=== PATIENT | male | born 1960 | race Caucasian/White ===

== ENCOUNTER 2022-11-19 15:19 | Outpatient (OUT) | payer OTHER, SELFPAY ==
[2022-11-19 16:24] LABS: Prostate Specific Antigen Dx 5.55 ng/mL (<=4.00)
== END 2022-11-19 15:20 | disposition home or self-care (01) ==
LOC: LAB 15:20
DX: R97.20 Elevated prostate specific antigen [PSA] (principal)
CPT/HCPCS: 36415; 84153

== ENCOUNTER 2023-01-23 15:16 | Outpatient (OUT) | payer OTHER, SELFPAY ==
--- NOTE | 2023-01-23 | ECG_ITS ---
The [facility] Test Date: 2023-01-23 Pat Name: SOREN OSORIO Department: Room: - Gender: Male [employer]: : [id number] Requested By: CHELO ESTRADA Order Number: [id number] Reading MD: LO MARISCAL Measurements Intervals Odd Rate: 65 P: 44 DC: 182 QRS: 72 QRSD: 134 T: 179 QT: 449 QTc: 467 Interpretive Statements SINUS RHYTHM LEFT BUNDLE BRANCH BLOCK with secondary ST/T wave changes ST/T wave changes, can't exclude inferior wall ischemia No previous ECG available for comparison Electronically Signed On 01-24-2023 7:20:55 EST by LO MARISCAL
[2023-01-23 15:48] LABS: Basophils Percent Auto 0.4 % (0.2-2.0); Eosinophils Absolute Auto 0.1 10^3/uL (0.0-0.7); Eosinophils Percent Auto 1.2 % (0.9-7.0); Hematocrit 44.6 % (42.0-54.0); Hemoglobin 14.5 g/dL (14.0-18.0); Immature Granulocytes Abs Auto 0.02 10^3/uL (0.00-0.03); Immature Granulocytes Pct Auto 0.3 % (0.0-0.5); Lymphocytes Absolute Auto 1.2 10^3/uL (1.2-3.8); Lymphocytes Percent Auto 17.3 % (20.5-60.0); Mean Corpuscular HGB Conc 32.5 g/dL (29.9-35.2); Mean Corpuscular Hemoglobin 29.4 pg (25.9-34.0); Mean Corpuscular Volume 90.5 fL (80.0-94.0); Mean Platelet Volume 9.9 fL (9.5-13.5); Monocytes Absolute Auto 0.5 10^3/uL (0.3-0.8); Monocytes Percent Auto 7.6 % (1.7-12.0); Neutrophils Percent Auto 73.2 % (43.0-75.0); Platelet Count 221 10^3/uL (150-450); Red Blood Count 4.93 10^6/uL (4.70-6.10); Red Cell Distribution Width 12.9 % (11.0-15.0); White Blood Count 6.8 10^3/uL (4.0-11.0)
[2023-01-23 16:21] LABS: Alanine Aminotransferase 66 U/L (16-63); Albumin Globulin Ratio 1.3; Albumin Level 4.3 g/dL (3.4-5.0); Alkaline Phosphatase 83 U/L (46-116); Anion Gap 12.1; Aspartate Amino Transferase 39 U/L (15-37); BUN Creatinine Ratio 31.8; Chloride 107 mmol/L (98-107); Chol HDL Ratio 2.2; Cholesterol 130 mg/dL (<=200); Estimated GFR (African America >60 (>=60); Estimated GFR (Non-African Ame >60 (>=60); Globulin 3.2 g/dL; Glucose 85 mg/dL (74-106); HDL Cholesterol 59 mg/dL (40-60); LDL Cholesterol Calculated 63.4 mg/dL; Magnesium 2.2 mg/dL (1.8-2.4); Potassium 4.1 mmol/L (3.5-5.1); Sodium 145 mmol/L (136-145); TSH W/ REFLEX FT4 0.829 (0.358-3.740); Total Protein 7.5 g/dL (6.4-8.2); Triglycerides 38 mg/dL (<=150); VLDL CHOLESTEROL 7.6 mg/dL
== END 2023-01-23 15:17 | disposition home or self-care (01) ==
LOC: CARD 15:18
DX: I51.7 Cardiomegaly (principal); Z95.1 Presence of aortocoronary bypass graft; I10 Essential (primary) hypertension; I42.2 Other hypertrophic cardiomyopathy
CPT/HCPCS: 36415; 80053; 80061; 82306; 83735; 84443; 85025; 93005

== ENCOUNTER 2023-02-14 15:13 | Outpatient (OUT) | payer OTHER, SELFPAY ==
--- OUTSIDE RECORDS SUMMARY | 2023-02-14 15:18 | XMS_ITS | CCD ---
Author Name Unknown Address [id number] [place] [address] Organization [facility] Care Team Providers Care Pediatrician/Medical Doctor Name Role Phone Rudy Thomas MD Primary Care Provider JENNIFER BROWNE Referring Unavailable RUDY THOMAS Primary Care Unavailable RUDY THOMAS Primary Care Unavailable BRETT RAMESH Referring Unavailable Unavailable Primary Care Provider Unavailabl e Thompson ACEVEDO, Rudy Grewal Primary Care Provider Hari Estrada Unavailable Josh Barrientos MD Unavailable Rudy Thomas MD Primary Care Provider RUDY THOMAS Referring Unavailable RUDY THOMAS Primary Care Unavailable RUDY THOMAS Referring Unavailable RUDY THOMAS Primary Care Unavailable RUDY THOMAS Referring Unavailable RUDY THOMAS Primary Care Unavailable RUDY THOMAS Referring Unavailable HEMERUDY AGUIRRE Primary Care Unavailable FILI ESTRADA Referring Unavailable RUDY THOMAS Primary Care Unavailable DESTIN CHARLES Referring Unavailable HEMEYERRUDY Primary Care Unavailab DESTIN Brannon Referring Unavailable HEMEYER, RUDY GREWAL Primary Care Unavailab DESTIN Brannon Referring Unavailable HEMEYERRUDY Primary Care Unavailab DESTIN Brannon Referring Unavailable HEMEYER, RUDY GREWAL [facility] Care Unavailab DESTIN Brannon Referring Unavailable HEMEYER, RUDY GREWAL [facility] Care Unavailab le UNAI, ROSEY Referring Unavailable HEMEYER, [facility] Care Unavailab le UNAI, SHINYA Referring Unavailable HEMEYER, [facility] Primary Care Unavailab le SMEDIRAJUDITS G Referring Unavailable HEMEYER, [facility] Care Unavailab DEANA Guerrier Attending Unavailable HEMEYER, [facility] Primary Care Unavailab JOSH Jang Attending Unavailable HEMEYER, [facility] Care Unavailab le UNAI, SHINYA Referring Unavailable HEMEYER, [facility] Care Unavailab le UNAI, SHINYA Referring Unavailable HEMEYER, [facility] Care Unavailab le UNAI, SHINYA Referring Unavailable HEMEYER, [facility] Care Unavailab le SMEDIRAKENNEYDESTIN G Admitting Unavailable SMEDIRA, DESTIN G Attending Unavailable HEMEYER, [facility] Primary Care Unavailab le UNAI, SHINYA Referring Unavailable HEMEYER, [facility] Care Unavailab le UNAI, SHINYA Referring Unavailable HEMEYER, [facility] Care Unavailab le SMEDIRAKENNEYDESTIN G Referring Unavailable HEMEYER, [facility] Care Unavailab le SMEDIRA DESTIN G Referring Unavailable HEMEYER, [facility] Care Unavailab le VIGESFILI CORTES Admitting Unavailable HEMEYER ., DR LOU Primary Care Unavailable VIGESAA, FILI Attending Unavailable VIGESAA, FILI Consulting Unavailable VIGESAAFILI Admitting Unavailable HEMEYER ., DR LOU Primary Care Unavailable VIGESAA, FILI Attending Unavailable VIGESAA, FILI Consulting Unavailable HEMEYER ., DR LOU Admitting Unavailable HEMEYER ., DR LOU Referring Unavailable HEMEYER ., DR LOU Attending Unavailable HEMEYER ., DR LOU Consulting Unavailable HEMEYER ., DR LOU Primary Care Unavailable HEMEYER ., DR LOU Primary Care Unavailable MISC, DR CARVER Admitting Unavailable MISC, DR CARVER Attending Unavailable MISC, DR CARVER Consulting Unavailable VIGESAAFILI Consulting Unavailable VIGESAAFILI Admitting Unavailable HEMEYER ., DR LOU Primary Care Unavailable VIGESSOPHIA, FILI Attending Unavailable HEMEYER ., DR LOU Admitting Unavailable HEMEYER ., DR LOU Attending Unavailable HEMEYER ., DR LOU Consulting Unavailable HEMEYER ., DR LOU Primary Care Unavailable VIGESAAFILI Consulting Unavailable HEMEYER ., DR LOU Primary Care Unavailable VIGESFILI CORTES Admitting Unavailable VIGESAA, FILI Attending Unavailable VIGESSOPHIA, HARI DWYER Attending Unavailab le VIGESAA, HARI DWEYR Referring Unavailab le HEMEYER, EDREBA Clay Primary Care Unavailable HEMEYER, RUDY J Primary Care Unavailable HARI ESTRADA Admitting Unavailab HARI Herrera Attending Unavailab le Medications Current Medications Medication Drug Class(es) Dates Sig (Normalized) Sig (Original) amLODIPine 10 mg oral tablet (1 source) Dihydropyridine Calcium Channel Zackery Start: 07-11-2021 take 1 tablet by mouth in the morning amLODIPine (NORVASC) 10 MG tablet Take 10 mg by mouth in the morning. 0 07/11/2021 Active Coenzyme Q10 (COQ10 PO) (7 sources) Coenzyme Q10 (COQ10 PO) Take by mouth daily Krill and Co Q10 0 Active levoFLOXacin 500 mg oral tablet (1 source) Quinolone Antimicrobial Start: 09-13-2021 End: 09-23-2021 take 1 tablet by mouth in the morning levoFLOXacin (LEVAQUIN) 500 MG tablet Take 1 tablet by mouth in the morning for 10 days. 10 tablet 0 09/13/2021 09/23/2021 Active metoprolol tartrate 50 mg oral tablet (8 sources) beta-Adrenergic Zackery Start: 04-02-2022 take 1 tablet by mouth twice daily metoprolol tartrate (LOPRESSOR) 50 MG tablet Take 1 tablet by mouth 2 times daily 180 tablet 3 04/02/2022 Active Start: 03-03-2022 End: 04-02-2022 take 1 tablet by mouth every twelve hours metoprolol tartrate, short acting, (LOPRESSOR) 50 mg tablet Take 1 tablet by mouth every 12 hours. 60 tablet 1 03/03/2022 Active take 1 tablet by carlos th once daily metoprolol succinate (TOPROL XL) 50 MG extended release tablet Take 50 mg by mouth daily 0 Active Comment on above: Take 1 tablet by carlos th every 12 hours. Misc Natural Products (GLUCOSAMINE CHOND COMPLEX/MSM PO) (7 sources) Misc Natural Products (GLUCOSAMINE CHOND COMPLEX/MSM PO) daily 0 Active NONFORMULARY (7 sources) NONFORMULARY Vitaprime-take one tablet daily 0 Active oxyCODONE hydrochloride 5 mg oral tablet (4 sources) Opioid Agonist Start: 3 End: 3 take 1 tablet by mouth every six hours as needed for pain oxyCODONE IR (ROXICODONE) 5 mg immediate release tablet Indications: Post-op pain Take 1 tablet by mouth every 6 hours as needed for pain for up to 7 days. 28 tablet 0 03/03/2022 03/10/2022 Active Comment on above: Take 1 tablet by carlos th every 6 hours as needed for pain for up to 7 days. microencapsulated potassium chloride 10 meq extended release oral tablet (5 sources) Start: End: 3 take 1 tablet by mouth once daily potassium chloride ER (K-DUR, KLOR-CON M10) 10 mEq tablet Take 1 tablet by mouth once daily for 3 days. 3 tablet 0 03/08/2022 03/11/2022 Active Comment on above: Take 1 tablet by carlos th once daily for 3 days. Completed/Discontinued Medications Medication Drug Class(es) Dates Sig (Normalized) Sig (Original) acetaminophen 500 mg oral tablet (6 sources) Start: 03-03-2022 take 500-1000 mg by mouth every six hours as needed acetaminophen (TYLENOL) 500 mg tablet Take 1-2 tablets by mouth every 6 hours as needed for pain (mild pain. Do not take more than 4 grams of acetaminophen in 24 hours.). 90 tablet 0 03/03/2022 Active Comment on above: Take 1-2 tablets by mouth every 6 hours as needed for pain (mild pain. Do not take more than 4 grams of acetaminophen in 24 hours.). ascorbic acid 1000 mg oral tablet (20 sources) Vitamin C take 1 tablet by mouth once daily Ascorbic Acid 1,000 mg tablet Take 1,000 mg by mouth once daily. 0 Active Comment on above: Take 1,000 mg by carlos th once daily. aspirin 81 mg chewable tablet (7 sources) Platelet Aggregation Inhibitor, Nonsteroidal Anti-inflammatory Drug Start: 03-04-2022 End: 04-03-2022 take 1 tablet by mouth once daily aspirin 81 mg chewable tablet Take 1 tablet by mouth once daily. 30 tablet 3 03/04/2022 Active take 1 tablet by mouth once graciela y aspirin 81 MG EC tablet Take 81 mg by mouth daily 0 Active Comment on above: Take 1 tablet by carlos th once daily. atenolol 25 mg oral tablet (12 sources) beta-Adrenergic Zackery Start: 11-30-2021 take 1 tablet by mouth once daily atenolol (TENORMIN) 25 mg tablet Take 25 mg by mouth once daily. 0 11/30/2021 Suspended Start: 11-08-2021 take 1 tablet by carlos th once daily atenolol (TENORMIN) 25 MG tablet Take 1 tablet by mouth daily 30 tablet 11 11/08/2021 Active Comment on above: Take 25 mg by mouth once daily. atorvastatin 80 mg oral tablet (7 sources) HMG-CoA Reductase Inhibitor Start: 03-03-19 End: 04-02-19 take 1 tablet by mouth once daily at bedtime atorvastatin (LIPITOR) 80 mg tablet Take 1 tablet by mouth daily at bedtime. 30 tablet 1 03/03/2022 Active Comment on above: Take 1 tablet by carlos th daily at bedtime. cholecalciferol 0.125 mg oral tablet (20 sources) Vitamin D take 2 tablets by mouth once daily cholecalciferol (VITAMIN D3) 5,000 unit tab Take 10,000 Units by mouth once daily. 0 Active Cholecalciferol (VITAMIN D-3 PO) Take by mouth daily 0 Active Comment on above: Take 10,000 Units by mouth once daily. furosemide 20 mg oral tablet (7 sources) Loop Diuretic Start: 03-04-2022 End: 03-11-2022 take 1 tablet by mouth once daily furosemide (LASIX) 20 mg tablet Take 1 tablet by mouth once daily for 3 days. 3 tablet 0 03/08/2022 Active Comment on above: Take 1 tablet by carlos th once daily for 3 days. glucosam/chond-msm1/C /janiya/bor ([id number]-HK M COMPLEX ORAL) (13 sources) take 1 tablet by mouth once daily glucosam/chond-msm1/ C/janiya/bor ([id number]-MLIQM-M SM COMPLEX ORAL) Take 1 tablet by mouth once daily. 0 Active take 1 tablet by carlos th once daily glucosam/chond-msm1/C/janiya/bor (GLUCOSAM QNV-VYZXH-OFT COMPLEX ORAL) Take 1 tablet by mouth once daily. 0 Suspended Comment on above: Take 1 tablet by carlos th once daily. losartan potassium 100 mg oral tablet (14 sources) Angiotensin 2 Receptor Zackery Start: 01-03-2022 take 1 tablet by mouth once daily losartan (COZAAR) 100 mg tablet Take 1 tablet by mouth once daily. 0 01/03/2022 Suspended Comment on above: Take 1 tablet by carlos th once daily. Magnesium (20 sources) take 250 mg by mouth once daily MAGNESIUM ORAL Take 250 mg by mouth once daily. 0 Active take 250 mg by mouth once daily MAGNESIUM ORAL Take 250 mg by mouth once daily. 0 Suspended take 1 tablet by mouth in the mo rning magnesium (MAGNESIUM-OXIDE) 250 MG TABS tablet Take 250 mg by mouth in the morning. 0 Active Comment on above: Take 250 mg by mouth once daily. melatonin 10 mg oral capsule (20 sources) take 1 capsule by mouth once daily at bedtime melatonin 10 mg cap Take 1 capsule by mouth daily at bedtime. 0 Active Melatonin 10 MG TABS Take by mouth nightly 0 Active Comment on above: Take 1 capsule by mo cox branson daily at bedtime. MULTIVITAMIN ORAL (13 sources) take 1 tablet by mouth once daily MULTIVITAMIN ORAL Take 1 tablet by mouth once daily. 0 Active take 1 tablet by mouth once graciela y MULTIVITAMIN ORAL Take 1 tablet by mouth once daily. 0 Suspended Comment on above: Take 1 tablet by carlos th once daily. mupirocin 0.02 mg/mg topical ointment (2 sources) RNA Synthetase Inhibitor Antibacterial Start: 2 mupirocin (BACTROBAN) 2 % ointment Apply a small amount in each nostril using a cotton swab twice the day before surgery and once the morning of surgery. 22 g 0 02/22/2022 Suspended Comment on above: Apply a small amount in each nostril using a cotton swab twice the day before surgery and once the morning of surgery. niacin 500 mg oral tablet (20 sources) Nicotinic Acid take 1 tablet by mouth once daily at breakfast niacin (NIACIN) 500 mg tablet Take 500 mg by mouth daily with breakfast. 0 Active take 1 capsule by mouth in the orning niacin 500 MG extended release capsule Take 500 mg by mouth in the morning. 0 Active Comment on above: Take 500 mg by mouth daily with breakfast. pantoprazole 20 mg delayed release oral tablet (6 sources) Proton Pump Inhibitor Start: 03-04-19 23 End: 03-18-19 23 take 1 tablet by mouth once daily, then take 6 tablets by mouth in the morning pantoprazole DR (PROTONIX) 20 mg tablet Take 1 tablet by mouth DAILY (6 AM) for 14 days. 14 tablet 0 03/04/2022 Active Comment on above: Take 1 tablet by carlos th DAILY (6 AM) for 14 days. polyethylene glycol 3350 34600 mg powder for oral solution (6 sources) Osmotic Laxative Start: 03-03-19 polyethylene glycol 3350 (MIRALAX, GLYCOLAX) 17 gram packet Take 1 Packet by mouth as needed for constipation. Dissolve dose in 4 - 8 ounces of liquid and take as directed. 0 03/03/2022 Active Comment on above: Take 1 Packet by carlos th as needed for constipation. Dissolve dose in 4 - 8 ounces of liquid and take as directed. QUEtiapine 25 mg oral tablet (20 sources) Atypical Antipsychotic Start: 02-01-20 16 take 1 tablet by mouth once daily at bedtime QUEtiapine (SEROQUEL) 25 mg tablet Take 1 tablet by mouth daily at bedtime. 0 02/01/2016 Active Comment on above: Take 1 tablet by carlos daily at bedtime. sertraline 50 mg oral tablet (20 sources) Serotonin Reuptake Inhibitor Start: 01-11-20 16 take 1 tablet by mouth once daily at bedtime sertraline (ZOLOFT) 50 mg tablet Take 50 mg by mouth daily at bedtime. 0 01/11/2016 Active Comment on above: Take 50 mg by mouth daily at bedtime. tamsulosin hydrochloride 0.4 mg oral capsule (6 sources) alpha-Adrenergic Zackery Start: 03-03-19 End: 03-17-19 take 1 capsule by mouth once daily at bedtime tamsulosin (FLOMAX) 0.4 mg Take 1 capsule by mouth daily at bedtime for 14 days. 14 capsule 0 03/03/2022 Active Comment on above: Take 1 capsule by mo cox branson daily at bedtime for 14 days. technetium sestamibi (CARDIOLITE) injection 10 millicurie (1 source) Start: 11-14-19 End: 11-14-19 technetium sestamibi (CARDIOLITE) injection 10 millicurie technetium sestamibi (CARDIOLITE) injection 30 millicurie (1 source) Start: 11-14-19 End: 11-14-19 technetium sestamibi (CARDIOLITE) injection 30 millicurie ubiquinol (13 sources) take 1 tablet by mouth once daily COQ10, UBIQUINOL, ORAL Take 1 tablet by mouth once daily. With Krill 0 Active take 1 tablet by mouth once graciela y COQ10, UBIQUINOL, ORAL Take 1 tablet by mouth once daily. With Krill 0 Suspended Comment on above: Take 1 tablet by carlos th once daily. With Krill Problems Active Problems Problem Classification Problem Date Documented Da te Episodic/Chronic Anxiety disorders (2 sources) Mixed anxiety and depressive disorder; Translations: [Anxiety disorder, unspecified] Onset: 02-21-2022 Chronic Chronic kidney disease (1 source) Chronic kidney disease, unspecified; Translations: [CHRONIC KIDNEY DISEASE UNSPECIFIED] Onset: 03-21-2022 Chronic Coronary atherosclerosis and other heart disease (14 sources) Coronary atherosclerosis; Translations: [Atherosclerotic heart disease of [place] coronary artery without angina pectoris] Onset: 02-21-2022 Chronic Coronary atherosclerosis and other heart disease (6 sources) Presence of aortocoronary bypass graft; Translations: [Presence of aortocoronary bypass graft] Onset: 03-08-2022 Episodic Deficiency and other anemia (1 source) Iron deficiency anemia secondary to blood loss (chronic); Translations: [IRON DEFIC ANEMIA SEC BLD LOSS CHRN] Onset: 03-21-2022 Chronic Disorders of lipid metabolism (9 sources) Hyperlipidemia; Translations: [Hyperlipidemia, unspecified] Onset: 01-17-2015 Chronic Essential hypertension (12 sources) Essential hypertension; Translations: [Essential (primary) hypertension] Onset: 01-17-2015 Chronic Heart valve disorders (6 sources) Non-rheumatic mitral regurgitation ; Translations: [Nonrheumatic mitral (valve) insufficiency] Onset: 09-12-2021 Chronic Hyperplasia of prostate (1 source) Benign prostatic hypertrophy without outflow obstruction; Translations: [Benign prostatic hyperplasia without lower urinary tract symptoms] Onset: 02-12-2018 03-12-2022 Chronic Hypertension with complications and secondary hypertension (6 sources) Hypertensive renal disease; Translations: [Hypertensive chronic kidney disease with stage 1 through stage 4 chronic kidney disease, or unspecified chronic kidney disease] Onset: 04-15-2020 03-12-2022 Chronic Mood disorders (1 source) Reactive depression (situational); Translations: [Major depressive disorder, single episode, unspecified] Onset: 01-11-2016 03-12-2022 Chronic Mood disorders (1 source) Mood disorders; Translations: [Anxiety and depression] Onset: 02-21-2022 Nutritional deficiencies (1 source) Vitamin D deficiency; Translations: [Vitamin D deficiency, unspecified] Onset: 01-17-2015 03-12-2022 Chronic Other aftercare (1 source) Surgical follow-up; Translations: [Encounter for follow-up examination after completed treatment for conditions other than malignant neoplasm] Episodic Other aftercare (1 source) Encounter for follow-up examination after completed treatment for conditions other than malignant neoplasm; Translations: [Surgery follow-up] Onset: 03-08-2022 Episodic Other and ill-defined heart disease (2 sources) Atrial dilatation; Translations: [Cardiomegaly] Chronic Other and ill-defined heart disease (2 sources) Cardiomegaly; Translations: [Cardiomegaly] Onset: 11-13-2021 Chronic Other lower respiratory disease (1 source) Dyspnea; Translations: [Shortness of breath] Episodic Zeynep-; endo-; and myocarditis; cardiomyopathy (except that caused by tuberculosis or sexually transmitted disease) (20 sources) Hypertrophic cardiomyopathy; Translations: [Other hypertrophic cardiomyopathy] Onset: 11-13-2021 Chronic Residual codes; unclassified (1 source) Sleep dysfunction with arousal disturbance; Translations: [Other sleep disorders] Onset: 01-11-2016 03-12-2022 Chronic Residual codes; unclassified (1 source) H/O cardiac surgery; Translations: [Other specified postprocedural states] Episodic Residual codes; unclassified (1 source) Other specified postprocedural states; Translations: [S/P ventricular septal myectomy] Onset: 03-08-2022 Episodic Unclassified (3 sources) No additional problems on file Past or Other Problems Problem Classification Problem Date Documented Date Episodic/Chronic Administrative/social admission (16 sources) Discharge status; Translations: [Encounter for administrative examinations, unspecified] Onset: 02-22-2022 02-22-2022 Episodic Diabetes mellitus without complication (8 sources) Metabolic stress hyperglycemia; Translations: [Hyperglycemia, unspecified] Onset: 02-27-2022 02-28-2022 Episodic Genitourinary symptoms and ill-defined conditions (3 sources) Nocturia; Translations: [Nocturia] Onset: 02-14-2015 Episodic Heart valve disorders (7 sources) Heart murmur; Translations: [Cardiac murmur, unspecified] Onset: 09-11-2021 Episodic Other lower respiratory disease (1 source) Shortness of breath; Translations: [SOB (shortness of breath)] Onset: 02-21-2022 Episodic Other nervous system disorders (8 sources) Postoperative pain ; Translations: [Other acute postprocedural pain] Onset: 02-27-2022 02-28-2022 Episodic Other nervous system disorders (1 source) Other acute postprocedural pain; Translations: [Post-op pain] Onset: 02-27-2022 Episodic Other screening for suspected conditions (not mental disorders or infectious disease) (4 sources) Raised prostate specific antigen; Translations: [Elevated prostate specific antigen [PSA]] Onset: 10-10-2021 Episodic Pleurisy; pneumothorax; pulmonary collapse (7 sources) Atelectasis; Translations: [Atelectasis] Onset: 02-28-2022 03-02-2022 Episodic Residual codes; unclassified (1 source) Insomnia; Translations: [Insomnia, unspecified] Onset: 01-11-2016 03-12-2022 Episodic Results Test Name Value Interpretation Reference Range Facility CBC AUTO DIFFon 06-19-2022 BASO # 0.0 103/ul Normal 0.0-0.1 [facility] Comment on above: Performed By: #### C BC #### [facility] [address] [place] [address] Dr. Mel Ramirez Basophils/100 WBC (Bld) 0.3 % Normal 0.2-2.0 [facility] Comment on above: Performed By: #### C BC #### [facility] [address] [place] [address] Dr. Mel Ramirez EO # 0.1 103/ul Normal 0.0-0.7 [facility] Comment on above: Performed By: #### C BC #### [facility] [address] [place] [address] Dr. Mel Ramirez Eosinophils/100 WBC (Bld) 1.9 % Normal 0.9-7.0 [facility] Comment on above: Performed By: #### C BC #### [facility] [address] [place] [address] Dr. Mel Ramirez Erythrocyte distribution width (RBC) [Ratio] 14.6 % Normal 11.0-15.0 [facility] Comment on above: Performed By: #### C BC #### [facility] [address] [place] [address] Dr. Mel Ramirez Hematocrit (Bld) [Volume fraction] 44.8 % Normal 42.0-54.0 [facility] Comment on above: Performed By: #### C BC #### [facility] [address] [place] [address] Dr. Mel Ramirez Hemoglobin (Bld) [Mass/Vol] 14.4 g/dL Normal 14.0-18.0 [facility] Comment on above: Performed By: #### C BC #### [facility] [address] [place] [address] Dr. Mel Ramirez IG # 0.01 10e3/ul Normal 0.00-0.03 [facility] Comment on above: Performed By: #### C BC #### [facility] [address] [place] [address] Dr. Mel Ramirez IG % 0.2 % Normal 0.0-0.5 [facility] Comment on above: Performed By: #### C BC #### [facility] [address] [place] [address] Dr. Mel Ramirez LYMPH # 1.5 103/ul Normal 1.2-3.8 [facility] Comment on above: Performed By: #### C BC #### [facility] [address] [place] [address] Dr. Mel Ramirez Lymphocytes/100 WBC (Bld) 26.6 % Normal 20.5-60.0 [facility] Comment on above: Performed By: #### C BC #### [facility] [address] [place] [address] Dr. Mel Ramirez MANUAL DIFF REQ NO Normal [facility] Comment on above: Performed By: #### C BC #### [facility] [address] [place] [address] Dr. Mel Ramirez MCH (RBC) [Entitic mass] 26.9 pg Normal 25.9-34.0 [facility] Comment on above: Performed By: #### C BC #### [facility] [address] [address] [address] Mel Ramirez MCHC (RBC) [Mass/Vol] 32.1 g/dL Normal 29.9-35.2 [facility] Comment on above: Performed By: #### C BC #### [facility] [address] [address] [address] Mel Ramirez MCV (RBC) [Entitic vol] 83.6 fL Normal 80.0-94.0 [facility] Comment on above: Performed By: #### C BC #### [facility] [address] [place] [address] Dr. Mel Ramirez MONO # 0.5 103/ul Normal 0.3-0.8 [facility] Comment on above: Performed By: #### C BC #### [facility] [address] [place] [address] Dr. Mel Ramirez Monocytes/100 WBC (Bld) 8.8 % Normal 1.7-12.0 [facility] Comment on above: Performed By: #### C BC #### [facility] [address] [place] [address] Dr. Mel Ramirez NEUT # 3.6 103/ul Normal 1.4-6.5 [facility] Comment on above: Performed By: #### C BC #### [facility] [address] [place] [address] Dr. Mel Ramirez Neutrophils/100 WBC (Bld) 62.2 % Normal 43.0-75.0 [facility] Comment on above: Performed By: #### C BC #### [facility] [address] [address] [address] Mel Ramirez Platelet mean volume (Bld) [Entitic vol] 9.8 fL Normal 9.5-13.5 [facility] Comment on above: Performed By: #### C BC #### [facility] [address] [place] [address] Dr. Mel Ramirez PLT 241 103/ul Normal 150-450 [facility] Comment on above: Performed By: #### C BC #### [facility] [address] [address] [address] Mel Ramirez RBC 5.36 106/ul Normal 4.70-6.10 [facility] Comment on above: Performed By: #### C BC #### [facility] [address] [address] [address] Mel Ramirez WBC 5.8 103/ul Normal 4.0-11.0 [facility] Comment on above: Performed By: #### C BC #### [facility] [address] [address] [address] Mel Ramirez LIPID PROFILEon 06-19-2022 CHOL-HDL RATIO NORM SEE BELOW Normal [facility] Comment on above: Result Comment: 3.3 - 4.4 LOW RISK 4.4 - 7.1 AVERAGE RISK 7.1 - 11.0 MODERATE RISK >11.0 HIGH RISK Performed By: #### T SHRFT4, MG, CMP, LIPID ####[facility] [address] [address]Dr. Mel Ramirez Cholesterol [Mass/Vol] 130 mg/dL Normal <=200 [facility] Comment on above: Performed By: #### T SHRFT4, MG, CMP, LIPID ####[facility] [address] [address]Dr. Mel Ramirez Cholesterol in HDL [Mass/Vol] 64 mg/dL Critically high 40-60 [facility] Comment on above: Performed By: #### T SHRFT4, MG, CMP, LIPID ####[facility] [address] [address]Dr. Mel Ramirez Cholesterol in LDL [Mass/Vol] 57.2 mg/dL Normal [facility] Comment on above: Performed By: #### T SHRFT4, MG, CMP, LIPID ####[facility] [address] [address]Dr. Mel Ramirez Cholesterol.total/Ch olesterol in HDL [Mass ratio] 2.0 {ratio} Normal [facility] Comment on above: Performed By: #### T SHRFT4, MG, CMP, LIPID ####[facility] [address] [id number]. Mel Ramirez HDL NORMAL > or = 60 mg/dl - LO W CARDIOVASCULAR RISK <40 mg/dl - HIGH CARDIOVASCULAR RISK Normal [facility] Comment on above: Performed By: #### T SHRFT4, MG, CMP, LIPID ####[facility] [address] [address]Dr. Mel Ramirez LDL CALC NORMAL SEE BELOW Normal [facility] Comment on above: Result Comment: <100 mg/dl OPTIMAL 100 - 129 mg/dl NEAR OR ABOVE OPTIMAL 130 - 159 mg/dl BORDERLINE HIGH 160 - 189 mg/dl HIGH >190 mg/dl VERY HIGH Performed By: #### T SHRFT4, MG, CMP, LIPID ####[facility] [address] [address]Dr. Mel Ramirez Triglyceride [Mass/Vol] 44 mg/dL Normal <=150 [facility] Comment on above: Performed By: #### T SHRFT4, MG, CMP, LIPID ####[facility] [address] [address]Dr. Mel Ramirez VLDL CALC 8.8 mg/dL Normal [facility] Comment on above: Performed By: #### T SHRFT4, MG, CMP, LIPID ####[facility] [address] [address]Dr. Mel Ramirez MAGNESIUMon 06-19-2022 Magnesium [Mass/Vol] 1.8 mg/dL Normal 1.8-2.4 [facility] Comment on above: Performed By: #### T SHRFT4, MG, CMP, LIPID ####[facility] [address] [address]Dr. Mel Ramirez PROF 14(COMP METB)on 023 Albumin [Mass/Vol] 4.1 g/dL Normal 3.4-5.0 [facility] Comment on above: Performed By: #### T SHRFT4, MG, CMP, LIPID ####[facility] [address] [address]Dr. Mel Ramirez Albumin/Globulin [Mass ratio] 1.2 {ratio} Normal [facility] Comment on above: Performed By: #### T SHRFT4, MG, CMP, LIPID ####[facility] [address] [address]Dr. Mel Ramirez ALP [Catalytic activity/Vol] 88 U/L Normal 46-116 [facility] Comment on above: Performed By: #### T SHRFT4, MG, CMP, LIPID ####[facility] [address] [address]Dr. Mel Ramirez ALT [Catalytic activity/Vol] 64 U/L Critically high 16-63 [facility] Comment on above: Performed By: #### T SHRFT4, MG, CMP, LIPID ####[facility] [address] [address]Dr. Mel Ramirez Anion gap [Moles/Vol] 13.0 mmol/L Normal [facility] Comment on above: Performed By: #### T SHRFT4, MG, CMP, LIPID ####[facility] [address] [place], [place] [address]Dr. Mel Ramirez AST [Catalytic activity/Vol] 32 U/L Normal 15-37 [facility] Comment on above: Performed By: #### T SHRFT4, MG, CMP, LIPID ####[facility] [address] [address]Dr. Mel Ramirez Bilirubin [Mass/Vol] 0.6 mg/dL Normal 0.2-1.0 [facility] Comment on above: Performed By: #### T SHRFT4, MG, CMP, LIPID ####[facility] [address] [address]Dr. Mel Ramirez Calcium [Mass/Vol] 9.3 mg/dL Normal 8.5-10.1 [facility] Comment on above: Performed By: #### T SHRFT4, MG, CMP, LIPID ####[facility] [address] [address]Dr. Mel Ramirez Chloride [Moles/Vol] 105 mmol/L Normal 98-107 [facility] Comment on above: Performed By: #### T SHRFT4, MG, CMP, LIPID ####[facility] [address] [address]Dr. Mel Ramirez CO2 [Moles/Vol] 29.1 mmol/L Normal 21.0-32.0 [facility] Comment on above: Performed By: #### T SHRFT4, MG, CMP, LIPID ####[facility] [address] [address]Dr. Mel Ramirez Creatinine [Mass/Vol] 0.86 mg/dL Normal 0.70-1.30 [facility] Comment on above: Performed By: #### T SHRFT4, MG, CMP, LIPID ####[facility] [address] [address]Dr. Mel Ramirez EGFR-AF HONDURAN >60 Normal >=60 [facility] Comment on above: Performed By: #### T SHRFT4, MG, CMP, LIPID ####[facility] [address] [place], [place] [address]Dr. Mel Ramirez EGFR-NON AF HONDURAN >60 Normal >=60 [facility] Comment on above: Performed By: #### T SHRFT4, MG, CMP, LIPID ####[facility] [address] [address]Dr. Mel Ramirez Globulin (S) [Mass/Vol] 3.4 g/dL Normal [facility] Comment on above: Performed By: #### T SHRFT4, MG, CMP, LIPID ####[facility] [address] [address]Dr. Mel Ramirez Glucose [Mass/Vol] 86 mg/dL Normal 74-106 [facility] Comment on above: Performed By: #### T SHRFT4, MG, CMP, LIPID ####[facility] [address] [address]Dr. Mel Ramirez Potassium [Moles/Vol] 4.1 mmol/L Normal 3.5-5.1 [facility] Comment on above: Performed By: #### T SHRFT4, MG, CMP, LIPID ####[facility] [address] [phone]. Mel Ramirez Protein [Mass/Vol] 7.5 g/dL Normal 6.4-8.2 [facility] Comment on above: Performed By: #### T SHRFT4, MG, CMP, LIPID ####[facility] [address] [address]Dr. Mel Ramirez Sodium [Moles/Vol] 143 mmol/L Normal 136-145 [facility] Comment on above: Performed By: #### T SHRFT4, MG, CMP, LIPID ####[facility] [address] [address]Dr. Mel Ramirez Urea nitrogen [Mass/Vol] 19.0 mg/dL Critically high 7.0-18.0 [facility] Comment on above: Performed By: #### T SHRFT4, MG, CMP, LIPID ####[facility] [address] [address]Dr. Mel Ramirez Urea nitrogen/Creatinine [Mass ratio] 22.1 mg/mg Normal [facility] Comment on above: Performed By: #### T SHRFT4, MG, CMP, LIPID ####[facility] [address] [address]Dr. Mel Ramirez TSH W/ REFLEX TO FT4on 06-19 TSH 1.231 uIU/mL Normal 0.358-3.740 [facility] Comment on above: Performed By: #### T SHRFT4, MG, CMP, LIPID ####[facility] [address] [address]Dr. Mel Ramirez Comp Metabolic Profon 2022 Albumin [Mass/Vol] 4.4 g/dL Normal 3.5-5.2 [facility] Comment on above: Performed By: #### H H, ZFAST, CP, MG, TSHX #### [facility] [address] [place] [address] [employer] Machine Operator: Kareem Vance MD #### LIPR #### [facility] [address] [place] [address] Granulator Machine Operator: Jake Stone MD Alkaline Phos 99 U/L Normal 40-129 [facility] Comment on above: Performed By: #### H H, ZFAST, CP, MG, TSHX #### [facility] [address] [place] [address] [employer] Machine Operator: Kareem Vance MD #### LIPR #### [address] [address] Granulator Machine Operator: Jake Stone MD ALT [Catalytic activity/Vol] 38 U/L Normal 5-41 [facility] Comment on above: Performed By: #### H H, ZFAST, CP, MG, TSHX #### [facility] [address] [place], [place] [id number] [employer] Machine Operator: Kareem Vance MD #### LIPR #### [address] [address] Granulator Machine Operator: Jake Stone MD Anion gap [Moles/Vol] 9 mmol/L Normal 9-17 [facility] Comment on above: Performed By: #### H H, ZFAST, CP, MG, TSHX #### [facility] [address] [place], [place] [id number] [employer] Machine Operator: Kareem Vance MD #### LIPR #### [address] [address] Granulator Machine Operator: Jake Stone MD AST [Catalytic activity/Vol] 31 U/L Normal <40 [facility] Comment on above: Performed By: #### H H, ZFAST, CP, MG, TSHX #### [facility] [address] [place] [address] [employer]ulator Machine Operator: Kareem Vance MD #### LIPR #### [address] [place] [id number] Granulator Machine Operator: Jake Stone MD Bilirubin [Mass/Vol] 0.5 mg/dL Normal 0.3-1.2 [facility] Comment on above: Performed By: #### H H, ZFAST, CP, MG, TSHX #### [facility] [address] [place], [place] [id number] [employer]ulator Machine Operator: Kareem Vance MD #### LIPR #### [address] [id number] Granulator Machine Operator: Jake Stone MD BUN/CRE Ratio 23 High 9-20 [facility] Comment on above: Performed By: #### H H, ZFAST, CP, MG, TSHX #### [facility] [address] [place], [place] [id number] [employer]ulator Machine Operator: Kareem Vance MD #### LIPR #### [address] [address] Granulator Machine Operator: Jake Stone MD Calcium [Mass/Vol] 9.4 mg/dL Normal 8.6-10.4 [facility] Comment on above: Performed By: #### H H, ZFAST, CP, MG, TSHX #### [facility] [address] [place], [place] [id number] Granulator Machine Operator: Kareem Vance MD #### LIPR #### [address] [address] Granulator Machine Operator: Jake Stone MD Chloride [Moles/Vol] 104 mmol/L Normal 98-107 [facility] Comment on above: Performed By: #### H H, ZFAST, CP, MG, TSHX #### [facility] [address] [place], [place] [id number] [employer]ulator Machine Operator: Kareem Vance MD #### LIPR #### [address] [place] [address] Granulator Machine Operator: Jake Stone MD CO2 [Moles/Vol] 28 mmol/L Normal 20-31 [facility] Comment on above: Performed By: #### H H, ZFAST, CP, MG, TSHX #### [facility] [address] [place] [address] [employer]ulator Machine Operator: Kareem Vance MD #### LIPR #### [facility] [address] [place] [address] Granulator Machine Operator: Jake Stone MD Creatinine [Mass/Vol] 0.69 mg/dL Low 0.70-1.20 [facility] Comment on above: Performed By: #### H H, ZFAST, CP, MG, TSHX #### [facility] [address] [place], [place] 1725190 [employer]ulator Machine Operator: Kareem Vance MD #### LIPR #### [address] [address] Granulator Machine Operator: Jake Stone MD GFR/1.73 sq M.predicted among non-blacks MDRD (S/P/Bld) [Vol rate/Area] mL/min/{1.73_m2} Normal >60 [facility] Comment on above: Result Comment: These results are not intended for use in patients <18 years of age. eGFR results are calculated without a race factor using the 2020 CKD-EPI equation. Careful clinical correlation is recommended, particularly when comparing to results calculated using previous equations. The CKD-EPI equation is less accurate in patients with extremes of muscle mass, extra-renal metabolism of creatine, excessive creatine ingestion, or following therapy that affects renal tubular secretion. Performed By: #### H H, ZFAST, CP, MG, TSHX #### [facility] [address] [place], [place] [id number] Granulator Machine Operator: Kareem Vance MD #### LIPR #### [address] [phone] Granulator Machine Operator: Jake Stone MD Glucose [Mass/Vol] 98 mg/dL Normal 70-99 [facility] Comment on above: Performed By: #### H H, ZFAST, CP, MG, TSHX #### [facility] [address] [place], [place] [id number] Granulator Machine Operator: Kareem Vance MD #### LIPR #### [address] [phone] Granulator Machine Operator: Jake Stone MD Potassium [Moles/Vol] 4.6 mmol/L Normal 3.7-5.3 [facility] Comment on above: Performed By: #### H H, ZFAST, CP, MG, TSHX #### [facility] [address] [place], [place] [id number] Granulator Machine Operator: Kareem Vance MD #### LIPR #### [address] [address] Granulator Machine Operator: Jake Stone MD Protein [Mass/Vol] 7.0 g/dL Normal 6.4-8.3 [facility] Comment on above: Performed By: #### H H, ZFAST, CP, MG, TSHX #### [facility] [address] [place], [place] [id number] [employer]ulator Machine Operator: Kareem Vance MD #### LIPR #### [address] [address] Granulator Machine Operator: Jake Stone MD Sodium [Moles/Vol] 141 mmol/L Normal 135-144 [facility] Comment on above: Performed By: #### H H, ZFAST, CP, MG, TSHX #### [facility] [address] [place], [place] [id number] Granulator Machine Operator: Kareem Vance MD #### LIPR #### [address] [place] 1900808 Granulator Machine Operator: Jake Stone MD Urea nitrogen [Mass/Vol] 16 mg/dL Normal 6-20 [facility] Comment on above: Performed By: #### H H, ZFAST, CP, MG, TSHX #### [facility] [address] [place] [address] Granulator Machine Operator: Kareem Vance MD #### LIPR #### [facility] [address] [place], [place] [id number] Granulator Machine Operator: Jake Stone MD Comprehensive Metabolic Pane [facility] 04-11-2022 Albumin [Mass/Vol] 4.4 g/dL 3.5 - 5.2 g/dL [facility] ALP [Catalytic activity/Vol] 99 U/L 40 - 129 U/L [facility] ALT [Catalytic activity/Vol] 38 U/L 5 - 41 U/L [facility] Anion gap [Moles/Vol] 9 mmol/L 9 - 17 mmol/L [facility] AST [Catalytic activity/Vol] 31 U/L NINF - 40 U/L [facility] Bilirubin [Mass/Vol] 0.5 mg/dL 0.3 - 1 .2 mg/dL [facility] Calcium [Mass/Vol] 9.4 mg/dL 8.6 - 10. 4 mg/dL [facility] Chloride [Moles/Vol] 104 mmol/L 98 - 10 7 mmol/L [facility] CO2 [Moles/Vol] 28 mmol/L 20 - 31 mmol/L [facility] Creatinine [Mass/Vol] 0.69 mg/dL Low 0.70 - 1.20 mg/dL [facility] GFR/1.73 sq M.predicted MDRD (S/P/Bld) [Vol rate/Area] - PINF [facility] Comment on above: These results are not intended for use in patients <18 years of age. eGFR results are calculated without a race factor using the 2020 CKD-EPI equation. Careful clinical correlation is recommended, particularly when comparing to results calculated using previous equations. The CKD-EPI equation is less accurate in patients with extremes of muscle mass, extra-renal metabolism of creatine, excessive creatine ingestion, or following therapy that affects renal tubular secretion. Glucose [Mass/Vol] 98 mg/dL 70 - 99 mg/dL [facility] Interpretation and review of laboratory results Abnormal [facility] Potassium [Moles/Vol] 4.6 mmol/L 3.7 - 5.3 mmol/L [facility] Protein [Mass/Vol] 7.0 g/dL 6.4 - 8.3 g/dL [facility] Sodium [Moles/Vol] 141 mmol/L 135 - 144 mmol/L [facility] Urea nitrogen [Mass/Vol] 16 mg/dL 6 - 20 mg/dL [facility] Urea nitrogen/Creatinine (Bld) [Mass ratio] 23 High 9 - 20 [facility] Hemoglobin and Hematocriton 04-11-2022 Hematocrit (Bld) [Volume fraction] 41.8 % 41 - 53 % [facility] Hemoglobin (Bld) [Mass/Vol] 13.9 g/dL 13.5 - 17.5 g/dL [facility] Hgb/Hcton 04-11-2022 Hematocrit (Bld) [Volume fraction] 41.8 % Normal 41-53 [facility] Comment on above: Performed By: #### H H, ZFAST, CP, MG, TSHX #### [facility] [address] [address] Granulator Machine Operator: Kareem Vance MD #### LIPR #### [facility] [employer] [address] [place] [id number] Granulator Machine Operator: Jake Stone MD Hemoglobin (Bld) [Mass/Vol] 13.9 g/dL Normal 13.5-17.5 [facility] Comment on above: Performed By: #### H H, ZFAST, CP, MG, TSHX #### [facility] [address] [place] [address] Granulator Machine Operator: Kareem Vance MD #### LIPR #### [facility] [employer] [address] [place], [place] [id number] Granulator Machine Operator: Jake Stone MD Lipid Panelon 04-11-2022 Cholesterol [Mass/Vol] 104 mg/dL NINF - 200 mg/dL [facility] Comment on above: Cholesterol Guidelines: <200 Desirable 200-240 Borderline >240 Undesirable Cholesterol in HDL [Mass/Vol] 46 mg/dL 40 - PINF mg/dL [facility] Comment on above: HDL Guidelines: <40 Undesirable 40-59 Borderline >59 Desirable Cholesterol in LDL [Mass/Vol] 51 mg/dL 0 - 130 mg/dL [facility] Comment on above: LDL Guidelines: <100 Desirable 100-129 Near to/above Desirable 130-159 Borderline >159 Undesirable Direct (measured) LDL and calculated LDL are not interchangeable tests. Cholesterol.total/Ch olesterol in HDL [Mass ratio] 2.3 {ratio} NINF - 5 [facility] Triglyceride [Mass/Vol] 35 mg/dL NINF - 150 mg/dL [facility] Comment on above: Triglyceride Guidelines: <150 Desirable 150-199 Borderline 200-499 High >499 Very high Based on AHA Guidelines for fasting triglyceride, November 2011. [facility] Lipid Profileon 04-11-2022 Cholesterol [Mass/Vol] 104 mg/dL Normal <200 [facility] Comment on above: Result Comment: Cholesterol Guidelines: <200 Desirable 200-240 Borderline >240 Undesirable Performed By: #### H H, ZFAST, CP, MG, TSHX #### [facility] [address] [place] [address] Granulator Machine Operator: Kareem Vance MD #### LIPR #### [facility] [address] [place], [place] [phone] Granulator Machine Operator: Jake Stone MD Cholesterol in HDL [Mass/Vol] 46 mg/dL Normal >40 [facility] Comment on above: Result Comment: HDL Guidelines: <40 Undesirable 40-59 Borderline >59 Desirable Performed By: #### H H, ZFAST, CP, MG, TSHX #### [facility] [address] [place], [place] [phone] Granulator Machine Operator: Kareem Vance MD #### LIPR #### [address] [phone] Granulator Machine Operator: Jake Stone MD Cholesterol in LDL [Mass/Vol] 51 mg/dL Normal 0-130 [facility] Comment on above: Result Comment: LDL Guidelines: <100 Desirable 100-129 Near to/above Desirable 130-159 Borderline >159 Undesirable Direct (measured) LDL and calculated LDL are not interchangeable tests. Performed By: #### H H, ZFAST, CP, MG, TSHX #### [facility] [address] [place] [address] Granulator Machine Operator: Kareem Vance MD #### LIPR #### [address] [id number] Granulator Machine Operator: Jake Stone MD Cholesterol.total/Ch olesterol in HDL [Mass ratio] 2.3 {ratio} Normal <5 [facility] Comment on above: Performed By: #### H H, ZFAST, CP, MG, TSHX #### [facility] [address] [place] [address] Granulator Machine Operator: Kareem Vance MD #### LIPR #### [address] [id number] Granulator Machine Operator: Jake Stone MD Triglyceride [Mass/Vol] 35 mg/dL Normal <150 [facility] Comment on above: Result Comment: Triglyceride Guidelines: <150 Desirable 150-199 Borderline 200-499 High >499 Very high Based on AHA Guidelines for fasting triglyceride, November 2011. Performed By: #### H H, ZFAST, CP, MG, TSHX #### [facility] [address] [place], [place] [id number] Granulator Machine Operator: Kareem Vance MD #### LIPR #### [address] [phone] Granulator Machine Operator: Jake Stone MD Magnesiumon 04-11-2022 Magnesium [Mass/Vol] 2.2 mg/dL Normal 1.6-2.6 [facility] Comment on above: Performed By: #### H H, ZFAST, CP, MG, TSHX #### [facility] [address] [place] [address] Granulator Machine Operator: Kareem Vance MD #### LIPR #### [facility] [employer] [facility] [place], [place] [id number] Granulator Machine Operator: Jake Stone MD Magnesium [Mass/Vol] 2.2 mg/dL 1.6 - 2 .6 mg/dL [facility] No Panel Informationon 04-11 [facility] Patient Fasting?on 3 Patient Fasting? YES [facility] Patient fasting?on 3 Patient fasting? YES [facility] Comment on above: Performed By: #### H H, ZFAST, CP, MG, TSHX #### [facility] [address] [place] [address] Granulator Machine Operator: Kareem Vance MD #### LIPR #### [address] [id number] Granulator Machine Operator: Jake Stone MD TSH w/reflex to FT4on 2022 Thyroid Stim. Horm. 1.45 uIU/mL Normal 0.30-5.00 [facility] Comment on above: Performed By: #### H H, ZFAST, CP, MG, TSHX #### [facility] [address] [place] [address] Granulator Machine Operator: Kareem Vance MD #### LIPR #### [address] [place], [place] 0757208 Granulator Machine Operator: Jake Stone MD TSH with Reflexon 04-11-2022 TSH Qn 1.45 m[IU]/L [facility] CBC AUTO DIFFon 03-16-2022 BASO # 0.0 103/ul Normal 0.0-0.1 [facility] Comment on above: Performed By: #### C BC ####[facility] [address] [id number]. Mel Ramirez Basophils/100 WBC (Bld) 0.8 % Normal 0.2-2.0 [facility] Comment on above: Performed By: #### C BC ####[facility] [address] [address]Dr. Mel Ramirez EO # 0.6 103/ul Normal 0.0-0.7 [facility] Comment on above: Performed By: #### C BC ####[facility] [address] [address]Dr. Mel Ramirez Eosinophils/100 WBC (Bld) 11.8 % Critically high 0.9-7.0 [facility] Comment on above: Performed By: #### C BC ####[facility] Z[address]qkcwxwkp[address] [place] [address]Dr. Mel Ramirez Erythrocyte distribution width (RBC) [Ratio] 13.3 % Normal 11.0-15.0 [facility] Comment on above: Performed By: #### C BC ####[facility] Rgpnsgkzjz0623 [place] [id number]. Mel Ramirez Hematocrit (Bld) [Volume fraction] 32.9 % Critically low 42.0-54.0 [facility] Comment on above: Performed By: #### C BC ####[facility] Wxuwfrmvmc1939 [place] [id number]. Mel Ramirez Hemoglobin (Bld) [Mass/Vol] 11.7 g/dL Critically low 14.0-18.0 [facility] Comment on above: Performed By: #### C BC ####[facility] Aoxtxirwdy7193 [place] [phone]. Mel Ramirez IG # 0.01 10e3/ul Normal 0.00-0.03 [facility] Comment on above: Performed By: #### C BC ####[facility] Ianzcetzag9506 [place] [address]Dr. Mel Ramirez IG % 0.2 % Normal 0.0-0.5 [facility] Comment on above: Performed By: #### C BC ####[facility] Nqivndsmjh0888 [place] [phone]. Mel Ramirez LYMPH # 1.2 103/ul Normal 1.2-3.8 [facility] Comment on above: Performed By: #### C BC ####[facility] Aonttjeylz5174 [place] [address]Dr. Mel Ramirez Lymphocytes/100 WBC (Bld) 22.5 % Normal 20.5-60.0 [facility] Comment on above: Performed By: #### C BC ####[facility] Vnahdgkfmq[address] [place], [place] [address]Dr. Mel Ramirez MANUAL DIFF REQ NO Normal [facility] Comment on above: Performed By: #### C BC ####[facility] Ujuqcjeoov8788 [place] [phone]. Mel Ramirez MCH (RBC) [Entitic mass] 28.2 pg Normal 25.9-34.0 [facility] Comment on above: Performed By: #### C BC ####[facility] Xufphdejph1984 [place] [address]Dr. Mel Ramirez MCHC (RBC) [Mass/Vol] 35.6 g/dL Critically high 29.9-35.2 [facility] Comment on above: Performed By: #### C BC ####[facility] Pljggzhqqj3991 [place] [phone]. Mel Ramirez MCV (RBC) [Entitic vol] 79.3 fL Critically low 80.0-94.0 [facility] Comment on above: Performed By: #### C BC ####[facility] Mor[address]yftuwc[address] [place], [place] [address]DrRadha Ramirez MONO # 0.5 103/ul Normal 0.3-0.8 [facility] Comment on above: Performed By: #### C BC ####[facility] Ystepuzaqm0810 [place], [place] [address]Aa. Mel Ramirez Monocytes/100 WBC (Bld) 10.2 % Normal 1.7-12.0 [facility] Comment on above: Performed By: #### C BC ####[facility] Qxubvfndug6438 [place], [place] [address]Bw. Mel Ramirez NEUT # 2.8 103/ul Normal 1.4-6.5 [facility] Comment on above: Performed By: #### C BC ####[facility] Sqinxqwqnk4444 [place] [phone]. Mel Ramirez Neutrophils/100 WBC (Bld) 54.5 % Normal 43.0-75.0 [facility] Comment on above: Performed By: #### C BC ####[facility] Bofevjurdl2877 [place] [phone]. Mel Ramirez Platelet mean volume (Bld) [Entitic vol] 8.4 fL Critically low 9.5-13.5 [facility] Comment on above: Performed By: #### C BC ####[facility] Hbicgwcsmu4812 [place] [phone]. Mel Ramirez PLT 416 103/ul Normal 150-450 [facility] Comment on above: Performed By: #### C BC ####[facility] Jsyspqeoft9735 [place] [phone]. Mel Ramirez RBC 4.15 106/ul Critically low 4.70-6.10 [facility] Comment on above: Performed By: #### C BC ####[facility] Dnlfilauwm4520 [place] [phone]. Mel Ramirez WBC 5.2 103/ul Normal 4.0-11.0 [facility] Comment on above: Performed By: #### C BC ####[facility] Fcdxhgpfoe8849 [place] [phone]. Mel Ramirez LIPID PROFILEon 03-16-2022 CHOL-HDL RATIO NORM SEE BELOW Normal [facility] Comment on above: Result Comment: 3.3 - 4.4 LOW RISK 4.4 - 7.1 AVERAGE RISK 7.1 - 11.0 MODERATE RISK >11.0 HIGH RISK Performed By: #### L IPID, CMP ####[facility] Kzobnxqkvx4001 [place] [phone]. Mel Ramirez Cholesterol [Mass/Vol] 144 mg/dL Normal <=200 [facility] Comment on above: Performed By: #### L IPID, CMP ####[facility] Wuhhawbyjv3928 [place] [phone]. Mel Ramirez Cholesterol in HDL [Mass/Vol] 54 mg/dL Normal 40-60 [facility] Comment on above: Performed By: #### L IPID, CMP ####[facility] Fheiyjshqh2293 [place] [address]Dr. Mel Ramirez Cholesterol in LDL [Mass/Vol] 78.0 mg/dL Normal [facility] Comment on above: Performed By: #### L IPID, CMP ####[facility] Rscppicwz[address] [place], [place] [address]Dr. Mel Ramirez Cholesterol.total/Ch olesterol in HDL [Mass ratio] 2.7 {ratio} Normal [facility] Comment on above: Performed By: #### L IPID, CMP ####[facility] Gryopuleqy4619 [place] [phone]. Mirthalan Ramirez HDL NORMAL > or = 60 mg/dl - LO W CARDIOVASCULAR RISK <40 mg/dl - HIGH CARDIOVASCULAR RISK Normal [facility] Comment on above: Performed By: #### L IPID, CMP ####[facility] Mkybwjukqt8279 [place] [phone]. Mel Ramirez LDL CALC NORMAL SEE BELOW Normal [facility] Comment on above: Result Comment: <100 mg/dl OPTIMAL 100 - 129 mg/dl NEAR OR ABOVE OPTIMAL 130 - 159 mg/dl BORDERLINE HIGH 160 - 189 mg/dl HIGH >190 mg/dl VERY HIGH Performed By: #### L IPID, CMP ####[facility] Axygnvofrj9538 [place] [phone]. Mirthalan Ramirez Triglyceride [Mass/Vol] 60 mg/dL Normal <=150 [facility] Comment on above: Performed By: #### L IPID, CMP ####[facility] Cvhdcbrcoi3746 [place] [address]Dr. Mel Ramirez VLDL CALC 12.0 mg/dL Normal [facility] Comment on above: Performed By: #### L IPID, CMP ####[facility] Omyobhdvdo0638 [place] [address]Dr. Mel Ramirez PROF 14(COMP METB)on 023 Albumin [Mass/Vol] 3.9 g/dL Normal 3.4-5.0 [facility] Comment on above: Performed By: #### L IPID, CMP ####[facility] [address]qebkygll[address] [place], [place] [address]Dr. Mel Ramirez Albumin/Globulin [Mass ratio] 1.1 {ratio} Normal [facility] Comment on above: Performed By: #### L IPID, CMP ####[facility] Xhxvcinlgt[address] [place], [place] [address]Dr. Mel Ramirez ALP [Catalytic activity/Vol] 98 U/L Normal 46-116 [facility] Comment on above: Performed By: #### L IPID, CMP ####[facility] Zkbivtuidf[address] [place], [place] [address]Dr. Mel Ramirez ALT [Catalytic activity/Vol] 35 U/L Normal 16-63 [facility] Comment on above: Performed By: #### L IPID, CMP ####[facility] Fvmvyochxy[address] [place], [place] [address]Dr. Mel Ramirez Anion gap [Moles/Vol] 13.3 mmol/L Normal [facility] Comment on above: Performed By: #### L IPID, CMP ####[facility] Guwotivkhc[address] [place], [place] [address]Dr. Mel Ramirez AST [Catalytic activity/Vol] 17 U/L Normal 15-37 [facility] Comment on above: Performed By: #### L IPID, CMP ####[facility] Qtvysofujf[address] [place], [place] [address]Dr. Mel Ramirez Bilirubin [Mass/Vol] 0.4 mg/dL Normal 0.2-1.0 [facility] Comment on above: Performed By: #### L IPID, CMP ####[facility] Lhuvhsrgex[address] [place], [place] [address]Dr. Mel Ramirez Calcium [Mass/Vol] 9.5 mg/dL Normal 8.5-10.1 [facility] Comment on above: Performed By: #### L IPID, CMP ####[facility] Ykdbxbwoec[address] [place], [place] [address]Dr. Mel Ramirez Chloride [Moles/Vol] 103 mmol/L Normal 98-107 [facility] Comment on above: Performed By: #### L IPID, CMP ####[facility] Hwfksrrxyy[address] [place], [place] [address]Dr. Mel Ramirez CO2 [Moles/Vol] 28.9 mmol/L Normal 21.0-32.0 [facility] Comment on above: Performed By: #### L IPID, CMP ####[facility] Txfbvsqstx[address] [place], [place] [address]Dr. Mel Ramirez Creatinine [Mass/Vol] 0.68 mg/dL Critically low 0.70-1.30 [facility] Comment on above: Performed By: #### L IPID, CMP ####[facility] Iwqxphqsb[address] [place], [place] [address]Dr. Mel Ramirez EGFR-AF HONDURAN >60 Normal >=60 [facility] Comment on above: Performed By: #### L IPID, CMP ####[facility] Godgsdvqrh[address] [place], [place] [address]Dr. Mel Ramirez EGFR-NON AF HONDURAN >60 Normal >=60 [facility] Comment on above: Performed By: #### L IPID, CMP ####[facility] Foqqamxhtd[address] [place], [place] [address]Dr. Mel Ramirez Globulin (S) [Mass/Vol] 3.5 g/dL Normal [facility] Comment on above: Performed By: #### L IPID, CMP ####[facility] Ttaqczblbo[address] [place], [place] [address]Dr. Mel Ramirez Glucose [Mass/Vol] 97 mg/dL Normal 74-106 [facility] [place] [facility] Comment on above: Performed By: #### L IPID, CMP ####[facility] Krkbomdrks7537 [place] [address]Dr. Mel Ramirez Potassium [Moles/Vol] 4.2 mmol/L Normal 3.5-5.1 [facility] Comment on above: Performed By: #### L IPID, CMP ####[facility] Wvdtwvsouo8513 [place] [address]Dr. Mel Ramirez Protein [Mass/Vol] 7.4 g/dL Normal 6.4-8.2 [facility] [place] [facility] Comment on above: Performed By: #### L IPID, CMP ####[facility] Zegysqvxrv8780 [place] [address]Dr. Mel Ramirez Sodium [Moles/Vol] 141 mmol/L Normal 136-145 [facility] [place] [facility] Comment on above: Performed By: #### L IPID, CMP ####[facility] Iddbicqspc2146 [place] [address]Dr. Mel Ramirez Urea nitrogen [Mass/Vol] 17.0 mg/dL Normal 7.0-18.0 [facility] Comment on above: Performed By: #### L IPID, CMP ####[facility] Sfzshjtplc2664 [place] [address]Dr. Mel Ramirez Urea nitrogen/Creatinine [Mass ratio] 25.0 mg/mg Normal [facility] Comment on above: Performed By: #### L IPID, CMP ####[facility] Vouepeshln[address] [place] [address]Dr. Mel Ramirez Jessica 03-09-2022 DOUGLAS Telephone ([facility]) -------- GINO OSORIO ([id number]) 1960 M Date Time Provider Department 03/09/22 MICHELE MIGUEL During your visit today, we recorded the following information about you: Michele Miguel RN 03/09/2022 12:58 PM Signed 1. We are calling to check on how you are doing since our last phone call. Are you having any medical concerns we can help you with today? (Standard Question) No Pt stated no. Overall Comments: All clear. Closing statement given. PD nurse confirmed/verified patient's and full name. Michele Miguel RN Allergies As of Date: 03/09/2022 (No Known Allergies) Date Reviewed: 03/08/2022 Reviewed by: Megan Pichardo Ma - Fully Assessed Reason for Visit: Follow Up Phone Call [0281] Cmt: ASIYA f/u all clear Prescriptions as of 03/09/2022 - furosemide (LASIX) 20 mg tablet Take 1 tablet by mouth once daily for 3 days. - potassium chloride ER (K-DUR, KLOR-CON M10) 10 mEq tablet Take 1 tablet by mouth once daily for 3 days. - atorvastatin (LIPITOR) 80 mg tablet Take 1 tablet by mouth daily at bedtime. - metoprolol tartrate, short acting, (LOPRESSOR) 50 mg tablet Take 1 tablet by mouth every 12 hours. - acetaminophen (TYLENOL) 500 mg tablet Take 1-2 tablets by mouth every 6 hours as needed for pain (mild pain. Do not take more than 4 grams of acetaminophen in 24 hours.). - aspirin 81 mg chewable tablet Take 1 tablet by mouth once daily. - oxyCODONE IR (ROXICODONE) 5 mg immediate release tablet Take 1 tablet by mouth every 6 hours as needed for pain for up to 7 days. - pantoprazole DR (PROTONIX) 20 mg tablet Take 1 tablet by mouth DAILY (6 AM) for 14 days. - polyethylene glycol 3350 (MIRALAX, GLYCOLAX) 17 gram packet Take 1 Packet by mouth as needed for constipation. Dissolve dose in 4 - 8 ounces of liquid and take as directed. - tamsulosin (FLOMAX) 0.4 mg Take 1 capsule by mouth daily at bedtime for 14 days. - melatonin 10 mg cap Take 1 capsule by mouth daily at bedtime. - sertraline (ZOLOFT) 50 mg tablet Take 50 mg by mouth daily at bedtime. - QUEtiapine (SEROQUEL) 25 mg tablet Take 1 tablet by mouth daily at bedtime. - Ascorbic Acid 1,000 mg tablet Take 1,000 mg by mouth once daily. - MULTIVITAMIN ORAL Take 1 tablet by mouth once daily. - niacin (NIACIN) 500 mg tablet Take 500 mg by mouth daily with breakfast. - COQ10, UBIQUINOL, ORAL Take 1 tablet by mouth once daily. With Krill - cholecalciferol (VITAMIN D3) 5,000 unit tab Take 10,000 Units by mouth once daily. - glucosam/chond-msm1/C/ma ng/bor (XGGKZJARNKO-HVAUC-EBI COMPLEX ORAL) Take 1 tablet by mouth once daily. - MAGNESIUM ORAL Take 250 mg by mouth once daily. Problem List As Of Date 03/09/2022 Noted Resolved Discharge planning issues [Z02.9] 02/22/2022 Pre-op testing [Z01.818] 02/22/2022 HOCM (hypertrophic obstructive cardiomyopathy) *02/27/2022 CAD (coronary artery disease) [I25.10] 02/27/2022 On mechanically assisted ventilation (HCC) [Z99*02/27/2022 02/28/2022 Hypovolemia [E86.1] 02/27/2022 02/28/2022 Postoperative pain [G89.18] 02/27/2022 Stress hyperglycemia [R73.9] 02/27/2022 Atelectasis [J98.11] 02/28/2022 Hypervolemia [E87.70] 02/28/2022 03/01/2022 Encounter for support and coordination of trans*03/01/2022 Encounter Status:Closed by MICHELE MIGUEL on 03/09/22 Normal [facility] CBC panel Auto (Bld)on 03-08 Erythrocyte distribution width (RBC) [Ratio] 13.7 % Normal 11.5-15.0 [facility] Comment on above: Order Comment: Speci men Type: BLOOD SPECIMENOrdering Facility: [facility] Address: [address] [place] [address] [place] [address] Performed By: #### 5 8410-2 ####[facility] LABCLIA [id number] [place] [address] [place] Hematocrit (Bld) [Volume fraction] 32.5 % Low 39.0-51.0 [facility] Comment on above: Order Comment: Speci men Type: BLOOD SPECIMENOrdering Facility: [facility] Address: [address] [place] [address] Performed By: #### 5 8410-2 ####[facility] [id number] [place] [address] [place] Hemoglobin (Bld) [Mass/Vol] 10.9 g/dL Low 13.0-17.0 [facility] Comment on above: Order Comment: Speci men Type: BLOOD SPECIMENOrdering Facility: [facility] Address: [address] [place] [address] Performed By: #### 5 8410-2 ####[facility] [id number] [address] [place] MCH (RBC) [Entitic mass] 29.7 pg Normal 26.0-34.0 [facility] Comment on above: Order Comment: Speci men Type: BLOOD SPECIMENOrdering Facility: [facility] Address: [address] [place] [address] Performed By: #### 5 8410-2 ####[facility] [id number] [place] [address] [place] MCHC (RBC) [Mass/Vol] 33.5 g/dL Normal 30.5-36.0 [facility] Comment on above: Order Comment: Speci men Type: BLOOD SPECIMENOrdering Facility: [facility] Address: [address] [place] [address] Performed By: #### 5 8410-2 ####[facility] [id number] [place] [address] [place] MCV (RBC) [Entitic vol] 88.6 fL Normal 80.0-100.0 [facility] Comment on above: Order Comment: Speci men Type: BLOOD SPECIMENOrdering Facility: [facility] Address: [address] [place], [place] [address] Performed By: #### 5 8410-2 ####[facility] LABCLIA [id number] [place] [address] [place] Nucleated RBC (Bld) [#/Vol] 10*3/uL Normal <0.01 [facility] Comment on above: Order Comment: Speci men Type: BLOOD SPECIMENOrdering Facility: [facility] Address: [address] [place], [place] [address] Performed By: #### 5 8410-2 ####[facility] LABIA [id number] [place] [address] [place] Platelet mean volume (Bld) [Entitic vol] 9.3 fL Normal 9.0-12.7 [facility] Comment on above: Order Comment: Speci men Type: BLOOD SPECIMENOrdering Facility: [facility] Address: [address] [place], [place] [address] Performed By: #### 5 8410-2 ####[facility] LABIA [id number] [place] [address] [place] Platelets (Bld) [#/Vol] 426 10*3/uL High 150-400 [facility] Comment on above: Order Comment: Speci men Type: BLOOD SPECIMENOrdering Facility: [facility] Address: [address] [place], [place] [address] Performed By: #### 5 8410-2 ####[facility] LABCLIA [id number] [place] [address] [place] RBC (Bld) [#/Vol] 3.67 10*6/uL Low 4.20-6.00 [facility] Comment on above: Order Comment: Speci men Type: BLOOD SPECIMENOrdering Facility: [facility] Address: [address] [place] [address] Performed By: #### 5 8410-2 ####[facility] [id number] [place] [address] [place] WBC (Bld) [#/Vol] 8.98 10*3/uL Normal 3.70-11.00 [facility] Comment on above: Order Comment: Speci men Type: BLOOD SPECIMENOrdering Facility: [facility] Address: [address] Performed By: #### 5 8410-2 ####[facility] [id number] [address] [place] CNOVon 03-08-2022 CNOV Office Visit ([facility]OSMN ) -------- GINO OSORIO ([id number]) 1960 M Date Time Provider Department 03/08/22 9:30 AM DEANA HOLLINS During your visit today, we recorded the following information about you: Temperature Pulse Blood pressure Weight 98.7 degrees 87/minute 110/68 71.3 kg Height 1.753 m Deana Hollins APRN.[employer] 03/09/2022 10:12 AM [facility] Casimiro Bailey Department of Cardiovascular Medicine DEPARTMENT OF CARDIAC SURGERY OUTPATIENT VISIT DATE March 08, 2022 OUTPATIENT VISIT TYPE POSTOPERATIVE Gino Osorio is a 61 year old male who presents who is here for post operative follow up HPI: S/P on 02/27/2022 [facility] Surgeon: Destin Charles MD Operations : Myectomy (4.5g) and CABG X 3 (SHIPMAN to LAD; YASHIRA to ramus; SVG to OM3) Surgical pathology:A. Ventricular septum, myectomy: -Mild myocyte disarray. See comment. Discharged on 03/03/2022 PAST MEDICAL HISTORY Diagnosis Date Coronary artery disease Hypertension Hypertrophic obstructive cardiomyopathy (HCC) Mitral valve regurgitation mild to moderate on 01/12/2022 echo PAST SURGICAL HISTORY Procedure Laterality Date HERNIA REPAIR HX REMOVAL GALLBLADDER ALLERGIES No Known Allergies Current Outpatient Medications Medication Sig atorvastatin (LIPITOR) 80 mg tablet Take 1 tablet by mouth daily at bedtime. metoprolol tartrate, short acting, (LOPRESSOR) 50 mg tablet Take 1 tablet by mouth every 12 hours. acetaminophen (TYLENOL) 500 mg tablet Take 1-2 tablets by mouth every 6 hours as needed for pain (mild pain. Do not take more than 4 grams of acetaminophen in 24 hours.). aspirin 81 mg chewable tablet Take 1 tablet by mouth once daily. furosemide (LASIX) 20 mg tablet Take 1 tablet by mouth once daily for 3 days. oxyCODONE IR (ROXICODONE) 5 mg immediate release tablet Take 1 tablet by mouth every 6 hours as needed for pain for up to [address] (PROTONIX) 20 mg tablet Take 1 tablet by mouth DAILY (6 AM) for 14 days. polyethylene glycol 3350 (MIRALAX, GLYCOLAX) 17 gram packet Take 1 Packet by mouth as needed for constipation. Dissolve dose in 4 - 8 ounces of liquid and take as directed. potassium chloride ER (K-DUR, KLOR-CON M10) 10 mEq tablet Take 1 tablet by mouth once daily for 3 days. tamsulosin (FLOMAX) 0.4 mg Take 1 capsule by mouth daily at bedtime for 14 days. melatonin 10 mg cap Take 1 capsule by mouth daily at bedtime. sertraline (ZOLOFT) 50 mg tablet Take 50 mg by mouth daily at bedtime. QUEtiapine (SEROQUEL) 25 mg tablet Take 1 tablet by mouth daily at bedtime. Ascorbic Acid 1,000 mg tablet Take 1,000 mg by mouth once daily. MULTIVITAMIN ORAL Take 1 tablet by mouth once daily. niacin (NIACIN) 500 mg tablet Take 500 mg by mouth daily with breakfast. COQ10, UBIQUINOL, ORAL Take 1 tablet by mouth once daily. With Krill cholecalciferol (VITAMIN D3) 5,000 unit tab Take 10,000 Units by mouth once daily. glucosam/chond-msm1/C/ma ng/bor (CERYJYLWWOX-AORBU-QPM COMPLEX ORAL) Take 1 tablet by mouth once daily. MAGNESIUM ORAL Take 250 mg by mouth once daily. No current facility-administered medications for this visit. Chief Complaints: I feel really good actually Discharge Post Operative Course: Pain scale :Yes chest wall and back. Well managed with tylenol Appetite: appetite good Activity: Walking ad delmis around the house Elimination: normal, no constipation , urination is normal Sleep: difficulty staying asleep Mood: normal and good Incisions/Wounds: healing Review of Systems: HEENT: Negative for fevers since discharge, chills, and Positive for temp variations and post nasal drip Cardiac: Denies significant problems, chest pain, Arrhythmia, and leg edema Respiratory: denies dyspnea, cough, orthopnea Musculoskeletal: No history of joint swelling, joint pain, or loss of range of motion. Neuro: Denies neurological complaints Physical Exam: BP 110/68 Pulse 87 Temp 37.1 ?C (98.7 ?F) (Oral) Ht 175.3 cm (5' 9 ) Wt 71.3 kg (157 lb 3.2 oz) SpO2 97% BMI 23.21 kg/m? Appearance: well groomed, white male, in no acute distress Neck: No neck vein distention Cardiac: regular S1, S2, No murmur, No rub Lungs: Clear breath sounds bilaterally with decreased air entry at the bases bilaterally Abdomen: soft, non tender, Normal bowel sounds Extremities: Edema: RLE 1+ Sternum: stable, no click Sternotomy site: healing, clean, dry and intact Wound: NA SV Bassett sites: Location: Right LE, mid and healing Procedures: N/A IMPRESSION AND PLAN: 1. 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 Ventricular septum, myectomy: -Mild myocyte disarray. See comment. Discharged on 03/03/2022 2. CAD - continue asa, bb and (more content not included)... Normal [facility] Comprehensive metabolic 2000 panelon 03-08-2022 Albumin [Mass/Vol] 4.1 g/dL Normal 3.9-4.9 [facility] Comment on above: Order Comment: Speci men Type: BLOOD SPECIMENOrdering Facility: [facility] Address: [address] Performed By: #### 2 4323-8 ####[facility] LABCLIA [id number] [place] [address] [place] ALP [Catalytic activity/Vol] 66 U/L Normal 38-113 [facility] Comment on above: Order Comment: Speci men Type: BLOOD SPECIMENOrdering Facility: [facility] Address: [address] Performed By: #### 2 4323-8 ####[facility] LABCLIA [id number] [place] [address] [place] ALT [Catalytic activity/Vol] 36 U/L Normal 10-54 [facility] Comment on above: Order Comment: Speci men Type: BLOOD SPECIMENOrdering Facility: [facility] Address: [address] [place], [place] [address] Performed By: #### 2 4323-8 ####[facility] LABCLIA [id number] [place] [address] [place] Anion gap [Moles/Vol] 12 mmol/L Normal 9-18 [facility] Comment on above: Order Comment: Speci men Type: BLOOD SPECIMENOrdering Facility: [facility] Address: [address] [place], [place] [address] Performed By: #### 2 4323-8 ####[facility] LABCLIA [id number] [place] [address] [place] AST [Catalytic activity/Vol] 22 U/L Normal 14-40 [facility] Comment on above: Order Comment: Speci men Type: BLOOD SPECIMENOrdering Facility: [facility] Address: [address] Performed By: #### 2 4323-8 ####[facility] LABCLIA [id number] [place] [address] [place] Bilirubin [Mass/Vol] 0.4 mg/dL Normal 0.2-1.3 [facility] Comment on above: Order Comment: Speci men Type: BLOOD SPECIMENOrdering Facility: [facility] Address: [address] [place] [address] Performed By: #### 2 4323-8 ####[facility] LABCLIA [id number] [place] [address] [place] Calcium [Mass/Vol] 9.5 mg/dL Normal 8.5-10.2 [facility] Comment on above: Order Comment: Speci men Type: BLOOD SPECIMENOrdering Facility: [facility] Address: [address] [place] [address] Performed By: #### 2 4323-8 ####[facility] LABCLIA [id number] [place] [address] [place] Chloride [Moles/Vol] 102 mmol/L Normal 97-105 [facility] Comment on above: Order Comment: Speci men Type: BLOOD SPECIMENOrdering Facility: [facility] Address: [address] [place] [address] Performed By: #### 2 4323-8 ####[facility] LABCLIA [id number] [place] [address] [place] CO2 [Moles/Vol] 24 mmol/L Normal 22-30 [facility] Comment on above: Order Comment: Speci men Type: BLOOD SPECIMENOrdering Facility: [facility] Address: [address] [place], [place] [address] Performed By: #### 2 4323-8 ####[facility] LABCLIA [id number] [place] [address] [place] Creatinine [Mass/Vol] 0.75 mg/dL Normal 0.73-1.22 [facility] Comment on above: Order Comment: Speci men Type: BLOOD SPECIMENOrdering Facility: [facility] Address: [address] [place] [address] Performed By: #### 2 4323-8 ####[facility] LABIA [id number] [place] [address] [place] ESTIMATED GLOMERULAR FILTRATION RATE 104 mL/min/1.73m??? Normal >=60 [facility] Comment on above: Order Comment: Magalyayala men Type: BLOOD SPECIMENOrdering Facility: [facility] Address: [address] [place] [place] [address] Result Comment: Carlota mated Glomerular Filtration Rate (eGFR) is calculated using the 2020 CKD-EPI creatinine equation. This equation utilizes serum creatinine, sex, and age as parameters. The creatinine assay has traceable calibration to isotope dilution-mass spectrometry. Refer to KDIGO guidelines for clinical interpretation. In patients with unstable renal function, e.g. those with acute kidney injury, the eGFR may not accurately reflect actual GFR. Performed By: #### 2 4323-8 ####[facility] LABCLIA [id number] [place] [address] [place] Glucose [Mass/Vol] 93 mg/dL Normal 74-99 [facility] Comment on above: Order Comment: Rayray carbone Type: BLOOD SPECIMENOrdering Facility: [facility] Address: [address] [place] [address] Result Comment: The [place] Diabetes Association (ADA) provides guidance for cutoff values for fasting glucose and random glucose. The ADA defines fasting as no caloric intake for at least 8 hours. Fasting plasma glucose results between 100 to 125 mg/dL indicate increased risk for diabetes (prediabetes). Fasting plasma glucose results greater than or equal to 126 mg/dL meet the criteria for diagnosis of diabetes. In the absence of unequivocal hyperglycemia, results should be confirmed by repeat testing. In a patient with classic symptoms of hyperglycemia or hyperglycemic crisis, random plasma glucose results greater than or equal to 200 mg/dL meet the criteria for diagnosis of diabetes. Reference: Standards of Medical Care in Diabetes 2016, [place] Diabetes Association. Diabetes Care. 2016.39(Suppl 1). Performed By: #### 2 4323-8 ####[facility] LABCLIA [id number] [place] [address] [place] Potassium [Moles/Vol] 4.4 mmol/L Normal 3.7-5.1 [facility] Comment on above: Order Comment: Speci men Type: BLOOD SPECIMENOrdering Facility: [facility] Address: [address] [place] [address] Performed By: #### 2 4323-8 ####[facility] LABIA [id number] [place] [address] [place] Protein [Mass/Vol] 6.5 g/dL Normal 6.3-8.0 [facility] Comment on above: Order Comment: Speci men Type: BLOOD SPECIMENOrdering Facility: [facility] Address: [address] [place] [address] Performed By: #### 2 4323-8 ####[facility] LABIA [id number] [place] [address] [place] Sodium [Moles/Vol] 138 mmol/L Normal 136-144 [facility] Comment on above: Order Comment: Speci men Type: BLOOD SPECIMENOrdering Facility: [facility] Address: [address] [place] [address] Performed By: #### 2 4323-8 ####[facility] LABIA [id number] [place] [address] [place] Urea nitrogen [Mass/Vol] 18 mg/dL Normal 9-24 [facility] Comment on above: Order Comment: Speci men Type: BLOOD SPECIMENOrdering Facility: [facility] Address: [address] [place], [place] [address] Performed By: #### 2 4323-8 ####[facility] LABIA [id number] [place] [address] [place] ECG COMPLETEon 03-08-2022 ECG COMPLETE Ventricular Rate : 7 6 BPM Atrial Rate : 76 BPM P-R Interval : 182 ms QRS Duration : 140 ms Q-T Interval : 424 ms QTC Calculation(Bazett) : 477 ms Calculated P [place] : 28 degrees Calculated R [place] : 2 degrees Calculated T [place] : 155 degrees NORMAL SINUS RHYTHM POSSIBLE LEFT ATRIAL ENLARGEMENT COMPLETE LEFT BUNDLE BRANCH BLOCK ABNORMAL ECG Confirmed by DARRYL HAM M.D. ([id number]) on 03/13/2022 1:40:07 PM NAME : GINO OSORIO PID : [id number] : 1960 Gender : Male Race : Unknown ORD : [id number] Procedure Date : Mar 08 2022 08:22:45 Edit Date : Mar 13 2022 13:43:50 Diagnosis: NORMAL SINUS RHYTHM POSSIBLE LEFT ATRIAL ENLARGEMENT COMPLETE LEFT BUNDLE BRANCH BLOCK ABNORMAL ECG Confirmed by DARRYL HAM M.D. ([id number]) on 03/13/2022 1:40:07 PM Test Reason : Location : [facility] : [place] [address] Overread By : DARRYL HAM M.D. Edited By : DARRYL HAM M.D. Referred By : DESTIN CHARLES Acquired by : MARCELLA RING [facility] XR CHEST 2V FRONTAL/LATon XR CHEST 2V FRONTAL/LAT * * *Final Report* * * DATE OF EXAM: Mar 08 2022 8:27AM JIX [id number] - XR CHEST 2V FRONTAL/LAT / PROCEDURE REASON: Surgery follow-up * * * * Physician Interpretation * * * * EXAMINATION: CHEST RADIOGRAPH (2 VIEW FRONTAL and LATERAL) Clinical History: Surgery follow-up M: XC2_6 Comparison: 5 days earlier RESULT: Lines, tubes, and devices: N/A Lungs and pleura: Small effusions and overlying opacity probably atelectasis and/or minimal inflammation improved from prior. No new consolidations. No pneumothorax. Cardiomediastinal silhouette: Cardiac silhouette within normal limits. Other: Mild degenerative changes of the thoracic spine. IMPRESSION: See Result. Fruit Farmer: KALYANI Transcribe Date/Time: Mar 08 2022 2:20P Dictated by : MARTHA SUBRAMANIAN MD This examination was interpreted and the report reviewed and electronically signed by: MARTHA SUBRAMANIAN MD on Mar 08 2022 2:21PM EST [id number] Normal [facility] CNPAlma 03-05-2022 CNPN Telephone (PODCCP) -------- GINO OSORIO ([id number]) 1960 M Date Time Provider Department 03/05/22 MICHELE MIGUEL PODCCJero During your visit today, we recorded the following information about you: Michele Miguel RN 03/05/2022 10:50 AM Signed 1. Have you noticed any increased shortness of breath since you left the hospital? (HVI Red Flag Question) No 2. Have you noticed any increased swelling in your feet, ankles or belly? (Heart Failure Red Flag Question) No 3. Have you gained more than 2 - 3 pounds since discharge? (HVI Red Flag Question) No 4. Have you noticed any changes to your incision or wound since you were discharged as we want to be aware of any signs of infection? (HVI Red Flag Question) No 5. Are you having any increased pain since discharge? If Yes: What type of pain and where? (HVI Red Flag Question) No 6. Have you had any unplanned trips to the Emergency Department or Hospital since you were discharged? If yes: Why? (Heart Failure Red Flag Question) No 7. Do you have any questions about how to take your medications? (Standard Question) No 8. Have you filled your prescriptions [if no-why? If related to cost - Do you need to be connected to someone who can help you with the cost?] Reminder: Please bring in your medications at your follow up appointment. (HVI Red Flag Question) Yes 9. Do you have a doctor?s appointment scheduled or is someone working on getting you a follow-up appointment? (Standard Question) Yes Overall Comments: All clear. Closing statement given. PD nurse confirmed/verified patient's and full name. Michele Miguel RN Allergies As of Date: 03/05/2022 (No Known Allergies) Date Reviewed: 03/03/2022 Reviewed by: Lyssa Braswell RN - Fully Assessed Reason for Visit: Follow Up Phone Call [8313] Cmt: ASIYA f/u all clear Prescriptions as of 03/05/2022 - atorvastatin (LIPITOR) 80 mg tablet Take 1 tablet by mouth daily at bedtime. - metoprolol tartrate, short acting, (LOPRESSOR) 50 mg tablet Take 1 tablet by mouth every 12 hours. - acetaminophen (TYLENOL) 500 mg tablet Take 1-2 tablets by mouth every 6 hours as needed for pain (mild pain. Do not take more than 4 grams of acetaminophen in 24 hours.). - aspirin 81 mg chewable tablet Take 1 tablet by mouth once daily. - furosemide (LASIX) 20 mg tablet Take 1 tablet by mouth once daily for 3 days. - oxyCODONE IR (ROXICODONE) 5 mg immediate release tablet Take 1 tablet by mouth every 6 hours as needed for pain for up to 7 days. - pantoprazole DR (PROTONIX) 20 mg tablet Take 1 tablet by mouth DAILY (6 AM) for 14 days. - polyethylene glycol 3350 (MIRALAX, GLYCOLAX) 17 gram packet Take 1 Packet by mouth as needed for constipation. Dissolve dose in 4 - 8 ounces of liquid and take as directed. - potassium chloride ER (K-DUR, KLOR-CON M10) 10 mEq tablet Take 1 tablet by mouth once daily for 3 days. - tamsulosin (FLOMAX) 0.4 mg Take 1 capsule by mouth daily at bedtime for 14 days. - melatonin 10 mg cap Take 1 capsule by mouth daily at bedtime. - sertraline (ZOLOFT) 50 mg tablet Take 50 mg by mouth daily at bedtime. - QUEtiapine (SEROQUEL) 25 mg tablet Take 1 tablet by mouth daily at bedtime. - Ascorbic Acid 1,000 mg tablet Take 1,000 mg by mouth once daily. - MULTIVITAMIN ORAL Take 1 tablet by mouth once daily. - niacin (NIACIN) 500 mg tablet Take 500 mg by mouth daily with breakfast. - COQ10, UBIQUINOL, ORAL Take 1 tablet by mouth once daily. With Krill - cholecalciferol (VITAMIN D3) 5,000 unit tab Take 10,000 Units by mouth once daily. - glucosam/chond-msm1/C/ma ng/bor (KKWEDFLOIWM-WJDWM-EGT COMPLEX ORAL) Take 1 tablet by mouth once daily. - MAGNESIUM ORAL Take 250 mg by mouth once daily. Problem List As Of Date 03/05/2022 Noted Resolved Discharge planning issues [Z02.9] 02/22/2022 Pre-op testing [Z01.818] 02/22/2022 HOCM (hypertrophic obstructive cardiomyopathy) *02/27/2022 CAD (coronary artery disease) [I25.10] 02/27/2022 On mechanically assisted ventilation (HCC) [Z99*02/27/2022 02/28/2022 Hypovolemia [E86.1] 02/27/2022 02/28/2022 Postoperative pain [G89.18] 02/27/2022 Stress hyperglycemia [R73.9] 02/27/2022 Atelectasis [J98.11] 02/28/2022 Hypervolemia [E87.70] 02/28/2022 03/01/2022 Encounter for support and coordination of trans*03/01/2022 Encounter Status:Closed by MICHELE MIGUEL on 03/05/22 Normal [facility] CBC panel Auto (Bld)on 03-03 Erythrocyte distribution width (RBC) [Ratio] 13.2 % Normal 11.5-15.0 [facility] Comment on above: Order Comment: Speci men Type: BLOOD SPECIMENOrdering Facility: [facility] Address: [address] [address] Performed By: #### 5 8410-2 ####[facility] LABIA [id number] [place] [address] [place] [facility] Hematocrit (Bld) [Volume fraction] 28.6 % Low 39.0-51.0 [facility] Comment on above: Order Comment: Speci men Type: BLOOD SPECIMENOrdering Facility: [facility] Address: [address] [address] Performed By: #### 5 8410-2 ####[facility] LABCLIA [id number] [place] [address] Hemoglobin (Bld) [Mass/Vol] 9.4 g/dL Low 13.0-17.0 [facility] Comment on above: Order Comment: Speci men Type: BLOOD SPECIMENOrdering Facility: [facility] Address: [address] [place] [address] Performed By: #### 5 8410-2 ####[facility] LABIA [id number] [address] MCH (RBC) [Entitic mass] 28.9 pg Normal 26.0-34.0 [facility] Comment on above: Order Comment: Speci men Type: BLOOD SPECIMENOrdering Facility: [facility] Address: [address] [place] [address] Performed By: #### 5 8410-2 ####[facility] LABIA [id number] [address] MCHC (RBC) [Mass/Vol] 32.9 g/dL Normal 30.5-36.0 [facility] Comment on above: Order Comment: Speci men Type: BLOOD SPECIMENOrdering Facility: [facility] Address: [address] [place] [address] Performed By: #### 5 8410-2 ####[facility] LABSOU[facility] [id number] [address] OF [facility] MCV (RBC) [Entitic vol] 88.0 fL Normal 80.0-100.0 [facility] Comment on above: Order Comment: Speci men Type: BLOOD SPECIMENOrdering Facility: [facility] Address: [address] [place], [place] [address] Performed By: #### 5 8410-2 ####[facility] LABIA [id number] [address] [place] Nucleated RBC (Bld) [#/Vol] 10*3/uL Normal <0.01 [facility] Comment on above: Order Comment: Speci men Type: BLOOD SPECIMENOrdering Facility: [facility] Address: [address] Performed By: #### 5 8410-2 ####[facility] LABCLIA [id number] [place] [address] [place] Platelet mean volume (Bld) [Entitic vol] 10.3 fL Normal 9.0-12.7 [facility] Comment on above: Order Comment: Speci men Type: BLOOD SPECIMENOrdering Facility: [facility] Address: [address] Performed By: #### 5 8410-2 ####[facility] LABIA [id number] [place] [address] [place] Platelets (Bld) [#/Vol] 181 10*3/uL Normal 150-400 [facility] Comment on above: Order Comment: Speci men Type: BLOOD SPECIMENOrdering Facility: [facility] Address: [address] [place], [place] [address] Performed By: #### 5 8410-2 ####[facility] LABIA [id number] [place] [address] [place] RBC (Bld) [#/Vol] 3.25 10*6/uL Low 4.20-6.00 [facility] Comment on above: Order Comment: Speci men Type: BLOOD SPECIMENOrdering Facility: [facility] Address: [address] [place], [place] [address] Performed By: #### 5 8410-2 ####[facility] LABIA [id number] [place] [address] [place] WBC (Bld) [#/Vol] 7.07 10*3/uL Normal 3.70-11.00 [facility] Comment on above: Order Comment: Speci men Type: BLOOD SPECIMENOrdering Facility: [facility] Address: [address] [place], [place] [address] Performed By: #### 5 8410-2 ####[facility] MARTHA [id number] JARROD [facility] [id number] CNDSon 03-03-2022 CNDS HNO ID: [id number] Author: Megan Wilkinson APRN.BASIN CLEANER Service: Cardiac Surgery Author Type: Nurse Practitioner Type: Discharge Summary Filed: 03/03/2022 10:58 AM Note Text: -------- Attestation signed by Destin Charles MD at 03/06/2022 4:35 PM -------- Department of Cardiothoracic Surgery Discharge Summary (Template ID [id number]) PATIENT NAME: Gino Osorio ADMISSION DATE: 02/27/2022 DISCHARGE DATE: 03/03/2022 Attending Physician/Surgeon: Destin Charles MD Primary Service: Code Status: Not on file [facility] Primary Customer Accounts Advisor: Josh Barrientos Admission Diagnosis: HOCM (hypertrophic obstructive cardiomyopathy) (HCC) [I42.1] Coronary artery disease involving [place] coronary artery of [place] heart with angina pectoris (HCC) [I25.119] Non-rheumatic mitral regurgitation [I34.0] Primary hypertension [I10] Hyperlipidemia, unspecified hyperlipidemia type [E78.5] Anxiety and depression [F41.9, F32.A] SOB (shortness of breath) [R06.02] Pre-operative cardiovascular examination [Z01.810] Encounter for preoperative anesthesiology assessment for cardiac surgery [Z01.818] Discharge Diagnosis: HOCM (hypertrophic obstructive cardiomyopathy) ([facility]) [I42.1] Coronary artery disease involving [place] coronary artery of [place] heart with angina pectoris (HCC) [I25.119] Non-rheumatic mitral regurgitation [I34.0] Primary hypertension [I10] Hyperlipidemia, unspecified hyperlipidemia type [E78.5] Anxiety and depression [F41.9, F32.A] SOB (shortness of breath) [R06.02] Pre-operative cardiovascular examination [Z01.810] Encounter for preoperative anesthesiology assessment for cardiac surgery [Z01.818] Reason for Hospitalization: Mr. Gino Osorio is a 61 year old male with PMH of anxiety, hypertrophic obstructive cardiomyopathy Coronary artery disease, Mild to moderate mitral valve regurgitation, Hypertension. In June of 2021 he was informed by his PCP that his heart murmur grew louder. He underwent a heart catheterization, echocardiogram, stress test, and cardiac MRI was diagnosed with Hypertrophic obstructive cardiomyopathy and coronary artery disease at that time. He presents with palpitations, fatigue and lower extremity edema. He was seen by CTS and cardiology and deemed a surgical candidate for the procedure below. Operations during Hospitalization: 02/27/2022: Myectomy (4.5g) and CABG X 3 (SHIPMAN to LAD; YASHIRA to ramus; SVG to OM3) Hospital Course: * How was the Reason for Hospitalization Addressed: Chronological List of Surgeries and Major Events (Diagnosis): (Surgeries in bold characters) 02/27/2022: Myectomy (4.5g) and CABG X 3 (SHIPMAN to LAD; YASHIRA to ramus; SVG to OM3) A/P of Major Active Problems (excluding routine care and common problems): S/p CABG: ASA, BB. Statin started on dc as LFTs trending down. S/p Myectomy: Echo 03/02: EF 55%, trace MR, trace TR, no AR, no KIRSTIN Cards: change BB to bid dosing for home compliance and as HR allowed - lopressor 50mg bid (preop atenolol and losartan). Continue PO lasix x3 days on dc, at baseline weight on dc. Pulm: Known trace and small ptx. Continue to ambulate and encourage breathing exercise. Uro: Hx of BPH (is not on Flomax preop) - started Flomax prophylactic 03/01. Sanchez removed 03/02. Flomax x2 weeks on dc. Dispo: [place], [place]. . No skilled needs. [facility]PD requested. Follow up locally with Cards. * What were the Active Issues: FVO, CAD * Surgical Pathology/Microbiology: FINAL DIAGNOSIS A. Ventricular septum, myectomy: -Mild myocyte disarray. See comment. * Hospital Course Complicated by: see active issues above * Extended Hospital Stay Due to: see active issues above * Specific Medication Changes: See discharge medication list below * Pain: Controlled on PRN tylenol and oxycodone * Surgical Incisions/Wounds: MSI and CT sites C/D/I. Healing well. Chest tube sutures removed prior to discharge. * Patient Condition at Discharge: Improved * Disposition: Home with Self Care Problem List: Patient Active Hospital Problem List: Encounter for support and coordination of transition of care (03/01/2022) Atelectasis (02/28/2022) Postoperative pain (02/27/2022) Stress hyperglycemia (02/27/2022) HOCM (hypertrophic obstructive cardiomyopathy) (HCC) (02/27/2022) CAD (coronary artery disease) (02/27/2022) Consults: None Procedures Performed and Major Radiology: Echocardiogram Information Provided to the Patient: Patient given copy of After Visit Summary which included activity instructions, diet instructions, wound care instructions, medication instructions and follow up appointment. ALLERGIES No Known Allergies Discharge Medications: Current Discharge Medication List START taking these medications atorvastatin (LIPITOR) 80 mg Take 80 mg by mouth daily at bedtime. (more content not included)... Normal [facility] Comprehensive metabolic 2000 panelon 03-03-2022 Albumin [Mass/Vol] 3.6 g/dL Low 3.9-4.9 [facility] Comment on above: Order Comment: Rayray carbone Type: BLOOD SPECIMEN [facility]ing [facility] Address: [address] [place] [id number] Performed By: #### 1 4979-9, 44137-8 #### [facility] CLIA [id number] [facility] [place] [address] [place] ALP [Catalytic activity/Vol] 50 U/L Normal 38-113 [facility] Comment on above: Order Comment: Speci men Type: BLOOD SPECIMEN Ordering Facility: [facility] Address: [address] Performed By: #### 1 4979-9, 38978-1 #### [facility] CLIA [id number] [address] [place] [address] [place] ALT [Catalytic activity/Vol] 67 U/L High 10-54 [facility] Comment on above: Order Comment: Speci men Type: BLOOD SPECIMEN Ordering [facility] Address: [address] Performed By: #### 1 4979-9, 22543-9 #### [facility] CLIA [id number] [address] [place] [address] [place] Anion gap [Moles/Vol] 8 mmol/L Low 9-18 [facility] Comment on above: Order Comment: Speci men Type: BLOOD SPECIMEN Ordering Facility: [facility] Address: [address] [place] [address] Performed By: #### 1 4979-9, 51969-8 #### [facility] CLIA [id number] [address] [place] [address] [place] AST [Catalytic activity/Vol] 21 U/L Normal 14-40 [facility] Comment on above: Order Comment: Speci men Type: BLOOD SPECIMEN Ordering Facility: [facility] Address: [address] Performed By: #### 1 4979-9, 61984-6 #### [facility] CLIA [id number] [address] [place] [address] [place] [place] Bilirubin [Mass/Vol] 0.4 mg/dL Normal 0.2-1.3 [facility] Comment on above: Order Comment: Speci men Type: BLOOD SPECIMEN Ordering Facility: [facility] Address: [address] [place], [place] [address] Performed By: #### 1 4979-9, 91702-5 #### [facility] CLIA [id number] [address] [place] [address] [place] Calcium [Mass/Vol] 8.6 mg/dL Normal 8.5-10.2 [facility] Comment on above: Order Comment: Speci men Type: BLOOD SPECIMEN Ordering Facility: [facility] Address: [address] [place], [place] [address] Performed By: #### 1 4979-9, 32812-5 #### [facility] CLIA [id number] [address] [place] [address] [place] Chloride [Moles/Vol] 104 mmol/L Normal 97-105 [facility] Comment on above: Order Comment: Speci men Type: BLOOD SPECIMEN Ordering Facility: [facility] Address: [address] [place] [address] Performed By: #### 1 49799, 69866-4 #### [facility] CLIA [id number] [address] [place] [address] [place] CO2 [Moles/Vol] 29 mmol/L Normal 22-30 [facility] Comment on above: Order Comment: Speci men Type: BLOOD SPECIMEN Ordering Facility: [facility] Address: [address] [place], [place] [address] Performed By: #### 1 4979-9, 80170-7 #### [facility] CLIA [id number] [address] [place] [address] [place] Creatinine [Mass/Vol] 0.64 mg/dL Low 0.73-1.22 [facility] Comment on above: Order Comment: Speci men Type: BLOOD SPECIMEN Ordering Facility: [facility] Address: [address] [place], [place] [address] Performed By: #### 1 4979-9, 76518-2 #### [facility] CLIA [id number] [address] [place] [address] [place] ESTIMATED GLOMERULAR FILTRATION RATE 109 mL/min/1.73m??? Normal >=60 [facility] Comment on above: Order Comment: Rayray carbone Type: BLOOD SPECIMEN Ordering Facility: [facility] Address: [address] [place], [place] [address] Result Comment: Carlota mated Glomerular Filtration Rate (eGFR) is calculated using the 2020 CKD-EPI creatinine equation. This equation utilizes serum creatinine, sex, and age as parameters. The creatinine assay has traceable calibration to isotope dilution-mass spectrometry. Refer to KDIGO guidelines for clinical interpretation. In patients with unstable renal function, e.g. those with acute kidney injury, the eGFR may not accurately reflect actual GFR. Performed By: #### 1 4979-9, 22355-3 #### [facility] CLIA [id number] [address] [place] [address] [place] Glucose [Mass/Vol] 102 mg/dL High 74-99 [facility] Comment on above: Order Comment: Rayray carbone Type: BLOOD SPECIMEN Ordering Facility: [facility] Address: [address] [place] [address] Result Comment: The [place] Diabetes Association (ADA) provides guidance for cutoff values for fasting glucose and random glucose. The ADA defines fasting as no caloric intake for at least 8 hours. Fasting plasma glucose results between 100 to 125 mg/dL indicate increased risk for diabetes (prediabetes). Fasting plasma glucose results greater than or equal to 126 mg/dL meet the criteria for diagnosis of diabetes. In the absence of unequivocal hyperglycemia, results should be confirmed by repeat testing. In a patient with classic symptoms of hyperglycemia or hyperglycemic crisis, random plasma glucose results greater than or equal to 200 mg/dL meet the criteria for diagnosis of diabetes. Reference: Standards of Medical Care in Diabetes 2016, [place] Diabetes Association. Diabetes Care. 2016.39(Suppl 1). Performed By: #### 1 4979-9, 85813-0 #### [facility] CLIA [id number] [facility] [place] [address] [place] Potassium [Moles/Vol] 3.5 mmol/L Low 3.7-5.1 [facility] Comment on above: Order Comment: Speci men Type: BLOOD SPECIMEN Ordering Facility: [facility] Address: [address] Performed By: #### 1 4979-9, 72991-5 #### [facility] CLIA [id number] [address] [place] [address] [place] Protein [Mass/Vol] 5.5 g/dL Low 6.3-8.0 [facility] Comment on above: Order Comment: Speci men Type: BLOOD SPECIMEN Ordering Facility: [facility] Address: [address] Performed By: #### 1 4979-9, 09680-5 #### [facility] CLIA [id number] [address] [place] [address] [place] Sodium [Moles/Vol] 141 mmol/L Normal 136-144 [facility] Comment on above: Order Comment: Speci men Type: BLOOD SPECIMEN Ordering Facility: [facility] Address: [address] [place], [place] [address] Performed By: #### 1 4979-9, 41436-3 #### [facility] CLIA [id number] [address] [place] [address] [place] Urea nitrogen [Mass/Vol] 20 mg/dL Normal 9-24 [facility] Comment on above: Order Comment: Speci men Type: BLOOD SPECIMEN Ordering Facility: [facility] Address: [address] Performed By: #### 1 4979-9, 42849-0 #### [facility] CLIA [id number] [address] [place] [address] [place] XR CHEST 1V FRONTALon 2022 XR CHEST 1V FRONTAL * * *Final Report* * * DATE OF EXAM: Mar 03 2022 8:17AM JIX [id number] - XR CHEST 1V FRONTAL / PROCEDURE REASON: Evaluate tube, line or lead position * * * * Physician Interpretation * * * * EXAMINATION: CHEST RADIOGRAPH (PORTABLE SINGLE VIEW AP) Exam Date/Time: 03/03/2022 8:17 AM Clinical History: Evaluate tube, line or lead position, Pneumothorax MQ: XCPMC_6 Comparison: 1 day prior RESULT: Lines, tubes, and devices: The patient is status post median sternotomy. Lungs and pleura: Linear densities at the lung bases are stable, likely atelectasis or scar. There may be small pleural effusions. No pulmonary edema. A trace right apical pneumothorax appears smaller. No substantial left pneumothorax. Cardiomediastinal silhouette: Stable cardiomediastinal silhouette. Other: . IMPRESSION: See result. Fruit Farmer: PSCB Transcribe Date/Time: Mar 03 2022 11:15A Dictated by : JOSE DE JESUS NDIAYE MD This examination was interpreted and the report reviewed and electronically signed by: JOSE DE JESUS NDIAYE MD on Mar 03 2022 11:17AM EST [id number] Normal [facility] HEALTHon 03-02-2022 ALLIED HEALTH HNO ID: [id number] Author: Vic De Los Santos Lockstitch Binder Service: Cardiovascular Medicine Author Type: Lockstitch Binder Type: Allied Health Filed: 03/02/2022 2:22 PM Note Text: CARDIAC REHABILITATION PHASE I FOLLOW-UP PATIENT NAME: Gino Osorio SERVICE DATE: March 02, 2022 SESSION TIME: 1245 Comments: Patient seen seated at bedside, attempted session. Unable to exercise due to patient decline, Patient just got wires pulled, wanted to eat lunch. Patient reports to be ambulating with IV pole in the hallways. Patient self reports ambulating to the nurses station and back with no difficulty or pain. Reinforced benefits of exercise and role in recovery. Instructed continued increased ambulation as tolerated 4-6 times per day, voiced understanding. Reviewed signs and symptoms of exercise intolerance.No questions voiced at this time. Home Program: Provided and reviewed home activity guidelines as outlined below. Frequency: 4 - 6 days/week Intensity: 3 - 4/10 RPE Type: walking - start at 3 - 5 minutes/4 - 6 x day Duration: 20 - 30 minutes -----> 45 + minutes Vic De Los Santos Lockstitch Binder Phone:[phone] March 02, 2022 2:19 PM Normal [facility] CASE MANAGEMon 03-02-2022 CASE MANAGEM HNO ID: [id number] Author: Maninder Diana RN Service: ? Author Type: Registered Nurse Type: Care Mgt Progress Note Filed: 03/02/2022 3:11 PM Note Text: CARE MANAGEMENT PROGRESS NOTE SERVICE DATE: 03/02/2022 SERVICE TIME: 3:11 PM LOS: 3 days Needs Prior to Discharge: None This patient has been re-screened by Care Management and continues to have no CM facilitated needs identified at this time. Should this change and new transition planning needs have been identified please contact the Transitional Rug Cleaner or Lay Out Worker listed in the Care Teams or contact the Care Management Department at [phone]. Care Management will continue to monitor. SIGNATURE: Maninder Diana RN PATIENT NAME: Gino Osorio DATE: March 02, 2022 TIME: 3:11 PM PAGER/CONTACT #: [phone] Normal [facility] CBC panel Auto (Bld)on 03-02 Erythrocyte distribution width (RBC) [Ratio] 13.3 % Normal 11.5-15.0 [facility] Comment on above: Order Comment: Speci men Type: BLOOD SPECIMENOrdering Facility: [facility] Address: [address] [place] [address] Performed By: #### 5 8410-2 ####[facility] [id number] [place] [address] [place] Hematocrit (Bld) [Volume fraction] 28.9 % Low 39.0-51.0 [facility] Comment on above: Order Comment: Speci men Type: BLOOD SPECIMENOrdering Facility: [facility] Address: [address] [place] [address] Performed By: #### 5 8410-2 ####[facility] [id number] [place] [address] [place] Hemoglobin (Bld) [Mass/Vol] 9.6 g/dL Low 13.0-17.0 [facility] Comment on above: Order Comment: Speci men Type: BLOOD SPECIMENOrdering Facility: [facility] Address: [address] Performed By: #### 5 8410-2 ####[facility] [id number] [address] [place] [facility] MCH (RBC) [Entitic mass] 29.6 pg Normal 26.0-34.0 [facility] Comment on above: Order Comment: Speci men Type: BLOOD SPECIMENOrdering Facility: [facility] Address: [address] Performed By: #### 5 8410-2 ####[facility] [id number] [address] [place] [facility] MCHC (RBC) [Mass/Vol] 33.2 g/dL Normal 30.5-36.0 [facility] Comment on above: Order Comment: Speci men Type: BLOOD SPECIMENOrdering Facility: [facility] Address: [address] Performed By: #### 5 8410-2 ####[facility]IA [id number] [address] [place] MCV (RBC) [Entitic vol] 89.2 fL Normal 80.0-100.0 [facility] Comment on above: Order Comment: Speci men Type: BLOOD SPECIMENOrdering Facility: [facility] Address: [address] Performed By: #### 5 8410-2 ####[facility] [id number] [address] [place] Nucleated RBC (Bld) [#/Vol] 10*3/uL Normal <0.01 [facility] Comment on above: Order Comment: Speci men Type: BLOOD SPECIMENOrdering Facility: [facility] Address: [address] Performed By: #### 5 8410-2 ####[facility] [id number] [place] [address] [place] Platelet mean volume (Bld) [Entitic vol] 10.8 fL Normal 9.0-12.7 [facility] Comment on above: Order Comment: Speci men Type: BLOOD SPECIMENOrdering Facility: [facility] Address: [address] [place], [place] [address] Performed By: #### 5 8410-2 ####[facility] [id number] [place] [address] [place] Platelets (Bld) [#/Vol] 144 10*3/uL Low 150-400 [facility] Comment on above: Order Comment: Speci men Type: BLOOD SPECIMENOrdering Facility: [facility] Address: [address] [place], [place] [address] Performed By: #### 5 8410-2 ####[facility] [id number] [place] [address] [place] RBC (Bld) [#/Vol] 3.24 10*6/uL Low 4.20-6.00 [facility] Comment on above: Order Comment: Speci men Type: BLOOD SPECIMENOrdering Facility: [facility] Address: [address] [place] [id number] Performed By: #### 5 8410-2 ####[facility] [id number] [place] [address] [place] WBC (Bld) [#/Vol] 8.55 10*3/uL Normal 3.70-11.00 [facility] Comment on above: Order Comment: Speci men Type: BLOOD SPECIMENOrdering Facility: [facility] Address: [address] [place], [place] [address] Performed By: #### 5 8410-2 ####[facility] [id number] [place] [address] [place] Comprehensive metabolic 2000 panelon 03-02-2022 Albumin [Mass/Vol] 3.7 g/dL Low 3.9-4.9 [facility] Comment on above: Order Comment: Speci men Type: BLOOD SPECIMENOrdering Facility: [facility] Address: [address] [place] [address] Performed By: #### 2 4323-8 ####[facility] [id number] [place] [address] [place] ALP [Catalytic activity/Vol] 52 U/L Normal 38-113 [facility] Comment on above: Order Comment: Speci men Type: BLOOD SPECIMENOrdering Facility: [facility] Address: [address] [place] [address] Performed By: #### 2 4323-8 ####[facility] [id number] [address] [place] ALT [Catalytic activity/Vol] 102 U/L High 10-54 [facility] Comment on above: Order Comment: Speci men Type: BLOOD SPECIMENOrdering Facility: [facility] Address: [address] [place] [address] Performed By: #### 2 4323-8 ####[facility]IA [id number] [place] [address] [place] Anion gap [Moles/Vol] 9 mmol/L Normal 9-18 [facility] Comment on above: Order Comment: Speci men Type: BLOOD SPECIMENOrdering Facility: [facility] Address: [address] [place] [address] Performed By: #### 2 4323-8 ####[facility] [id number] [place] [address] [place] AST [Catalytic activity/Vol] 42 U/L High 14-40 [facility] Comment on above: Order Comment: Speci men Type: BLOOD SPECIMENOrdering Facility: [facility] Address: [address] [place] [address] Performed By: #### 2 4323-8 ####[facility]CLIA [id number] [place] [address] [place] Bilirubin [Mass/Vol] 0.5 mg/dL Normal 0.2-1.3 [facility] Comment on above: Order Comment: Speci men Type: BLOOD SPECIMENOrdering Facility: [facility] Address: [address] [place] [address] Performed By: #### 2 4323-8 ####[facility]CLIA [id number] [place] [address] [place] Calcium [Mass/Vol] 8.8 mg/dL Normal 8.5-10.2 [facility] Comment on above: Order Comment: Speci men Type: BLOOD SPECIMENOrdering Facility: [facility] Address: [address] Performed By: #### 2 4323-8 ####[facility]CLIA [id number] [place] [address] [place] Chloride [Moles/Vol] 104 mmol/L Normal 97-105 [facility] Comment on above: Order Comment: Speci men Type: BLOOD SPECIMENOrdering Facility: [facility] Address: [address] Performed By: #### 2 4323-8 ####[facility]CLIA [id number] [place] [address] [place] CO2 [Moles/Vol] 27 mmol/L Normal 22-30 [facility] Comment on above: Order Comment: Speci men Type: BLOOD SPECIMENOrdering Facility: [facility] Address: [address] Performed By: #### 2 4323-8 ####[facility]CLIA [id number] [place] [address] [place] Creatinine [Mass/Vol] 0.67 mg/dL Low 0.73-1.22 [facility] Comment on above: Order Comment: Rayray carbone Type: BLOOD SPECIMENOrdering Facility: [facility] Address: [address] [place] [address] Performed By: #### 2 4323-8 ####[facility]IA [id number] [address] ESTIMATED GLOMERULAR FILTRATION RATE 108 mL/min/1.73m??? Normal >=60 [facility] Comment on above: Order Comment: Rayray carbone Type: BLOOD SPECIMENOrdering Facility: [facility] Address: [address] [place] [address] Result Comment: Carlota mated Glomerular Filtration Rate (eGFR) is calculated using the 2020 CKD-EPI creatinine equation. This equation utilizes serum creatinine, sex, and age as parameters. The creatinine assay has traceable calibration to isotope dilution-mass spectrometry. Refer to KDIGO guidelines for clinical interpretation. In patients with unstable renal function, e.g. those with acute kidney injury, the eGFR may not accurately reflect actual GFR. Performed By: #### 2 4323-8 ####[facility]IA [id number] [place] [address] [place] Glucose [Mass/Vol] 105 mg/dL High 74-99 [facility] Comment on above: Order Comment: Rayray carbone Type: BLOOD SPECIMENOrdering Facility: [facility] Address: [address] [place] [address] Result Comment: The [place] Diabetes Association (ADA) provides guidance for cutoff values for fasting glucose and random glucose. The ADA defines fasting as no caloric intake for at least 8 hours. Fasting plasma glucose results between 100 to 125 mg/dL indicate increased risk for diabetes (prediabetes). Fasting plasma glucose results greater than or equal to 126 mg/dL meet the criteria for diagnosis of diabetes. In the absence of unequivocal hyperglycemia, results should be confirmed by repeat testing. In a patient with classic symptoms of hyperglycemia or hyperglycemic crisis, random plasma glucose results greater than or equal to 200 mg/dL meet the criteria for diagnosis of diabetes. Reference: Standards of Medical Care in Diabetes 2016, [place] Diabetes Association. Diabetes Care. 2016.39(Suppl 1). Performed By: #### 2 4323-8 ####[facility] LABCLIA [id number] [place] [address] [place] Potassium [Moles/Vol] 4.0 mmol/L Normal 3.7-5.1 [facility] Comment on above: Order Comment: Speci men Type: BLOOD SPECIMENOrdering Facility: [facility] Address: [address] [place] [address] Performed By: #### 2 4323-8 ####[facility]IA [id number] [place] [address] [place] Protein [Mass/Vol] 5.8 g/dL Low 6.3-8.0 [facility] Comment on above: Order Comment: Speci men Type: BLOOD SPECIMENOrdering Facility: [facility] Address: [address] [place] [address] Performed By: #### 2 4323-8 ####[facility]IA [id number] [place] [address] [place] Sodium [Moles/Vol] 140 mmol/L Normal 136-144 [facility] Comment on above: Order Comment: Speci men Type: BLOOD SPECIMENOrdering Facility: [facility] Address: [address] Performed By: #### 2 4323-8 ####[facility]IA [id number] [place] [address] [place] Urea nitrogen [Mass/Vol] 22 mg/dL Normal 9-24 [facility] Comment on above: Order Comment: Speci men Type: BLOOD SPECIMENOrdering Facility: [facility] Address: [address] Performed By: #### 2 4323-8 ####[facility] LABCLIA [id number] [address] STATES OF [facility] ECHOon 03-02-2022 Echocardiography Echocardiography Rep ort: Transthoracic Echo [facility] Bedside Date of service: 03/02/2022 8:21:51 AM DECORATOR Ordering physician: MEGAN WILKINSON Indication: s/p myectomy / CABG Technologist: Yeimy Perkins and Vicki Currie Interpreting physician: Polo Vargas MD, PhD PATIENT: Name: GINO OSORIO : 1960 Age: 61 years Gender: M History of coronary artery disease. Previous cardiovascular interventions: CABG (02/27/22) Myectomy (02/27/22) : 4.5 g Primary rhythm: sinus. Secondary rhythm: LBBB. Height: 175.30 cm BSA: 1.88 m Weight: 72.30 kg BMI: 23.5 kg/m Heart rate 82 bpm Blood pressure 110/55 mmHg Color Doppler was utilized to interrogate the cardiac valves assessed and spectral Doppler was utilized to determine the flow velocities and pressure gradients reported in this exam. Medications Total Dose Amyl nitrite 0.3 ml MEASUREMENTS: Value Indexed Normal LV ID (diastole) 3.5 cm (2D) 1.87 cm/m LV ID (systole) 2.2 cm (2D) 1.17 cm/m IVS, leaflet tips 1.7 cm (2D) Posterior wall thickness 1.4 cm (2D) Left ventricular mass 204 g (2D) 109 g/m LV stroke volume 60 ml (2D biplane) LV end diastolic volume 109 ml (2D biplane) 58.2 ml/m 34<=EDVi<75 LV end systolic volume 50 ml (2D biplane) 26.4 ml/m Ejection Fraction 55 % (2D biplane) EF > 52 FINDINGS: LEFT VENTRICLE The left ventricle is normal in size. There is concentric left ventricular hypertrophy. Left ventricular systolic function is normal. RIGHT VENTRICLE The right ventricle is normal in size. Right ventricular systolic function is normal. MITRAL VALVE There is trace mitral valve regurgitation. There is mild thickening. TRICUSPID VALVE The tricuspid valve leaflets are structurally normal. There is trace tricuspid valve regurgitation. AORTIC VALVE There is no aortic valve regurgitation. Tricuspid aortic valve. There is mild thickening. PULMONIC VALVE The pulmonic valve cusps are structurally normal. There is trace pulmonic valve regurgitation. INTERVENTRICULAR SEPTUM There is abnormal motion of the interventricular septum secondary to prior cardiac surgery and abnormal conduction. CONCLUSIONS: - Exam indication: s/p myectomy / CABG - The left ventricle is normal in size. There is concentric left ventricular hypertrophy. Left ventricular systolic function is normal. EF = 55 5% (2D biplane) - The right ventricle is normal in size. Right ventricular systolic function is normal. - Rest: No KIRSTIN, LVOT gradient is 11 mmHg, trivial MR. - Valsalva: There is no significant changes. - Amyl: No KIRSTIN, trivial MR, LVOT gradient is 29 mmHg. - Exam was compared with [facility] Slightly higher gradients recorded today but overall non-significant finding. * * * Final * * * [employer] : [id number] Normal [facility] XR CHEST 1V FRONTAL PORTon 0 03-02-2022 XR CHEST 1V FRONTAL PORT * * *Final Report* * * DATE OF EXAM: Mar 02 2022 4:41AM JIX [id number] - XR CHEST 1V FRONTAL PORT / PROCEDURE REASON: Evaluate tube, line or lead position * * * * Physician Interpretation * * * * EXAMINATION: CHEST RADIOGRAPH (PORTABLE SINGLE VIEW AP) Exam Date/Time: 03/02/2022 4:41 AM Clinical History: Evaluate tube, line or lead position, Pneumothorax MQ: XCPMC_6 Comparison: 1 day prior RESULT: Lines, tubes, and devices: The patient is status post median sternotomy. Left chest tube and mediastinal drain have been interval. Lungs and pleura: Patchy opacities are noted at the lung bases, likely related to atelectasis. Trace bilateral pleural effusions are noted. Small right apical pneumothorax is probably increased. There may be a trace left apical pneumothorax. Cardiomediastinal silhouette: Stable enlarged cardiomediastinal silhouette. Other: . IMPRESSION: See result. Fruit Farmer: KALYANI Transcribe Date/Time: Mar 02 2022 10:44A Dictated by : APRIL ARZATE MD This examination was interpreted and the report reviewed and electronically signed by: APRIL ARZATE MD on Mar 02 2022 10:45AM EST [id number] Normal [facility] ALLIED HEALTHon 03-01-2022 ALLIED HEALTH HNO ID: [id number] Author: Adrianne Ngo, Lockstitch Binder Service: Cardiovascular Medicine Author Type: Lockstitch Binder Type: Allied Health Filed: 03/01/2022 1:06 PM Note Text: CARDIAC REHABILITATION PHASE I ASSESSMENT PATIENT NAME: Gino Osorio SERVICE DATE: March 01, 2022 SESSION TIME: 12:40pm BP HR SpO2 % Flow/Rate L/min Pain (0-10) Supine N/A 114/55 82 SR 96% 2L 2 chest incision Seated (edge of bed > 30 sec) Yes 110/55 85 N/A 2L 2 Sit --> Stand (stand unassisted > 30 sec) No N/A 87 N/A 2L 2 Ambulation (>10? unassisted) No 110/55 94 96 2L 1 Post Yes N/A 85 N/A 2L 1 Pre-Exercise Assessment 1. Ankle Pumps x 5: Left - Yes Right - Yes 2. Point Pain in Calf: Left - No Right - No 3. Dorsiflex: Left - Yes Right - Yes 4. Overhead Reach x 3: Left - Yes Right - Yes 5. Unstable Sternum: No 6. Shoulder Pain: Left - No Right - No Exercise Distance: ~170 feet Duration: ~3 minutes Assistance: Contact guard assist Device: IV pole RECOMMENDATIONS: Ambulate: with supervision - CGA Oxygen: with O2 2L as needed Assist Device: yes - IV pole / prn COMMENTS: 1. Patient lying in bed with present; willing to participate in activity. Reviewed signs and symptoms of exercise intolerance. Patient reported 2/10 chest incision pain, now improved since CT's removed earlier today. 2. Patient slow and steady with ambulation. No complaints voiced with ambulation. 3. Instructed on continued increased ambulation as tolerated 4-6 times per day. Will follow. 4. Phase II cardiac rehab discussed and copy of physician signed referral for Phase II cardiac rehab provided to the patient. 5. Home exercise guidelines given and reviewed as follows: Frequency: 4-6 days/week Intensity: 3-4/10 RPE Time: 20-30 minutes/day Type: Walking Adrianne Ngo, Lockstitch Binder Ext [phone] March 01, 2022 1:02 PM Normal [facility] CASE MANAGEMon 03-01-2022 CASE MANAGEM HNO ID: [id number] Author: Maninder Diana RN Service: ? Author Type: Registered Nurse Type: Care Mgt Progress Note Filed: 03/01/2022 9:30 AM Note Text: CARE MANAGEMENT PROGRESS NOTE SERVICE DATE: 03/01/2022 SERVICE TIME: 9:29 AM LOS: 2 days Needs Prior to Discharge: None This patient has been re-screened by Care Management and continues to have no CM facilitated needs identified at this time. Should this change and new transition planning needs have been identified please contact the Transitional Rug Cleaner or Lay Out Worker listed in the Care Teams or contact the Care Management Department at [phone]. Care Management will continue to monitor. SIGNATURE: Maninder Diana RN PATIENT NAME: Gino Osorio DATE: March 01, 2022 TIME: 9:29 AM PAGER/CONTACT #: [phone] Normal [facility] CBC panel Auto (Bld)on 03-01 Erythrocyte distribution width (RBC) [Ratio] 14.0 % Normal 11.5-15.0 [facility] Comment on above: Order Comment: Speci men Type: BLOOD SPECIMENOrdering Facility: [facility] Address: [address] [place] [address] Performed By: #### 5 8410-2 ####[facility] LABCLIA [id number] [place] [address] [place] Hematocrit (Bld) [Volume fraction] 25.6 % Low 39.0-51.0 [facility] Comment on above: Order Comment: Speci men Type: BLOOD SPECIMENOrdering Facility: [facility] Address: [address] [place] [address] Performed By: #### 5 8410-2 ####[facility] [id number] [place] [address] [place] Hemoglobin (Bld) [Mass/Vol] 8.1 g/dL Low 13.0-17.0 [facility] Comment on above: Order Comment: Speci men Type: BLOOD SPECIMENOrdering Facility: [facility] Address: [address] [place] [address] Performed By: #### 5 8410-2 ####[facility] LABIA [id number] [place] [address] [place] MCH (RBC) [Entitic mass] 29.1 pg Normal 26.0-34.0 [facility] Comment on above: Order Comment: Speci men Type: BLOOD SPECIMENOrdering Facility: [facility] Address: [address] [place] [address] Performed By: #### 5 8410-2 ####[facility] [id number] [address] STATES OF [facility] MCHC (RBC) [Mass/Vol] 31.6 g/dL Normal 30.5-36.0 [facility] Comment on above: Order Comment: Speci men Type: BLOOD SPECIMENOrdering Facility: [facility] Address: [address] [place] [address] Performed By: #### 5 8410-2 ####[facility] [id number] [place] [address] [place] MCV (RBC) [Entitic vol] 92.1 fL Normal 80.0-100.0 [facility] Comment on above: Order Comment: Speci men Type: BLOOD SPECIMENOrdering Facility: [facility] Address: [address] [place] [address] Performed By: #### 5 8410-2 ####[facility] [id number] [address] [id number] [address] [place] Nucleated RBC (Bld) [#/Vol] 10*3/uL Normal <0.01 [facility] Comment on above: Order Comment: Speci men Type: BLOOD SPECIMENOrdering Facility: [facility] Address: [address] [place], [place] [address] Performed By: #### 5 8410-2 ####[facility] LABCLIA [id number] [place] [address] [place] Platelet mean volume (Bld) [Entitic vol] 11.1 fL Normal 9.0-12.7 [facility] Comment on above: Order Comment: Speci men Type: BLOOD SPECIMENOrdering Facility: [facility] Address: [address] [place], [place] [address] Performed By: #### 5 8410-2 ####[facility] LABCLIA [id number] [place] [address] [place] Platelets (Bld) [#/Vol] 107 10*3/uL Low 150-400 [facility] Comment on above: Order Comment: Speci men Type: BLOOD SPECIMENOrdering Facility: [facility] Address: [address] [place], [place] [address] Performed By: #### 5 8410-2 ####[facility] LABCLIA [id number] [place] [address] [place] RBC (Bld) [#/Vol] 2.78 10*6/uL Low 4.20-6.00 [facility] Comment on above: Order Comment: Speci men Type: BLOOD SPECIMENOrdering Facility: [facility] Address: [address] [place], [place] [address] Performed By: #### 5 8410-2 ####[facility] LABCLIA [id number] [place] [address] [place] WBC (Bld) [#/Vol] 10.20 10*3/uL Normal 3.70-11.00 [facility] Comment on above: Order Comment: Speci men Type: BLOOD SPECIMENOrdering Facility: [facility] Address: [address] [id number] Performed By: #### 5 8410-2 ####[facility] LABCLIA [id number] [address] [id number] [place] [id number] [place] XR CHEST 2V FRONTAL/LATon XR CHEST 2V FRONTAL/LAT * * *Final Report* * * DATE OF EXAM: Mar 01 2022 10:50AM JIX [id number] - XR CHEST 2V FRONTAL/LAT / PROCEDURE REASON: Post-operative / post-procedure assessment, asymptomatic * * * * Physician Interpretation * * * * EXAMINATION: CHEST RADIOGRAPH (2 VIEW FRONTAL and LATERAL) Clinical History: Post-operative / post-procedure assessment, asymptomatic M: XC2_6 Comparison: 1 day earlier RESULT: Lines, tubes, and devices: Bibasilar chest tubes and mediastinal drain remain. Lungs and pleura: Small effusions with overlying opacity probably atelectasis. Small biapical pneumothoraces decreased from prior. Cardiomediastinal silhouette: Stable cardiac silhouette enlargement. Retrosternal lucency presumably residual postoperative mediastinal air. Other: Mild degenerative changes of the thoracic spine. IMPRESSION: See Result. Fruit Farmer: KALYANI Transcribe Date/Time: Mar 01 2022 12:58P Dictated by : MARTHA SUBRAMANIAN MD This examination was interpreted and the report reviewed and electronically signed by: MARTHA SUBRAMANIAN MD on Mar 01 2022 12:59PM EST [id number] Normal [facility] ALLIED HEALTHon 02-28-2022 ALLIED HEALTH HNO ID: [id number] Author: Chaplain Monica Service: Spiritual Care Author Type: Tractor Crane Operator Type: Allied Health Filed: 02/28/2022 3:30 PM Note Text: SPIRITUALCARE Spiritual Care Visit Note Name: Gino Osorio Date: February 28, 2022 Notes: Unit manager quality compliance responded to consult for spiritual and met with the patient and family member, Maria Esther at bedside. Patient was in much pain after his recent surgery and Maria Esther requested for a prayer. Tractor Crane Operator rendered prayer as requested and offered emotional and spiritual support. [place] [phone] or call [phone] as additional needs arise. Tractor Crane Operator Signature: Jenny Arizmendi D.Min. BCC To contact the Spiritual Care Department: Please call [phone] or Page the On-Call Tractor Crane Operator at pager [phone] Thank you for the opportunity to be of service. This is an electronically created document. IF PRINTED, PLEASE DO NOT REMOVE FROM THE CHART OR MODIFY PRINTED COPY. Normal [facility] ARTERIAL BLOOD GASESon 02-28 Base deficit (BldA) [Moles/Vol] -1 mmol/L Normal -2-0 [facility] Comment on above: Order Comment: Speci men Type: ARTERIAL BLOOD SPECIMENOrdering Facility: [facility] Address: [address] [place] [address] Performed By: #### A LLBG ####[facility] LABIA [id number] [address] [place] Body temperature 98.6 [degF] Normal [facility] Comment on above: Order Comment: Speci men Type: ARTERIAL BLOOD SPECIMENOrdering Facility: [facility] Address: [address] [place] [address] Performed By: #### A LLBG ####[facility] LABCLIA [id number] [address] [place] Calcium.ionized (Bld) [Mass/Vol] 1.15 mmol/L Normal 1.08-1.30 [facility] Comment on above: Order Comment: Speci men Type: ARTERIAL BLOOD SPECIMENOrdering Facility: [facility] Address: [address] [address] Performed By: #### A LLBG ####[facility] LABCLIA [id number] [address] OF [facility] Calcium.ionized adjusted to pH 7.4 (BldA) [Moles/Vol] 1.15 mmol/L Normal 1.08-1.30 [facility] Comment on above: Order Comment: Speci men Type: ARTERIAL BLOOD SPECIMENOrdering Facility: [facility] Address: [address] [place] [address] Performed By: #### A LLBG ####[facility] LABIA [id number] [address] OF [facility] Carboxyhemoglobin (BldA) [Mass fraction] 1.5 % Normal 0.0-2.0 [facility] Comment on above: Order Comment: Speci men Type: ARTERIAL BLOOD SPECIMENOrdering Facility: [facility] Address: [address] [place], [place] [address] Result Comment: Carb oxyhemoglobin Reference Range for Smokers: 2.0-8.0% Performed By: #### A LLBG ####[facility] LABIA [id number] [address] [place] CO2 (Bld) [Partial pressure] 39 mm Hg Normal 36-46 [facility] Comment on above: Order Comment: Speci men Type: ARTERIAL BLOOD SPECIMENOrdering Facility: [facility] Address: [address] [place], [place] [address] Performed By: #### A LLBG ####[facility] LABIA [id number] [address] [place] CO2 [Moles/Vol] 24 mmol/L Normal 22-30 [facility] Comment on above: Order Comment: Speci men Type: ARTERIAL BLOOD SPECIMENOrdering Facility: [facility] Address: [address] [place], [place] [address] Performed By: #### A LLBG ####[facility] LABIA [id number] [address] [place] Order Comment: Speci men Type: BLOOD SPECIMENOrdering Facility: [facility] Address: [address] [address] Performed By: #### 2 4323-8 ####[facility] LABCLIA [id number] [place] [address] [place] Glucose [Mass/Vol] 187 mg/dL High 74-99 [facility] Comment on above: Order Comment: Speci men Type: ARTERIAL BLOOD SPECIMENOrdering Facility: [facility] Address: [address] [address] Performed By: #### A LLBG ####[facility] LABCLIA [id number] [address] Order Comment: Speci men Type: BLOOD SPECIMENOrdering Facility: [facility] Address: [address] [place] [address] Result Comment: The [place] Diabetes Association (ADA) provides guidance for cutoff values for fasting glucose and random glucose. The ADA defines fasting as no caloric intake for at least 8 hours. Fasting plasma glucose results between 100 to 125 mg/dL indicate increased risk for diabetes (prediabetes). Fasting plasma glucose results greater than or equal to 126 mg/dL meet the criteria for diagnosis of diabetes. In the absence of unequivocal hyperglycemia, results should be confirmed by repeat testing. In a patient with classic symptoms of hyperglycemia or hyperglycemic crisis, random plasma glucose results greater than or equal to 200 mg/dL meet the criteria for diagnosis of diabetes. Reference: Standards of Medical Care in Diabetes 2016, [place] [employer] Association. Diabetes Care. 2016.39(Suppl 1). Performed By: #### 2 4323-8 ####[facility] LABCLIA [id number] [place] [address] [place] HCO3 (Bld) [Moles/Vol] 23 mmol/L Normal 22-26 [facility] Comment on above: Order Comment: Speci men Type: ARTERIAL BLOOD SPECIMENOrdering Facility: [facility] Address: [address] [address] Performed By: #### A LLBG ####[facility] LABCLIA [id number] [place] [address] [place] Hematocrit (Bld) [Volume fraction] 35.8 % Low 39.0-51.0 [facility] Comment on above: Order Comment: Speci men Type: ARTERIAL BLOOD SPECIMENOrdering Facility: [facility] Address: [address] [place] [address] Performed By: #### A LLBG ####[facility] LABIA [id number] [place] [address] [place] Hemoglobin (Bld) [Mass/Vol] 11.6 g/dL Low 13.0-17.0 [facility] Comment on above: Order Comment: Speci men Type: ARTERIAL BLOOD SPECIMENOrdering Facility: [facility] Address: [address] [place] [address] Performed By: #### A LLBG ####[facility] LABIA [id number] [address] [place] Lactate [Moles/Vol] 2.6 mmol/L High 0.5-2.2 [facility] Comment on above: Order Comment: Speci men Type: ARTERIAL BLOOD SPECIMENOrdering Facility: [facility] Address: [address] [place] [address] Performed By: #### A LLBG ####[facility] LABIA [id number] [place] [address] [place] Methemoglobin (Bld) [Mass fraction] 0.6 % Normal 0.0-1.5 [facility] Comment on above: Order Comment: Speci men Type: ARTERIAL BLOOD SPECIMENOrdering Facility: [facility] Address: [address] [place], [place] [address] Performed By: #### A LLBG ####[facility] LABCLIA [id number] [place] [address] [place] O2 THERAPY NC = Nasal Cannula Normal [facility] Comment on above: Order Comment: Speci men Type: ARTERIAL BLOOD SPECIMENOrdering Facility: [facility] Address: [address] Performed By: #### A LLBG ####[facility] LABCLIA [id number] [place] [address] [place] Oxygen (Bld) [Partial pressure] 112 mm Hg High 85-95 [facility] Comment on above: Order Comment: Speci men Type: ARTERIAL BLOOD SPECIMENOrdering Facility: [facility] Address: [address] Performed By: #### A LLBG ####[facility] LABCLIA [id number] [place] [address] [place] Oxyhemoglobin (BldA) [Mass fraction] 97 % Normal 95-98 [facility] Comment on above: Order Comment: Speci men Type: ARTERIAL BLOOD SPECIMENOrdering Facility: [facility] Address: [address] Performed By: #### A LLBG ####[facility] LABCLIA [id number] [place] [address] [place] pH (Bld) 7.39 [pH] Normal 7.35-7.45 [facility] Comment on above: Order Comment: Speci men Type: ARTERIAL BLOOD SPECIMENOrdering Facility: [facility] Address: [address] Performed By: #### A LLBG ####[facility] LABCLIA [id number] [place] [address] [place] Potassium [Moles/Vol] 3.9 mmol/L Normal 3.5-5.0 [facility] Comment on above: Order Comment: Speci men Type: ARTERIAL BLOOD SPECIMENOrdering Facility: [facility] Address: [address] Performed By: #### A LLBG ####[facility] LABCLIA [id number] [place] [address] [place] Sodium [Moles/Vol] 141 mmol/L Normal 136-144 [facility] Comment on above: Order Comment: Speci men Type: ARTERIAL BLOOD SPECIMENOrdering Facility: [facility] Address: [address] [place] [address] Performed By: #### A LLBG ####[facility] LABIA [id number] [address] [place] Base deficit (BldA) [Moles/Vol] -1 mmol/L Normal -2-0 [facility] Comment on above: Order Comment: Speci men Type: ARTERIAL BLOOD SPECIMENOrdering Facility: [facility] Address: [address] [place] [address] Performed By: #### A LLBG ####[facility] LABIA [id number] [address] [place] Body temperature 98.6 [degF] Normal [facility] Comment on above: Order Comment: Speci men Type: ARTERIAL BLOOD SPECIMENOrdering Facility: [facility] Address: [address] [place], [place] [address] Performed By: #### A LLBG ####[facility] LABIA [id number] [place] [address] [place] Calcium.ionized (Bld) [Mass/Vol] 1.18 mmol/L Normal 1.08-1.30 [facility] Comment on above: Order Comment: Speci men Type: ARTERIAL BLOOD SPECIMENOrdering Facility: [facility] Address: [address] [place], [place] [address] Performed By: #### A LLBG ####[facility] LABIA [id number] [place] [address] [place] Calcium.ionized adjusted to pH 7.4 (BldA) [Moles/Vol] 1.16 mmol/L Normal 1.08-1.30 [facility] Comment on above: Order Comment: Speci men Type: ARTERIAL BLOOD SPECIMENOrdering Facility: [facility] Address: [address] [address] Performed By: #### A LLBG ####[facility] LABCLIA [id number] [place] [address] [place] Carboxyhemoglobin (BldA) [Mass fraction] 1.3 % Normal 0.0-2.0 [facility] Comment on above: Order Comment: Speci men Type: ARTERIAL BLOOD SPECIMENOrdering Facility: [facility] Address: [address] [address] Result Comment: Carb oxyhemoglobin Reference Range for Smokers: 2.0-8.0% Performed By: #### A LLBG ####[facility] LABIA [id number] [place] [address] [place] CO2 (Bld) [Partial pressure] 42 mm Hg Normal 36-46 [facility] Comment on above: Order Comment: Speci men Type: ARTERIAL BLOOD SPECIMENOrdering Facility: [facility] Address: [address] [address] Performed By: #### A LLBG ####[facility] LABIA [id number] [place] [address] [place] CO2 [Moles/Vol] 25 mmol/L Normal 22-28 [facility] Comment on above: Order Comment: Speci men Type: ARTERIAL BLOOD SPECIMENOrdering Facility: [facility] Address: [address] Performed By: #### A LLBG ####[facility] LABIA [id number] [place] [address] [place] Glucose [Mass/Vol] 168 mg/dL High 60-105 [facility] Comment on above: Order Comment: Speci men Type: ARTERIAL BLOOD SPECIMENOrdering Facility: [facility] Address: [address] Performed By: #### A LLBG ####[facility] LABCLIA [id number] [place] [address] [place] HCO3 (Bld) [Moles/Vol] 23 mmol/L Normal 22-26 [facility] Comment on above: Order Comment: Speci men Type: ARTERIAL BLOOD SPECIMENOrdering Facility: [facility] Address: [address] [place], [place] [address] Performed By: #### A LLBG ####[facility] LABCLIA [id number] [place] [address] [place] Hematocrit (Bld) [Volume fraction] 35.8 % Low 39.0-51.0 [facility] Comment on above: Order Comment: Speci men Type: ARTERIAL BLOOD SPECIMENOrdering Facility: [facility] Address: [address] [place] [address] Performed By: #### A LLBG ####[facility] LABIA [id number] [place] [address] [place] Hemoglobin (Bld) [Mass/Vol] 11.6 g/dL Low 13.0-17.0 [facility] Comment on above: Order Comment: Speci men Type: ARTERIAL BLOOD SPECIMENOrdering Facility: [facility] Address: [address] [place], [place] [address] Performed By: #### A LLBG ####[facility] LABIA [id number] [place] [address] [place] Lactate [Moles/Vol] 1.3 mmol/L Normal 0.5-2.2 [facility] Comment on above: Order Comment: Speci men Type: ARTERIAL BLOOD SPECIMENOrdering Facility: [facility] Address: [address] [place], [place] [address] Performed By: #### A LLBG ####[facility] LABIA [id number] [address] [id number] [address] [place] Methemoglobin (Bld) [Mass fraction] 1.3 % Normal 0.0-1.5 [facility] Comment on above: Order Comment: Speci men Type: ARTERIAL BLOOD SPECIMENOrdering Facility: [facility] Address: [address] Performed By: #### A LLBG ####[facility] LABCLIA [id number] [place] [address] [place] O2 THERAPY NC = Nasal Cannula Normal [facility] Comment on above: Order Comment: Speci men Type: ARTERIAL BLOOD SPECIMENOrdering Facility: [facility] Address: [address] Performed By: #### A LLBG ####[facility] LABCLIA [id number] [place] [address] [place] Oxygen (Bld) [Partial pressure] 131 mm Hg High 85-95 [facility] Comment on above: Order Comment: Speci men Type: ARTERIAL BLOOD SPECIMENOrdering Facility: [facility] Address: [address] Performed By: #### A LLBG ####[facility] LABCLIA [id number] [place] [address] [place] Oxyhemoglobin (BldA) [Mass fraction] 96 % Normal 95-98 [facility] Comment on above: Order Comment: Speci men Type: ARTERIAL BLOOD SPECIMENOrdering Facility: [facility] Address: [address] Performed By: #### A LLBG ####[facility] LABCLIA [id number] [place] [address] [place] pH (Bld) 7.36 [pH] Normal 7.35-7.45 [facility] Comment on above: Order Comment: Speci men Type: ARTERIAL BLOOD SPECIMENOrdering Facility: [facility] Address: [address] Performed By: #### A LLBG ####[facility] LABCLIA [id number] [place] [address] [place] Potassium [Moles/Vol] 4.1 mmol/L Normal 3.5-5.0 [facility] Comment on above: Order Comment: Speci men Type: ARTERIAL BLOOD SPECIMENOrdering Facility: [facility] Address: [address] [place], [place] [address] Performed By: #### A LLBG ####[facility] LABIA [id number] [place] [address] [place] Sodium [Moles/Vol] 139 mmol/L Normal 136-144 [facility] Comment on above: Order Comment: Speci men Type: ARTERIAL BLOOD SPECIMENOrdering Facility: [facility] Address: [address] [place], [place] [address] Performed By: #### A LLBG ####[facility] LABIA [id number] [place] [address] [place] Base deficit (BldA) [Moles/Vol] -1 mmol/L Normal -2-0 [facility] Comment on above: Order Comment: Speci men Type: ARTERIAL BLOOD SPECIMENOrdering Facility: [facility] Address: [address] [place], [place] [address] Performed By: #### A LLBG ####[facility] LABIA [id number] [place] [address] [place] Body temperature 98.6 [degF] Normal [facility] Comment on above: Order Comment: Speci men Type: ARTERIAL BLOOD SPECIMENOrdering Facility: [facility] Address: [address] [place], [place] [address] Performed By: #### A LLBG ####[facility] LABIA [id number] [place] [address] [place] Calcium.ionized (Bld) [Mass/Vol] 1.16 mmol/L Normal 1.08-1.30 [facility] Comment on above: Order Comment: Speci men Type: ARTERIAL BLOOD SPECIMENOrdering Facility: [facility] Address: [address] [place] [address] Performed By: #### A LLBG ####[facility] LABCLIA [id number] [place] [address] [place] Calcium.ionized adjusted to pH 7.4 (BldA) [Moles/Vol] 1.14 mmol/L Normal 1.08-1.30 [facility] Comment on above: Order Comment: Speci men Type: ARTERIAL BLOOD SPECIMENOrdering Facility: [facility] Address: [address] [place] [address] Performed By: #### A LLBG ####[facility] LABCLIA [id number] [place] [address] [place] Carboxyhemoglobin (BldA) [Mass fraction] 1.3 % Normal 0.0-2.0 [facility] Comment on above: Order Comment: Speci men Type: ARTERIAL BLOOD SPECIMENOrdering Facility: [facility] Address: [address] [place] [address] Result Comment: Carb oxyhemoglobin Reference Range for Smokers: 2.0-8.0% Performed By: #### A LLBG ####[facility] LABCLIA [id number] [place] [address] [place] CO2 (Bld) [Partial pressure] 43 mm Hg Normal 36-46 [facility] Comment on above: Order Comment: Speci men Type: ARTERIAL BLOOD SPECIMENOrdering Facility: [facility] Address: [address] [place] [address] Performed By: #### A LLBG ####[facility] LABCLIA [id number] [place] [address] [place] CO2 [Moles/Vol] 25 mmol/L Normal 22-28 [facility] Comment on above: Order Comment: Speci men Type: ARTERIAL BLOOD SPECIMENOrdering Facility: [facility] Address: [address] Performed By: #### A LLBG ####[facility] LABCLIA [id number] [address] [place] Glucose [Mass/Vol] 142 mg/dL High 60-105 [facility] Comment on above: Order Comment: Speci men Type: ARTERIAL BLOOD SPECIMENOrdering Facility: [facility] Address: [address] Performed By: #### A LLBG ####[facility] LABCLIA [id number] [place] [address] [place] HCO3 (Bld) [Moles/Vol] 23 mmol/L Normal 22-26 [facility] Comment on above: Order Comment: Speci men Type: ARTERIAL BLOOD SPECIMENOrdering Facility: [facility] Address: [address] [place], [place] [address] Performed By: #### A LLBG ####[facility] LABCLIA [id number] [place] [address] [place] Hematocrit (Bld) [Volume fraction] 34.0 % Low 39.0-51.0 [facility] Comment on above: Order Comment: Speci men Type: ARTERIAL BLOOD SPECIMENOrdering Facility: [facility] Address: [address] Performed By: #### A LLBG ####[facility] LABCLIA [id number] [place] [address] [place] Hemoglobin (Bld) [Mass/Vol] 11.0 g/dL Low 13.0-17.0 [facility] Comment on above: Order Comment: Speci men Type: ARTERIAL BLOOD SPECIMENOrdering Facility: [facility] Address: [address] [place], [place] [address] Performed By: #### A LLBG ####[facility] LABCLIA [id number] [place] [address] [place] Lactate [Moles/Vol] 1.4 mmol/L Normal 0.5-2.2 [facility] Comment on above: Order Comment: Speci men Type: ARTERIAL BLOOD SPECIMENOrdering Facility: [facility] Address: [address] [address] Performed By: #### A LLBG ####[facility] LABCLIA [id number] [place] [address] [place] LITERS 4 Liters/min Normal [facility] Comment on above: Order Comment: Speci men Type: ARTERIAL BLOOD SPECIMENOrdering Facility: [facility] Address: [address] [place] [address] Performed By: #### A LLBG ####[facility] LABIA [id number] [place] [address] [place] Methemoglobin (Bld) [Mass fraction] 1.2 % Normal 0.0-1.5 [facility] Comment on above: Order Comment: Speci men Type: ARTERIAL BLOOD SPECIMENOrdering Facility: [facility] Address: [address] [place], [place] [address] Performed By: #### A LLBG ####[facility] LABIA [id number] [place] [address] [place] O2 THERAPY NC = Nasal Cannula Normal [facility] Comment on above: Order Comment: Speci men Type: ARTERIAL BLOOD SPECIMENOrdering Facility: [facility] Address: [address] Performed By: #### A LLBG ####[facility] LABCLIA [id number] [place] [address] [place] Oxygen (Bld) [Partial pressure] 122 mm Hg High 85-95 [facility] Comment on above: Order Comment: Speci men Type: ARTERIAL BLOOD SPECIMENOrdering Facility: [facility] Address: [address] [place], [place] [address] Performed By: #### A LLBG ####[facility] LABIA [id number] [place] [address] [place] Oxyhemoglobin (BldA) [Mass fraction] 96 % Normal 95-98 [facility] Comment on above: Order Comment: Speci men Type: ARTERIAL BLOOD SPECIMENOrdering Facility: [facility] Address: [address] [place], [place] [address] Performed By: #### A LLBG ####[facility] LABS[facility] [id number] [place] [address] [place] pH (Bld) 7.36 [pH] Normal 7.35-7.45 [facility] Comment on above: Order Comment: Speci men Type: ARTERIAL BLOOD SPECIMENOrdering Facility: [facility] Address: [address] [place], [place] [address] Performed By: #### A LLBG ####[facility] LABIA [id number] [place] [address] [place] Potassium [Moles/Vol] 4.2 mmol/L Normal 3.5-5.0 [facility] Comment on above: Order Comment: Speci men Type: ARTERIAL BLOOD SPECIMENOrdering Facility: [facility] Address: [address] [place], [place] [address] Performed By: #### A LLBG ####[facility] LABIA [id number] [place] [address] [place] Sodium [Moles/Vol] 140 mmol/L Normal 136-144 [facility] Comment on above: Order Comment: Speci men Type: ARTERIAL BLOOD SPECIMENOrdering Facility: [facility] Address: [address] [place], [place] [address] Performed By: #### A LLBG ####[facility] LABIA [id number] [id number] [address] [place] Base deficit (BldA) [Moles/Vol] -1 mmol/L Normal -2-0 [facility] Comment on above: Order Comment: Speci men Type: ARTERIAL BLOOD SPECIMENOrdering Facility: [facility] Address: [address] [place] [address] Performed By: #### A LLBG ####[facility] LABIA [id number] [address] [place] Body temperature 98.6 [degF] Normal [facility] Comment on above: Order Comment: Speci men Type: ARTERIAL BLOOD SPECIMENOrdering Facility: [facility] Address: [address] [place], [place] [address] Performed By: #### A LLBG ####[facility] LABCLIA [id number] [place] [address] [place] Calcium.ionized (Bld) [Mass/Vol] 1.17 mmol/L Normal 1.08-1.30 [facility] Comment on above: Order Comment: Speci men Type: ARTERIAL BLOOD SPECIMENOrdering Facility: [facility] Address: [address] [place], [place] [address] Performed By: #### A LLBG ####[facility] LABIA [id number] [address] [place] Calcium.ionized adjusted to pH 7.4 (BldA) [Moles/Vol] 1.14 mmol/L Normal 1.08-1.30 [facility] Comment on above: Order Comment: Speci men Type: ARTERIAL BLOOD SPECIMENOrdering Facility: [facility] Address: [address] [place], [place] [address] Performed By: #### A LLBG ####[facility] LABIA [id number] [address] [place] Carboxyhemoglobin (BldA) [Mass fraction] 0.8 % Normal 0.0-2.0 [facility] Comment on above: Order Comment: Speci men Type: ARTERIAL BLOOD SPECIMENOrdering Facility: [facility] Address: [address] Result Comment: Carb oxyhemoglobin Reference Range for Smokers: 2.0-8.0% Performed By: #### A LLBG ####[facility] LABCLIA [id number] [place] [address] [place] CO2 (Bld) [Partial pressure] 44 mm Hg Normal 36-46 [facility] Comment on above: Order Comment: Speci men Type: ARTERIAL BLOOD SPECIMENOrdering Facility: [facility] Address: [address] [address] Performed By: #### A LLBG ####[facility] LABCLIA [id number] [place] [address] [place] CO2 [Moles/Vol] 26 mmol/L Normal 22-28 [facility] Comment on above: Order Comment: Speci men Type: ARTERIAL BLOOD SPECIMENOrdering Facility: [facility] Address: [address] Performed By: #### A LLBG ####[facility] LABCLIA [id number] [place] [address] [place] Glucose [Mass/Vol] 117 mg/dL High 60-105 [facility] Comment on above: Order Comment: Speci men Type: ARTERIAL BLOOD SPECIMENOrdering Facility: [facility] Address: [address] Performed By: #### A LLBG ####[facility] LABCLIA [id number] [place] [address] [place] HCO3 (Bld) [Moles/Vol] 24 mmol/L Normal 22-26 [facility] Comment on above: Order Comment: Speci men Type: ARTERIAL BLOOD SPECIMENOrdering Facility: [facility] Address: [address] Performed By: #### A LLBG ####[facility] LABCLIA [id number] [place] [address] [place] Hematocrit (Bld) [Volume fraction] 34.1 % Low 39.0-51.0 [facility] Comment on above: Order Comment: Speci men Type: ARTERIAL BLOOD SPECIMENOrdering Facility: [facility] Address: [address] [place] [address] Performed By: #### A LLBG ####[facility] LABIA [id number] [place] [address] [place] Hemoglobin (Bld) [Mass/Vol] 11.1 g/dL Low 13.0-17.0 [facility] Comment on above: Order Comment: Speci men Type: ARTERIAL BLOOD SPECIMENOrdering Facility: [facility] Address: [address] [place] [address] Performed By: #### A LLBG ####[facility] LABIA [id number] [place] [address] [place] Lactate [Moles/Vol] 1.6 mmol/L Normal 0.5-2.2 [facility] Comment on above: Order Comment: Speci men Type: ARTERIAL BLOOD SPECIMENOrdering Facility: [facility] Address: [address] [place], [place] [address] Performed By: #### A LLBG ####[facility] LABIA [id number] [place] [address] [place] LITERS 4 Liters/min Normal [facility] Comment on above: Order Comment: Speci men Type: ARTERIAL BLOOD SPECIMENOrdering Facility: [facility] Address: [address] [place], [place] [address] Performed By: #### A LLBG ####[facility] LABIA [id number] [place] [address] [place] Methemoglobin (Bld) [Mass fraction] 1.2 % Normal 0.0-1.5 [facility] Comment on above: Order Comment: Speci men Type: ARTERIAL BLOOD SPECIMENOrdering Facility: [facility] Address: [address] Performed By: #### A LLBG ####[facility] LABCLIA [id number] [place] [address] [place] O2 THERAPY NC = Nasal Cannula Normal [facility] Comment on above: Order Comment: Speci men Type: ARTERIAL BLOOD SPECIMENOrdering Facility: [facility] Address: [address] Performed By: #### A LLBG ####[facility] LABIA [id number] [place] [address] [place] Oxygen (Bld) [Partial pressure] 116 mm Hg High 85-95 [facility] Comment on above: Order Comment: Speci men Type: ARTERIAL BLOOD SPECIMENOrdering Facility: [facility] Address: [address] [place], [place] [address] Performed By: #### A LLBG ####[facility] LABIA [id number] [place] [address] [place] Oxyhemoglobin (BldA) [Mass fraction] 96 % Normal 95-98 [facility] Comment on above: Order Comment: Speci men Type: ARTERIAL BLOOD SPECIMENOrdering Facility: [facility] Address: [address] Performed By: #### A LLBG ####[facility] LABCLIA [id number] [place] [address] [place] pH (Bld) 7.36 [pH] Normal 7.35-7.45 [facility] Comment on above: Order Comment: Speci men Type: ARTERIAL BLOOD SPECIMENOrdering Facility: [facility] Address: [address] [place], [place] [address] Performed By: #### A LLBG ####[facility] LABCLIA [id number] [place] [address] [place] Potassium [Moles/Vol] 3.9 mmol/L Normal 3.5-5.0 [facility] Comment on above: Order Comment: Speci men Type: ARTERIAL BLOOD SPECIMENOrdering Facility: [facility] Address: [address] [place] [address] Performed By: #### A LLBG ####[facility] LABCLIA [id number] [place] [address] [place] Sodium [Moles/Vol] 141 mmol/L Normal 136-144 [facility] Comment on above: Order Comment: Speci men Type: ARTERIAL BLOOD SPECIMENOrdering Facility: [facility] Address: [address] [place] [address] Performed By: #### A LLBG ####[facility] LABIA [id number] [place] [address] [place] Base deficit (BldA) [Moles/Vol] -1 mmol/L Normal -2-0 [facility] Comment on above: Order Comment: Speci men Type: ARTERIAL BLOOD SPECIMENOrdering Facility: [facility] Address: [address] [place] [address] Performed By: #### A LLBG ####[facility] LABIA [id number] [place] [address] [place] Body temperature 98.6 [degF] Normal [facility] Comment on above: Order Comment: Speci men Type: ARTERIAL BLOOD SPECIMENOrdering Facility: [facility] Address: [address] [place], [place] [address] Performed By: #### A LLBG ####[facility] LABIA [id number] [place] [address] [place] Calcium.ionized (Bld) [Mass/Vol] 1.15 mmol/L Normal 1.08-1.30 [facility] Comment on above: Order Comment: Speci men Type: ARTERIAL BLOOD SPECIMENOrdering Facility: [facility] Address: [address] [address] Performed By: #### A LLBG ####[facility] LABS[facility] [id number] [place] [address] [place] Calcium.ionized adjusted to pH 7.4 (BldA) [Moles/Vol] 1.13 mmol/L Normal 1.08-1.30 [facility] Comment on above: Order Comment: Speci men Type: ARTERIAL BLOOD SPECIMENOrdering Facility: [facility] Address: [address] [place] [address] Performed By: #### A LLBG ####[facility] [id number] [place] [address] [place] Carboxyhemoglobin (BldA) [Mass fraction] 1.4 % Normal 0.0-2.0 [facility] Comment on above: Order Comment: Speci men Type: ARTERIAL BLOOD SPECIMENOrdering Facility: [facility] Address: [address] [place] [address] Result Comment: Carb oxyhemoglobin Reference Range for Smokers: 2.0-8.0% Performed By: #### A LLBG ####[facility] [id number] [place] [address] [place] CO2 (Bld) [Partial pressure] 41 mm Hg Normal 36-46 [facility] Comment on above: Order Comment: Speci men Type: ARTERIAL BLOOD SPECIMENOrdering Facility: [facility] Address: [address] Performed By: #### A LLBG ####[facility] LABS[facility] [id number] [place] [address] [place] CO2 [Moles/Vol] 25 mmol/L Normal 22-28 [facility] Comment on above: Order Comment: Speci men Type: ARTERIAL BLOOD SPECIMENOrdering Facility: [facility] Address: [address] [place], [place] [address] Performed By: #### A LLBG ####[facility] LABCLIA [id number] [place] [address] [place] Glucose [Mass/Vol] 139 mg/dL High 60-105 [facility] Comment on above: Order Comment: Speci men Type: ARTERIAL BLOOD SPECIMENOrdering Facility: [facility] Address: [address] [place], [place] [address] Performed By: #### A LLBG ####[facility] LABCLIA [id number] [place] [address] [place] HCO3 (Bld) [Moles/Vol] 23 mmol/L Normal 22-26 [facility] Comment on above: Order Comment: Speci men Type: ARTERIAL BLOOD SPECIMENOrdering Facility: [facility] Address: [address] [place], [place] [address] Performed By: #### A LLBG ####[facility] LABCLIA [id number] [place] [address] [place] Hematocrit (Bld) [Volume fraction] 34.1 % Low 39.0-51.0 [facility] Comment on above: Order Comment: Speci men Type: ARTERIAL BLOOD SPECIMENOrdering Facility: [facility] Address: [address] [place], [place] [address] Performed By: #### A LLBG ####[facility] LABCLIA [id number] [place] [address] [place] Hemoglobin (Bld) [Mass/Vol] 11.0 g/dL Low 13.0-17.0 [facility] Comment on above: Order Comment: Speci men Type: ARTERIAL BLOOD SPECIMENOrdering Facility: [facility] Address: [address] [place], [place] [address] Performed By: #### A LLBG ####[facility] LABCLIA [id number] [place] [address] [place] Lactate [Moles/Vol] 2.1 mmol/L Normal 0.5-2.2 [facility] Comment on above: Order Comment: Speci men Type: ARTERIAL BLOOD SPECIMENOrdering Facility: [facility] Address: [address] Performed By: #### A LLBG ####[facility] LABCLIA [id number] [place] [address] [place] LITERS 4 Liters/min Normal [facility] Comment on above: Order Comment: Speci men Type: ARTERIAL BLOOD SPECIMENOrdering Facility: [facility] Address: [address] Performed By: #### A LLBG ####[facility] LABCLIA [id number] [place] [address] [place] Methemoglobin (Bld) [Mass fraction] 0.9 % Normal 0.0-1.5 [facility] Comment on above: Order Comment: Speci men Type: ARTERIAL BLOOD SPECIMENOrdering Facility: [facility] Address: [address] Performed By: #### A LLBG ####[facility] LABCLIA [id number] [place] [address] [place] O2 THERAPY NC = Nasal Cannula Normal [facility] Comment on above: Order Comment: Speci men Type: ARTERIAL BLOOD SPECIMENOrdering Facility: [facility] Address: [address] [place] [address] Performed By: #### A LLBG ####[facility] LABCLIA [id number] [place] [address] [place] Oxygen (Bld) [Partial pressure] 102 mm Hg High 85-95 [facility] Comment on above: Order Comment: Speci men Type: ARTERIAL BLOOD SPECIMENOrdering Facility: [facility] Address: [address] Performed By: #### A LLBG ####[facility] LABCLIA [id number] [place] [address] [place] Oxyhemoglobin (BldA) [Mass fraction] 96 % Normal 95-98 [facility] Comment on above: Order Comment: Speci men Type: ARTERIAL BLOOD SPECIMENOrdering Facility: [facility] Address: [address] [place] [address] Performed By: #### A LLBG ####[facility] LABCLIA [id number] [place] [address] [place] pH (Bld) 7.37 [pH] Normal 7.35-7.45 [facility] Comment on above: Order Comment: Speci men Type: ARTERIAL BLOOD SPECIMENOrdering Facility: [facility] Address: [address] [place] [address] Performed By: #### A LLBG ####[facility] LABIA [id number] [place] [address] [place] Potassium [Moles/Vol] 4.1 mmol/L Normal 3.5-5.0 [facility] Comment on above: Order Comment: Speci men Type: ARTERIAL BLOOD SPECIMENOrdering Facility: [facility] Address: [address] [place], [place] [address] Performed By: #### A LLBG ####[facility] LABIA [id number] [place] [address] [place] Sodium [Moles/Vol] 141 mmol/L Normal 136-144 [facility] Comment on above: Order Comment: Speci men Type: ARTERIAL BLOOD SPECIMENOrdering Facility: [facility] Address: [address] [place], [place] [address] Performed By: #### A LLBG ####[facility] LABCLIA [id number] [place] [address] [place] Base deficit (BldA) [Moles/Vol] -2 mmol/L Normal -2-0 [facility] Comment on above: Order Comment: Speci men Type: ARTERIAL BLOOD SPECIMEN Ordering Facility: [facility] Address: [address] Performed By: #### A LLBG #### [facility] CLIA [id number] [address] [place] [address] [place] Body temperature 98.6 [degF] Normal [facility] Comment on above: Order Comment: Speci men Type: ARTERIAL BLOOD SPECIMEN Ordering Facility: [facility] Address: [address] Performed By: #### A LLBG #### [facility] CLIA [id number] [address] [place] [address] [place] Calcium.ionized (Bld) [Mass/Vol] 1.17 mmol/L Normal 1.08-1.30 [facility] Comment on above: Order Comment: Speci men Type: ARTERIAL BLOOD SPECIMEN Ordering Facility: [facility] Address: [address] Performed By: #### A LLBG #### [facility] CLIA [id number] [address] [place] [address] [place] Calcium.ionized adjusted to pH 7.4 (BldA) [Moles/Vol] 1.15 mmol/L Normal 1.08-1.30 [facility] Comment on above: Order Comment: Speci men Type: ARTERIAL BLOOD SPECIMEN Ordering Facility: [facility] Address: [address] Performed By: #### A LLBG #### [facility] CLIA [id number] [address] [place] [address] [place] Carboxyhemoglobin (BldA) [Mass fraction] 0.6 % Normal 0.0-2.0 [facility] Comment on above: Order Comment: Speci men Type: ARTERIAL BLOOD SPECIMEN Ordering Facility: [facility] Address: [address] Result Comment: Carb oxyhemoglobin Reference Range for Smokers: 2.0-8.0% Performed By: #### A LLBG #### [facility] CLIA [id number] [place] [address] [place] CO2 (Bld) [Partial pressure] 41 mm Hg Normal 36-46 [facility] Comment on above: Order Comment: Speci men Type: ARTERIAL BLOOD SPECIMEN Ordering Facility: [facility] Address: [address] [place] [address] Performed By: #### A LLBG #### [facility] CLIA [id number] [address] [place] [address] [place] CO2 [Moles/Vol] 24 mmol/L Normal 22-28 [facility] Comment on above: Order Comment: Speci men Type: ARTERIAL BLOOD SPECIMEN Ordering Facility: [facility] Address: [address] [place], [place] [address] Performed By: #### A LLBG #### [facility] CLIA [id number] [address] [place] [address] [place] FIO2 35 % Normal [facility] Comment on above: Order Comment: Speci men Type: ARTERIAL BLOOD SPECIMEN Ordering Facility: [facility] Address: [address] [place], [place] [address] Performed By: #### A LLBG #### [facility] CLIA [id number] [address] [place] [address] [place] Glucose [Mass/Vol] 156 mg/dL High 60-105 [facility] Comment on above: Order Comment: Speci men Type: ARTERIAL BLOOD SPECIMEN Ordering Facility: [facility] Address: [address] [place] [address] Performed By: #### A LLBG #### [facility] CLIA [id number] [address] [place] [address] [place] HCO3 (Bld) [Moles/Vol] 23 mmol/L Normal 22-26 [facility] Comment on above: Order Comment: Speci men Type: ARTERIAL BLOOD SPECIMEN Ordering Facility: [facility] Address: [address] Performed By: #### A LLBG #### [facility] CLIA [id number] [address] [place] [address] [place] Hematocrit (Bld) [Volume fraction] 35.4 % Low 39.0-51.0 [facility] Comment on above: Order Comment: Speci men Type: ARTERIAL BLOOD SPECIMEN Ordering Facility: [facility] Address: [address] Performed By: #### A LLBG #### [facility] CLIA [id number] [address] [place] [address] [place] Hemoglobin (Bld) [Mass/Vol] 11.5 g/dL Low 13.0-17.0 [facility] Comment on above: Order Comment: Speci men Type: ARTERIAL BLOOD SPECIMEN Ordering Facility: [facility] Address: [address] Performed By: #### A LLBG #### [facility] CLIA [id number] [address] [place] [address] [place] Lactate [Moles/Vol] 3.5 mmol/L High 0.5-2.2 [facility] Comment on above: Order Comment: Speci men Type: ARTERIAL BLOOD SPECIMEN Ordering Facility: [facility] Address: [address] Performed By: #### A LLBG #### [facility] CLIA [id number] [address] [place] [address] [place] Methemoglobin (Bld) [Mass fraction] 1.5 % Normal 0.0-1.5 [facility] Comment on above: Order Comment: Speci men Type: ARTERIAL BLOOD SPECIMEN Ordering Facility: [facility] Address: [address] [place] [address] Performed By: #### A LLBG #### [facility] CLIA [id number] [address] [place] [address] [place] O2 THERAPY Ventilator Normal [facility] Comment on above: Order Comment: Speci men Type: ARTERIAL BLOOD SPECIMEN Ordering Facility: [facility] Address: [address] Performed By: #### A LLBG #### [facility] CLIA [id number] [address] [place] [id number] [place] Oxygen (Bld) [Partial pressure] 126 mm Hg High 85-95 [facility] Comment on above: Order Comment: Speci men Type: ARTERIAL BLOOD SPECIMEN Ordering Facility: [facility] Address: [address] Performed By: #### A LLBG #### [facility] CLIA [id number] [address] [place] [address] [place] Oxyhemoglobin (BldA) [Mass fraction] 96 % Normal 95-98 [facility] Comment on above: Order Comment: Speci men Type: ARTERIAL BLOOD SPECIMEN Ordering Facility: [facility] Address: [address] [place] [address] Performed By: #### A LLBG #### [facility] CLIA [id number] [address] [place] [id number] [place] pH (Bld) 7.37 [pH] Normal 7.35-7.45 [facility] Comment on above: Order Comment: Speci men Type: ARTERIAL BLOOD SPECIMEN Ordering Facility: [facility] Address: [address] [place] [address] Performed By: #### A LLBG #### [facility] CLIA [id number] [address] [place] [id number] [place] Potassium [Moles/Vol] 3.9 mmol/L Normal 3.5-5.0 [facility] Comment on above: Order Comment: Speci men Type: ARTERIAL BLOOD SPECIMEN Ordering Facility: [facility] Address: [address] Performed By: #### A LLBG #### [facility] CLIA [id number] [address] [place] [address] [place] Sodium [Moles/Vol] 141 mmol/L Normal 136-144 [facility] Comment on above: Order Comment: Speci men Type: ARTERIAL BLOOD SPECIMEN Ordering Facility: [facility] Address: [address] Performed By: #### A LLBG #### [facility] CLIA [id number] [address] [place] [address] [place] CBC panel Auto (Bld)on 02-28 Erythrocyte distribution width (RBC) [Ratio] 13.4 % Normal 11.5-15.0 [facility] Comment on above: Order Comment: Speci men Type: BLOOD SPECIMENOrdering Facility: [facility] Address: [address] [place], [place] [address] Performed By: #### 5 8410-2 ####[facility] [id number] [place] [address] [place] Hematocrit (Bld) [Volume fraction] 32.0 % Low 39.0-51.0 [facility] Comment on above: Order Comment: Speci men Type: BLOOD SPECIMENOrdering Facility: [facility] Address: [address] Performed By: #### 5 8410-2 ####[facility] [id number] [place] [address] [place] Hemoglobin (Bld) [Mass/Vol] 10.9 g/dL Low 13.0-17.0 [facility] Comment on above: Order Comment: Speci men Type: BLOOD SPECIMENOrdering Facility: [facility] Address: [address] [place] [address] Performed By: #### 5 8410-2 ####[facility] [id number] [address] MCH (RBC) [Entitic mass] 29.5 pg Normal 26.0-34.0 [facility] Comment on above: Order Comment: Speci men Type: BLOOD SPECIMENOrdering Facility: [facility] Address: [address] Performed By: #### 5 8410-2 ####[facility] [id number] [address] MCHC (RBC) [Mass/Vol] 34.1 g/dL Normal 30.5-36.0 [facility] Comment on above: Order Comment: Speci men Type: BLOOD SPECIMENOrdering Facility: [facility] Address: [address] Performed By: #### 5 8410-2 ####[facility] [id number] [address] [place] [facility] MCV (RBC) [Entitic vol] 86.5 fL Normal 80.0-100.0 [facility] Comment on above: Order Comment: Speci men Type: BLOOD SPECIMENOrdering Facility: [facility] Address: [address] Performed By: #### 5 8410-2 ####[facility] [id number] [address] [place] Nucleated RBC (Bld) [#/Vol] 10*3/uL Normal <0.01 [facility] Comment on above: Order Comment: Speci men Type: BLOOD SPECIMENOrdering Facility: [facility] Address: [address] [place], [place] [address] Performed By: #### 5 8410-2 ####[facility]IA [id number] [place] [address] [place] Platelet mean volume (Bld) [Entitic vol] 10.3 fL Normal 9.0-12.7 [facility] Comment on above: Order Comment: Speci men Type: BLOOD SPECIMENOrdering Facility: [facility] Address: [address] [place], [place] [address] Performed By: #### 5 8410-2 ####[facility]IA [id number] [place] [address] [place] Platelets (Bld) [#/Vol] 138 10*3/uL Low 150-400 [facility] Comment on above: Order Comment: Speci men Type: BLOOD SPECIMENOrdering Facility: [facility] Address: [address] [place], [place] [address] Performed By: #### 5 8410-2 ####[facility]CLIA [id number] [place] [address] [place] RBC (Bld) [#/Vol] 3.70 10*6/uL Low 4.20-6.00 [facility] Comment on above: Order Comment: Speci men Type: BLOOD SPECIMENOrdering Facility: [facility] Address: [address] [place], [place] [address] Performed By: #### 5 8410-2 ####[facility]CLIA [id number] [place] [address] [place] WBC (Bld) [#/Vol] 11.53 10*3/uL High 3.70-11.00 [facility] Comment on above: Order Comment: Speci men Type: BLOOD SPECIMENOrdering Facility: [facility] Address: [address] [place], [place] [address] Performed By: #### 5 8410-2 ####[facility]CLIA [id number] [place] [address] [place] Comprehensive metabolic 2000 panelon 02-28-2022 Albumin [Mass/Vol] 4.2 g/dL Normal 3.9-4.9 [facility] Comment on above: Order Comment: Speci men Type: BLOOD SPECIMENOrdering Facility: [facility] Address: [address] [place] [address] Performed By: #### 2 4323-8 ####[facility]CLIA [id number] [place] [address] [place] ALP [Catalytic activity/Vol] 65 U/L Normal 38-113 [facility] Comment on above: Order Comment: Speci men Type: BLOOD SPECIMENOrdering Facility: [facility] Address: [address] [place] [address] Performed By: #### 2 4323-8 ####[facility]CLIA [id number] [address] [place] ALT [Catalytic activity/Vol] 339 U/L High 10-54 [facility] Comment on above: Order Comment: Speci men Type: BLOOD SPECIMENOrdering Facility: [facility] Address: [address] [place], [place] [address] Performed By: #### 2 4323-8 ####[facility]CLIA [id number] [place] [address] [place] Anion gap [Moles/Vol] 11 mmol/L Normal 9-18 [facility] Comment on above: Order Comment: Speci men Type: BLOOD SPECIMENOrdering Facility: [facility] Address: [address] Performed By: #### 2 4323-8 ####[facility]CLIA [id number] [place] [address] [place] AST [Catalytic activity/Vol] 262 U/L High 14-40 [facility] Comment on above: Order Comment: Speci men Type: BLOOD SPECIMENOrdering Facility: [facility] Address: [address] [place], [place] [address] Performed By: #### 2 4323-8 ####[facility]CLIA [id number] [place] [address] [place] Bilirubin [Mass/Vol] 1.4 mg/dL High 0.2-1.3 [facility] Comment on above: Order Comment: Speci men Type: BLOOD SPECIMENOrdering Facility: [facility] Address: [address] [place], [place] [address] Performed By: #### 2 4323-8 ####[facility]CLIA [id number] [place] [address] [place] Calcium [Mass/Vol] 8.8 mg/dL Normal 8.5-10.2 [facility] Comment on above: Order Comment: Speci men Type: BLOOD SPECIMENOrdering Facility: [facility] Address: [address] [place], [place] [address] Performed By: #### 2 4323-8 ####[facility]CLIA [id number] [place] [address] [place] Chloride [Moles/Vol] 107 mmol/L High 97-105 [facility] Comment on above: Order Comment: Speci men Type: BLOOD SPECIMENOrdering Facility: [facility] Address: [address] [place], [place] [address] Performed By: #### 2 4323-8 ####[facility]CLIA [id number] [place] [address] [place] Creatinine [Mass/Vol] 0.73 mg/dL Normal 0.73-1.22 [facility] Comment on above: Order Comment: Speci men Type: BLOOD SPECIMENOrdering Facility: [facility] Address: [address] [place], [place] [address] Performed By: #### 2 4323-8 ####[facility]CLIA [id number] [place] [address] [place] ESTIMATED GLOMERULAR FILTRATION RATE 105 mL/min/1.73m??? Normal >=60 [facility] Comment on above: Order Comment: Magalyi men Type: BLOOD SPECIMENOrdering Facility: [facility] Address: [address] [place] [address] Result Comment: Carlota mated Glomerular Filtration Rate (eGFR) is calculated using the 2020 CKD-EPI creatinine equation. This equation utilizes serum creatinine, sex, and age as parameters. The creatinine assay has traceable calibration to isotope dilution-mass spectrometry. Refer to KDIGO guidelines for clinical interpretation. In patients with unstable renal function, e.g. those with acute kidney injury, the eGFR may not accurately reflect actual GFR. Performed By: #### 2 4323-8 ####[facility] [id number] [place] [address] [place] Potassium [Moles/Vol] 4.0 mmol/L Normal 3.7-5.1 [facility] Comment on above: Order Comment: Speci men Type: BLOOD SPECIMENOrdering Facility: [facility] Address: [address] Performed By: #### 2 4323-8 ####[facility] [id number] [place] [address] [place] Protein [Mass/Vol] 6.1 g/dL Low 6.3-8.0 [facility] Comment on above: Order Comment: Speci men Type: BLOOD SPECIMENOrdering Facility: [facility] Address: [address] Performed By: #### 2 4323-8 ####[facility]IA [id number] [place] [address] [place] Sodium [Moles/Vol] 142 mmol/L Normal 136-144 [facility] Comment on above: Order Comment: Magalyi men Type: BLOOD SPECIMENOrdering Facility: [facility] Address: [address] Performed By: #### 2 4323-8 ####[facility] LABCLIA [id number] [place] [address] [place] Urea nitrogen [Mass/Vol] 16 mg/dL Normal 9-24 [facility] Comment on above: Order Comment: Speci men Type: BLOOD SPECIMENOrdering Facility: [facility] Address: [address] [place] [address] Performed By: #### 2 4323-8 ####[facility] LABCLIA [id number] [place] [address] [place] Albumin [Mass/Vol] 3.7 g/dL Low 3.9-4.9 [facility] Comment on above: Order Comment: Speci men Type: BLOOD SPECIMENOrdering Facility: [facility] Address: [address] [place] [address] Performed By: #### 2 4323-8 ####[facility] LABCLIA [id number] [place] [address] [place] ALP [Catalytic activity/Vol] 50 U/L Normal 38-113 [facility] Comment on above: Order Comment: Speci men Type: BLOOD SPECIMENOrdering Facility: [facility] Address: [address] [place] [address] Performed By: #### 2 4323-8 ####[facility] LABCLIA [id number] [place] [address] [place] ALT [Catalytic activity/Vol] 390 U/L High 10-54 [facility] Comment on above: Order Comment: Speci men Type: BLOOD SPECIMENOrdering Facility: [facility] Address: [address] [place], [place] [address] Performed By: #### 2 4323-8 ####[facility] LABCLIA [id number] [place] [address] [place] Anion gap [Moles/Vol] 10 mmol/L Normal 9-18 [facility] Comment on above: Order Comment: Speci men Type: BLOOD SPECIMENOrdering Facility: [facility] Address: [address] Performed By: #### 2 4323-8 ####[facility] LABCLIA [id number] [place] [address] [place] AST [Catalytic activity/Vol] 610 U/L High 14-40 [facility] Comment on above: Order Comment: Speci men Type: BLOOD SPECIMENOrdering Facility: [facility] Address: [address] Performed By: #### 2 4323-8 ####[facility] LABCLIA [id number] [place] [address] [place] Bilirubin [Mass/Vol] 2.1 mg/dL High 0.2-1.3 [facility] Comment on above: Order Comment: Speci men Type: BLOOD SPECIMENOrdering Facility: [facility] Address: [address] Performed By: #### 2 4323-8 ####[facility] LABCLIA [id number] [place] [address] [place] Calcium [Mass/Vol] 7.8 mg/dL Low 8.5-10.2 [facility] Comment on above: Order Comment: Speci men Type: BLOOD SPECIMENOrdering Facility: [facility] Address: [address] Performed By: #### 2 4323-8 ####[facility] LABCLIA [id number] [place] [address] [place] Chloride [Moles/Vol] 110 mmol/L High 97-105 [facility] Comment on above: Order Comment: Speci men Type: BLOOD SPECIMENOrdering Facility: [facility] Address: [address] Performed By: #### 2 4323-8 ####[facility] LABCLIA [id number] [place] [address] [place] CO2 [Moles/Vol] 23 mmol/L Normal 22-30 [facility] Comment on above: Order Comment: Speci men Type: BLOOD SPECIMENOrdering Facility: [facility] Address: [address] [place] [address] Performed By: #### 2 4323-8 ####[facility]IA [id number] [address] [place] Creatinine [Mass/Vol] 0.77 mg/dL Normal 0.73-1.22 [facility] Comment on above: Order Comment: Speci men Type: BLOOD SPECIMENOrdering Facility: [facility] Address: [address] [place] [address] Performed By: #### 2 4323-8 ####[facility]IA [id number] [address] ESTIMATED GLOMERULAR FILTRATION RATE 103 mL/min/1.73m??? Normal >=60 [facility] Comment on above: Order Comment: Speci men Type: BLOOD SPECIMENOrdering Facility: [facility] Address: [address] [place] [address] Result Comment: Carlota mated Glomerular Filtration Rate (eGFR) is calculated using the 2020 CKD-EPI creatinine equation. This equation utilizes serum creatinine, sex, and age as parameters. The creatinine assay has traceable calibration to isotope dilution-mass spectrometry. Refer to KDIGO guidelines for clinical interpretation. In patients with unstable renal function, e.g. those with acute kidney injury, the eGFR may not accurately reflect actual GFR. Performed By: #### 2 4323-8 ####[facility]IA [id number] [place] [address] [place] Glucose [Mass/Vol] 126 mg/dL High 74-99 [facility] Comment on above: Order Comment: Speci men Type: BLOOD SPECIMENOrdering Facility: [facility] Address: [address] [place], [place] [address] Result Comment: The [place] [employer] (ADA) provides guidance for cutoff values for fasting glucose and random glucose. The ADA defines fasting as no caloric intake for at least 8 hours. Fasting plasma glucose results between 100 to 125 mg/dL indicate increased risk for diabetes (prediabetes). Fasting plasma glucose results greater than or equal to 126 mg/dL meet the criteria for diagnosis of diabetes. In the absence of unequivocal hyperglycemia, results should be confirmed by repeat testing. In a patient with classic symptoms of hyperglycemia or hyperglycemic crisis, random plasma glucose results greater than or equal to 200 mg/dL meet the criteria for diagnosis of diabetes. Reference: Standards of Medical Care in Diabetes 2016, [place] [employer] Association. Diabetes Care. 2016.39(Suppl 1). Performed By: #### 2 4323-8 ####[facility] LABIA [id number] [place] [address] [place] Potassium [Moles/Vol] 4.0 mmol/L Normal 3.7-5.1 [facility] Comment on above: Order Comment: Speci men Type: BLOOD SPECIMENOrdering Facility: [facility] Address: [address] [place] [address] Performed By: #### 2 4323-8 ####[facility] LABIA [id number] [place] [address] [place] Protein [Mass/Vol] 4.9 g/dL Low 6.3-8.0 [facility] Comment on above: Order Comment: Speci men Type: BLOOD SPECIMENOrdering Facility: [facility] Address: [address] Performed By: #### 2 4323-8 ####[facility] LABIA [id number] [place] [address] [place] Sodium [Moles/Vol] 143 mmol/L Normal 136-144 [facility] Comment on above: Order Comment: Speci men Type: BLOOD SPECIMENOrdering Facility: [facility] Address: [address] Performed By: #### 2 4323-8 ####[facility] LABIA [id number] [address] [place] Urea nitrogen [Mass/Vol] 16 mg/dL Normal 9-24 [facility] Comment on above: Order Comment: Speci men Type: BLOOD SPECIMENOrdering Facility: [facility] Address: [address] [place], [place] [address] Performed By: #### 2 4323-8 ####[facility] [id number] [address] [place] NURSING PROGon 02-28-2022 NURSING PROG HNO ID: [id number] Author: Jayce Rendon RN Service: Nursing Author Type: Registered Nurse Type: Nursing Progress Note Filed: 02/28/2022 6:56 PM Note Text: Other: Patient admitted to [facility] via wheelchair. Patient alert and oriented and in stable condition. Patient oriented to room, call bauman, and prescribed activities. VS obtained. Dual RN skin check complete. Will continue to monitor Normal [facility] TROPONIN Ton 02-28-2022 Troponin T.cardiac [Mass/Vol] 0.800 ug/L High 0.000-0.029 [facility] Comment on above: Order Comment: Speci men Type: BLOOD SPECIMENOrdering Facility: [facility] Address: [address] [place] [id number] Performed By: #### T NT ####[facility] [id number] [place] [address] [place] XR CHEST 1V FRONTAL PORTon 0 02-28-2022 XR CHEST 1V FRONTAL PORT * * *Final Report* * * DATE OF EXAM: Feb 28 2022 3:29AM JIX [id number] - XR CHEST 1V FRONTAL PORT / PROCEDURE REASON: Post-operative / post-procedure assessment, asymptomatic * * * * Physician Interpretation * * * * EXAMINATION: CHEST RADIOGRAPH (PORTABLE SINGLE VIEW AP) Exam Date/Time: 02/28/2022 3:29 AM Clinical History: Post-operative / post-procedure assessment, asymptomatic MQ: [id number] Comparison: 1 day prior RESULT: Lines, tubes, and devices: The endotracheal tube and nasogastric/orogastric tube have been removed since the prior exam. Right internal jugular venous catheter remains in place. The bilateral thoracostomy tubes and mediastinal drain are unchanged. Lungs and pleura: Bibasilar opacities likely represent atelectasis. No substantial pleural effusion is seen. Small right apical pneumothorax is seen. Cardiomediastinal silhouette: Stable cardiomediastinal silhouette. Status post median sternotomy, coronary artery bypass grafting and septal myectomy (reported). IMPRESSION: See result. 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 Author Type: Anesthesiologist Type: Anesthesia Postprocedure Evaluation Filed: 02/27/2022 7:48 PM Note Text: POST ANESTHESIA EVALUATION NOTE : 1960 Procedure Summary Date: 02/27/22 Room / Location: [place] [address] / [facility] CT AND VAS Anesthesia Start: 1100 Anesthesia Stop: 1750 Procedures: VENTRICULOMYOTOMY FOR IDEOPATHIC HYPERTROPHIC SUBAORTIC STENOSIS (Cardiac) BYPASS GRAFT ARTERY CORONARY ON-PUMP USING VENOUS GRAFT(S) AND ARTERIAL GRAFT(S) SINGLE VEIN GRAFT (Cardiac) Diagnosis: HOCM (hypertrophic obstructive cardiomyopathy) (HCC) Coronary artery disease involving [place] coronary artery of [place] heart with angina pectoris (HCC) Non-rheumatic mitral regurgitation Primary hypertension Hyperlipidemia, unspecified hyperlipidemia type Anxiety and depression SOB (shortness of breath) Pre-operative cardiovascular examination (HOCM (hypertrophic obstructive cardiomyopathy) (HCC) [I42.1]) (Coronary artery disease involving [place] coronary artery of [place] heart with angina pectoris (HCC) [I25.119]) (Non-rheumatic mitral regurgitation [I34.0]) (Primary hypertension [I10]) (Hyperlipidemia, unspecified hyperlipidemia type [E78.5]) (Anxiety and depression [F41.9, F32.A]) (SOB (shortness of breath) [R06.02]) (Pre-operative cardiovascular examination [Z01.810]) Surgeons: Destin Charles MD Responsible Provider: Romina Méndez DO Anesthesia Type: general ASA Status: 3 Anesthesia Type: general Airway Type: ETT Last Vitals Vitals Value Taken Time BP 105 02/27/221946 Temp 36 02/27/221946 Pulse 95 02/27/221945 Resp 16 02/27/221945 SpO2 98 % 02/27/221945 Vitals shown include unvalidated device data. Post Anesthesia Patient Status Patient Evaluation: ICU. PACU/ICU Patient Condition: stable. Anticipated Disposition: ICU planned admission. Intraoperative Events: no significant anesthesia events Post Operative Nausea/Vomiting Status: no significant post operative nausea or vomiting Anesthesia Observations No Documentation SIGNATURE: Romina Méndez DO PATIENT NAME: Gino Osorio DATE: February 27, 2022 TIME: 7:47 PM CSN: [id number] Normal [facility] ANES PRE-OPon 02-27-2022 ANES PRE-OP HNO ID: [id number] Author: Jose Valderrama MD Service: ? Author Type: Anesthesiologist Type: Anesthesia Preprocedure Evaluation Filed: 02/27/2022 11:10 AM Note Text: ANESTHESIOLOGY DAY OF SURGERY NOTE : 1960 Procedure Information Anesthesia Start Date/Time: 02/27/22 1100 Procedures: VENTRICULOMYOTOMY FOR IDEOPATHIC HYPERTROPHIC SUBAORTIC STENOSIS (Cardiac) BYPASS GRAFT ARTERY CORONARY ON-PUMP USING VENOUS GRAFT(S) AND ARTERIAL GRAFT(S) SINGLE VEIN GRAFT (Cardiac) Location: [place] [address] / [facility] CT AND VAS Surgeons: Destin Charles MD Estimated body mass index is 23.63 kg/m? as calculated from the following: Height as of this encounter: 175.3 cm (5' 9 ). Weight as of this encounter: 72.6 kg (160 lb). Most recent hematocrit and potassium results: Hematocrit 47.1 02/21/2022 Potassium 4.4 02/21/2022 Relevant Problems No relevant active problems I - PHYSICAL EVALUATION AIRWAY Patient intubated: No. Tracheostomy tube not present Mallampati: I. TM distance: >3 FB. Neck ROM: full ROM without neurological symptoms. Mouth opening: adequate. Short neck: no. Thick neck: no Brumfield present: no Additional exam findings: yes. CARDIOVASCULAR Rhythm: regular Rate: normal PULMONARY Additional comments: breathing comfortably on room air. II - ANESTHESIA PLAN ASA Score: 3 Anesthetic Plan: general Airway type: ETT The patient is not a current smoker. NPO Status: adequate Beta Zackery Administration of chronic beta zackery medication not planned. Reasons for not administering beta zackery perioperatively: other (need to test myectomy efficacy, will use short term agent) Monitoring Plan Monitoring plan: standard ASA and invasive hemodynamic monitoring. Monitoring method: arterial Line, introducer and NORA NORA details: patient denies history of stricture or varices Post Procedure Analgesic Plan Postoperative analgesic plan: parenteral or oral opioids. Informed Consent Anesthetic risks, benefits, alternatives, personnel and consent discussed: yes. Patient / Responsible Democrat agrees to proceed: yes Patient / Surrogate agrees to blood products: Yes DNR status not reviewed with patient and/or family prior to surgery. Significant changes in the patient condition since the History and Physical, not otherwise documented in primary service progress note: no. Potential Anesthesia issues that may suggest increased risk of complications or contraindication to planned procedure: none. Vitals Value Taken Time BP 159/88 02/27/22540 Pulse 67 02/27/22540 Resp 16 02/27/22540 Temp 36.6 ?C (97.9 ?F) 02/27/22540 SpO2 97 % 02/27/22540 Facility-Administered Medications as of 02/27/2022 Medication Dose Route Frequency - [COMPLETED] Chlorhexidine Gluconate 0.12 % 15 mL (PERIDEX) 15 mL ORAL ONCE - [COMPLETED] acetaminophen 1,000 mg tab(s) (TYLENOL) 1,000 mg ORAL ONCE Outpatient Medications as of 02/27/2022 Medication Sig - sertraline (ZOLOFT) 50 mg tablet Take 50 mg by mouth daily at bedtime. - QUEtiapine (SEROQUEL) 25 mg tablet Take 1 tablet by mouth daily at bedtime. - atenolol (TENORMIN) 25 mg tablet Take 25 mg by mouth once daily. - losartan (COZAAR) 100 mg tablet Take 1 tablet by mouth once daily. I have interviewed and examined the patient. I have reviewed the medical record and/or the pre-anesthesia evaluation, pertinent labs, and test results. This contains updated information obtained within 48 hours of Surgery/Procedure. SIGNATURE: Jose Valderrama MD PATIENT NAME: Gino Osorio DATE: February 27, 2022 TIME: 11:08 AM CSN: [id number] Normal [facility] ARTERIAL BLOOD GASESon 02-27 Base deficit (BldA) [Moles/Vol] -1 mmol/L Normal -2-0 [facility] Comment on above: Order Comment: Speci men Type: ARTERIAL BLOOD SPECIMENOrdering Facility: [facility] Address: [address] [place] [address] Performed By: #### A LLBG ####[facility] [id number] [address] [place] Body temperature 98.6 [degF] Normal [facility] Comment on above: Order Comment: Speci men Type: ARTERIAL BLOOD SPECIMENOrdering Facility: [facility] Address: [address] [place] [address] Performed By: #### A LLBG ####[facility] LABIA [id number] [address] [place] Calcium.ionized (Bld) [Mass/Vol] 1.10 mmol/L Normal 1.08-1.30 [facility] Comment on above: Order Comment: Speci men Type: ARTERIAL BLOOD SPECIMENOrdering Facility: [facility] Address: [address] [place] [address] Performed By: #### A LLBG ####[facility] LABIA [id number] [address] [place] Calcium.ionized adjusted to pH 7.4 (BldA) [Moles/Vol] 1.13 mmol/L Normal 1.08-1.30 [facility] Comment on above: Order Comment: Speci men Type: ARTERIAL BLOOD SPECIMENOrdering Facility: [facility] Address: [address] [place] [address] Performed By: #### A LLBG ####[facility] LABCLIA [id number] [address] [place] Carboxyhemoglobin (BldA) [Mass fraction] 0.9 % Normal 0.0-2.0 [facility] Comment on above: Order Comment: Speci men Type: ARTERIAL BLOOD SPECIMENOrdering Facility: [facility] Address: [address] Result Comment: Carb oxyhemoglobin Reference Range for Smokers: 2.0-8.0% Performed By: #### A LLBG ####[facility] LABCLIA [id number] [address] [place] CO2 (Bld) [Partial pressure] 32 mm Hg Low 36-46 [facility] Comment on above: Order Comment: Speci men Type: ARTERIAL BLOOD SPECIMENOrdering Facility: [facility] Address: [address] [place] [address] Performed By: #### A LLBG ####[facility] LABCLIA [id number] [place] [address] [place] CO2 [Moles/Vol] 23 mmol/L Normal 22-28 [facility] Comment on above: Order Comment: Speci men Type: ARTERIAL BLOOD SPECIMENOrdering Facility: [facility] Address: [address] Performed By: #### A LLBG ####[facility] LABCLIA [id number] [place] [address] [place] FIO2 40 % Normal [facility] Comment on above: Order Comment: Speci men Type: ARTERIAL BLOOD SPECIMENOrdering Facility: [facility] Address: [address] Performed By: #### A LLBG ####[facility] LABCLIA [id number] [place] [address] [place] Glucose [Mass/Vol] 155 mg/dL High 60-105 [facility] Comment on above: Order Comment: Speci men Type: ARTERIAL BLOOD SPECIMENOrdering Facility: [facility] Address: [address] [place] [address] Performed By: #### A LLBG ####[facility] LABCLIA [id number] [place] [address] [place] HCO3 (Bld) [Moles/Vol] 22 mmol/L Normal 22-26 [facility] Comment on above: Order Comment: Speci men Type: ARTERIAL BLOOD SPECIMENOrdering Facility: [facility] Address: [address] [place] [address] Performed By: #### A LLBG ####[facility] LABCLIA [id number] [place] [address] [place] Hematocrit (Bld) [Volume fraction] 34.6 % Low 39.0-51.0 [facility] Comment on above: Order Comment: Speci men Type: ARTERIAL BLOOD SPECIMENOrdering Facility: [facility] Address: [address] [place], [place] [address] Performed By: #### A LLBG ####[facility] LABCLIA [id number] [place] [address] [place] Hemoglobin (Bld) [Mass/Vol] 11.2 g/dL Low 13.0-17.0 [facility] Comment on above: Order Comment: Speci men Type: ARTERIAL BLOOD SPECIMENOrdering Facility: [facility] Address: [address] [place], [place] [address] Performed By: #### A LLBG ####[facility] LABCLIA [id number] [place] [address] [place] Lactate [Moles/Vol] 3.7 mmol/L High 0.5-2.2 [facility] Comment on above: Order Comment: Speci men Type: ARTERIAL BLOOD SPECIMENOrdering Facility: [facility] Address: [address] [place] [address] Performed By: #### A LLBG ####[facility] LABCLIA [id number] [address] [place] Methemoglobin (Bld) [Mass fraction] 1.0 % Normal 0.0-1.5 [facility] Comment on above: Order Comment: Speci men Type: ARTERIAL BLOOD SPECIMENOrdering Facility: [facility] Address: [address] Performed By: #### A LLBG ####[facility] LABCLIA [id number] [place] [address] [place] O2 THERAPY Ventilator Normal [facility] Comment on above: Order Comment: Speci men Type: ARTERIAL BLOOD SPECIMENOrdering Facility: [facility] Address: [address] Performed By: #### A LLBG ####[facility] LABCLIA [id number] [place] [address] [place] Oxygen (Bld) [Partial pressure] 135 mm Hg High 85-95 [facility] Comment on above: Order Comment: Speci men Type: ARTERIAL BLOOD SPECIMENOrdering Facility: [facility] Address: [address] [place] [address] Performed By: #### A LLBG ####[facility] LABCLIA [id number] [address] [place] Oxyhemoglobin (BldA) [Mass fraction] 97 % Normal 95-98 [facility] Comment on above: Order Comment: Speci men Type: ARTERIAL BLOOD SPECIMENOrdering Facility: [facility] Address: [address] [place] [address] Performed By: #### A LLBG ####[facility] LABCLIA [id number] [place] [id number] [address] [place] pH (Bld) 7.45 [pH] Normal 7.35-7.45 [facility] Comment on above: Order Comment: Speci men Type: ARTERIAL BLOOD SPECIMENOrdering Facility: [facility] Address: [address] [place] [address] Performed By: #### A LLBG ####[facility] LABCLIA [id number] [place] [address] [place] Potassium [Moles/Vol] 4.1 mmol/L Normal 3.5-5.0 [facility] Comment on above: Order Comment: Speci men Type: ARTERIAL BLOOD SPECIMENOrdering Facility: [facility] Address: [address] [place] [address] Performed By: #### A LLBG ####[facility] LABIA [id number] [place] [address] [place] Sodium [Moles/Vol] 140 mmol/L Normal 136-144 [facility] Comment on above: Order Comment: Speci men Type: ARTERIAL BLOOD SPECIMENOrdering Facility: [facility] Address: [address] [place] [address] Performed By: #### A LLBG ####[facility] LABCLIA [id number] [place] [address] [place] Base deficit (BldA) [Moles/Vol] -3 mmol/L Low -2-0 [facility] Comment on above: Order Comment: Speci men Type: ARTERIAL BLOOD SPECIMENOrdering Facility: [facility] Address: [address] [place], [place] [address] Performed By: #### A LLBG ####[facility] LABIA [id number] [place] [address] [place] Body temperature 98.6 [degF] Normal [facility] Comment on above: Order Comment: Speci men Type: ARTERIAL BLOOD SPECIMENOrdering Facility: [facility] Address: [address] Performed By: #### A LLBG ####[facility] LABIA [id number] [place] [address] [place] Calcium.ionized (Bld) [Mass/Vol] 1.14 mmol/L Normal 1.08-1.30 [facility] Comment on above: Order Comment: Speci men Type: ARTERIAL BLOOD SPECIMENOrdering Facility: [facility] Address: [address] Performed By: #### A LLBG ####[facility] LABS[facility] [id number] [place] [address] [place] Calcium.ionized adjusted to pH 7.4 (BldA) [Moles/Vol] 1.11 mmol/L Normal 1.08-1.30 [facility] Comment on above: Order Comment: Speci men Type: ARTERIAL BLOOD SPECIMENOrdering Facility: [facility] Address: [address] Performed By: #### A LLBG ####[facility] [id number] [place] [address] [place] Carboxyhemoglobin (BldA) [Mass fraction] 0.8 % Normal 0.0-2.0 [facility] Comment on above: Order Comment: Speci men Type: ARTERIAL BLOOD SPECIMENOrdering Facility: [facility] Address: [address] [place] [address] Result Comment: Carb oxyhemoglobin Reference Range for Smokers: 2.0-8.0% Performed By: #### A LLBG ####[facility] [id number] [place] [address] [place] CO2 (Bld) [Partial pressure] 39 mm Hg Normal 36-46 [facility] Comment on above: Order Comment: Speci men Type: ARTERIAL BLOOD SPECIMENOrdering Facility: [facility] Address: [address] Performed By: #### A LLBG ####[facility] LABCLIA [id number] [place] [address] [place] CO2 [Moles/Vol] 23 mmol/L Normal 22-28 [facility] Comment on above: Order Comment: Speci men Type: ARTERIAL BLOOD SPECIMENOrdering Facility: [facility] Address: [address] [place], [place] [address] Performed By: #### A LLBG ####[facility] LABCLIA [id number] [place] [address] [place] Glucose [Mass/Vol] 169 mg/dL High 60-105 [facility] Comment on above: Order Comment: Speci men Type: ARTERIAL BLOOD SPECIMENOrdering Facility: [facility] Address: [address] [place] [address] Performed By: #### A LLBG ####[facility] LABCLIA [id number] [place] [address] [place] HCO3 (Bld) [Moles/Vol] 21 mmol/L Low 22-26 [facility] Comment on above: Order Comment: Speci men Type: ARTERIAL BLOOD SPECIMENOrdering Facility: [facility] Address: [address] [place], [place] [address] Performed By: #### A LLBG ####[facility] LABCLIA [id number] [place] [address] [place] Hematocrit (Bld) [Volume fraction] 38.0 % Low 39.0-51.0 [facility] Comment on above: Order Comment: Speci men Type: ARTERIAL BLOOD SPECIMENOrdering Facility: [facility] Address: [address] [place], [place] [address] Performed By: #### A LLBG ####[facility] LABCLIA [id number] [place] [address] [place] Hemoglobin (Bld) [Mass/Vol] 12.4 g/dL Low 13.0-17.0 [facility] Comment on above: Order Comment: Speci men Type: ARTERIAL BLOOD SPECIMENOrdering Facility: [facility] Address: [address] Performed By: #### A LLBG ####[facility] LABCLIA [id number] [place] [address] [place] Lactate [Moles/Vol] 4.2 mmol/L High 0.5-2.2 [facility] Comment on above: Order Comment: Speci men Type: ARTERIAL BLOOD SPECIMENOrdering Facility: [facility] Address: [address] Performed By: #### A LLBG ####[facility] LABCLIA [id number] [place] [address] [place] Methemoglobin (Bld) [Mass fraction] 1.1 % Normal 0.0-1.5 [facility] Comment on above: Order Comment: Speci men Type: ARTERIAL BLOOD SPECIMENOrdering Facility: [facility] Address: [address] Performed By: #### A LLBG ####[facility] LABCLIA [id number] [place] [address] [place] O2 THERAPY Ventilator Normal [facility] Comment on above: Order Comment: Speci men Type: ARTERIAL BLOOD SPECIMENOrdering Facility: [facility] Address: [address] [place] [address] Performed By: #### A LLBG ####[facility] LABCLIA [id number] [place] [address] [place] Oxygen (Bld) [Partial pressure] 175 mm Hg High 85-95 [facility] Comment on above: Order Comment: Speci men Type: ARTERIAL BLOOD SPECIMENOrdering Facility: [facility] Address: [address] Performed By: #### A LLBG ####[facility] LABCLIA [id number] [place] [address] [place] Oxyhemoglobin (BldA) [Mass fraction] 97 % Normal 95-98 [facility] Comment on above: Order Comment: Speci men Type: ARTERIAL BLOOD SPECIMENOrdering Facility: [facility] Address: [address] [place] [address] Performed By: #### A LLBG ####[facility] LABCLIA [id number] [place] [address] [place] pH (Bld) 7.35 [pH] Normal 7.35-7.45 [facility] Comment on above: Order Comment: Speci men Type: ARTERIAL BLOOD SPECIMENOrdering Facility: [facility] Address: [address] [place] [address] Performed By: #### A LLBG ####[facility] LABIA [id number] [place] [address] [place] Potassium [Moles/Vol] 4.3 mmol/L Normal 3.5-5.0 [facility] Comment on above: Order Comment: Speci men Type: ARTERIAL BLOOD SPECIMENOrdering Facility: [facility] Address: [address] [place], [place] [address] Performed By: #### A LLBG ####[facility] LABIA [id number] [place] [address] [place] Sodium [Moles/Vol] 140 mmol/L Normal 136-144 [facility] Comment on above: Order Comment: Speci men Type: ARTERIAL BLOOD SPECIMENOrdering Facility: [facility] Address: [address] [place], [place] [address] Performed By: #### A LLBG ####[facility] LABIA [id number] [place] [address] [place] Base deficit (BldA) [Moles/Vol] -3 mmol/L Low -2-0 [facility] Comment on above: Order Comment: Speci men Type: ARTERIAL BLOOD SPECIMENOrdering Facility: [facility] Address: [address] Performed By: #### A LLBG ####[facility] LABCLIA [id number] [place] [address] [place] Calcium.ionized (Bld) [Mass/Vol] 1.12 mmol/L Normal 1.08-1.30 [facility] Comment on above: Order Comment: Speci men Type: ARTERIAL BLOOD SPECIMENOrdering Facility: [facility] Address: [address] [place], [place] [address] Performed By: #### A LLBG ####[facility] LABIA [id number] [place] [address] [place] Calcium.ionized adjusted to pH 7.4 (BldA) [Moles/Vol] 1.10 mmol/L Normal 1.08-1.30 [facility] Comment on above: Order Comment: Speci men Type: ARTERIAL BLOOD SPECIMENOrdering Facility: [facility] Address: [address] [place] [address] Performed By: #### A LLBG ####[facility] LABIA [id number] [place] [address] [place] Carboxyhemoglobin (BldA) [Mass fraction] 1.0 % Normal 0.0-2.0 [facility] Comment on above: Order Comment: Speci men Type: ARTERIAL BLOOD SPECIMENOrdering Facility: [facility] Address: [address] [place] [address] Result Comment: Carb oxyhemoglobin Reference Range for Smokers: 2.0-8.0% Performed By: #### A LLBG ####[facility] LABIA [id number] [place] [address] [place] CO2 (Bld) [Partial pressure] 38 mm Hg Normal 36-46 [facility] Comment on above: Order Comment: Speci men Type: ARTERIAL BLOOD SPECIMENOrdering Facility: [facility] Address: [address] Performed By: #### A LLBG ####[facility] LABCLIA [id number] [address] [place] CO2 [Moles/Vol] 22 mmol/L Normal 22-28 [facility] Comment on above: Order Comment: Speci men Type: ARTERIAL BLOOD SPECIMENOrdering Facility: [facility] Address: [address] Performed By: #### A LLBG ####[facility] LABCLIA [id number] [place] [address] [place] CO2 adjusted to patient's actual temperature (Bld) [Partial pressure] 38 mmHg Normal 36-46 [facility] Comment on above: Order Comment: Speci men Type: ARTERIAL BLOOD SPECIMENOrdering Facility: [facility] Address: [address] Performed By: #### A LLBG ####[facility] LABCLIA [id number] [place] [address] [place] Glucose [Mass/Vol] 168 mg/dL High 60-105 [facility] Comment on above: Order Comment: Speci men Type: ARTERIAL BLOOD SPECIMENOrdering Facility: [facility] Address: [address] Performed By: #### A LLBG ####[facility] LABCLIA [id number] [place] [address] [place] HCO3 (Bld) [Moles/Vol] 21 mmol/L Low 22-26 [facility] Comment on above: Order Comment: Speci men Type: ARTERIAL BLOOD SPECIMENOrdering Facility: [facility] Address: [address] Performed By: #### A LLBG ####[facility] LABCLIA [id number] [place] [address] [place] Hematocrit (Bld) [Volume fraction] 35.6 % Low 39.0-51.0 [facility] Comment on above: Order Comment: Speci men Type: ARTERIAL BLOOD SPECIMENOrdering Facility: [facility] Address: [address] [place] [address] Performed By: #### A LLBG ####[facility] LABCLIA [id number] [place] [address] [place] Hemoglobin (Bld) [Mass/Vol] 11.5 g/dL Low 13.0-17.0 [facility] Comment on above: Order Comment: Speci men Type: ARTERIAL BLOOD SPECIMENOrdering Facility: [facility] Address: [address] [place] [address] Performed By: #### A LLBG ####[facility] LABCLIA [id number] [place] [address] [place] Lactate [Moles/Vol] 4.4 mmol/L High 0.5-2.2 [facility] Comment on above: Order Comment: Speci men Type: ARTERIAL BLOOD SPECIMENOrdering Facility: [facility] Address: [address] [place] [address] Performed By: #### A LLBG ####[facility] LABCLIA [id number] [place] [address] [place] Methemoglobin (Bld) [Mass fraction] 1.1 % Normal 0.0-1.5 [facility] Comment on above: Order Comment: Speci men Type: ARTERIAL BLOOD SPECIMENOrdering Facility: [facility] Address: [address] [place], [place] [address] Performed By: #### A LLBG ####[facility] LABCLIA [id number] [place] [address] [place] Oxygen (Bld) [Partial pressure] 351 mm Hg High 85-95 [facility] Comment on above: Order Comment: Speci men Type: ARTERIAL BLOOD SPECIMENOrdering Facility: [facility] Address: [address] Performed By: #### A LLBG ####[facility] LABCLIA [id number] [address] [place] Oxygen adjusted to patient's actual temperature (Bld) [Partial pressure] 351 mmHg High 85-95 [facility] Comment on above: Order Comment: Speci men Type: ARTERIAL BLOOD SPECIMENOrdering Facility: [facility] Address: [address] Performed By: #### A LLBG ####[facility] LABCLIA [id number] [place] [address] [place] Oxyhemoglobin (BldA) [Mass fraction] 98 % Normal 95-98 [facility] Comment on above: Order Comment: Speci men Type: ARTERIAL BLOOD SPECIMENOrdering Facility: [facility] Address: [address] Performed By: #### A LLBG ####[facility] LABCLIA [id number] [place] [address] [place] pH (Bld) 7.37 [pH] Normal 7.35-7.45 [facility] Comment on above: Order Comment: Speci men Type: ARTERIAL BLOOD SPECIMENOrdering Facility: [facility] Address: [address] Performed By: #### A LLBG ####[facility] LABCLIA [id number] [place] [address] [place] pH adjusted to patient's actual temperature (Bld) 7.37 Normal 7.35-7.45 [facility] Comment on above: Order Comment: Speci men Type: ARTERIAL BLOOD SPECIMENOrdering Facility: [facility] Address: [address] Performed By: #### A LLBG ####[facility] LABCLIA [id number] [place] [address] [place] Potassium [Moles/Vol] 4.5 mmol/L Normal 3.5-5.0 [facility] Comment on above: Order Comment: Speci men Type: ARTERIAL BLOOD SPECIMENOrdering Facility: [facility] Address: [address] [place] [address] Performed By: #### A LLBG ####[facility] LABIA [id number] [place] [address] [place] Sodium [Moles/Vol] 139 mmol/L Normal 136-144 [facility] Comment on above: Order Comment: Speci men Type: ARTERIAL BLOOD SPECIMENOrdering Facility: [facility] Address: [address] [place] [address] Performed By: #### A LLBG ####[facility] [id number] [place] [address] [place] Base deficit (BldA) [Moles/Vol] -3 mmol/L Low -2-0 [facility] Comment on above: Order Comment: Speci men Type: ARTERIAL BLOOD SPECIMENOrdering Facility: [facility] Address: [address] [place] [address] Performed By: #### A LLBG ####[facility] [id number] [place] [address] [place] Calcium.ionized (Bld) [Mass/Vol] 1.12 mmol/L Normal 1.08-1.30 [facility] Comment on above: Order Comment: Speci men Type: ARTERIAL BLOOD SPECIMENOrdering Facility: [facility] Address: [address] [place], [place] [address] Performed By: #### A LLBG ####[facility] LABS[facility] [id number] [place] [address] [place] Calcium.ionized adjusted to pH 7.4 (BldA) [Moles/Vol] 1.10 mmol/L Normal 1.08-1.30 [facility] Comment on above: Order Comment: Speci men Type: ARTERIAL BLOOD SPECIMENOrdering Facility: [facility] Address: [address] [place] [address] Performed By: #### A LLBG ####[facility] LABCLIA [id number] [place] [address] [place] Carboxyhemoglobin (BldA) [Mass fraction] 1.0 % Normal 0.0-2.0 [facility] Comment on above: Order Comment: Speci men Type: ARTERIAL BLOOD SPECIMENOrdering Facility: [facility] Address: [address] [place] [address] Result Comment: Carb oxyhemoglobin Reference Range for Smokers: 2.0-8.0% Performed By: #### A LLBG ####[facility] LABCLIA [id number] [place] [address] [place] CO2 (Bld) [Partial pressure] 36 mm Hg Normal 36-46 [facility] Comment on above: Order Comment: Speci men Type: ARTERIAL BLOOD SPECIMENOrdering Facility: [facility] Address: [address] [place], [place] [address] Performed By: #### A LLBG ####[facility] LABCLIA [id number] [place] [address] [place] CO2 [Moles/Vol] 22 mmol/L Normal 22-28 [facility] Comment on above: Order Comment: Speci men Type: ARTERIAL BLOOD SPECIMENOrdering Facility: [facility] Address: [address] [place], [place] [address] Performed By: #### A LLBG ####[facility] LABCLIA [id number] [place] [address] [place] CO2 adjusted to patient's actual temperature (Bld) [Partial pressure] 36 mmHg Normal 36-46 [facility] Comment on above: Order Comment: Speci men Type: ARTERIAL BLOOD SPECIMENOrdering Facility: [facility] Address: [address] Performed By: #### A LLBG ####[facility] LABCLIA [id number] [place] [address] [place] Glucose [Mass/Vol] 190 mg/dL High 60-105 [facility] Comment on above: Order Comment: Speci men Type: ARTERIAL BLOOD SPECIMENOrdering Facility: [facility] Address: [address] Performed By: #### A LLBG ####[facility] LABCLIA [id number] [place] [address] [place] HCO3 (Bld) [Moles/Vol] 21 mmol/L Low 22-26 [facility] Comment on above: Order Comment: Speci men Type: ARTERIAL BLOOD SPECIMENOrdering Facility: [facility] Address: [address] [place], [place] [address] Performed By: #### A LLBG ####[facility] LABCLIA [id number] [place] [address] [place] Hematocrit (Bld) [Volume fraction] 34.6 % Low 39.0-51.0 [facility] Comment on above: Order Comment: Speci men Type: ARTERIAL BLOOD SPECIMENOrdering Facility: [facility] Address: [address] [place], [place] [address] Performed By: #### A LLBG ####[facility] LABCLIA [id number] [place] [address] [place] Hemoglobin (Bld) [Mass/Vol] 11.2 g/dL Low 13.0-17.0 [facility] Comment on above: Order Comment: Speci men Type: ARTERIAL BLOOD SPECIMENOrdering Facility: [facility] Address: [address] [place], [place] [address] Performed By: #### A LLBG ####[facility] LABCLIA [id number] [place] [address] [place] Lactate [Moles/Vol] 4.3 mmol/L High 0.5-2.2 [facility] Comment on above: Order Comment: Speci men Type: ARTERIAL BLOOD SPECIMENOrdering Facility: [facility] Address: [address] [place], [place] [address] Performed By: #### A LLBG ####[facility] LABCLIA [id number] [place] [address] [place] Methemoglobin (Bld) [Mass fraction] 1.0 % Normal 0.0-1.5 [facility] Comment on above: Order Comment: Speci men Type: ARTERIAL BLOOD SPECIMENOrdering Facility: [facility] Address: [address] [place], [place] [address] Performed By: #### A LLBG ####[facility] LABCLIA [id number] [place] [address] [place] Oxygen (Bld) [Partial pressure] 298 mm Hg High 85-95 [facility] Comment on above: Order Comment: Speci men Type: ARTERIAL BLOOD SPECIMENOrdering Facility: [facility] Address: [address] [place], [place] [address] Performed By: #### A LLBG ####[facility] LABCLIA [id number] [place] [address] [place] Oxygen adjusted to patient's actual temperature (Bld) [Partial pressure] 298 mmHg High 85-95 [facility] Comment on above: Order Comment: Speci men Type: ARTERIAL BLOOD SPECIMENOrdering Facility: [facility] Address: [address] [place] [address] Performed By: #### A LLBG ####[facility] LABCLIA [id number] [place] [address] [place] Oxyhemoglobin (BldA) [Mass fraction] 98 % Normal 95-98 [facility] Comment on above: Order Comment: Speci men Type: ARTERIAL BLOOD SPECIMENOrdering Facility: [facility] Address: [address] Performed By: #### A LLBG ####[facility] LABCLIA [id number] [place] [address] [place] pH (Bld) 7.37 [pH] Normal 7.35-7.45 [facility] Comment on above: Order Comment: Speci men Type: ARTERIAL BLOOD SPECIMENOrdering Facility: [facility] Address: [address] Performed By: #### A LLBG ####[facility] LABCLIA [id number] [place] [address] [place] pH adjusted to patient's actual temperature (Bld) 7.37 Normal 7.35-7.45 [facility] Comment on above: Order Comment: Speci men Type: ARTERIAL BLOOD SPECIMENOrdering Facility: [facility] Address: [address] Performed By: #### A LLBG ####[facility] LABCLIA [id number] [place] [address] [place] Potassium [Moles/Vol] 3.9 mmol/L Normal 3.5-5.0 [facility] Comment on above: Order Comment: Speci men Type: ARTERIAL BLOOD SPECIMENOrdering Facility: [facility] Address: [address] Performed By: #### A LLBG ####[facility] LABCLIA [id number] [place] [address] [place] Sodium [Moles/Vol] 137 mmol/L Normal 136-144 [facility] Comment on above: Order Comment: Speci men Type: ARTERIAL BLOOD SPECIMENOrdering Facility: [facility] Address: [address] Performed By: #### A LLBG ####[facility] LABCLIA [id number] [address] [place] Base deficit (BldA) [Moles/Vol] -1 mmol/L Normal -2-0 [facility] Comment on above: Order Comment: Speci men Type: ARTERIAL BLOOD SPECIMENOrdering Facility: [facility] Address: [address] [place] [address] Performed By: #### A LLBG ####[facility] LABCLIA [id number] [place] [address] [place] Calcium.ionized (Bld) [Mass/Vol] 1.09 mmol/L Normal 1.08-1.30 [facility] Comment on above: Order Comment: Speci men Type: ARTERIAL BLOOD SPECIMENOrdering Facility: [facility] Address: [address] [place] [address] Performed By: #### A LLBG ####[facility] LABCLIA [id number] [address] [place] Calcium.ionized adjusted to pH 7.4 (BldA) [Moles/Vol] 1.11 mmol/L Normal 1.08-1.30 [facility] Comment on above: Order Comment: Speci men Type: ARTERIAL BLOOD SPECIMENOrdering Facility: [facility] Address: [address] [place] [address] Performed By: #### A LLBG ####[facility] LABCLIA [id number] [address] [place] Carboxyhemoglobin (BldA) [Mass fraction] 1.1 % Normal 0.0-2.0 [facility] Comment on above: Order Comment: Speci men Type: ARTERIAL BLOOD SPECIMENOrdering Facility: [facility] Address: [address] [place] [address] Result Comment: Carb oxyhemoglobin Reference Range for Smokers: 2.0-8.0% Performed By: #### A LLBG ####[facility] LABCLIA [id number] [place] [address] [place] CO2 (Bld) [Partial pressure] 35 mm Hg Low 36-46 [facility] Comment on above: Order Comment: Speci men Type: ARTERIAL BLOOD SPECIMENOrdering Facility: [facility] Address: [address] Performed By: #### A LLBG ####[facility] LABCLIA [id number] [place] [address] [place] CO2 [Moles/Vol] 24 mmol/L Normal 22-28 [facility] Comment on above: Order Comment: Speci men Type: ARTERIAL BLOOD SPECIMENOrdering Facility: [facility] Address: [address] [place], [place] [address] Performed By: #### A LLBG ####[facility] LABCLIA [id number] [place] [address] [place] CO2 adjusted to patient's actual temperature (Bld) [Partial pressure] 35 mmHg Low 36-46 [facility] Comment on above: Order Comment: Speci men Type: ARTERIAL BLOOD SPECIMENOrdering Facility: [facility] Address: [address] [place], [place] [address] Performed By: #### A LLBG ####[facility] LABCLIA [id number] [place] [address] [place] Glucose [Mass/Vol] 200 mg/dL High 60-105 [facility] Comment on above: Order Comment: Speci men Type: ARTERIAL BLOOD SPECIMENOrdering Facility: [facility] Address: [address] [place] [address] Performed By: #### A LLBG ####[facility] LABCLIA [id number] [place] [address] [place] HCO3 (Bld) [Moles/Vol] 23 mmol/L Normal 22-26 [facility] Comment on above: Order Comment: Speci men Type: ARTERIAL BLOOD SPECIMENOrdering Facility: [facility] Address: [address] Performed By: #### A LLBG ####[facility] LABCLIA [id number] [place] [address] [place] Hematocrit (Bld) [Volume fraction] 33.5 % Low 39.0-51.0 [facility] Comment on above: Order Comment: Speci men Type: ARTERIAL BLOOD SPECIMENOrdering Facility: [facility] Address: [address] Performed By: #### A LLBG ####[facility] LABIA [id number] [place] [address] [place] Hemoglobin (Bld) [Mass/Vol] 10.8 g/dL Low 13.0-17.0 [facility] Comment on above: Order Comment: Speci men Type: ARTERIAL BLOOD SPECIMENOrdering Facility: [facility] Address: [address] Performed By: #### A LLBG ####[facility] LABIA [id number] [place] [address] [place] Lactate [Moles/Vol] 2.7 mmol/L High 0.5-2.2 [facility] Comment on above: Order Comment: Speci men Type: ARTERIAL BLOOD SPECIMENOrdering Facility: [facility] Address: [address] Performed By: #### A LLBG ####[facility] LABCLIA [id number] [place] [address] [place] Methemoglobin (Bld) [Mass fraction] 1.0 % Normal 0.0-1.5 [facility] Comment on above: Order Comment: Speci men Type: ARTERIAL BLOOD SPECIMENOrdering Facility: [facility] Address: [address] Performed By: #### A LLBG ####[facility] LABCLIA [id number] [place] [address] [place] Oxygen (Bld) [Partial pressure] 291 mm Hg High 85-95 [facility] Comment on above: Order Comment: Speci men Type: ARTERIAL BLOOD SPECIMENOrdering Facility: [facility] Address: [address] [place], [place] [address] Performed By: #### A LLBG ####[facility] LABCLIA [id number] [place] [address] [place] Oxygen adjusted to patient's actual temperature (Bld) [Partial pressure] 291 mmHg High 85-95 [facility] Comment on above: Order Comment: Speci men Type: ARTERIAL BLOOD SPECIMENOrdering Facility: [facility] Address: [address] [place] [address] Performed By: #### A LLBG ####[facility] LABCLIA [id number] [place] [address] [place] Oxyhemoglobin (BldA) [Mass fraction] 97 % Normal 95-98 [facility] Comment on above: Order Comment: Speci men Type: ARTERIAL BLOOD SPECIMENOrdering Facility: [facility] Address: [address] [place], [place] [address] Performed By: #### A LLBG ####[facility] LABCLIA [id number] [place] [address] [place] pH (Bld) 7.43 [pH] Normal 7.35-7.45 [facility] Comment on above: Order Comment: Speci men Type: ARTERIAL BLOOD SPECIMENOrdering Facility: [facility] Address: [address] [place], [place] [address] Performed By: #### A LLBG ####[facility] LABCLIA [id number] [place] [address] [place] pH adjusted to patient's actual temperature (Bld) 7.43 Normal 7.35-7.45 [facility] Comment on above: Order Comment: Speci men Type: ARTERIAL BLOOD SPECIMENOrdering Facility: [facility] Address: [address] Performed By: #### A LLBG ####[facility] LABCLIA [id number] [place] [address] [place] Potassium [Moles/Vol] 4.6 mmol/L Normal 3.5-5.0 [facility] Comment on above: Order Comment: Speci men Type: ARTERIAL BLOOD SPECIMENOrdering Facility: [facility] Address: [address] Performed By: #### A LLBG ####[facility] LABCLIA [id number] [place] [address] [place] Sodium [Moles/Vol] 139 mmol/L Normal 136-144 [facility] Comment on above: Order Comment: Speci men Type: ARTERIAL BLOOD SPECIMENOrdering Facility: [facility] Address: [address] Performed By: #### A LLBG ####[facility] LABCLIA [id number] [place] [address] [place] Base excess Calc (Bld) [Moles/Vol] 0 mmol/L Normal 0-2 [facility] Comment on above: Order Comment: Speci men Type: ARTERIAL BLOOD SPECIMENOrdering Facility: [facility] Address: [address] Performed By: #### A LLBG ####[facility] LABCLIA [id number] [place] [address] [place] Calcium.ionized (Bld) [Mass/Vol] 1.07 mmol/L Low 1.08-1.30 [facility] Comment on above: Order Comment: Speci men Type: ARTERIAL BLOOD SPECIMENOrdering Facility: [facility] Address: [address] Performed By: #### A LLBG ####[facility] LABCLIA [id number] [place] [address] [place] Carboxyhemoglobin (BldA) [Mass fraction] 0.8 % Normal 0.0-2.0 [facility] Comment on above: Order Comment: Speci men Type: ARTERIAL BLOOD SPECIMENOrdering Facility: [facility] Address: [address] [place] [address] Result Comment: Carb oxyhemoglobin Reference Range for Smokers: 2.0-8.0% Performed By: #### A LLBG ####[facility] LABCLIA [id number] [place] [address] [place] CO2 (Bld) [Partial pressure] 38 mm Hg Normal 36-46 [facility] Comment on above: Order Comment: Speci men Type: ARTERIAL BLOOD SPECIMENOrdering Facility: [facility] Address: [address] [place] [address] Performed By: #### A LLBG ####[facility] LABCLIA [id number] [place] [address] [place] CO2 [Moles/Vol] 25 mmol/L Normal 22-28 [facility] Comment on above: Order Comment: Speci men Type: ARTERIAL BLOOD SPECIMENOrdering Facility: [facility] Address: [address] [place] [address] Performed By: #### A LLBG ####[facility] LABCLIA [id number] [place] [address] [place] CO2 adjusted to patient's actual temperature (Bld) [Partial pressure] 38 mmHg Normal 36-46 [facility] Comment on above: Order Comment: Speci men Type: ARTERIAL BLOOD SPECIMENOrdering Facility: [facility] Address: [address] [place] [address] Performed By: #### A LLBG ####[facility] LABCLIA [id number] [place] [address] [place] Glucose [Mass/Vol] 171 mg/dL High 60-105 [facility] Comment on above: Order Comment: Speci men Type: ARTERIAL BLOOD SPECIMENOrdering Facility: [facility] Address: [address] Performed By: #### A LLBG ####[facility] LABCLIA [id number] [place] [address] [place] Lactate [Moles/Vol] 2.6 mmol/L High 0.5-2.2 [facility] Comment on above: Order Comment: Speci men Type: ARTERIAL BLOOD SPECIMENOrdering Facility: [facility] Address: [address] Performed By: #### A LLBG ####[facility] LABCLIA [id number] [place] [address] [place] Methemoglobin (Bld) [Mass fraction] 1.5 % Normal 0.0-1.5 [facility] Comment on above: Order Comment: Speci men Type: ARTERIAL BLOOD SPECIMENOrdering Facility: [facility] Address: [address] Performed By: #### A LLBG ####[facility] LABCLIA [id number] [place] [address] [place] Oxygen (Bld) [Partial pressure] 341 mm Hg High 85-95 [facility] Comment on above: Order Comment: Speci men Type: ARTERIAL BLOOD SPECIMENOrdering Facility: [facility] Address: [address] [place] Performed By: #### A LLBG ####[facility] LABCLIA [id number] [place] [address] [place] Oxygen adjusted to patient's actual temperature (Bld) [Partial pressure] 341 mmHg High 85-95 [facility] Comment on above: Order Comment: Speci men Type: ARTERIAL BLOOD SPECIMENOrdering Facility: [facility] Address: [address] [place] [id number] Performed By: #### A LLBG ####[facility] LABCLIA [id number] [place] [address] [place] Oxyhemoglobin (BldA) [Mass fraction] 97 % Normal 95-98 [facility] Comment on above: Order Comment: Speci men Type: ARTERIAL BLOOD SPECIMENOrdering Facility: [facility] Address: [address] [place], [place] [address] Performed By: #### A LLBG ####[facility] LABCLIA [id number] [place] [address] [place] pH (Bld) 7.42 [pH] Normal 7.35-7.45 [facility] Comment on above: Order Comment: Speci men Type: ARTERIAL BLOOD SPECIMENOrdering Facility: [facility] Address: [address] [place], [place] [address] Performed By: #### A LLBG ####[facility] LABIA [id number] [place] [address] [place] pH adjusted to patient's actual temperature (Bld) 7.42 Normal 7.35-7.45 [facility] Comment on above: Order Comment: Speci men Type: ARTERIAL BLOOD SPECIMENOrdering Facility: [facility] Address: [address] [place], [place] [address] Performed By: #### A LLBG ####[facility] LABIA [id number] [place] [address] [place] Potassium [Moles/Vol] 4.6 mmol/L Normal 3.5-5.0 [facility] Comment on above: Order Comment: Speci men Type: ARTERIAL BLOOD SPECIMENOrdering Facility: [facility] Address: [address] [place], [place] [address] Performed By: #### A LLBG ####[facility] LABIA [id number] [place] [address] [place] Sodium [Moles/Vol] 136 mmol/L Normal 136-144 [facility] Comment on above: Order Comment: Speci men Type: ARTERIAL BLOOD SPECIMENOrdering Facility: [facility] Address: [address] [place], [place] [address] Performed By: #### A LLBG ####[facility] LABIA [id number] [place] [address] [place] Base excess Calc (Bld) [Moles/Vol] 1 mmol/L Normal 0-2 [facility] Comment on above: Order Comment: Speci men Type: ARTERIAL BLOOD SPECIMENOrdering Facility: [facility] Address: [address] [place], [place] [address] Performed By: #### A LLBG ####[facility] LABSOU[facility] [id number] [place] [address] [place] Calcium.ionized (Bld) [Mass/Vol] 1.18 mmol/L Normal 1.08-1.30 [facility] Comment on above: Order Comment: Speci men Type: ARTERIAL BLOOD SPECIMENOrdering Facility: [facility] Address: [address] [place], [place] [address] Performed By: #### A LLBG ####[facility] LABIA [id number] [place] [address] [place] Calcium.ionized adjusted to pH 7.4 (BldA) [Moles/Vol] 1.20 mmol/L Normal 1.08-1.30 [facility] Comment on above: Order Comment: Speci men Type: ARTERIAL BLOOD SPECIMENOrdering Facility: [facility] Address: [address] [place], [place] [address] Performed By: #### A LLBG ####[facility] LABIA [id number] [place] [address] [place] Carboxyhemoglobin (BldA) [Mass fraction] 0.7 % Normal 0.0-2.0 [facility] Comment on above: Order Comment: Speci men Type: ARTERIAL BLOOD SPECIMENOrdering Facility: [facility] Address: [address] [address] Result Comment: Carb oxyhemoglobin Reference Range for Smokers: 2.0-8.0% Performed By: #### A LLBG ####[facility] LABCLIA [id number] [place] [address] [place] CO2 (Bld) [Partial pressure] 37 mm Hg Normal 36-46 [facility] Comment on above: Order Comment: Speci men Type: ARTERIAL BLOOD SPECIMENOrdering Facility: [facility] Address: [address] [address] Performed By: #### A LLBG ####[facility] LABCLIA [id number] [place] [address] [place] CO2 [Moles/Vol] 25 mmol/L Normal 22-28 [facility] Comment on above: Order Comment: Speci men Type: ARTERIAL BLOOD SPECIMENOrdering Facility: [facility] Address: [address] [address] Performed By: #### A LLBG ####[facility] LABCLIA [id number] [place] [address] [place] CO2 adjusted to patient's actual temperature (Bld) [Partial pressure] 37 mmHg Normal 36-46 [facility] Comment on above: Order Comment: Speci men Type: ARTERIAL BLOOD SPECIMENOrdering Facility: [facility] Address: [address] Performed By: #### A LLBG ####[facility] LABCLIA [id number] [place] [address] [place] Glucose [Mass/Vol] 148 mg/dL High 60-105 [facility] Comment on above: Order Comment: Speci men Type: ARTERIAL BLOOD SPECIMENOrdering Facility: [facility] Address: [address] Performed By: #### A LLBG ####[facility] LABCLIA [id number] [place] [address] [place] HCO3 (Bld) [Moles/Vol] 24 mmol/L Normal 22-26 [facility] Comment on above: Order Comment: Speci men Type: ARTERIAL BLOOD SPECIMENOrdering Facility: [facility] Address: [address] [place] [address] Performed By: #### A LLBG ####[facility] LABIA [id number] [place] [address] [place] Hematocrit (Bld) [Volume fraction] 43.0 % Normal 39.0-51.0 [facility] Comment on above: Order Comment: Speci men Type: ARTERIAL BLOOD SPECIMENOrdering Facility: [facility] Address: [address] [place] [address] Performed By: #### A LLBG ####[facility] LABIA [id number] [place] [address] [place] Hemoglobin (Bld) [Mass/Vol] 14.0 g/dL Normal 13.0-17.0 [facility] Comment on above: Order Comment: Speci men Type: ARTERIAL BLOOD SPECIMENOrdering Facility: [facility] Address: [address] [place], [place] [address] Performed By: #### A LLBG ####[facility] LABIA [id number] [place] [address] [place] Lactate [Moles/Vol] 1.4 mmol/L Normal 0.5-2.2 [facility] Comment on above: Order Comment: Speci men Type: ARTERIAL BLOOD SPECIMENOrdering Facility: [facility] Address: [address] [place], [place] [address] Performed By: #### A LLBG ####[facility] LABIA [id number] [place] [address] [place] Methemoglobin (Bld) [Mass fraction] 1.3 % Normal 0.0-1.5 [facility] Comment on above: Order Comment: Speci men Type: ARTERIAL BLOOD SPECIMENOrdering Facility: [facility] Address: [address] Performed By: #### A LLBG ####[facility] LABCLIA [id number] [place] [address] [place] Oxygen (Bld) [Partial pressure] 223 mm Hg High 85-95 [facility] Comment on above: Order Comment: Speci men Type: ARTERIAL BLOOD SPECIMENOrdering Facility: [facility] Address: [address] Performed By: #### A LLBG ####[facility] LABCLIA [id number] [place] [address] [place] Oxygen adjusted to patient's actual temperature (Bld) [Partial pressure] 223 mmHg High 85-95 [facility] Comment on above: Order Comment: Speci men Type: ARTERIAL BLOOD SPECIMENOrdering Facility: [facility] Address: [address] Performed By: #### A LLBG ####[facility] LABCLIA [id number] [place] [address] [place] Oxyhemoglobin (BldA) [Mass fraction] 98 % Normal 95-98 [facility] Comment on above: Order Comment: Speci men Type: ARTERIAL BLOOD SPECIMENOrdering Facility: [facility] Address: [address] Performed By: #### A LLBG ####[facility] LABCLIA [id number] [place] [address] [place] pH (Bld) 7.43 [pH] Normal 7.35-7.45 [facility] Comment on above: Order Comment: Speci men Type: ARTERIAL BLOOD SPECIMENOrdering Facility: [facility] Address: [address] Performed By: #### A LLBG ####[facility] LABCLIA [id number] [address] [place] pH adjusted to patient's actual temperature (Bld) 7.43 Normal 7.35-7.45 [facility] Comment on above: Order Comment: Speci men Type: ARTERIAL BLOOD SPECIMENOrdering Facility: [facility] Address: [address] [place], [place] [address] Performed By: #### A LLBG ####[facility] LABCLIA [id number] [place] [address] [place] Potassium [Moles/Vol] 3.7 mmol/L Normal 3.5-5.0 [facility] Comment on above: Order Comment: Speci men Type: ARTERIAL BLOOD SPECIMENOrdering Facility: [facility] Address: [address] [place], [place] [address] Performed By: #### A LLBG ####[facility] LABIA [id number] [address] [place] Sodium [Moles/Vol] 139 mmol/L Normal 136-144 [facility] Comment on above: Order Comment: Speci men Type: ARTERIAL BLOOD SPECIMENOrdering Facility: [facility] Address: [address] [place] [address] Performed By: #### A LLBG ####[facility] LABCLIA [id number] [place] [address] [place] ARTERIAL BLOOD GASES WITH IO NIZED MAGNESIUMon 02-27-2022 Base excess Calc (Bld) [Moles/Vol] 1 mmol/L Normal 0-2 [facility] Comment on above: Order Comment: Speci men Type: ARTERIAL BLOOD SPECIMENOrdering Facility: [facility] Address: [address] [place] [address] Performed By: #### A LLMG ####[facility] LABCLIA [id number] [id number] [address] [place] Calcium.ionized (Bld) [Mass/Vol] 1.19 mmol/L Normal 1.08-1.30 [facility] Comment on above: Order Comment: Speci men Type: ARTERIAL BLOOD SPECIMENOrdering Facility: [facility] Address: [address] [place] [address] Performed By: #### A LLMG ####[facility] LABIA [id number] [place] [address] [place] Calcium.ionized adjusted to pH 7.4 (BldA) [Moles/Vol] 1.21 mmol/L Normal 1.08-1.30 [facility] Comment on above: Order Comment: Speci men Type: ARTERIAL BLOOD SPECIMENOrdering Facility: [facility] Address: [address] [place] [address] Performed By: #### A LLMG ####[facility] [id number] [address] [place] Carboxyhemoglobin (BldA) [Mass fraction] 0.5 % Normal 0.0-2.0 [facility] Comment on above: Order Comment: Speci men Type: ARTERIAL BLOOD SPECIMENOrdering Facility: [facility] Address: [address] [place] [address] Result Comment: Carb oxyhemoglobin Reference Range for Smokers: 2.0-8.0% Performed By: #### A LLMG ####[facility] [id number] [place] [address] [place] CO2 (Bld) [Partial pressure] 39 mm Hg Normal 36-46 [facility] Comment on above: Order Comment: Speci men Type: ARTERIAL BLOOD SPECIMENOrdering Facility: [facility] Address: [address] [place], [place] [address] Performed By: #### A LLMG ####[facility] LABIA [id number] [place] [address] [place] CO2 [Moles/Vol] 26 mmol/L Normal 22-28 [facility] Comment on above: Order Comment: Speci men Type: ARTERIAL BLOOD SPECIMENOrdering Facility: [facility] Address: [address] Performed By: #### A LLMG ####[facility] LABCLIA [id number] [place] [address] [place] CO2 adjusted to patient's actual temperature (Bld) [Partial pressure] 39 mmHg Normal 36-46 [facility] Comment on above: Order Comment: Speci men Type: ARTERIAL BLOOD SPECIMENOrdering Facility: [facility] Address: [address] Performed By: #### A LLMG ####[facility] LABCLIA [id number] [place] [address] [place] Glucose [Mass/Vol] 108 mg/dL High 60-105 [facility] Comment on above: Order Comment: Speci men Type: ARTERIAL BLOOD SPECIMENOrdering Facility: [facility] Address: [address] [place], [place] [address] Performed By: #### A LLMG ####[facility] LABCLIA [id number] [place] [address] [place] HCO3 (Bld) [Moles/Vol] 25 mmol/L Normal 22-26 [facility] Comment on above: Order Comment: Speci men Type: ARTERIAL BLOOD SPECIMENOrdering Facility: [facility] Address: [address] [place] [address] Performed By: #### A LLMG ####[facility] LABCLIA [id number] [place] [address] [place] Hematocrit (Bld) [Volume fraction] 46.7 % Normal 39.0-51.0 [facility] Comment on above: Order Comment: Speci men Type: ARTERIAL BLOOD SPECIMENOrdering Facility: [facility] Address: [address] Performed By: #### A LLMG ####[facility] LABIA [id number] [address] [place] Hemoglobin (Bld) [Mass/Vol] 15.2 g/dL Normal 13.0-17.0 [facility] Comment on above: Order Comment: Speci men Type: ARTERIAL BLOOD SPECIMENOrdering Facility: [facility] Address: [address] [place], [place] [address] Performed By: #### A LLMG ####[facility] LABIA [id number] [place] [address] [place] Lactate [Moles/Vol] 1.4 mmol/L Normal 0.5-2.2 [facility] Comment on above: Order Comment: Speci men Type: ARTERIAL BLOOD SPECIMENOrdering Facility: [facility] Address: [address] [place], [place] [address] Performed By: #### A LLMG ####[facility] LABIA [id number] [place] [address] [place] Magnesium [Moles/Vol] 0.50 mmol/L Normal 0.45-0.60 [facility] Comment on above: Order Comment: Speci men Type: ARTERIAL BLOOD SPECIMENOrdering Facility: [facility] Address: [address] [place], [place] [address] Performed By: #### A LLMG ####[facility] LABIA [id number] [place] [address] [place] Methemoglobin (Bld) [Mass fraction] 1.5 % Normal 0.0-1.5 [facility] Comment on above: Order Comment: Speci men Type: ARTERIAL BLOOD SPECIMENOrdering Facility: [facility] Address: [address] [place], [place] [address] Performed By: #### A LLMG ####[facility] LABIA [id number] [place] [address] [place] Oxygen (Bld) [Partial pressure] 92 mm Hg Normal 85-95 [facility] Comment on above: Order Comment: Speci men Type: ARTERIAL BLOOD SPECIMENOrdering Facility: [facility] Address: [address] [place], [place] [address] Performed By: #### A LLMG ####[facility] LABCLIA [id number] [address] [place] Oxygen adjusted to patient's actual temperature (Bld) [Partial pressure] 92 mmHg Normal 85-95 [facility] Comment on above: Order Comment: Speci men Type: ARTERIAL BLOOD SPECIMENOrdering Facility: [facility] Address: [address] [place], [place] [address] Performed By: #### A LLMG ####[facility] LABCLIA [id number] [address] [place] Oxyhemoglobin (BldA) [Mass fraction] 96 % Normal 95-98 [facility] Comment on above: Order Comment: Speci men Type: ARTERIAL BLOOD SPECIMENOrdering Facility: [facility] Address: [address] [place], [place] [address] Performed By: #### A LLMG ####[facility] LABCLIA [id number] [place] [address] [place] pH (Bld) 7.42 [pH] Normal 7.35-7.45 [facility] Comment on above: Order Comment: Speci men Type: ARTERIAL BLOOD SPECIMENOrdering Facility: [facility] Address: [address] [place], [place] [address] Performed By: #### A LLMG ####[facility] LABCLIA [id number] [place] [address] [place] pH adjusted to patient's actual temperature (Bld) 7.42 Normal 7.35-7.45 [facility] Comment on above: Order Comment: Speci men Type: ARTERIAL BLOOD SPECIMENOrdering Facility: [facility] Address: [address] [place], [place] [address] [address] Performed By: #### A LLMG ####[facility] LABCLIA [id number] [place] [address] [place] Potassium [Moles/Vol] 3.7 mmol/L Normal 3.5-5.0 [facility] Comment on above: Order Comment: Speci men Type: ARTERIAL BLOOD SPECIMENOrdering Facility: [facility] Address: [address] [address] Performed By: #### A LLMG ####[facility] LABIA [id number] [place] [address] [place] Sodium [Moles/Vol] 140 mmol/L Normal 136-144 [facility] Comment on above: Order Comment: Speci men Type: ARTERIAL BLOOD SPECIMENOrdering Facility: [facility] Address: [address] [address] Performed By: #### A LLMG ####[facility] LABIA [id number] [address] [place] CNOVon 02-27-2022 CNOV Office Visit (TOMN ) -------- GINO OSORIO ([id number]) 1960 M Date Time Provider Department 02/27/22 DESTIN CHARLES [facility] During your visit today, we recorded the following information about you: Destin Charles MD 02/27/2022 8:31 AM Signed Thoracic and Cardiovascular Surgery [facility] SURGICAL CONSULT AND INFORMED CONSENT CHART COPY DO NOT DISCARD Patient Type: New Visit to determine Surgery: Yes PCP: Rudy Thomas MD [address] [place] [address] Referring Physician:: No referring provider defined for this encounter. HPI: Mr. Gino Osorio is a 61 year old male seen in consultation at the request of for an opinion regarding treatment options for Coronary Artery Disease and Hypertrophic Obstructive Cardiomyopathy after being seen and evaluated by Thierno Barrientos M.D. . He is currently symptomatic and complains of shortness of breath, dyspnea on exertion, and palpitation. Comorbidities include HTN. I have personally reviewed his cardiac catheterization which shows left main stenosis and ramus stenosis. Echocardiogram/CT scan : reveals normal ventricular function and severe left ventricular outflow tract obstruction with gradients over 100 mm Hg. Acute lvot angle with mild aortic enlargment Labs: wnl EKG: SB Atrial Fibrillation History:None Impression: CAD with symptoms- likely related to the left ventricular outflow tract obstruction Plan: myectomy and coronary artery bypass grafting. left internal thoracic artery to the left anterior decending coronary artery, right internal thoracic artery to the circumflex coronary artery and saphanous vein graft to the ramus I spent more than 50% of the visit face to face counseling the patient on the plan and treatment options. The time spent counseling was 40 minutes. The total time of the face to face visit was 40 minutes. The risks, benefits and anticipated outcomes of the procedure, the risks and benefits of the alternatives to the procedure, and the roles and tasks of the personnel to be involved, were discussed with the patient, and the patient consents to the procedure and agrees to proceed. These findings will be communicated back to the requesting physician via electronic medical record Destin Charles MD Allergies As of Date: 02/27/2022 (No Known Allergies) Date Reviewed: 02/27/2022 Reviewed by: Ariadne Jose RN - Fully Assessed Primary Visit Diagnosis:HOCM (hypertrophic obstructive cardiomyopathy) (HCC) [I42.1] Other Visit Diagnosis:Coronary artery disease involving [place] coronary artery of [place] heart without angina pectoris [I25.10] Prescriptions as of 02/27/2022 - mupirocin (BACTROBAN) 2 % ointment Apply a small amount in each nostril using a cotton swab twice the day before surgery and once the morning of surgery. - melatonin 10 mg cap Take 1 capsule by mouth daily at bedtime. - sertraline (ZOLOFT) 50 mg tablet Take 50 mg by mouth daily at bedtime. - QUEtiapine (SEROQUEL) 25 mg tablet Take 1 tablet by mouth daily at bedtime. - losartan (COZAAR) 100 mg tablet Take 1 tablet by mouth once daily. - atenolol (TENORMIN) 25 mg tablet Take 25 mg by mouth once daily. - Ascorbic Acid 1,000 mg tablet Take 1,000 mg by mouth once daily. - MULTIVITAMIN ORAL Take 1 tablet by mouth once daily. - niacin (NIACIN) 500 mg tablet Take 500 mg by mouth daily with breakfast. - COQ10, UBIQUINOL, ORAL Take 1 tablet by mouth once daily. With Krill - cholecalciferol (VITAMIN D3) 5,000 unit tab Take 10,000 Units by mouth once daily. - glucosam/chond-msm1/C/ma ng/bor (NNLANMXJQGR-BEQUB-ZFX COMPLEX ORAL) Take 1 tablet by mouth once daily. - MAGNESIUM ORAL Take 250 mg by mouth once daily. Problem List As Of Date 02/27/2022 Noted Resolved Discharge planning issues [Z02.9] 02/22/2022 Pre-op testing [Z01.818] 02/22/2022 Encounter Status:Closed by DESTIN CHARLES on 02/27/22 Normal [facility] ECG COMPLETEon 02-27-2022 ECG COMPLETE Ventricular Rate : 8 1 BPM Atrial Rate : 81 BPM P-R Interval : 166 ms QRS Duration : 140 ms Q-T Interval : 516 ms QTC Calculation(Bazett) : 599 ms Calculated P [place] : 63 degrees Calculated R [place] : -19 degrees Calculated T [place] : 105 degrees NORMAL SINUS RHYTHM COMPLETE LEFT BUNDLE BRANCH BLOCK ABNORMAL ECG Confirmed by MARYAM SANCHEZ MD ([id number]) on 03/04/2022 12:29:14 PM NAME : GINO OSORIO PID : [id number] : 1960 Gender : Male Race : Unknown ORD : [id number] Procedure Date : Feb 27 2022 17:51:00 Edit Date : Mar 04 2022 12:29:15 Diagnosis: NORMAL SINUS RHYTHM COMPLETE LEFT BUNDLE BRANCH BLOCK ABNORMAL ECG Confirmed by MARYAM SANCHEZ MD ([id number]) on 03/04/2022 12:29:14 PM Test Reason : Post-OP Location : 350 : [id number] Overread By : MARYAM SANCHEZ MD Edited By : MARYAM SANCHEZ MD Referred By : , Acquired by : [id number], Normal [facility] Gas + CO Pnl BldVon 02-27-19 23 Calcium.ionized adjusted to pH 7.4 (BldA) [Moles/Vol] 1.08 mmol/L Normal 1.08-1.30 [facility] Comment on above: Order Comment: Speci men Type: VENOUS BLOOD SPECIMENOrdering Facility: [facility] Address: [address] [address] Performed By: #### 2 4344-4 ####[facility] LABCLIA [id number] [address] Order Comment: Speci men Type: ARTERIAL BLOOD SPECIMENOrdering Facility: [facility] Address: [address] [address] Performed By: #### A LLBG ####[facility] LABCLIA [id number] [address] [place] HCO3 (Bld) [Moles/Vol] 24 mmol/L Normal 22-26 [facility] Comment on above: Order Comment: Speci men Type: VENOUS BLOOD SPECIMENOrdering Facility: [facility] Address: [address] [place] [address] Performed By: #### 2 4344-4 ####[facility] LABCLIA [id number] [address] Order Comment: Speci men Type: ARTERIAL BLOOD SPECIMENOrdering Facility: [facility] Address: [address] Performed By: #### A LLBG ####[facility] LABCLIA [id number] [address] [place] Hematocrit (Bld) [Volume fraction] 33.1 % Low 39.0-51.0 [facility] Comment on above: Order Comment: Speci men Type: VENOUS BLOOD SPECIMENOrdering Facility: [facility] Address: [address] [place], [place] [address] Performed By: #### 2 4344-4 ####[facility] LABCLIA [id number] [address] Order Comment: Speci men Type: ARTERIAL BLOOD SPECIMENOrdering Facility: [facility] Address: [address] [place] [address] Performed By: #### A LLBG ####[facility] LABCLIA [id number] [place] [address] [place] Hemoglobin (Bld) [Mass/Vol] 10.7 g/dL Low 13.0-17.0 [facility] Comment on above: Order Comment: Speci men Type: VENOUS BLOOD SPECIMENOrdering Facility: [facility] Address: [address] [place], [place] [address] Performed By: #### 2 4344-4 ####[facility] LABCLIA [id number] [address] [place] [facility] Order Comment: Speci men Type: ARTERIAL BLOOD SPECIMENOrdering Facility: [facility] Address: [address] [place] [address] Performed By: #### A LLBG ####[facility] LABCLIA [id number] [place] [address] [place] Gas and Carbon monoxide pane l (BldV)on 02-27-2022 Base excess Calc (BldV) [Moles/Vol] 0 mmol/L Normal 0-2 [facility] Comment on above: Order Comment: Speci men Type: VENOUS BLOOD SPECIMENOrdering Facility: [facility] Address: [address] [place] [address] Performed By: #### 2 4344-4 ####[facility] LABCLIA [id number] [id number] [address] [place] Calcium.ionized (Bld) [Mass/Vol] 1.09 mmol/L Normal 1.08-1.30 [facility] Comment on above: Order Comment: Speci men Type: VENOUS BLOOD SPECIMENOrdering Facility: [facility] Address: [address] [place] [address] Performed By: #### 2 4344-4 ####[facility] LABCLIA [id number] [place] [address] [place] Carboxyhemoglobin (BldV) [Mass fraction] 1.6 % Normal 0.0-2.0 [facility] Comment on above: Order Comment: Speci men Type: VENOUS BLOOD SPECIMENOrdering Facility: [facility] Address: [address] [place], [place] [address] Result Comment: Carb oxyhemoglobin Reference Range for Smokers: 2.0-8.0% Performed By: #### 2 4344-4 ####[facility] LABCLIA [id number] [address] [place] CO2 (BldV) [Partial pressure] 43 mm[Hg] Normal 42-55 [facility] Comment on above: Order Comment: Speci men Type: VENOUS BLOOD SPECIMENOrdering Facility: [facility] Address: [address] [place], [place] [address] Performed By: #### 2 4344-4 ####[facility] LABCLIA [id number] [place] [address] [place] CO2 [Moles/Vol] 26 mmol/L Normal 25-29 [facility] Comment on above: Order Comment: Speci men Type: VENOUS BLOOD SPECIMENOrdering Facility: [facility] Address: [address] [place], [place] [address] Performed By: #### 2 4344-4 ####[facility] LABCLIA [id number] [place] [address] [place] CO2 adjusted to patient's actual temperature (BldV) [Partial pressure] 43 mmHg Normal 42-55 [facility] Comment on above: Order Comment: Speci men Type: VENOUS BLOOD SPECIMENOrdering Facility: [facility] Address: [address] Performed By: #### 2 4344-4 ####[facility] LABCLIA [id number] [place] [address] [place] Glucose [Mass/Vol] 175 mg/dL High 60-105 [facility] Comment on above: Order Comment: Speci men Type: VENOUS BLOOD SPECIMENOrdering Facility: [facility] Address: [address] Performed By: #### 2 4344-4 ####[facility] LABCLIA [id number] [place] [address] [place] Lactate [Moles/Vol] 2.5 mmol/L High 0.5-2.2 [facility] Comment on above: Order Comment: Speci men Type: VENOUS BLOOD SPECIMENOrdering Facility: [facility] Address: [address] Performed By: #### 2 4344-4 ####[facility] LABIA [id number] [address] [place] Methemoglobin (Bld) [Mass fraction] 0.8 % Normal 0.0-1.5 [facility] Comment on above: Order Comment: Speci men Type: VENOUS BLOOD SPECIMENOrdering Facility: [facility] Address: [address] [place] [address] Performed By: #### 2 4344-4 ####[facility] LABIA [id number] [place] [address] [place] Oxygen (BldV) [Partial pressure] 73 mm[Hg] High 35-45 [facility] Comment on above: Order Comment: Speci men Type: VENOUS BLOOD SPECIMENOrdering Facility: [facility] Address: [address] Performed By: #### 2 4344-4 ####[facility] LABCLIA [id number] [place] [address] [place] Oxygen adjusted to patient's actual temperature (BldV) [Partial pressure] 73 mmHg High 35-45 [facility] Comment on above: Order Comment: Speci men Type: VENOUS BLOOD SPECIMENOrdering Facility: [facility] Address: [address] [place], [place] [address] Performed By: #### 2 4344-4 ####[facility] LABCLIA [id number] [place] [address] [place] Oxygen saturation in Venous blood 95 % High 60-85 [facility] Comment on above: Order Comment: Speci men Type: VENOUS BLOOD SPECIMENOrdering Facility: [facility] Address: [address] [place], [place] [address] Performed By: #### 2 4344-4 ####[facility] LABCLIA [id number] [place] [address] [place] Oxyhemoglobin (BldV) [Mass fraction] 92 % High 60-85 [facility] Comment on above: Order Comment: Speci men Type: VENOUS BLOOD SPECIMENOrdering Facility: [facility] Address: [address] [place], [place] [address] Performed By: #### 2 4344-4 ####[facility] LABCLIA [id number] [place] [address] [place] pH (BldV) 7.37 [pH] Normal 7.32-7.42 [facility] Comment on above: Order Comment: Speci men Type: VENOUS BLOOD SPECIMENOrdering Facility: [facility] Address: [address] [place], [place] [address] Performed By: #### 2 4344-4 ####[facility] LABCLIA [id number] [place] [address] [place] pH adjusted to patient's actual temperature (BldV) 7.37 Normal 7.32-7.42 [facility] Comment on above: Order Comment: Speci men Type: VENOUS BLOOD SPECIMENOrdering Facility: [facility] Address: [address] [place] [address] Performed By: #### 2 4344-4 ####[facility] LABCLIA [id number] [place] [address] [place] Potassium [Moles/Vol] 4.5 mmol/L Normal 3.5-5.0 [facility] Comment on above: Order Comment: Speci men Type: VENOUS BLOOD SPECIMENOrdering Facility: [facility] Address: [address] [place] [address] Performed By: #### 2 4344-4 ####[facility] LABCLIA [id number] [place] [address] [place] Sodium [Moles/Vol] 138 mmol/L Normal 136-144 [facility] Comment on above: Order Comment: Speci men Type: VENOUS BLOOD SPECIMENOrdering Facility: [facility] Address: [address] [place] [address] Performed By: #### 2 4344-4 ####[facility] LABCLIA [id number] [place] [address] [place] INTRAOPERATIVE ECHO Yasmine 0 02-27-2022 INTRAOPERATIVE ECHO POST Echocardiography Report: Intraoperative Echo Post (NORA) [facility] OR - J4 Date of service: 02/27/2022 2:27:31 PM DECORATOR Ordering physician: DESTIN CHARLES Indication: Re-evaluation of known valvular heart disease with change in clinical status Technologist: staff Interpreting physician: Romina Méndez DO PATIENT: Name: GINO OSORIO : 1960 Age: 61 years Gender: M Height: 175.30 cm BSA: 1.88 m Weight: 72.58 kg BMI: 23.6 kg/m (POST PROCEDURE) Color Doppler was utilized to interrogate the cardiac valves assessed and spectral Doppler was utilized to determine the flow velocities and pressure gradients reported in this exam. FINDINGS: LEFT VENTRICLE Wall Motion: All scored segments are normal. AORTIC VALVE 3D echocardiographic multi-planar reconstruction of the aortic valve was performed to assess anatomy and function. FINDINGS: (POST PROCEDURE) Status post myectomy and cabg x5. Post Procedure Run 1 The left ventricle is small. Left ventricular systolic function is normal. The right ventricle is mildly dilated. Right ventricular systolic function is normal. There is trivial mitral valve regurgitation. There is trivial tricuspid valve regurgitation. There is no aortic valve regurgitation. Visualized segments of the ascending, arch, and descending aorta without evidence of dissection. There is a centrally directed mitral regurgitant jet originating along the central aspect of the coaptation line. Aorta intact post decannulation. CONCLUSIONS: - Exam indication: Re-evaluation of known valvular heart disease with change in clinical status There is no significant change. CONCLUSIONS: (POST PROCEDURE) s/p myectomy and CABG Normal LV function (Initially, some inferior wall hypokinesis that resolved). LV SV (LVOT 3d) was 143ml Normal RV function, mild dilation. Also, some transient hypokinesis that improved S/p myectomy. With Isopril provacative, the LVOT pk/mn was 7/3. Laminar flow appreciated within the LVOT with CFD. No KIRSTIN and trivial MR (Central origin and centrally directed). D/w Dr. Charles Final CC [facility] Image : [id number] See Link below for Image Normal [facility] INTRAOPERATIVE ECHO PREon INTRAOPERATIVE ECHO PRE Echocardiography Report: Intraoperative Echo Pre (NORA) [facility] OR - J4 Date of service: 02/27/2022 11:10:19 AM DECORATOR Ordering physician: DESTIN CHARLES Indication: Chest Pain Technologist: fellow Fellow: Azeem Davis MD Interpreting physician: Jose Valderrama MD PATIENT: Name: GINO OSORIO : 1960 Age: 61 years Gender: M Height: 175.30 cm BSA: 1.88 m Weight: 72.58 kg BMI: 23.6 kg/m (PRE PROCEDURE) Color Doppler was utilized to interrogate the cardiac valves assessed and spectral Doppler was utilized to determine the flow velocities and pressure gradients reported in this exam. Easy NORA probe placement. NORA complication: no complications. MEASUREMENTS: (PRE PROCEDURE) Value Normal Max aortic dimension 3.3 cm Ao < 3.8 Ejection Fraction 60 % (visual est.) EF > 52 FINDINGS: (PRE PROCEDURE) LEFT VENTRICLE The left ventricle is normal in size. There is left ventricular hypertrophy. Left ventricular systolic function is normal. RIGHT VENTRICLE The right ventricle is normal in size. Right ventricular systolic function is normal. LEFT ATRIUM The left atrial cavity is normal in size. Pulmonary Veins: The pulmonary venous pattern showed blunted systolic flow. RIGHT ATRIUM The right atrial cavity is normal in size. MITRAL VALVE [place] mitral valve. There is no mitral stenosis. There is moderately severe (3+) mitral valve regurgitation due to excessive leaflet motion. 3D echocardiographic multi-planar reconstruction of the mitral valve was performed to assess anatomy and function. TRICUSPID VALVE [place] tricuspid valve. There is no tricuspid stenosis. There is trace tricuspid valve regurgitation. AORTIC VALVE There is no aortic valve stenosis. There is no aortic valve regurgitation. Tricuspid aortic valve. The LVOT diameter is 1.4 cm. PULMONIC VALVE There is trace pulmonic valve regurgitation. Indeterminate pulmonic valve. AORTA The visualized aorta is normal in size. Measurements - Aortic valve annulus 2.4 cm. Sinus: 3.3 cm. Sinotubular junction 2.7 cm. Mid ascending aorta 2.5 cm. INTERATRIAL SEPTUM There is no patent foramen ovale as detected by Doppler and agitated saline contrast. PERICARDIUM The pericardium is normal. CONCLUSIONS: (PRE PROCEDURE) - Exam indication: Chest Pain - The left ventricle is normal in size. There is left ventricular hypertrophy. Left ventricular systolic function is normal. EF = 60 5% (visual est.) - The right ventricle is normal in size. Right ventricular systolic function is normal. - There is moderately severe (3+) mitral valve regurgitation due to excessive leaflet motion. 3+ MR due to KIRSTIN. - There is no patent foramen ovale as detected by Doppler and agitated saline contrast. - There is severe KIRSTIN with septal contact, peak gradient 88 mmHg. - Septal thickness 22mm at a depth of 2.6 cm from AV in AV long axis view, tapering to 13 mm at a depth of 2.6 cm. 17 mm in 4chamber view - Exam was compared with the prior CC echocardiographic exam performed on 02/21/2022 Final CC [facility] Image : [id number] See Link below for Image Normal [facility] NURSING PROGon 02-27-2022 NURSING PROG HNO ID: [id number] Author: Ariadne Jose RN Service: Nursing Author Type: Registered Nurse Type: Nursing Progress Note Filed: 02/27/2022 5:44 AM Note Text: PRE OP LEARNING ASSESSMENT PROCEDURE/SURGERY: SURGERY: Cardiac READINESS TO LEARN COGNITIVE ABILITY: Alert and oriented MOTIVATION TO LEARN: Interested FAMILY SUPPORT: Moderate - Family present but overwhelmed PATIENT LEARNS BEST BY: Verbal Instruction FACTORS AFFECTING LEARNING: None PHYSICAL LIMITATIONS AFFECTING LEARNING: None Electronically Signed By: Ariadne Jose RN In Department: ADMITTING Normal [facility] OPERATIVE NOon 02-27-2022 OPERATIVE NO HNO ID: [id number] Author: Mark Weeks MD Service: Cardiac Surgery Author Type: Physician Type: Operative Report Filed: 02/27/2022 5:42 PM Note Text: -------- Attestation signed by Destin Charles MD at 03/01/2022 3:11 AM -------- [facility]ARD[facility]ORACICSURGERY OPERATIVE/PROCEDURE REPORT LOG ID: [id number] SURGERY/PROCEDURE DATE: 02/27/2022 INCISION/PROCEDURE START TIME: 12:05 PM INCISION CLOSE/PROCEDURE END TIME: SURGEON(S)/PROCEDURALIST (S) AND SUPERVISOR MONEY ROOM(S): Surgeon(s) and Role: * Destin Charles MD - Primary * Mark Weeks MD - Resident - Assisting Physician Equipment Installer: Harini Graff PA-C; Tara Serrano PA-C Registered Nurse Water Reuse Program Manager: NICOLÁS Giordano (Rnfa); NICOLÁS Lazcano ANESTHESIA: General CTS OP REPORTS PROCEDURE(S): Septal Myectomy Coronary Artery Bypass Graft PREOPERATIVE DIAGNOSIS: 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 POSTOPERATIVE DIAGNOSIS: Same as preop DESCRIPTION OF PROCEDURE: Operative Approach: Full Conventional Sternotomy Reoperation: No previous surgeries PUMP: ON PUMP Arterial Cannulation: Aortic Venous Cannulation: Right Atrial CARDIOPLEGIA: [place] Cardioplegia Delivery: Antegrade and Retrograde CABG (Coronary Artery Bypass Graft) PROCEDURE: CONDUIT QUALITY: Normal caliber with excellent flow AORTA QUALITY: Normal CORONARY ARTERY QUALITY: Normal Proximal Technique: Single cross clamp GRAFTS: SHIPMAN in situ mammary end to side distal LAD YASHIRA in situ mammary end to side ramus Vein graft ascending aorta end to side obtuse marginal 3 Left LIZBETH: Skeletonized Bassett Technique: Direct vision (open) Right LIZBETH: Skeletonized Bassett Technique: Direct vision (open) Vein(s) Harvested: Right leg greater saphenous Bassett Technique: Endoscopic SEPTAL MYECTOMY PROCEDURE: Obstruction Present: Yes located in the Base Preoperative Pulmonary Hypertension Present: None Approach to Septum: Trans-aortic valve Location of Resection: Septum base Amount of Resected Myocardium: 4.5 grams Trans-Aortic Mitral Valve Repair Performed: No Postoperative Pulmonary Hypertension Present: None POST-BYPASS: Aortic Occlusion: Aortic cross clamp PACING WIRES: Right ventricle which can be pulled CHEST TUBES/DRAINS: Left chest tube, Right chest tube and Mediastinal chest tube CLOSURE: Routine with sternal wires POST-PROCEDURE DETAILS: Patient Tolerance of Procedure: tolerated well, no immediate complications Sponge/Instrument/Needle Counts: Final Counts Correct Estimated Blood Loss: 250 mL of shed blood was preserved by cardiopulmonary bypass pump and the cell saver. Specimens Collected: myectomy SURGEON/SUPERVISOR MONEY ROOM PARTICIPATION: No qualified Resident/Fellow was available.The following were completed under direct supervision and the remainder of the procedure was performed by the primary Surgeon/Proceduralist with assistance: Damage Inside Adjuster: opened, closed and harvested grafts Grafts Harvested: SHIPMAN, YASHIRA Second Assist: opened, closed and harvested graft Grafts Harvested: SVG SPECIMENS: ID Type Source Tests Collected by Time A : Septal muscle Tissue HEART SEPTUM SURGICAL PATHOLOGY Destin Charles MD 02/27/2022 2:55 PM COMPLETED BY: Mark Weeks MD PATIENT NAME: Gino Osorio DATE: February 27, 2022 TIME: 5:35 PM AGE: [age] year old Normal [facility] STAPH AUREUS PCRon 3 S. aureus and MRSA panel JAYDE+probe (Nose) Normal Negative [facility] Comment on above: Order Comment: Speci men Type: SWAB OF INTERNAL NOSEOrdering Facility: [facility] Address: [address] [place] [address] Result Comment: Nega tive for Staphylococcus aureus by PCR. Negative for MRSA by PCR Performed By: #### S APCR ####[facility] LABIA [id number] [address] OF [facility] SURGICAL PATHOLOGYon 023 CASE REPORT Normal [facility] Comment on above: Order Comment: Speci men Type: TISSUE SPECIMENOrdering Facility: [facility] Address: [address] [place] [address] Result Comment: Surg ica Pathology Report Case: [id number] Authorizing Provider: Destin Charles MD Collected: 02/27/2022 02:55 PM Ordering Location: Admitting Received: 02/28/2022 07:11 AM Pathologist: Oscar Gutierrez MD Specimen: HEART SEPTUM, Septal muscle Performed By: #### S ####[facility] LABCLIA [id number] [address] CLINICAL HISTORY Normal [facility] Comment on above: Order Comment: Speci men Type: TISSUE SPECIMENOrdering Facility: [facility] Address: [address] [place] [address] Result Comment: Pre- op diagnosis: HOCM (hypertrophic obstructive cardiomyopathy) (HCC) [I42.1] Coronary artery disease involving [place] coronary artery of [place] heart with angina pectoris (HCC) [I25.119] Non-rheumatic mitral regurgitation [I34.0] Primary hypertensi on [I10] Hyperlipidemia, unspecified hyperlipidemia type [E78.5] Anxiety and depression [F41.9, F32.A] SOB (shortness of breath) [R06.02] Pre-operative cardiovascular examination [Z01.810] Performed By: #### S ####[facility] LABCLIA [id number] [address] DIAGNOSIS COMMENT Normal [facility] Comment on above: Order Comment: Speci men Type: TISSUE SPECIMENOrdering Facility: [facility] Address: [address] [place] [address] Result Comment: Micr oscopic examination shows cardiac muscle with moderate hypertrophy. The Movat the myocytes measure approximately 40 ???m in diameter. There is no evidence of storage material. There is mild myocyte disarray present. There is no evidence of vacuolization of the myocytes. The Movat stain shows moderate interstitial fibrosis. There is mild small intramural coronary artery dysplasia. The small intramural coronary arteries show mild dysplastic changes. The endocardium is markedly thickened with fibrosis and minimal elastosis. The changes present in the specimen are weakly compatible with the histopathologic features of hypertrophic cardiomyopathy. Performed By: #### S ####[facility] LABCLIA [id number] [address] FINAL DIAGNOSIS Normal [facility] Comment on above: Order Comment: Speci men Type: TISSUE SPECIMENOrdering Facility: [facility] Address: [address] [address] Result Comment: A. V entricular septum, myectomy: -Mild myocyte disarray. See comment. Performed By: #### S ####[facility] LABCLIA [id number] [address] [place] FINAL PERFORMING LAB Normal [facility] Comment on above: Order Comment: Speci men Type: TISSUE SPECIMENOrdering Facility: [facility] Address: [address] [place] [address] Result Comment: Diag nostic interpretation performed at [facility], [address] [place] [address] CLIA# [id number] Supervisor Lamp Shades: Sourav Snyder M.D. Performed By: #### S ####[facility] LABIA [id number] [address] GROSS DESCRIPTION A. HEART SEPTUM Normal [facility] Comment on above: Order Comment: Speci men Type: TISSUE SPECIMENOrdering Facility: [facility] Address: [address] [place] [address] Result Comment: Rece ived in formalin labeled ???septal muscle??? are multiple fragments of flores-brown muscular tissue weighing 7.2 g and measuring 4.0 x 4.0 x 1.5 cm in aggregate. Some of the fragments show white markedly thickened endocardium. Scars are absent upon sectioning the myocardium. Worship Director sections are submitted in two cassettes. Gross examination performed at [facility], [address] [place] [address] CLIA# [id number] [facility] 02/28/22 Performed By: #### S ####[facility] LABIA [id number] [address] OF [place] XR CHEST 1V FRONTAL PORTon 0 02-27-2022 XR CHEST 1V FRONTAL PORT * * *Final Report* * * DATE OF EXAM: Feb 27 2022 6:34PM JIX [id number] - XR CHEST 1V FRONTAL PORT / PROCEDURE REASON: Post-operative / post-procedure assessment, asymptomatic * * * * Physician Interpretation * * * * EXAMINATION: CHEST RADIOGRAPH (PORTABLE SINGLE VIEW AP) Exam Date/Time: 02/27/2022 6:34 PM Clinical History: Post-operative / post-procedure assessment, asymptomatic MQ: [id number] Comparison: None RESULT: Lines, tubes, and devices: Recent median sternotomy. Support devices are unremarkable. Lungs and pleura: Atelectasis is seen at the bases. Superimposed infiltrates/infection or edema cannot be entirely excluded. No pleural effusion or pneumothorax. Cardiomediastinal silhouette: Heart is borderline. Thoracic aorta is tortuous with atherosclerotic calcifications. Pulmonary vascular redistribution could be secondary to positioning or mild PVH. Other: . IMPRESSION: See result. Fruit Farmer: PSCB Transcribe Date/Time: Feb 27 2022 11:45P Dictated by : ABEBA CABRERA MD This examination was interpreted and the report reviewed and electronically signed by: ABEBA CABRERA MD on Feb 27 2022 11:46PM EST [id number] Normal [facility] ACTIVATED PTTon 02-22-2022 aPTT Coag (PPP) [Time] 26.5 s 23.0 - 32.4 sec [facility] CNOVon 02-22-2022 CNOV Office Visit (CARTMN ) -------- GINO OSORIO ([id number]) 1960 M Date Time Provider Department 02/22/22 11:30 AM [facility] CARTMN During your visit today, we recorded the following information about you: Marcus Tavarez RN 02/22/2022 3:23 PM Signed CHART COPY-DO NOT DISCARD CARDIOVASCULAR SURGERY PRE-OPERATIVE ASSESSMENT NAME: Gino Osorio Alert Notes: DATE: 02/22/2022 SEX: male : 1960 AGE: [age] year old Estimated body mass index is 23.63 kg/m? as calculated from the following: Height as of 02/21/22: 175.3 cm (5' 9 ). Weight as of 02/21/22: 72.6 kg (160 lb). STS Score No data recorded No data recorded Patient scheduled for surgery on: No data recorded [facility] : Dr Betsy Charles REDO: No CHIEF COMPLAINT: Pre-Op Open Heart Surgery MEDICATIONS: Current Outpatient Medications Medication Sig melatonin 10 mg cap Take 1 capsule by mouth daily at bedtime. sertraline (ZOLOFT) 50 mg tablet Take 50 mg by mouth daily at bedtime. QUEtiapine (SEROQUEL) 25 mg tablet Take 1 tablet by mouth daily at bedtime. losartan (COZAAR) 100 mg tablet Take 1 tablet by mouth once daily. atenolol (TENORMIN) 25 mg tablet Take 25 mg by mouth once daily. Ascorbic Acid (VITAMIN C) 1,000 mg tablet Take 1,000 mg by mouth once daily. MULTIVITAMIN ORAL Take 1 tablet by mouth once daily. niacin (NIACIN) 500 mg tablet Take 500 mg by mouth daily with breakfast. COQ10, UBIQUINOL, ORAL Take 1 tablet by mouth once daily. With Krill cholecalciferol (VITAMIN D-3) 5,000 unit tab Take 10,000 Units by mouth once daily. glucosam/chond-msm1/C/ma ng/bor ([id number]-[id number]-DZU COMPLEX ORAL) Take 1 tablet by mouth once daily. MAGNESIUM ORAL Take 250 mg by mouth once daily. No current facility-administered medications for this visit. ALLERGIES: ALLERGIES No Known Allergies LATEX ALLERGY: No FOOD SENSITIVITIES: No ANTICOAGULANTS: none STEROIDS: No HISTORIES: FAMILY HISTORY Problem Relation Age of Onset Coronary Artery Disease Mother s/p stenting Heart Mother HCM Hypertension Father Hyperlipidemia Father Aneurysm Father Brain- Fatal Heart Sister HCM s/p PPM No Known Problems Brother No Known Problems Maternal Grandmother No Known Problems Maternal Grandfather No Known Problems Paternal Grandmother No Known Problems Paternal Grandfather Arrhythmia Son No Known Problems Son PAST MEDICAL HISTORY Diagnosis Date Coronary artery disease Hypertension Hypertrophic obstructive cardiomyopathy (HCC) Mitral valve regurgitation mild to moderate on 01/12/2022 echo PAST SURGICAL HISTORY Procedure Laterality Date HERNIA REPAIR HX REMOVAL GALLBLADDER Social History Tobacco Use Smoking status: Never Smokeless tobacco: Never Substance Use Topics Alcohol use: Not Currently Drug use: Never REVIEW OF SYSTEMS: GEN: Fatigue HEENT: Denies Complaints no dental needed pt added on last minute DERM: Denies Dermatological Complai, Dizziness RESP: SOB CARD: Angina , HTN , CAD , hocm GI: right ing herrnia : Denies complaints ENDO: Denies Endocrine Complaints HEME: Denies Hematological complaints MUSC/SKEL: No Musc/Skel Complaints PVD: Denies PVD Varicose Veins: No BRUITS (Carotid): see cards notre PULSES: Pedal Left 2 Right 2 NYHA CLASSIFICATION: Class 2 FAMILY HISTORY OF CAD: Yes mother sister ? PERFUSION INDEX: DOMINANT HAND: left-handed Pacer Check: NA CARDIAC EVALUATION: Cardiac Cath: Date - get images Ultrasound: Date - PFT: Date - ECHO: Last ECHO Result Conclusion ECHO Collected: 02/21/2022 9:45 AM (Final result) Impression: CONCLUSIONS: - Exam indication: HOCM, CAD - The left ventricle is normal in size. There is asymmetric left ventricular hypertrophy. Left ventricular systolic function is normal. EF = 64 ? 5% (2D biplane) Grade I left ventricular diastolic dysfunction. - The right ventricle is normal in size. Right ventricular systolic function is normal. - The left atrial cavity is mildly dilated. -At rest, LVOT gradient of 27 mmHg, 1+ MR, mild KIRSTIN at 55 bpm. -With Valsalva, LVOT gradient of 92 mmHg, significant increase in MR to at least 2+, severe KIRSTIN with septal contact is present at 59 bpm. - The patient has not had a prior CC echocardiographic exam for comparison. * * * Final * * * CT Scan: Last CT Result Conclusion CT CHEST CARDIAC WO IVCON Exam End: 02/21/2022 9:07 AM (Final result) Impression: IMPRESSION: AORTIC VALVE: Assessment is limited in the current study; no leaflet calcification AORTIC ROOT: upper normal size; Diameter: 3.7 x 3.6 cm ASCENDING THORACIC AORTA: normal size; Diameter: 3.2 cm CORONARY ANATOMY: Calcified atherosclerotic changes including LM, proximal LAD, LCX, RCA, precluding precise assessment with CT - [facility] [place] (more content not included)... Normal [facility] Office Visit (CARTMN ) -------- GINO [id number]) 1960 M Date Time Provider Department 02/22/22 11:00 AM ANESTHESIA CLEARANCE CARTMN During your visit today, we recorded the following information about you: Andrew Arizmendi MD, MD 02/22/2022 11:59 AM Signed Cardiothoracic Anesthesiology Preoperative Assessment Service Date: 02/22/2022 Service Time: 10:04 AM Primary Care Physician: Rudy Thomas MD, MD Subjective Scheduled procedure: Ventricular myomectomy +CABG+/-MVr Surgeon: Destin Charles HPI: 61 yo male presents for preop evaluation of his upcoming surgery. His PMHx is significant for dynamic LVOT obstructions, significant left main disease and mild MR. He is symptomatic and progressively getting worse in the last few months. Other pMHx includes HTN (Atenolol/Losartan), anxiety disorder (on Sertraline) Review blood transfusion consented - COVID-19 Immunization Status Overdue - COVID-19 VACCINE (1) Overdue - never done No completion, postpone, frequency change, or communication history exists for this topic. The patient has the following: ACTIVE PROBLEM LIST Discharge Planning Issues Pre-Op Testing PAST MEDICAL HISTORY Diagnosis Date Coronary artery disease Hypertension Hypertrophic obstructive cardiomyopathy (HCC) Mitral valve regurgitation mild to moderate on 01/12/2022 echo PAST SURGICAL HISTORY Procedure Laterality Date HERNIA REPAIR HX REMOVAL GALLBLADDER FAMILY HISTORY Problem Relation Age of Onset Coronary Artery Disease Mother s/p stenting Heart Mother HCM Hypertension Father Hyperlipidemia Father Aneurysm Father Brain- Fatal Heart Sister HCM s/p PPM No Known Problems Brother No Known Problems Maternal Grandmother No Known Problems Maternal Grandfather No Known Problems Paternal Grandmother No Known Problems Paternal Grandfather Arrhythmia Son No Known Problems Son Social History Tobacco Use Smoking status: Never Smokeless tobacco: Never Substance Use Topics Alcohol use: Not Currently Drug use: Never Prior to Admission medications as of 02/22/22 0858 Medication Sig Last Dose Taking melatonin 10 mg cap Take 1 capsule by mouth daily at bedtime. sertraline (ZOLOFT) 50 mg tablet Take 50 mg by mouth daily at bedtime. QUEtiapine (SEROQUEL) 25 mg tablet Take 1 tablet by mouth daily at bedtime. losartan (COZAAR) 100 mg tablet Take 1 tablet by mouth once daily. atenolol (TENORMIN) 25 mg tablet Take 25 mg by mouth once daily. Ascorbic Acid 1,000 mg tablet Take 1,000 mg by mouth once daily. MULTIVITAMIN ORAL Take 1 tablet by mouth once daily. niacin (NIACIN) 500 mg tablet Take 500 mg by mouth daily with breakfast. COQ10, UBIQUINOL, ORAL Take 1 tablet by mouth once daily. With Krill cholecalciferol (VITAMIN D3) 5,000 unit tab Take 10,000 Units by mouth once daily. glucosam/chond-msm1/C/ma ng/bor (JWUZLIXVUQF-MOJOT-XTP COMPLEX ORAL) Take 1 tablet by mouth once daily. MAGNESIUM ORAL Take 250 mg by mouth once daily. No medication comments found. ALLERGIES No Known Allergies Objective Pain Assessment: Vitals: There were no vitals taken for this visit. Diagnostic tests reviewed for today's visit: Lab Value Units Date High Low HB 15.5 g/dL 02/21/2022 17.0 13.0 HCT 47.1 % 02/21/2022 51.0 39.0 WBC 6.02 k/uL 02/21/2022 11.00 3.70 PLT 209 k/uL 02/21/2022 400 150 NA 143 mmol/L 02/21/2022 144 136 K 4.4 mmol/L 02/21/2022 5.1 3.7 GLUC 106 mg/dL 02/21/2022 99 74 BUN 20 mg/dL 02/21/2022 24 9 CREAT 0.88 mg/dL 02/21/2022 1.22 0.73 PTSEC No results within date range. INR No results within date range. APTT No results within date range. ALT 26 U/L 02/21/2022 54 10 AST 24 U/L 02/21/2022 40 14 TBILI 0.5 mg/dL 02/21/2022 1.3 0.2 TSH No results within date range. Lab Value Units Date High Low HCGQT No results within date range. UHCG No results within date range. HCG, BODY* No results within date range. Lab Value Units Date High Low ABORHD No results within date range. ABSCREEN No results within date range. No results found for: HBA1C Recent Results (from the past 8760 hour(s)) ECHO Collection Time: 02/21/22 9:45 AM Impression CONCLUSIONS: - Exam indication: HOCM, CAD - The left ventricle is normal in size. There is asymmetric left ventricular hypertrophy. Left ventricular systolic function is normal. EF = 64 ? 5% (2D biplane) Grade I left ventricular diastolic dysfunction. - The right ventricle is normal in size. Right ventricular systolic function is normal. - The left atrial cavity is mildly dilated. -At rest, LVOT gradient of 27 mmHg, 1+ MR, mild KIRSTIN at 55 bpm. -With Valsalva, LVOT gradient of 92 mmHg, significant increase in MR to at least 2+, severe KIRSTIN with septal contact is present at 59 bpm. - The patient has not had a prior CC echocardiographic exam for comparison. Electronically s (more content not included)... Normal [facility] CONFIRM BLOOD TYPEon 022 ABO A [facility] Rh Nom (Bld) Positive [facility] ABO A Normal [facility] Comment on above: Order Comment: Speci men Type: BLOOD SPECIMENOrdering Facility: [facility] Address: [address] [address] Performed By: #### C ONABO ####CC MAIN BLOOD BANKIA [id number] [address] [place] Rh Nom (Bld) Positive Normal [facility] Comment on above: Order Comment: Speci men Type: BLOOD SPECIMENOrdering Facility: [facility] Address: [address] [address] Performed By: #### C ONABO ####CC MAIN BLOOD BANKCLIA [id number] [address] [place] Laboratory - Microbiology an d Antimicrobial susceptibilityon 02-22-2022 S. aureus and MRSA panel JAYDE+probe (Nose) Negative Negative [facility] PT panel Coag (PPP)on 2021 INR Coag (PPP) [Relative time] 1.0 {INR} 0.9 - 1.3 [facility] PT Coag (PPP) [Time] 10.8 s 9.7 - 1 3.0 sec [facility] INR Coag (PPP) [Relative time] 1.0 {INR} Normal 0.9-1.3 [facility] Comment on above: Order Comment: Rayray carbone Type: BLOOD SPECIMEN Ordering Facility: [facility] Address: [address] [place], [place] [address] Result Comment: Gayathri min K Antagonist (VKA) Therapeutic Range: INR 2 to 3 (Target INR of 2.5) Note: For patients treated with VKA drugs, such as warfarin, the [place] [employer] 2012 Guideline recommends a therapeutic INR range of 2 to 3 (target INR of 2.5). This recommendation includes high-risk patients with antiphospholipid syndrome with previous arterial or venous thromboembolism, current-generation mechanical or bioprosthetic aortic heart valve replacement. Note: Patients with mechanical aortic valve replacement and additional risk factors for thromboembolic events (atrial fibrillation, previous thromboembolism, LV dysfunction, hypercoagulable conditions) or an older generation mechanical AVR (i.e., ball in-Cage) or any mechanical MVR should have a INR therapeutic range of 2.5 to 3.5 (target INR of 3). Neldatt GH, et al. Chest 2012, 141:7S-47S Ellen RA, et al. [facility] 2017, 70: 252-289 Sample checked for clot. Performed By: #### 1 4979-9, 52920-3 #### [facility] CLIA [id number] [address] [place] [address] [place] PT Coag (PPP) [Time] 10.8 s Normal 9.7-13.0 [facility] Comment on above: Order Comment: Rayray cabrone Type: BLOOD SPECIMEN Ordering Facility: [facility] Address: [address] [place] [id number] Performed By: #### 1 4979-9, 64964-5 #### [facility] CLIA [id number] [address] [place] [address] [place] STAPH AUREUS PCRon 2 S. aureus and MRSA panel JAYDE+probe (Nose) Normal Negative [facility] Comment on above: Order Comment: Rayray carbone Type: SWAB OF INTERNAL NOSEOrdering Facility: [facility] Address: [address] [place] [address] Result Comment: Nega tive for Staphylococcus aureus by PCR. Negative for MRSA by PCR Performed By: #### S APCR ####[facility] LABCLIA [id number] [address] TYPE AND SCREEN,30 DAYon ABO A [facility] HIstorical Ab Scr Status Negative [facility] Rh Nom (Bld) Positive [facility] ABO A Normal [facility] Comment on above: Order Comment: Speci men Type: BLOOD SPECIMENOrdering Facility: [facility] Address: [address] [place] [address] Performed By: #### T SCR30 ####CC [facility] BLOOD BANKIA [id number] [address] HISTORICAL AB SCR STATUS Negative Normal [facility] Comment on above: Order Comment: Speci men Type: BLOOD SPECIMENOrdering Facility: [facility] Address: [address] [place] [address] Performed By: #### T SCR30 ####[facility] BLOOD BANKIA [id number] [address] Rh Nom (Bld) Positive Normal [facility] Comment on above: Order Comment: Speci men Type: BLOOD SPECIMENOrdering Facility: [facility] Address: [address] [place] [address] Performed By: #### T SCR30 ####[facility] BLOOD BANKIA [id number] [address] URINALYSIS, DIPSTICK ONLYon 02-22-2022 Bilirubin Ql (U) Negative Normal Negative [facility] Comment on above: Order Comment: Speci men Type: URINE SPECIMENOrdering Facility: [facility] Address: [address] [address] Performed By: #### U A ####[facility] LABCLIA [id number] [address] [place] Clarity (Unsp spec) Clear Normal Clear [facility] Comment on above: Order Comment: Speci men Type: URINE SPECIMENOrdering Facility: [facility] Address: [address] Performed By: #### U A ####[facility] LABCLIA [id number] [place] [address] [place] Color (U) Yellow Normal Yellow [facility] Comment on above: Order Comment: Speci men Type: URINE SPECIMENOrdering Facility: [facility] Address: [address] Performed By: #### U A ####[facility] LABIA [id number] [place] [address] [place] Glucose Test strip (U) [Mass/Vol] Negative Normal Trace, Negative [facility] Comment on above: Order Comment: Speci men Type: URINE SPECIMENOrdering Facility: [facility] Address: [address] Performed By: #### U A ####[facility] LABCLIA [id number] [place] [address] [place] Hemoglobin Ql (U) Negative Normal Negative, Trace [facility] Comment on above: Order Comment: Speci men Type: URINE SPECIMENOrdering Facility: [facility] Address: [address] Performed By: #### U A ####[facility] LABCLIA [id number] [place] [address] [place] Ketones Ql (U) Negative Normal Trace, Negative [facility] Comment on above: Order Comment: Speci men Type: URINE SPECIMENOrdering Facility: [facility] Address: [address] Performed By: #### U A ####[facility] LABCLIA [id number] [place] [address] [place] Leukocyte esterase Test strip Ql (U) Negative Normal Negative, 25 Venkata/mL [facility] Comment on above: Order Comment: Speci men Type: URINE SPECIMENOrdering Facility: [facility] Address: [address] [place] [address] Performed By: #### U A ####[facility] LABCLIA [id number] [place] [address] [place] Nitrite Ql (U) Negative Normal Negative [facility] Comment on above: Order Comment: Speci men Type: URINE SPECIMENOrdering Facility: [facility] Address: [address] [place] [address] Performed By: #### U A ####[facility] LABIA [id number] [place] [address] [place] pH (U) 6.0 [pH] Normal 5.0-8.0 [facility] Comment on above: Order Comment: Speci men Type: URINE SPECIMENOrdering Facility: [facility] Address: [address] [place] [address] Performed By: #### U A ####[facility] LABIA [id number] [address] [place] Protein (U) [Mass/Vol] Trace Normal Trace, Negative [facility] Comment on above: Order Comment: Speci men Type: URINE SPECIMENOrdering Facility: [facility] Address: [address] [place] [address] Performed By: #### U A ####[facility] LABIA [id number] [place] [address] [place] Specific gravity (U) [Rel density] 1.026 Normal 1.005-1.030 [facility] Comment on above: Order Comment: Speci men Type: URINE SPECIMENOrdering Facility: [facility] Address: [address] [place] [address] Performed By: #### U A ####[facility] LABCLIA [id number] [address] [place] Urobilinogen Ql (U) Negative Normal Negative [facility] Comment on above: Order Comment: Speci men Type: URINE SPECIMENOrdering Facility: [facility] Address: [address] [place] [address] Performed By: #### U A ####[facility] LABCLIA [id number] [place] [address] [place] Bilirubin Ql (U) Negative Negative [facility] Clarity (Unsp spec) Clear Clear [facility] Color (U) Yellow Yellow [facility] Glucose Test strip (U) [Mass/Vol] Negative Trace, Negative [facility] Hemoglobin Ql (U) Negative Negative, Trace [facility] Ketones Ql (U) Negative Trace, Negative [facility] Leukocyte esterase Test strip Ql (U) Negative Negative, 25 Venkata/mL [facility] Nitrite Ql (U) Negative Negative [facility] pH (U) 6.0 [pH] 5.0 - 8.0 [facility] Protein (U) [Mass/Vol] Trace Trace, Negative [facility] Specific gravity (U) [Rel density] 1.026 1.005 - 1.030 [facility] Urobilinogen Ql (U) Negative Negative [facility] aPTT PPPon 02-22-2022 aPTT Coag (PPP) [Time] 26.5 s Normal 23.0-32.4 [facility] Comment on above: Order Comment: Speci men Type: BLOOD SPECIMEN Ordering Facility: [facility] Address: [address] [place] [address] Result Comment: [facility]. Performed By: #### 1 4979-9, 19802-1 #### [facility] CLIA [id number] [place] CBC W Auto Differential pane l (Bld)on 02-21-2022 Basophils (Bld) [#/Vol] 0.03 10*3/uL Normal <0.11 [facility] Comment on above: Order Comment: Speci men Type: BLOOD SPECIMENOrdering Facility: [facility] Address: [address] [address] Performed By: #### 5 7021-8 ####[facility] LABCLIA [id number] [address] [place] Basophils/100 WBC (Bld) 0.5 % Normal [facility] Comment on above: Order Comment: Speci men Type: BLOOD SPECIMENOrdering Facility: [facility] Address: [address] [address] Performed By: #### 5 7021-8 ####[facility] LABCLIA [id number] [place] [address] [place] Differential cell count method Nom (Bld) Auto Normal [facility] Comment on above: Order Comment: Speci men Type: BLOOD SPECIMENOrdering Facility: [facility] Address: [address] [place], [place] [address] Performed By: #### 5 7021-8 ####[facility] LABCLIA [id number] [place] [address] [place] Eosinophils (Bld) [#/Vol] 0.09 10*3/uL Normal <0.46 [facility] Comment on above: Order Comment: Speci men Type: BLOOD SPECIMENOrdering Facility: [facility] Address: [address] Performed By: #### 5 7021-8 ####[facility] LABCLIA [id number] [address] [place] Eosinophils/100 WBC (Bld) 1.5 % Normal [facility] Comment on above: Order Comment: Speci men Type: BLOOD SPECIMENOrdering Facility: [facility] Address: [address] [place], [place] [address] Performed By: #### 5 7021-8 ####[facility] LABCLIA [id number] [place] [address] [place] Erythrocyte distribution width (RBC) [Ratio] 13.3 % Normal 11.5-15.0 [facility] Comment on above: Order Comment: Speci men Type: BLOOD SPECIMENOrdering Facility: [facility] Address: [address] [place] [address] Performed By: #### 5 7021-8 ####[facility] LABIA [id number] [place] [address] [place] Hematocrit (Bld) [Volume fraction] 47.1 % Normal 39.0-51.0 [facility] Comment on above: Order Comment: Speci men Type: BLOOD SPECIMENOrdering Facility: [facility] Address: [address] [place] [address] Performed By: #### 5 7021-8 ####[facility] LABIA [id number] [place] [address] [place] Hemoglobin (Bld) [Mass/Vol] 15.5 g/dL Normal 13.0-17.0 [facility] Comment on above: Order Comment: Speci men Type: BLOOD SPECIMENOrdering Facility: [facility] Address: [address] [place] [address] Performed By: #### 5 7021-8 ####[facility] LABIA [id number] [place] [address] [place] Immature granulocytes (Bld) [#/Vol] 10*3/uL Normal <0.10 [facility] Comment on above: Order Comment: Speci men Type: BLOOD SPECIMENOrdering Facility: [facility] Address: [address] [place], [place] [address] Performed By: #### 5 7021-8 ####[facility] LABCLIA [id number] [place] [address] [place] Immature granulocytes/100 WBC (Bld) 0.2 % Normal [facility] Comment on above: Order Comment: Speci men Type: BLOOD SPECIMENOrdering Facility: [facility] Address: [address] Performed By: #### 5 7021-8 ####[facility] LABCLIA [id number] [place] [address] [place] Lymphocytes (Bld) [#/Vol] 1.30 10*3/uL Normal 1.00-4.00 [facility] Comment on above: Order Comment: Speci men Type: BLOOD SPECIMENOrdering Facility: [facility] Address: [address] [place] [address] Performed By: #### 5 7021-8 ####[facility] LABCLIA [id number] [address] [place] Lymphocytes/100 WBC (Bld) 21.6 % Normal [facility] Comment on above: Order Comment: Speci men Type: BLOOD SPECIMENOrdering Facility: [facility] Address: [address] Performed By: #### 5 7021-8 ####[facility] LABCLIA [id number] [place] [address] [place] MCH (RBC) [Entitic mass] 28.9 pg Normal 26.0-34.0 [facility] Comment on above: Order Comment: Speci men Type: BLOOD SPECIMENOrdering Facility: [facility] Address: [address] [place], [place] [address] Performed By: #### 5 7021-8 ####[facility] LABCLIA [id number] [place] [address] [place] MCHC (RBC) [Mass/Vol] 32.9 g/dL Normal 30.5-36.0 [facility] Comment on above: Order Comment: Speci men Type: BLOOD SPECIMENOrdering Facility: [facility] Address: [address] [place], [place] [address] Performed By: #### 5 7021-8 ####[facility] LABIA [id number] [place] [address] [place] MCV (RBC) [Entitic vol] 87.7 fL Normal 80.0-100.0 [facility] Comment on above: Order Comment: Speci men Type: BLOOD SPECIMENOrdering Facility: [facility] Address: [address] [place] [address] Performed By: #### 5 7021-8 ####[facility] LABIA [id number] [place] [address] [place] Monocytes (Bld) [#/Vol] 0.46 10*3/uL Normal <0.87 [facility] Comment on above: Order Comment: Speci men Type: BLOOD SPECIMENOrdering Facility: [facility] Address: [address] [place] [address] Performed By: #### 5 7021-8 ####[facility] LABIA [id number] [place] [address] [place] Monocytes/100 WBC (Bld) 7.6 % Normal [facility] Comment on above: Order Comment: Speci men Type: BLOOD SPECIMENOrdering Facility: [facility] Address: [address] [place] [address] Performed By: #### 5 7021-8 ####[facility] LABIA [id number] [place] [address] [place] Neutrophils (Bld) [#/Vol] 4.13 10*3/uL Normal 1.45-7.50 [facility] Comment on above: Order Comment: Speci men Type: BLOOD SPECIMENOrdering Facility: [facility] Address: [address] [place] [address] Performed By: #### 5 7021-8 ####[facility] LABIA [id number] [place] [address] [place] Neutrophils/100 WBC (Bld) 68.6 % Normal [facility] Comment on above: Order Comment: Speci men Type: BLOOD SPECIMENOrdering Facility: [facility] Address: [address] [place], [place] [address] Performed By: #### 5 7021-8 ####[facility] LABIA [id number] [place] [address] [place] Nucleated RBC (Bld) [#/Vol] 10*3/uL Normal <0.01 [facility] Comment on above: Order Comment: Speci men Type: BLOOD SPECIMENOrdering Facility: [facility] Address: [address] [place], [place] [address] Performed By: #### 5 7021-8 ####[facility] LABIA [id number] [place] [address] [place] Nucleated RBC/100 WBC (Bld) [Ratio] 0.0 /100 WBC Normal [facility] Comment on above: Order Comment: Speci men Type: BLOOD SPECIMENOrdering Facility: [facility] Address: [address] [place], [place] [address] Performed By: #### 5 7021-8 ####[facility] LABIA [id number] [place] [address] [place] Platelet mean volume (Bld) [Entitic vol] 10.3 fL Normal 9.0-12.7 [facility] Comment on above: Order Comment: Speci men Type: BLOOD SPECIMENOrdering Facility: [facility] Address: [address] [place] [address] Performed By: #### 5 7021-8 ####[facility] LABIA [id number] [place] [address] [place] Platelets (Bld) [#/Vol] 209 10*3/uL Normal 150-400 [facility] Comment on above: Order Comment: Speci men Type: BLOOD SPECIMENOrdering Facility: [facility] Address: [address] [address] Performed By: #### 5 7021-8 ####[facility] LABIA [id number] [address] [place] RBC (Bld) [#/Vol] 5.37 10*6/uL Normal 4.20-6.00 [facility] Comment on above: Order Comment: Speci men Type: BLOOD SPECIMENOrdering Facility: [facility] Address: [address] [address] Performed By: #### 5 7021-8 ####[facility] LABIA [id number] [address] WBC (Bld) [#/Vol] 6.02 10*3/uL Normal 3.70-11.00 [facility] Comment on above: Order Comment: Speci men Type: BLOOD SPECIMENOrdering Facility: [facility] Address: [address] [address] Performed By: #### 5 7021-8 ####[facility] LABIA [id number] [address] NAVIOVsatya 02-21-2022 CNOV Office Visit (NEGRO ) -------- GINO OSORIO ([id number]) 1960 M Date Time Provider Department 02/21/22 8:15 AM JOSH BARRIENTOS During your visit today, we recorded the following information about you: Pulse Blood pressure Weight Height 60/minute 152/89 72.6 kg 1.753 m Josh Barrientos MD 02/21/2022 11:20 AM Formerly [facility] C[place]ona Casimiro Bailey Department of Cardiovascular Medicine SECTION OF CARDIOVASCULAR IMAGING OUTPATIENT VISIT DATE February 21, 2022 OUTPATIENT VISIT TYPE NEW PRIMARY CARE PHYSICIAN: Rudy Thomas MD [address] [place] [address] REFERRING PHYSICIAN: No referring provider defined for this encounter. CHIEF COMPLAINT: CAD and HOCM HISTORY OF PRESENT ILLNESS/NURSING INTAKE HISTORY: Mr. Osorio is a 61 year old male from [place], [place], presenting today with referral from Dr. Saucedo, for cardiac consultation regarding hypertrophic obstructive cardiomyopathy and coroanry artery disease. He has a consultation with CTS on 03/12/2022. Significant past medical history includes: - Hypertrophic obstructive cardiomyopathy - Coronary artery disease - Mild to moderate mitral valve regurgitation - Hypertension Family history significant for: Mother- Coronary artery disease s/p stenting, hypertrophic cardiomyopathy Father- Fatal brain aneurysm, hypertension, hyperlipidemia Sister- Hypertrophic cardiomyopathy s/p PPM Son- Arrhythmia He has a total of 2 sons that have not yet been screened for hypertrophic cardiomyopathy Mr. Osorio states that in June of 2021 he was told by his PCP that his heart murmur had gotten louder. He underwent a heart catheterization, echocardiogram, stress test, and cardiac MRI. He was diagnosed with Hypertrophic obstructive cardiomyopathy and coronary artery disease. He presents today prior to his consultation with Dr. Saucedo which is scheduled for 03/12/2022. He presents today with complaints of palpitations, fatigue, and lower extremity edema. He denies chest pain, lightheadedness, dizziness, near syncope or syncope. His symptoms get worse after meals. He gets dyspneic with exertion. He is progressively getting worse in the last few months. He has known about a murmur all his life though. 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 He walks about 30 minutes daily for exercise. Meds reviewed. Tolerates them well. However I do notice that he is on an ARB which can make LVOT obstruction worse. OS ECHO 01/12/2022 OS Stress Test 11/13/2021 OS Cardiac MRI 12/13/2021 OS Left Cardiac Catheterization 01/12/2022 PAST MEDICAL HISTORY Diagnosis Date Coronary artery disease Hypertension Hypertrophic obstructive cardiomyopathy (HCC) Mitral valve regurgitation mild to moderate on 01/12/2022 echo PAST SURGICAL HISTORY Procedure Laterality Date HERNIA REPAIR HX REMOVAL GALLBLADDER SOCIAL HISTORY Social History Tobacco Use Smoking status: Never Smokeless tobacco: Never Substance Use Topics Alcohol use: Not Currently Drug use: Never FAMILY HISTORY Problem Relation Age of Onset Coronary Artery Disease Mother s/p stenting Heart Mother HCM Hypertension Father Hyperlipidemia Father Aneurysm Father Brain- Fatal Heart Sister HCM s/p PPM No Known Problems Brother No Known Problems Maternal Grandmother No Known Problems Maternal Grandfather No Known Problems Paternal Grandmother No Known Problems Paternal Grandfather Arrhythmia Son No Known Problems Son ALLERGIES: ALLERGIES No Known Allergies MEDICATIONS: melatonin 10 mg cap Take 1 capsule by mouth daily at bedtime. sertraline (ZOLOFT) 50 mg tablet Take 50 mg by mouth daily at bedtime. QUEtiapine (SEROQUEL) 25 mg tablet Take 1 tablet by mouth daily at bedtime. losartan (COZAAR) 100 mg tablet Take 1 tablet by mouth once daily. atenolol (TENORMIN) 25 mg tablet Take 25 mg by mouth once daily. Ascorbic Acid (VITAMIN C) 1,000 mg tablet Take 1,000 mg by mouth once daily. MULTIVITAMIN ORAL Take 1 tablet by mouth once daily. niacin (NIACIN) 500 mg tablet Take 500 mg by mouth daily with breakfast. COQ10, UBIQUINOL, ORAL Take 1 tablet by mouth once daily. With Krill cholecalciferol (VITAMIN D-3) 5,000 unit tab Take 10,000 Units by mouth once daily. glucosam/chond-msm1/C/ma ng/bor (YXBABVDPMGV-PHISA-ZWM COMPLEX ORAL) Take 1 tablet by mouth once daily. MAGNESIUM ORAL Take 250 mg by mouth once daily. REVIEW OF SYSTEMS: Positive in BOLD GENERAL: Negative for: Weight loss or gain, Fever or Chills, Weakness and Sleep difficulties. HEENT: Negative for: Headache, Impaired Vision, Glasses, Hearing Impairment, Ringing in Ears, Nosebleeds, Poor dental care, Bleeding Gu (more content not included)... Normal [facility] Jessica 02-21-2022 [facility] Telephone ([facility]) -------- GINO OSORIO ([id number]) 1960 M Date Time Provider Department 02/21/22 DESTIN CHARLESCHARLES During your visit today, we recorded the following information about you: Donald Akbar RN 02/21/2022 11:25 AM Signed Called patient to inform them that Dr. Barrientos called Dr. Charles and they reviewed his information and are recommending surgery and felt it should be soon. Tentative Date is 02/27/2022. Patient was informed of the need for further testing and Dr. Charles was ok proceeding without dental clearance. Instructed patient last dose of blood thinners, OTC medications, and supplements is 5 days prior to surgery. Due to the holiday Donald Akbar RN Cardiac Surgery PreOp Checklist Patient Name: Gino Osorio OR Surgery Date: 02/27/2022 [facility] Appt. Date: 03/26 Primary Care Provider: Rudy Thomas MD, MD Definition Comments Diabetes/Insulin Pump A1-c and Endo consult (need for pump pt) n/a Hypothyroid/thyroid nodules TSH/US of thyroid if new nodule n/a Stroke (CVA) Neurology consult n/a Dysphagia, stricture w/no recent dilation, Rangel's Esophagus GI consult n/a Von Willebrand/thrombocytope ambreen/ Blood... Hematology consult n/a Abnormal labs from outside Place any necessary consults n/a Cardiac Cath Correct birthday/include all images/moving if outside cath on syngo Redo OHS/Robotic surgery/radiation to chest CT or CTA/if outside CT will need in-house CXR, Cardiac MRI n/a Mechanical valve Admit for Heparin/Lovenox bridge n/a Female <50 y/o HCG n/a Heparin allergy hx of HIT Vascular Medicine consult n/a Nickel/Metal allergy Dermatology consult n/a Breast implants/Robotic candidates Plastic Surgery consult n/a Urinary strictures Urology consult/Urology consult to OR n/a All stimulators/spinal stimulator Type of stimulator n/a PPM/AICD Device check n/a Valve/TAVR/TEVAR/Myectom y/ascending aorta Dental clearance/Dental Consult at [facility] n/a- ok to proceed without per Dr. 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% or Carotid Bruits Carotid ultrasound n/a Descending Aneurysm/TEVAR/TAA Pre-admit/hydration/spin al drain to be placed: IR/OR/Not Needed n/a Dialysis patient IHD day prior to OHS n/a CABG with no ECHO results Discussion w/surgeon results for dental clearance: preop/postop n/a Advanced Directives Instructions given to patient n/a FMLA Forward to AA addressed Test/Consult not needed Communicate in Epic or Access n/a Record of decreased PFTs, known lung disease Any pulmonary consult n/a Pulmonary embolectomy Needs US/Duplex BLE, VQ scan RHC, possible LHC, Pulmonary and/or Vascular consult n/a Abnormal CT All>1cm if further workup/consult needed n/a CC-Bio Repostitory Notification of packet and general knowledge given to pt addressed Donald Akbar RN 02/21/2022 11:39 AM Signed Addended by: DONALD AKBAR on: 02/21/2022 11:39 AM Modules accepted: Orders, SmartSet Allergies As of Date: 02/21/2022 (No Known Allergies) Date Reviewed: 02/21/2022 Reviewed by: Marianne Ramos RN - Fully Assessed Reason for Visit: Schedule Surgery [1330] Cmt: Pre-op Checklist Primary Visit Diagnosis:HOCM (hypertrophic obstructive cardiomyopathy) (HCC) [I42.1] Other Visit Diagnoses:Coronary artery disease involving [place] coronary artery of [place] heart with angina pectoris (HCC) [I25.119] Non-rheumatic mitral regurgitation [I34.0] Primary hypertension [I10] Hyperlipidemia, unspecified hyperlipidemia type [E78.5] Anxiety and depression [F41.9, F32.A] SOB (shortness of breath) [R06.02] Pre-operative cardiovascular examination [Z01.810] Order(s):SURGICAL REQUEST - ELECTIVE (09/2019) [[id number]] Order #: [id number]: 1 CARDIOTHORACIC PREOP EVALUATION [] Order #: [id number]: 1 FUTURE URINALYSIS, DIPSTICK ONLY [SQUA] Order #: [id number] FUTURE PROTHROMBIN TIME/PT [SQPT] Order #: [id number] FUTURE ACTIVATED PTT [SQPTT] Order #: [id number] FUTURE CONFIRM BLOOD TYPE [SQCONABO] Order #: [id number] FUTURE TYPE AND SCREEN,30 DAY [CTPOXW52] Order #: [id number] FUTURE US CAROTID ARTERIES [facility] [[id number]] Order #: [id number] FUTURE Prescriptions as of 02/21/2022 - melatonin 10 mg cap Take 1 capsule by mouth daily at bedtime. - sertraline (ZOLOFT) 50 mg tablet Take 50 mg by mouth daily at bedtime. - QUEtiapine (SEROQUEL) 25 mg tablet Take 1 tablet by mouth daily at bedtime. - losartan (COZAAR) 100 mg tablet Take 1 tablet by mouth once daily. - atenolol (TENORMIN) 25 mg tablet Take 25 mg by mouth once daily. - Ascorbic Acid (VITAMIN C) 1,000 mg tablet Take 1,000 mg by mouth once daily. - MULTIVITAMIN ORAL Take 1 tablet by mouth once daily. - niacin (NIACIN) 500 mg tablet Take 500 mg by mouth daily with breakfast. - COQ10, UBIQUINOL, ORAL Take 1 table (more content not included)... Normal [facility] CT CHEST CARDIAC WO IVCONon 02-21-2022 CT CHEST CARDIAC WO IVCON * * *Final Report* * * DATE OF EXAM: Feb 21 2022 9:07AM J 2055 - CT CHEST CARDIAC WO IVCON / PROCEDURE REASON: multiple diagnoses * * * * Physician Interpretation * * * * CTA Aorta chest Direct Image Comparison: [facility] CMR 12/13/2021 HISTORY: 61 year old Male with chronic h/o HOCM and CAD Evaluation for further treatment options, including cardiothoracic surgery There is request to define thoracic and aortic anatomy. TECHNIQUE: Out-patient scan SCANNER: Multi-detector CT technology (Siemens Definition [id number] scanner) PROTOCOL: Sequential imaging of the chest with prospective triggering in diastolic phase and 1+3 mm slice reconstruction following the intravenous administration of contrast material. no abdomen Scan Range: thoracic inlet to the diaphragm Tube Voltage: [address] Dose-Length Product (DLP): 342 mGy*cm CT Dose Reduction Employed: Automated exposure control (AEC) Radiation Shielding Employed: None CONTRAST: None Scan acquisition: uncomplicated For optimization of anatomic evaluation, advanced 3-D off-line postprocessing was performed on a dedicated workstation by the interpreting physician. This included multiplanar reconstruction, VRI, and centerline reconstruction. Additional lung CAD. Romano Images reconstructed, saved, and available in [facility], '[facility] Images' STUDY LIMITATIONS: None, RESULT: CHEST: Chest wall anatomy: unremarkable LUNGS: bibasilar atelectasis Mediastinum: small mediastinal lymph nodes, which are not pathologic by size criteria PERICARDIUM: unremarkable CENTRAL PULMONARY ARTERY: normal dimensions, assessment is limited due to limited contrast enhancement CARDIAC CHAMBERS: assessment is limited in the non-contrast enhanced study LEFT VENTRICLE: normal size Right ventricle: normal size Left atrium: prominent Right atrium: normal size CENTRAL VENOUS and PULMONARY VENOUS RETURN: normal Coronary Sinus: not well visualizedunremarkable MITRAL and TRICUSPID VALVE: Assessment is limited in the current study no leaflet calcification, no annular calcification PULMONIC VALVE: Assessment is limited in the current study; no leaflet calcification CORONARY ANATOMY: Normal origin of the coronary arteries Calcified atherosclerotic changes including LM, proximal LAD, LCX, RCA, precluding precise assessment with CT - [place] MATT and RAJNI are normal size vessels without evidence of calcified atherosclerotic changes. AORTA (Centerline Assessment) AORTIC VALVE: Assessment is limited in the current study; no leaflet calcification AORTIC ROOT: upper normal size; Diameter: 3.7 x 3.6 cm Sinotubular Junction: maintained, no wall changes ASCENDING THORACIC AORTA: normal size; Diameter: 3.2 cm - no wall changes AORTIC ARCH: normal size; Diameter: 2.7 cm ; minimal calcification; Arch Branch Vessels: normal size; proximally patent; no wall changes DESCENDING THORACIC and visualized juxtarenal AORTA: normal size; mild calcification; RELATIONSHIP OF THE CARDIOVASCULAR STRUCTURES OF THE STERNUM: The left brachio-cephalic vein lies 5 mm behind the manubrium sternum. The RV lies immediately behind the lower sternum. AORTIC CALCIFICATION: see above. absence of calcification of the ascending thoracic aorta AORTIC ARCH BRANCH VESSELS: see above. visualized axillary arteries are normal size vessels without evidence of wall changes. limited upperABDOMEN: Gallbladder: evidence of prior cholecystectomy IMPRESSION: AORTIC VALVE: Assessment is limited in the current study; no leaflet calcification AORTIC ROOT: upper normal size; Diameter: 3.7 x 3.6 cm ASCENDING THORACIC AORTA: normal size; Diameter: 3.2 cm CORONARY ANATOMY: Calcified atherosclerotic changes including LM, proximal LAD, LCX, RCA, precluding precise assessment with CT - [place] MATT and RAJNI are normal size vessels without evidence of calcified atherosclerotic changes Fruit Farmer: KALYANI Transcribe Date/Time: Feb 21 2022 9:12A Dictated by : AZEEM DWYER MD This examination was interpreted and the report reviewed and electronically signed by: SARIKA BURT MD on Feb 21 2022 10:25AM EST [id number] Normal [facility] Comprehensive metabolic 2000 panelon 02-21-2022 Albumin [Mass/Vol] 4.8 g/dL Normal 3.9-4.9 [facility] Comment on above: Order Comment: Speci men Type: BLOOD SPECIMENOrdering Facility: [facility] Address: [address] [place], [place] [id number] Performed By: #### 2 532-0, ####[facility] LABCLIA [id number] [place] [address] [place] ALP [Catalytic activity/Vol] 71 U/L Normal 38-113 [facility] Comment on above: Order Comment: Speci men Type: BLOOD SPECIMENOrdering Facility: [facility] Address: [address] [place], [place] [id number] Performed By: #### 2 532-0, ####[facility] LABCLIA [id number] [address] [place] ALT [Catalytic activity/Vol] 26 U/L Normal 10-54 [facility] Comment on above: Order Comment: Speci men Type: BLOOD SPECIMENOrdering Facility: [facility] Address: [address] [place], [place] [id number] Performed By: #### 2 532-0, ####[facility] LABCLIA [id number] [place] [address] [place] Anion gap [Moles/Vol] 11 mmol/L Normal 9-18 [facility] Comment on above: Order Comment: Speci men Type: BLOOD SPECIMENOrdering Facility: [facility] Address: [address] [id number] Performed By: #### 2 532-0, ####[facility] LABCLIA [id number] [place] [address] [place] AST [Catalytic activity/Vol] 24 U/L Normal 14-40 [facility] Comment on above: Order Comment: Speci men Type: BLOOD SPECIMENOrdering Facility: [facility] Address: [address] Performed By: #### 2 532-0, ####[facility] LABCLIA [id number] [place] [address] [place] Bilirubin [Mass/Vol] 0.5 mg/dL Normal 0.2-1.3 [facility] Comment on above: Order Comment: Speci men Type: BLOOD SPECIMENOrdering Facility: [facility] Address: [address] [place], [place] [id number] Performed By: #### 2 532-0, ####[facility] LABCLIA [id number] [place] [address] [place] Calcium [Mass/Vol] 9.8 mg/dL Normal 8.5-10.2 [facility] Comment on above: Order Comment: Speci men Type: BLOOD SPECIMENOrdering Facility: [facility] Address: [address] [id number] Performed By: #### 2 532-0, ####[facility] LABIA [id number] [place] [address] [place] Chloride [Moles/Vol] 106 mmol/L High 97-105 [facility] Comment on above: Order Comment: Speci men Type: BLOOD SPECIMENOrdering Facility: [facility] Address: [address] [id number] Performed By: #### 2 532-0, ####[facility] LABCLIA [id number] [place] [address] [place] CO2 [Moles/Vol] 26 mmol/L Normal 22-30 [facility] Comment on above: Order Comment: Speci men Type: BLOOD SPECIMENOrdering Facility: [facility] Address: [address] [place] [address] Performed By: #### 2 532-0, 86447-3 ####[facility] LABIA [id number] [address] [place] Creatinine [Mass/Vol] 0.88 mg/dL Normal 0.73-1.22 [facility] Comment on above: Order Comment: Speci men Type: BLOOD SPECIMENOrdering Facility: [facility] Address: [address] [place] [address] Performed By: #### 2 532-0, 20745-0 ####[facility] [id number] [address] [place] ESTIMATED GLOMERULAR FILTRATION RATE 99 mL/min/1.73m??? Normal >=60 [facility] Comment on above: Order Comment: Speci men Type: BLOOD SPECIMENOrdering Facility: [facility] Address: [address] [place] [address] Result Comment: Carlota mated Glomerular Filtration Rate (eGFR) is calculated using the 2020 CKD-EPI creatinine equation. This equation utilizes serum creatinine, sex, and age as parameters. The creatinine assay has traceable calibration to isotope dilution-mass spectrometry. Refer to KDIGO guidelines for clinical interpretation. In patients with unstable renal function, e.g. those with acute kidney injury, the eGFR may not accurately reflect actual GFR. Performed By: #### 2 532-0, 22862-1 ####[facility] LABIA [id number] [place] [address] [place] Glucose [Mass/Vol] 106 mg/dL High 74-99 [facility] Comment on above: Order Comment: Speci men Type: BLOOD SPECIMENOrdering Facility: [facility] Address: [address] [id number] Result Comment: The [place] Diabetes Association (ADA) provides guidance for cutoff values for fasting glucose and random glucose. The ADA defines fasting as no caloric intake for at least 8 hours. Fasting plasma glucose results between 100 to 125 mg/dL indicate increased risk for diabetes (prediabetes). Fasting plasma glucose results greater than or equal to 126 mg/dL meet the criteria for diagnosis of diabetes. In the absence of unequivocal hyperglycemia, results should be confirmed by repeat testing. In a patient with classic symptoms of hyperglycemia or hyperglycemic crisis, random plasma glucose results greater than or equal to 200 mg/dL meet the criteria for diagnosis of diabetes. Reference: Standards of Medical Care in Diabetes 2016, [place] Diabetes Association. Diabetes Care. 2016.39(Suppl 1). Performed By: #### 2 532-0, 51235-9 ####[facility] LABCLIA [id number] [place] [address] [place] Potassium [Moles/Vol] 4.4 mmol/L Normal 3.7-5.1 [facility] Comment on above: Order Comment: Speci men Type: BLOOD SPECIMENOrdering Facility: [facility] Address: [address] [place], [place] [id number] Performed By: #### 2 532-0, 29921-5 ####[facility] LABCLIA [id number] [place] [address] [place] Protein [Mass/Vol] 6.8 g/dL Normal 6.3-8.0 [facility] Comment on above: Order Comment: Speci men Type: BLOOD SPECIMENOrdering Facility: [facility] Address: [address] [place], [place] [id number] Performed By: #### 2 532-0, 75270-3 ####[facility] LABCLIA [id number] [place] [address] [place] Sodium [Moles/Vol] 143 mmol/L Normal 136-144 [facility] Comment on above: Order Comment: Speci men Type: BLOOD SPECIMENOrdering Facility: [facility] Address: [address] Performed By: #### 2 532-0, 39484-0 ####[facility] [id number] [address] [place] OF [facility] Urea nitrogen [Mass/Vol] 20 mg/dL Normal 9-24 [facility] Comment on above: Order Comment: Speci men Type: BLOOD SPECIMENOrdering Facility: [facility] Address: [address] [address] Performed By: #### 2 532-0, 93941-7 ####[facility] [id number] [address] [place] ECG COMPLETEon 02-21-2022 ECG COMPLETE Ventricular Rate : 5 5 BPM Atrial Rate : 55 BPM P-R Interval : 166 ms QRS Duration : 96 ms Q-T Interval : 488 ms QTC Calculation(Bazett) : 466 ms Calculated P [place] : 68 degrees Calculated R [place] : 55 degrees Calculated T [place] : 89 degrees SINUS BRADYCARDIA LEFT VENTRICULAR HYPERTROPHY WITH REPOLARIZATION ABNORMALITY ( Sokolow-Eldridge ) ABNORMAL ECG Confirmed by LILIAN ZHOU MD (22) on 03/12/2022 2:19:43 PM NAME : GINO OSORIO PID : [id number] : 1960 Gender : Male Race : Unknown ORD : [id number] Procedure Date : Feb 21 2022 08:32:36 Edit Date : Mar 12 2022 14:23:10 Diagnosis: SINUS BRADYCARDIA LEFT VENTRICULAR HYPERTROPHY WITH REPOLARIZATION ABNORMALITY ( Sokolow-Eldridge ) ABNORMAL ECG Confirmed by LILIAN ZHOU MD (22) on 03/12/2022 2:19:43 PM Test Reason : Location : 314 : J14 J14 Overread By : LILIAN ZHOU MD Edited By : LILIAN ZHOU MD Referred By : ROSEY SAUCEDO Acquired by : FANNY NEWELL [facility] ECHOon 02-21-2022 Echocardiography Echocardiography Rep ort: Transthoracic Echo [facility] J1-5 Date of service: 02/21/2022 9:45:08 AM DECORATOR Ordering physician: ROSEY SAUCEDO Indication: HOCM, CAD Technologist: Santa Frost RDCS Fellow: Ammon Dang MD Interpreting physician: Filemon Marshall MD, MPH PATIENT: Name: GINO OSORIO : 1960 Age: 61 years Gender: M History of coronary artery disease. Primary rhythm: sinus. Height: 175.26 cm BSA: 1.88 m Weight: 72.58 kg BMI: 23.6 kg/m Heart rate 58 bpm Blood pressure 152/89 mmHg Color Doppler was utilized to interrogate the cardiac valves assessed and spectral Doppler was utilized to determine the flow velocities and pressure gradients reported in this exam. MEASUREMENTS: Value Indexed Normal Max aortic dimension 2.8 cm Ao < 3.8 Left atrial volume 73 ml (biplane A-L) 39 ml/m Tatum <= 34 LV ID (diastole) 5.0 cm (2D) 2.68 cm/m LV ID (systole) 2.6 cm (2D) 1.37 cm/m IVS, leaflet tips 0.7 cm (2D) Posterior wall thickness 1.3 cm (2D) Left ventricular mass 183 g (2D) 97 g/m LV stroke volume 76 ml (2D biplane) LV end diastolic volume 119 ml (2D biplane) 63.4 ml/m 34<=EDVi<75 LV end systolic volume 43 ml (2D biplane) 23.1 ml/m Ejection Fraction 64 % (2D biplane) EF > 52 FINDINGS: LEFT VENTRICLE The left ventricle is normal in size. There is asymmetric left ventricular hypertrophy. Left ventricular systolic function is normal. Grade I left ventricular diastolic dysfunction. Mitral annular lateral E/e': 9.5. Mitral annular septal E/e': 11.6. Wall Motion: All scored segments are normal. RIGHT VENTRICLE The right ventricle is normal in size. Right ventricular systolic function is normal. RV systolic tissue Doppler velocity is 12.9 cm/s. Tricuspid annular displacement is 3.3 cm. Estimated right ventricular systolic pressure is not reported due to an insufficient tricuspid regurgitation signal. Estimated right atrial pressure is 3 mmHg based on IVC assessment. LEFT ATRIUM The left atrial cavity is mildly dilated. RIGHT ATRIUM The right atrial cavity is normal in size. Inferior Vena Cava: The inferior vena cava appears normal measuring 1.1 cm. The vessel decreases greater than 50 percent with inspiration. MITRAL VALVE There is mild (1+) mitral valve regurgitation. There is mild thickening. The pressure half time is 62 msec. The peak mitral E/A ratio is 1.17. The average mitral E/e' ratio is 10.5. The mitral flow deceleration time is 213 msec. TRICUSPID VALVE The tricuspid valve leaflets are structurally normal. There is trace tricuspid valve regurgitation. AORTIC VALVE There is no aortic valve regurgitation. Tricuspid aortic valve. There is mild thickening. PULMONIC VALVE The pulmonic valve cusps are structurally normal. There is trace pulmonic valve regurgitation. AORTA The visualized aorta is normal in size. Measurements - Mid ascending aorta 2.8 cm. PULMONARY ARTERIES The pulmonary arteries are normal. PERICARDIUM There is no pericardial effusion. CONCLUSIONS: - Exam indication: HOCM, CAD - The left ventricle is normal in size. There is asymmetric left ventricular hypertrophy. Left ventricular systolic function is normal. EF = 64 5% (2D biplane) Grade I left ventricular diastolic dysfunction. - The right ventricle is normal in size. Right ventricular systolic function is normal. - The left atrial cavity is mildly dilated. -At rest, LVOT gradient of 27 mmHg, 1+ MR, mild KIRSTIN at 55 bpm. -With Valsalva, LVOT gradient of 92 mmHg, significant increase in MR to at least 2+, severe KIRSTIN with septal contact is present at 59 bpm. - The patient has not had a prior CC echocardiographic exam for comparison. * * * Final * * * CC [employer] [facility] Image : [id number] Normal [facility] LDH SerPl-cCncon 02-21-2022 LDH [Catalytic activity/Vol] 271 U/L High 135-225 [facility] Comment on above: Order Comment: Speci men Type: BLOOD SPECIMENOrdering Facility: [facility] Address: [address] [place] [id number] Performed By: #### 2 532-0, 87201-4 ####[facility] LABCLIA [id number] [address] [address] [place] US CAROTID ARTERIES [facility]on 02-21-2022 US CAROTID ARTERIES [facility] Non-Invasive Vascular Laboratory [facility] J35 Carotid Duplex Bilateral/Complete Date of service/time: 02/21/2022 1:15:02 PM Name: GINO OSORIO Date of : 1960 Age: 61 years Gender: M Clinical Indication Pre op clearance. TECHNIQUE -------- A carotid duplex ultrasound examination was performed, including grayscale imaging and color Doppler and spectral Doppler examination of the below mentioned arteries. FINDINGS -------- RIGHT SIDE Common carotid artery: Origin: PSV: 162 cm/s. EDV: 22 cm/s. Proximal: PSV: 156 cm/s. EDV: 22 cm/s. Mid: PSV: 139 cm/s. EDV: 22 cm/s. Distal: PSV: 120 cm/s. EDV: 27 cm/s. Internal carotid artery: Origin: PSV: 75 cm/s. EDV: 21 cm/s. Proximal: PSV: 98 cm/s. EDV: 28 cm/s. Mid: PSV: 101 cm/s. EDV: 30 cm/s. Distal: PSV: 85 cm/s. EDV: 30 cm/s. Mild homogeneous plaque at origin. ICA/CCA Ratio: 0.8 External carotid artery: Proximal: PSV: 171 cm/s. EDV: 10 cm/s. Mild homogeneous plaque at origin. Subclavian artery: Proximal: PSV: 190 cm/s. EDV: 15 cm/s. Innominate artery: PSV: 150 cm/s. EDV: 10 cm/s. Vertebral artery: PSV: 68 cm/s. EDV: 16 cm/s. LEFT SIDE Common carotid artery: Proximal: PSV: 175 cm/s. EDV: 30 cm/s. Mid: PSV: 158 cm/s. EDV: 29 cm/s. Distal: PSV: 95 cm/s. EDV: 18 cm/s. Internal carotid artery: Origin: PSV: 83 cm/s. EDV: 25 cm/s. Proximal: PSV: 84 cm/s. EDV: 25 cm/s. Mid: PSV: 79 cm/s. EDV: 28 cm/s. Distal: PSV: 78 cm/s. EDV: 26 cm/s. ICA/CCA Ratio: 0.9 External carotid artery: Proximal: PSV: 191 cm/s. EDV: 0 cm/s. Subclavian artery: Proximal: PSV: 220 cm/s. EDV: 0 cm/s. Vertebral artery: PSV: 60 cm/s. EDV: 14 cm/s. IMPRESSION RIGHT SIDE Internal carotid artery: 20-39% stenosis. Vertebral artery: Patent and antegrade flow noted. LEFT SIDE Internal carotid artery: 20-39% stenosis. Vertebral artery: Patent and antegrade flow noted. Technologist: Corinne Mosqueda RVT Ordering physician: DESTIN CHARLES Interpreting physician: Markel Rodriguez MD, RPVI Final CC [employer] [facility] Image : [id number] D See Link below for Image Normal [facility] US LEG VEIN MAP [facility]o n 02-21-2022 US LEG VEIN MAP [facility] Non-Invasive Vascular Laboratory [facility] J35 Lower Extremity Vein Mapping Bilateral/Complete Date of service/time: 02/21/2022 1:38:32 PM Name: GINO OSORIO Date of : 1960 Age: 61 years Gender: M Clinical Indication Pre-op open heart surgery. FINDINGS -------- RIGHT Great saphenous vein: Saphenofemoral junction: 6.7 mm Proximal thigh: 3.0 mm Mid thigh: 2.8 mm Distal thigh: 2.7 mm Knee: 2.4 mm Proximal calf: 3.0 mm Mid calf: 2.7 mm Distal calf: 2.5 mm Small saphenous vein: Proximal calf: 2.2 mm Mid calf: 2.0 mm Distal calf: 2.8 mm LEFT Great saphenous vein: Saphenofemoral junction: 6.8 mm Proximal thigh: 3.7 mm Mid thigh: 4.3 mm Distal thigh: 3.7 mm Knee: 2.9 mm Proximal calf: 3.4 mm Mid calf: 2.7 mm Distal calf: 3.1 mm Small saphenous vein: Proximal calf: 1.0 mm Mid calf: 1.5 mm Distal calf: 2.3 mm IMPRESSION RIGHT Great saphenous vein: Patent with measurements as indicated above. Branches noted at the proximal thigh, at the mid thigh, at the knee and at the proximal calf. Small saphenous vein: Patent with measurements as indicated above. Branches noted at the distal calf. LEFT Great saphenous vein: Patent with measurements as indicated above. Branches noted at the mid thigh, at the distal thigh and at the mid calf. Small saphenous vein: Patent with measurements as indicated above. Branches noted at the distal calf. Technologist: Corinne Mosqueda RVT Ordering physician: ROSEY SAUCEDO Interpreting physician: Markel Rodriguez MD, RPJACK Final CC [employer] [facility] Image : [id number] D See Link below for Image Normal [facility] US MAMMARY ARTERY [facility] Bon 02-21-2022 US MAMMARY ARTERY [facility] Non-Invasive Vascular Laboratory [facility] J35 Artery Mapping Study Bilateral/Complete Date of service/time: 02/21/2022 1:06:43 PM Name: GINO OSORIO Date of : 1960 Age: 61 years Gender: M Clinical Indication Pre-op open heart surgery. FINDINGS -------- Right systolic blood pressure: 138 mmHg Left systolic blood pressure: 146 mmHg RIGHT Mammary artery Proximal: 3.0 mm. PSV 148 cm/s. EDV 13 cm/s. Multiphasic waveform. Mid: 3.4 mm. PSV 126 cm/s. EDV 12 cm/s. Multiphasic waveform. Distal: 3.2 mm. PSV 105 cm/s. EDV 11 cm/s. Multiphasic waveform. LEFT Mammary artery Proximal: 3.5 mm. PSV 158 cm/s. EDV 17 cm/s. Multiphasic waveform. Mid: 3.3 mm. PSV 155 cm/s. EDV 18 cm/s. Multiphasic waveform. Distal: 3.1 mm. PSV 131 cm/s. EDV 13 cm/s. Multiphasic waveform. IMPRESSION No significant discrepancy in brachial systolic blood pressure measurements from right to left sides. RIGHT Measurements listed above; patent mammary artery. LEFT Measurements listed above; patent mammary artery. Technologist: Corinne Mosqueda RVT Ordering physician: ROSEY SAUCEDO Interpreting physician: Markel Rodriguez MD, RPVI Final CC [employer] [facility] Image : [id number] D See Link below for Image Normal [facility] RADIAL ARTERY MAP [facility]on 02-21-2022 US RADIAL ARTERY MAP [facility] Non-Invasive Vascular Laboratory [facility] J35 Artery Mapping Study Bilateral/Complete Date of service/time: 02/21/2022 12:46:35 PM Name: GINO OSORIO Date of : 1960 Age: 61 years Gender: M Clinical Indication Pre-op open heart surgery. FINDINGS -------- RIGHT Radial artery Origin: 3.0 mm. PSV 114.0 cm/s. EDV 0.0 cm/s. Multiphasic waveform. Proximal: 3.2 mm. PSV 104 cm/s. EDV 0 cm/s. Multiphasic waveform. Mid: 3.0 mm. PSV 82 cm/s. EDV 0 cm/s. Multiphasic waveform. Distal: 3.1 mm. PSV 79 cm/s. EDV 0 cm/s. Multiphasic waveform. Brachial artery at distal: PSV 112 cm/s. EDV 0 cm/s. Multiphasic waveform. Ulnar artery at distal: PSV 114 cm/s. EDV 14 cm/s. Multiphasic waveform. LEFT Radial artery Origin: 3.4 mm. PSV 108 cm/s. EDV 0 cm/s. Multiphasic waveform. Proximal: 3.1 mm. PSV 111 cm/s. EDV 11 cm/s. Multiphasic waveform. Mid: 2.9 mm. PSV 133 cm/s. EDV 11 cm/s. Multiphasic waveform. Distal: 2.9 mm. PSV 89 cm/s. EDV 9 cm/s. Multiphasic waveform. Brachial artery at distal: PSV 107 cm/s. EDV 0 cm/s. Multiphasic waveform. Ulnar artery at distal: PSV 117 cm/s. EDV 9 cm/s. Multiphasic waveform. IMPRESSION RIGHT Measurements listed above; patent radial artery. Compression of the radial artery does not compromise flow to the digits. LEFT Measurements listed above; patent radial artery. Compression of the radial artery does not compromise flow to the digits. Technologist: Corinne Mosqueda T Ordering physician: ROSEY SAUCEDO Interpreting physician: Markel Rodriguez MD, RPJACK Final CC [employer] [facility] Image : [id number] See Link below for Image [facility] Telephone ([facility]) -------- GINO OSORIO ([id number]) 1960 M Date Time Provider Department 02/12/22 ROSEY SAUCEDO During your visit today, we recorded the following information about you: Lauryn Clarek RN 02/12/2022 3:33 PM Signed I am currently out of the office. I will not be checking my message until I return on February 14 at 6:30am. For urgent issues, please contact your surgeon's office. For Dr. Saucedo, please call [phone]. For Dr. Cordoba, please call [phone] Lauryn Clarke RN Allergies As of Date: 02/12/2022 (Not on File) Date Reviewed: Never Reviewed Reason for Visit: Schedule Evaluation [8964] Primary Visit Diagnosis:Coronary artery disease involving [place] coronary artery of [place] heart without angina pectoris [I25.10] Other Visit Diagnoses:HOCM (hypertrophic obstructive cardiomyopathy) (HCC) [I42.1] Primary hypertension [I10] Hyperlipidemia, unspecified hyperlipidemia type [E78.5] Non-rheumatic mitral regurgitation [I34.0] Encounter for preoperative vascular examination [Z01.810] Order(s):CONSULT TO CARDIOLOGY [9004] Order #: [id number]: 1 FUTURE CARDIOTHORACIC PREOP EVALUATION [] Order #: [id number]: 1 FUTURE COMP METABOLIC PANEL [SQCMP] Order #: [id number] FUTURE LD LACTATE DEHYDRO [SQLD6] Order #: [id number] FUTURE CBC + DIFF [SQCBCDIF] Order #: [id number] FUTURE ECG COMPLETE [ECG01] Order #: [id number] FUTURE CT CHEST CARDIAC WO IVCON [3340428] Order #: [id number] FUTURE ECHO [546464] Order #: [id number]: 1 FUTURE US LEG VEIN MAP [facility] [7950811] Order #: [id number] FUTURE MAMMARY ARTERY [facility] [[id number]] Order #: [id number] FUTURE RADIAL ARTERY MAP [facility] [[id number]] Order #: [id number] FUTURE Problem List As Of Date: 02/12/2022 (None) Encounter Status:Closed by LAURYN CLARKE on 02/12/22 [facility] -------- GINO OSORIO ([id number]) 1960 M Date Time Provider Department 01/25/22 ROSEY SAUCEDO During your visit today, we recorded the following information about you: Eric Thibodeaux 01/25/2022 3:37 PM Signed Care Everywhere established Allergies As of Date: 01/25/2022 (Not on File) Date Reviewed: Never Reviewed Reason for Visit: Received Outside Medical Records [3576] Problem List As Of Date: 01/25/2022 (None) Encounter Status:Closed by ERIC THIBODEAUX on 01/25/22 [facility] -------- GINO OSORIO ([id number]) 1960 M Date Time Provider Department 01/25/22 ROSEY SAUCEDO During your visit today, we recorded the following information about you: Danii Sahu 01/25/2022 4:02 PM Signed IN VS OUT. ENOC Ayala 01/25/2022 4:18 PM Signed IN Allergies As of Date: 01/25/2022 (Not on File) Date Reviewed: Never Reviewed Reason for Visit: Insurance Authorization [[id number]] Problem List As Of Date: 01/25/2022 (None) Encounter Status:Closed by SYLVIA AYALA on 01/25/22 Normal [facility] ECHOCARDIOGRAM COMPLETEon ECHOCARDIOGRAM COMPLETE Patient Info Name: GINO OSORIO Age: 61 years : 1960 Gender: Male Ht: 175 cm Wt: 71 kg BSA: 1.86 m2 HR: 58 bpm BP: 170 / 98 mmHg Heart Rhythm: Bradycardia Technical Quality: Good Exam Date: 01/12/2022 3:29 PM Patient Status: Outpatient Machine Fur Cleaner: Mariusz Jain RCDS Exam Type: ECHOCARDIOGRAM COMPLETE Study Info Indications - Dyspnea R06.00 - Dyspnea, unspecified Referring Physician: NATALIE Baird; [id number] BMI: 23.04 kg/m2 Summary 1. Left ventricular systolic function is normal with an ejection fraction by Biplane Method of Discs of 66 %. 2. There is grade 2 diastolic dysfunction, consistent with impaired relaxation and elevated left atrial pressure. 3. Basal septal hypertrophy of the left ventricle with systolic anterior motion of the mitral valve leaflets. The basal septum measures 1.96 cm in diastole. There is flow acceleration at the left ventricular outflow tract. Doppler of the outflow tract has interference due to mitral insufficiency. Suspect peak velocity 4.7 m/s, peak LVOT gradient 89 mmHg but again this is a difficult measurement.View 67. This is consistent with hypertrophic cardiomyopathy.. 4. There is probably mild to moderate posteriorly directed mitral valve regurgitation. Somewhat difficult to quantify. History/Risk Factors Hypertension: Yes Tobacco Use: Never History/Risk Factors HOCM on Heart cath. Procedure(s): Complete two-dimensional, color flow and Doppler transthoracic echocardiogram is performed. Left Ventricle Basal septal hypertrophy of the left ventricle with systolic anterior motion of the mitral valve leaflets. The basal septum measures 1.96 cm in diastole. There is flow acceleration at the left ventricular outflow tract. Doppler of the outflow tract has interference due to mitral insufficiency. Suspect peak velocity 4.7 m/s, peak LVOT gradient 89 mmHg but again this is a difficult measurement.View 67. This is consistent with hypertrophic cardiomyopathy.. Left ventricular chamber dimension is normal. Left ventricular systolic function is normal with an ejection fraction by Biplane Method of Discs of 66 %. Normal left ventricular mass. There is grade 2 diastolic dysfunction, consistent with impaired relaxation and elevated left atrial pressure. Right Ventricle Right ventricular chamber dimension is normal. Right ventricular systolic function is normal. Left Atria Left atrial chamber is moderately enlarged with a left atrial volume index of 47 ml/m2 by BP MOD. Right Atria Right atrial chamber dimension is enlarged. Aortic Valve The aortic valve is trileaflet. There is no aortic valve sclerosis. There is severe aortic valve stenosis. There is no aortic valve regurgitation. Pulmonic Valve The pulmonic valve is normal. There is no pulmonic valve stenosis. There is trace pulmonic regurgitation. Mitral Valve There is systolic anterior motion of the mitral valve. There is no mitral valve stenosis. There is probably mild to moderate posteriorly directed mitral valve regurgitation. Somewhat difficult to quantify. Tricuspid Valve The tricuspid valve leaflets are normal. There is no significant tricuspid valve stenosis. There is trace tricuspid valve regurgitation. RV systolic pressure could not be accurately estimated. Pericardium/Pleural There is no pericardial effusion. Inferior Vena Cava Normal inferior vena cava with >50% collapse upon inspiration consistent with normal right atrial pressure. Aorta The aortic measurements are indexed to age and body surface area. The aortic root is normal measuring 3.5 cm with an index of 1.9 cm/m2. Left Ventricular Outflow Tract Name Value Normal LVOT 2D LVOT Diameter 2.1 cm Pulmonic Valve Name Value Normal RVOT Doppler RVOT Peak Velocity 53 cm/s RVOT Peak Gradient 1 mmHg RVOT Mean Gradient 1 mmHg RVOT VTI 15 cm Mitral Valve Name Value Normal MV Doppler MV Peak Velocity 1.20 m/s MV Peak Gradient 6 mmHg MV Mean Gradient 2 mmHg MV VTI 44 cm MV [employer] [place] 353 cm/s2 MV PHT 83 ms MV Area (PHT) 2.6 cm2 4.0-5.0 MV Regurgitation Doppler MR (more content not included)... Normal [facility] Comment on above: Order Comment: Rolando feng HOCM present on cath. LEFT HEART CATHon 01-12-2022 LEFT HEART CATH This is a summary report. The complete report is available in the patient's medical record. If you cannot access the medical record, please contact the sending organization for a detailed fax or copy. Impression: LMT: 70% distal lesion LAD: mild plaque disease Cx: Large and dominant with mild plaque disease Ramus: 70% proximal LV: EF 60% with severe HOCM with 120mmHg gradient at apex. 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 However, He also has HOCM with no outflow tract gradient, but a 120 mmHg gradient from apex to outflow tract. Will have him evaluated for CABG and Myomectomy of septum to relieve HOCM. Recommendations: Send to [facility] for Cardiothoracic surgery consult for CABG for LMT disease and myomectomy of septum. Coronary Findings Diagnostic Dominance: Left Left Main: The LMT gives rise to LAD, Ramus and Cx. In the distal LMT there is a 70% lesion. Mid LM to Dist LM lesion is 70% stenosed. Left Anterior Descending: The LAD is a large vessel giving rise to several diagonals. The LAD has mild plaque disease. Ramus Intermedius: The Ramus is a moderate size vessel with a 70% proximal lesion. Ramus lesion is 70% stenosed. Left Circumflex: The Cx is large and dominant giving rise to PDA and PLCx. The Cx has mild plaque disease. Right Coronary Artery: The RCA is small and non dominant with mild plaque disease. Intervention No interventions have been documented. Left Ventricle Ejection Fraction: EF 60% There appears to be severe hypertrophic obstructive cardiomyopathy. In the LV outflow tract There was no gradient. However, in the apex, there was a 120 mmHg gradient across septum. Ao: 100/60 mmHg Outflow tract: 100/10 mmhg [employer]: 220/10 mmHg %. Normal [facility] CBC AUTO DIFFon 12-26-2021 BASO # 0.0 103/ul Normal 0.0-0.1 [facility] Comment on above: Performed By: #### C BC #### [facility] [address] [address] [address] Mel Ramirez Basophils/100 WBC (Bld) 0.5 % Normal 0.2-2.0 [facility] Comment on above: Performed By: #### C BC #### [facility] [address] [address] [address] Mel Ramirez EO # 0.1 103/ul Normal 0.0-0.7 [facility] Comment on above: Performed By: #### C BC #### [facility] [address] [address] [address] Mel Ramirez Eosinophils/100 WBC (Bld) 1.0 % Normal 0.9-7.0 [facility] Comment on above: Performed By: #### C BC #### [facility] [address] [address] [address] Mel Ramirez Erythrocyte distribution width (RBC) [Ratio] 13.0 % Normal 11.0-15.0 [facility] Comment on above: Performed By: #### C BC #### [facility] [address] [address] [address] Mel Ramirez Hematocrit (Bld) [Volume fraction] 43.5 % Normal 42.0-54.0 [facility] Comment on above: Performed By: #### C BC #### [facility] [address] [address] [address] Mel Ramirez Hemoglobin (Bld) [Mass/Vol] 14.6 g/dL Normal 14.0-18.0 [facility] Comment on above: Performed By: #### C BC #### [facility] [address] [place] [address] Dr. Mel Ramirez IG # 0.01 10e3/ul Normal 0.00-0.03 [facility] Comment on above: Performed By: #### C BC #### [facility] [address] [place] [address] Dr. Mel Ramirez IG % 0.2 % Normal 0.0-0.5 [facility] Comment on above: Performed By: #### C BC #### [facility] [address] [place] [address] Dr. eMl Ramirez LYMPH # 1.4 103/ul Normal 1.2-3.8 [facility] Comment on above: Performed By: #### C BC #### [facility] [address] [place] [address] Dr. Mel Ramirez Lymphocytes/100 WBC (Bld) 24.4 % Normal 20.5-60.0 [facility] Comment on above: Performed By: #### C BC #### [facility] [address] [place] [address] Dr. Mel Ramirez MANUAL DIFF REQ NO Normal [facility] Comment on above: Performed By: #### C BC #### [facility] [address] [place] [address] Dr. Mel Ramirez MCH (RBC) [Entitic mass] 29.3 pg Normal 25.9-34.0 [facility] Comment on above: Performed By: #### C BC #### [facility] [address] [place] [address] Dr. Mel Ramirez MCHC (RBC) [Mass/Vol] 33.6 g/dL Normal 29.9-35.2 [facility] Comment on above: Performed By: #### C BC #### [facility] [address] [place] [address] Dr. Mel Ramirez MCV (RBC) [Entitic vol] 87.3 fL Normal 80.0-94.0 [facility] Comment on above: Performed By: #### C BC #### [facility] [address] [place] [address] Dr. Mel Ramirez MONO # 0.5 103/ul Normal 0.3-0.8 [facility] Comment on above: Performed By: #### C BC #### [facility] [address] [address] [address] Mel Ramirez Monocytes/100 WBC (Bld) 7.7 % Normal 1.7-12.0 [facility] Comment on above: Performed By: #### C BC #### [facility] [address] [address] [address] Mel Ramirez NEUT # 3.9 103/ul Normal 1.4-6.5 [facility] Comment on above: Performed By: #### C BC #### [facility] [address] [address] [address] Mel Ramirez Neutrophils/100 WBC (Bld) 66.2 % Normal 43.0-75.0 [facility] Comment on above: Performed By: #### C BC #### [facility] [address] [place] [address] Dr. Mel Ramirez Platelet mean volume (Bld) [Entitic vol] 10.3 fL Normal 9.5-13.5 [facility] Comment on above: Performed By: #### C BC #### [facility] [address] [place] [address] Dr. Mel Ramirez PLT 197 103/ul Normal 150-450 [facility] Comment on above: Performed By: #### C BC #### [facility] [address] [place] [address] Dr. Mel Ramirez RBC 4.98 106/ul Normal 4.70-6.10 [facility] Comment on above: Performed By: #### C BC #### [facility] [address] [place] [address] Dr. Mel Ramirez WBC 5.8 103/ul Normal 4.0-11.0 [facility] Comment on above: Performed By: #### C BC #### [facility] [address] [place] [address] Dr. Mel Ramirez LIPID PROFILEon 12-26-2021 CHOL-HDL RATIO NORM SEE BELOW Normal [facility] Comment on above: Result Comment: 3.3 - 4.4 LOW RISK 4.4 - 7.1 AVERAGE RISK 7.1 - 11.0 MODERATE RISK >11.0 HIGH RISK Performed By: #### C MP, LIPID ####[facility] [id number] [id number] Mel Ramirez Cholesterol [Mass/Vol] 204 mg/dL Critically high <=200 [facility] Comment on above: Performed By: #### C MP, LIPID ####[facility] [id number] [id number] Mel Ramirez Cholesterol in HDL [Mass/Vol] 65 mg/dL Critically high 40-60 [facility] Comment on above: Performed By: #### C MP, LIPID ####[facility] [id number] [address]Dr. Mirthafelecia James Cholesterol in LDL [Mass/Vol] 128.8 mg/dL Normal [facility] Comment on above: Performed By: #### C MP, LIPID ####[facility] [address] [address]Dr. Mel Ramirez Cholesterol.total/Ch olesterol in HDL [Mass ratio] 3.1 {ratio} Normal [facility] Comment on above: Performed By: #### C MP, LIPID ####[facility] [id number] [id number]. Mel Ramirez HDL NORMAL > or = 60 mg/dl - LO W CARDIOVASCULAR RISK <40 mg/dl - HIGH CARDIOVASCULAR RISK Normal [facility] Comment on above: Performed By: #### C MP, LIPID ####[facility] [id number] [place] [address]Dr. Mel Ramirez LDL CALC NORMAL SEE BELOW Normal [facility] Comment on above: Result Comment: <100 mg/dl OPTIMAL 100 - 129 mg/dl NEAR OR ABOVE OPTIMAL 130 - 159 mg/dl BORDERLINE HIGH 160 - 189 mg/dl HIGH >190 mg/dl VERY HIGH Performed By: #### C MP, LIPID ####[facility] [id number] [place] [address] [id number]. Mel Ramirez Triglyceride [Mass/Vol] 51 mg/dL Normal <=150 [facility] Comment on above: Performed By: #### C MP, LIPID ####[facility] [id number] [place], [place] [address]VuDr. Mel Ramirez VLDL CALC 10.2 mg/dL Normal [facility] Comment on above: Performed By: #### C MP, LIPID ####[facility] [id number] [place], [place] [address]IeDr. Mel Ramirez PROF 14(COMP METB)on 022 Albumin [Mass/Vol] 4.3 g/dL Normal 3.4-5.0 [facility] Comment on above: Performed By: #### C MP, LIPID #### [facility] Laboratory [address] [address] [address] Mle Rmairez Albumin/Globulin [Mass ratio] 1.4 {ratio} Normal [facility] Comment on above: Performed By: #### C MP, LIPID #### [facility] [address] [address] [address] Mel Ramirez ALP [Catalytic activity/Vol] 72 U/L Normal 46-116 [facility] Comment on above: Performed By: #### C MP, LIPID #### [facility] [address] [address] [address] Mel Ramirez ALT [Catalytic activity/Vol] 39 U/L Normal 16-63 [facility] Comment on above: Performed By: #### C MP, LIPID #### [facility] [address] [address] [address] Mel Ramirez Anion gap [Moles/Vol] 8.7 mmol/L Normal [facility] Comment on above: Performed By: #### C MP, LIPID #### [facility] [address] [address] [address] Mel Ramirez AST [Catalytic activity/Vol] 22 U/L Normal 15-37 [facility] Comment on above: Performed By: #### C MP, LIPID #### [facility] [address] [address] [address] Mel Ramirez Bilirubin [Mass/Vol] 0.9 mg/dL Normal 0.2-1.0 [facility] Comment on above: Performed By: #### C MP, LIPID #### [facility] [address] [address] [address] Mel Ramirez Calcium [Mass/Vol] 9.2 mg/dL Normal 8.5-10.1 [facility] [place] [facility] Comment on above: Performed By: #### C MP, LIPID #### [facility] [address] [address] [address] Mel Ramirez Chloride [Moles/Vol] 105 mmol/L Normal 98-107 [facility] Comment on above: Performed By: #### C MP, LIPID #### [facility] [address] [address] [address] Mel Ramirez CO2 [Moles/Vol] 32.4 mmol/L Critically high 21.0-32.0 [facility] Comment on above: Performed By: #### C MP, LIPID #### [facility] [address] [address] [address] Mel Ramirez Creatinine [Mass/Vol] 0.83 mg/dL Normal 0.70-1.30 [facility] Comment on above: Performed By: #### C MP, LIPID #### [facility] [address] [address] [address] Mel Ramirez EGFR-AF HONDURAN >60 Normal >=60 [facility] Comment on above: Performed By: #### C MP, LIPID #### [facility] [address] [address] [address] Mel Ramirez EGFR-NON AF HONDURAN >60 Normal >=60 [facility] Comment on above: Performed By: #### C MP, LIPID #### [facility] [address] [address] [address] Mel Ramirez Globulin (S) [Mass/Vol] 3.0 g/dL Normal [facility] Comment on above: Performed By: #### C MP, LIPID #### [facility] [address] [address] [address] Mel Ramirez Glucose [Mass/Vol] 88 mg/dL Normal 74-106 [facility] [place] [facility] Comment on above: Performed By: #### C MP, LIPID #### [facility] [address] [place] [address] Dr. Mel Ramirez Potassium [Moles/Vol] 4.1 mmol/L Normal 3.5-5.1 [facility] Comment on above: Performed By: #### C MP, LIPID #### [facility] [address] [place] [address] Dr. Mel Ramirez Protein [Mass/Vol] 7.3 g/dL Normal 6.4-8.2 [facility] [place] [facility] Comment on above: Performed By: #### C MP, LIPID #### [facility] [address] [place] [address] Dr. Mel Ramirez Sodium [Moles/Vol] 142 mmol/L Normal 136-145 [facility] Comment on above: Performed By: #### C MP, LIPID #### [facility] [address] [place] [address] Dr. Mel Ramirez Urea nitrogen [Mass/Vol] 22.0 mg/dL Critically high 7.0-18.0 [facility] Comment on above: Performed By: #### C MP, LIPID #### [facility] [address] [place] [address] Dr. Mel Ramirez Urea nitrogen/Creatinine [Mass ratio] 26.5 mg/mg Normal [facility] Comment on above: Performed By: #### C MP, LIPID #### [facility] [address] [place] [address] Dr. Mel Ramirez MR CARDIAC MORPHOLOGY WITH A ND WITHOUT CONTRAST WITH VELOCITY FLOW 12-13-2021 MR CARDIAC MORPHOLOGY WITH AND WITHOUT CONTRAST WITH VELOCITY FLOW [facility] CMR Report Name: GINO OSORIO : 1960 Scan Date: 2021-12-13 08:26:11 Electronically signed by Romina Watson 11:22:02 VITALS === ======= HEIGHT: 68.00 in (172.72 cm) WEIGHT: 159.99 lbs (72.57 kgs) BSA: 1.86 m?? FINAL IMPRESSION === ======= Cardiac morphology c/w HCM without significant LVOT obstruction and mild eccentric MR with chordal KIRSTIN. Maximal septal thickness of 1.9cm. Mild increased in the extracellular volume in the basal septum with mild patchy hyperenhancement c/w HCM.Additional subendocardial scar/hyperenhancement in the apical septum that is c/w small territory prior infarction. SUMMARY === ======= Cardiac MRI for evaluation for hypertrophic cardiomyopathy 1. Normal LV size with asymmetric basal septal hypertrophy with maximal septal thickness of 1.9cm. 2. Increased myocardial mass with hyperdynamic systolic function. LVEF 79%. 3. There is chordal KIRSTIN appreciated. No significant LVOT gradient (estimated at 10mmHg). 4. Normal RV size and function. RVEF 75% 5. There is mid eccentric, posteriorly directed MR. 6. Mild mid myocardial scar in the basal inferior septal wall c/w HCM.There is additional small focal are of subendocardial scar in the apical septal wall that represents a small territory infarction. 7. No iron overload condition with T2* imaging. No inflammation with T2 mapping. Mild increase in the extracellular volume on T1 mapping in the area of the septal hypertrophy. LEFT VENTRICLE: Normal LV size with asymmetric basal septal hypertrophy with maximal septal thickness of 1.9cm. Quantitative LVEF 79 %. VIABILITY: LV scar size is 2 %. RIGHT VENTRICLE: Quantitative RVEF 75 %. RV cavity size is normal. RV systolic function is normal. LV/RV SEPTUM: The LV/RV septum is intact LA/RA SEPTUM: The LA/RA septum is normal. LEFT ATRIUM: Dilated RIGHT ATRIUM: Dilated PERICARDIUM: The pericardium is normal. PLEURAL EFFUSION: There is no pleural effusion. AORTIC VALVE: Aortic valve leaflets are normal. There is no aortic regurgitation. There is no aortic stenosis. MITRAL VALVE: Mitral valve leaflets are normal. There is mild eccentric MR.No stenosis. There is chordal KIRSTIN appreciated TRICUSPID VALVE: Tricuspid valve leaflets are normal. There is no tricuspid regurgitation. There is no tricuspid stenosis. PULMONIC VALVE: Pulmonic valve leaflets are normal. There is no pulmonic stenosis. There is no pulmonic regurgitation. AORTIC ROOT: The aortic root is normal. AAo 2.8 cm and Denis 2.3cm at the PA bifurcation CORE EXAM === ======= MEASUREMENTS --- VOLUMETRIC ANALYSIS . . LV Reference RV Reference +------+ +----- -+ +------+-- + EDV ml 154 (113-196) 140 (111-210) ml/m?? 83 (62-97) 75 (59-105) ESV ml 32 (29-74) 35 (25-85) ml/m?? 17 (15-37) 19 (13-42) CO L/min 6.22 5.36 L/min/m?? 3.34 2.88 MASS g 205 (107-184) g/m?? 110 (57-91) SV ml 122 (75-131) 105 (72-140) ml/m?? 66 (41-65) 56 (38-70) EF % 79 (58-76) 75 (53-79) '------+ +----- -+ +------+-- ' CARDIAC OUTPUT HR: 51 BPM LV DIMENSIONS WALL THICKNESS - ANTEROSEPTAL: 1.0 cm WALL THICKNESS - INFEROLATERAL: 1.1 cm WALL THICKNESS - MAXIMUM: 1.9 cm LV CRISTOPHER: 5.8 cm LV ESD: 2.7 cm LA DIMENSIONS (LV SYSTOLE) AREA - 2 CHAMBER: 30 cm?? AREA - 4 CHAMBER: 29 cm?? RA DIMENSIONS (RV SYSTOLE) AREA - 4 CHAMBER: 24 cm?? AORTIC ROOT DIMENSIONS SINUS OF VALSALVA: 3.5 cm SINOTUBULAR JUNCTION: 2.7 cm EXTRACELLULAR VOLUME MEASUREMENT PRE-CONTRAST T1 MYOCARDIUM: 1029 msec PRE-CONTRAST T1 LV CAVITY: 1514 msec POST-CONTRAST T1 MYOCARDIUM: 491 msec POST-CONTRAST T1 LV CAVITY: 350 msec HEMATOCRIT: 43 % HEMATOCRIT DATE: 2021-12-13 00:00:00 ECV: 28 % IRON QUANTIFICATION MYOCARDIAL T2*: 33 msec LIVER T2*: 48 msec 17 SEGMENT --- . --- (more content not included)... [facility] Comment on above: Order Comment: Injur y/Trauma or Illness?:Illness/Other How long have you had these symptoms (acute/chronic)?:Chronic Reason for exam?:Heart murmur since childhood [facility] TO READ Type of Exam?:Initial Additional signs and symptoms?:n Surgical Pathologyon 022 Surgical Pathology (NOTE) -- Diagnosis -- A. PROSTATE, LB, NEEDLE CORE BIOPSY: -BENIGN PROSTATIC PARENCHYMA, NEGATIVE FOR CARCINOMA. B. PROSTATE, LLB, NEEDLE CORE BIOPSY: -BENIGN PROSTATIC PARENCHYMA, NEGATIVE FOR CARCINOMA. C. PROSTATE, LM, NEEDLE CORE BIOPSY: -BENIGN PROSTATIC PARENCHYMA, NEGATIVE FOR CARCINOMA. D. PROSTATE, LLM, NEEDLE CORE BIOPSY: -BENIGN PROSTATIC PARENCHYMA, NEGATIVE FOR CARCINOMA. E. PROSTATE, LA, NEEDLE CORE BIOPSY: -BENIGN PROSTATIC PARENCHYMA, NEGATIVE FOR CARCINOMA. F. PROSTATE, LLA, NEEDLE CORE BIOPSY: -BENIGN PROSTATIC PARENCHYMA, NEGATIVE FOR CARCINOMA. G. PROSTATE, RB, NEEDLE CORE BIOPSY: -BENIGN PROSTATIC PARENCHYMA, NEGATIVE FOR CARCINOMA. H. PROSTATE, RLB, NEEDLE CORE BIOPSY: -BENIGN PROSTATIC PARENCHYMA, NEGATIVE FOR CARCINOMA. I. PROSTATE, RM, NEEDLE CORE BIOPSY: -BENIGN PROSTATIC PARENCHYMA, NEGATIVE FOR CARCINOMA. J. PROSTATE, RLM, NEEDLE CORE BIOPSY: -BENIGN PROSTATIC PARENCHYMA, NEGATIVE FOR CARCINOMA. K. PROSTATE, RA, NEEDLE CORE BIOPSY: -BENIGN PROSTATIC PARENCHYMA, NEGATIVE FOR CARCINOMA. L. PROSTATE, RLA, NEEDLE CORE BIOPSY: -BENIGN PROSTATIC PARENCHYMA, NEGATIVE FOR CARCINOMA. Kareem Vance M.D. Electronically Signed Out 11/24/2021 Clinical Information Pre-op Diagnosis: ELEVATED PSA Operative Findings: PROSTATE BIOPSIES Operation Performed: US TRANSRECTAL Source of Specimen A: TISSUE-LB B: TISSUE-LLB C: TISSUE-LM D: TISSUE-LLM E: TISSUE-LA F: TISSUE-LLA G: TISSUE-RB H: TISSUE-RLB I: TISSUE-RM J: TISSUE-RLM K: TISSUE-RA L: TISSUE-RLA Gross Description GINO OSORIO, PROSTATE BIOPSIES All specimens are received on sponges and are flores-white needle core biopsies less than < 0.1 cm in diameter with the following lengths: A. LB One core, 1.6 cm in length. Entirely 1cs. B. LLB One core, 1.5 cm in length. Entirely 1cs. C. LM One core, 1.6 cm in length. Entirely 1cs. D. LLM One core, 1.5 cm in length. Entirely 1cs. E. LA Two cores, 0.7 and 0.8 cm in length. Entirely 1cs. F. LLA One core, 1.2 cm in length. Entirely 1cs. G. RB One core, 1.6 cm in length. Entirely 1cs. H. RLB One core, 1.6 cm in length. Entirely 1cs. I. RM One core, 1.5 cm in length. Entirely 1cs. J. RLM One core, 1.3 cm in length. Entirely 1cs. K. RA One core, 1.5 cm in length. Entirely 1cs. L. RLA One core, 1.3 cm in length. Entirely 1cs. ep tm Microscopic Description A-L. Microscopic examination performed. H. Prostate triple stain was performed because of a focus of atypical glands. The p63 high molecular weight cytokeratin show patchy positivity around these glands. Racemase stain shows focal weak staining. These results along with histomorphology support a benign diagnosis. Controls react as expected. This test was developed and its performance characteristics determined by [facility]. It has not been cleared or approved by the U.S. Food and Drug Administration. The FDA has determined that such clearance or approval is not necessary. This test is used for clinical purposes. It should not be regarded as investigational or for research. This laboratory is certified under the Clinical Laboratory Improvement Amendments of 1988 (CLIA) as qualified to perform high complexity clinical laboratory testing. SURGICAL PATHOLOGY CONSULTATION Patient Name: GINO OSORIO. [facility] Rec: [id number] Path Number: [id number] [facility] [employer] [facility] ANATOMIC PATHOLOGY [address] [place] [id number] Normal [facility] Comment on above: Performed By: #### P PPVS #### [address] [address] Granulator Machine Operator: Jake Stoen MD CARDIAC STRESS TESTon 2021 CARDIAC STRESS TEST [address] [address] CARDIAC STRESS TEST PATIENT NAME: SIMONE OSORIOSHIVA Olmedo : 1960 MED REC NO: [id number] ROOM: ACCOUNT NO: [id number] ADMIT DATE: 11/13/2021 PROVIDER: Hari Estrada DATE OF STUDY: 11/13/2021 TREADMILL MYOVIEW STRESS TEST INDICATION: 1. Abnormal EKG. 2. Shortness of breath. He exercised 6 minutes on an accelerated Lee protocol achieving 9.9 METs. His peak heart rate was 142 which is 88% of maximum predicted heart rate. He had no chest pain or chest discomfort. He did have marked ST depression in leads II III, aVF and V4 through V6 with exercise. This normalized later in Recovery. This was an abnormal treadmill stress test with marked ST depression inferolaterally. He had mild nonspecific ST-T changes with activity. He had marked ST depression consistent with inferolateral ischemia. This is an abnormal stress test with possible inferolateral ischemia. Myoview to follow. HARI ESTRADA [email or web address] Doc#: [id number] CC: Rudy Thomas Normal [facility] [place] [address] CARDIAC STRESS TEST PATIENT NAME: GINO OSORIO : 1960 MED REC NO: [id number] ROOM: ACCOUNT NO: [id number] ADMIT DATE: 11/13/2021 PROVIDER: Dimitry Romero MD DATE OF STUDY: 11/13/2021 Cardiovascular Diagnostics Department Ordering Provider: Rudy Thomas MD Primary Care Provider: Rudy Thomas MD Interpreting Physician: Dimitry Romero MD MYOCARDIAL PERFUSION STRESS IMAGING The stress ECG results are reported separately. NUCLEAR IMAGING RESULTS: The overall quality of the study is fair. Mild attenuation artifact was seen. There is no evidence of abnormal lung uptake. Additionally, the right ventricle appears normal. The left ventricular cavity is noted to be enlarged in size on stress images. There is evidence of transient ischemic dilatation (TID) of the left ventricle. 1.27 Gated SPECT imaging demonstrates hypokinesis of the apical and inferoapical regions. The calculated left ventricular ejection fraction was 46%. The rest images demonstrated a moderate perfusion abnormality of moderate intensity in the inferior region which is most likely due to artifact. On stress imaging, a small to moderate perfusion abnormality of moderate intensity was noted in the apical and inferoapical regions. IMPRESSION: 1. Abnormal myocardial perfusion study. There is a small to moderate perfusion defect of moderate intensity in the apical and inferoapical regions during stress imaging, which is most consistent with ischemia. In addition, transient ischemic dilatation (TID) of the left ventricle is seen, which can be seen with uncontrolled hypertension, severe left main coronary artery disease or severe three-vessel coronary artery disease (TID 1.27). 2. Global left ventricular systolic function was abnormal with an ejection fraction of 46%, with regional wall motion abnormalities. Overall these results are most consistent with an intermediate to high risk for significant coronary artery disease. Additional testing including cardiac catheterization may be indicated. The results of this test were discussed with Dr. Estrada on 11/13/21 at 1405. DIMITRY ROMERO MD SOPHIA/ALIYA_ION Doc#: Unknown CC: Rudy Thomas Normal [facility] NM MYOCARDIAL SPECT REST EXE RCISE OR RXon 11-13-2021 NM MYOCARDIAL SPECT REST EXERCISE OR RX Radiology exam is complete. No Radiologist dictation. Please follow up with ordering provider. Final result Normal [facility] No Panel Informationon 11-13 Radiology exam is complete. No Radiologist dictation. Please follow up with ordering provider. [facility] CONSOLID[facility] STRESS TEST REPORTon 022 Dimitry Romero MD - 11/13/2021 3:01 [place] [address] CARDIAC STRESS TEST PATIENT NAME: GINO OSORIO : 1960 MED REC NO: [id number] ROOM: ACCOUNT NO: [id number] ADMIT DATE: 11/13/2021 PROVIDER: Dimitry Romero MD DATE OF STUDY: 11/13/2021 Cardiovascular Diagnostics Department Ordering Provider: Rudy Thomas MD Primary Care Provider: Rudy Thomas MD Interpreting Physician: Dimitry Romero MD MYOCARDIAL PERFUSION STRESS IMAGING The stress ECG results are reported separately. NUCLEAR IMAGING RESULTS: The overall quality of the study is fair. Mild attenuation artifact was seen. There is no evidence of abnormal lung uptake. Additionally, the right ventricle appears normal. The left ventricular cavity is noted to be enlarged in size on stress images. There is evidence of transient ischemic dilatation (TID) of the left ventricle. 1.27 Gated SPECT imaging demonstrates hypokinesis of the apical and inferoapical regions. The calculated left ventricular ejection fraction was 46%. The rest images demonstrated a moderate perfusion abnormality of moderate intensity in the inferior region which is most likely due to artifact. On stress imaging, a small to moderate perfusion abnormality of moderate intensity was noted in the apical and inferoapical regions. IMPRESSION: 1. Abnormal myocardial perfusion study. There is a small to moderate perfusion defect of moderate intensity in the apical and inferoapical regions during stress imaging, which is most consistent with ischemia. In addition, transient ischemic dilatation (TID) of the left ventricle is seen, which can be seen with uncontrolled hypertension, severe left main coronary artery disease or severe three-vessel coronary artery disease (TID 1.27). 2. Global left ventricular systolic function was abnormal with an ejection fraction of 46%, with regional wall motion abnormalities. Overall these results are most consistent with an intermediate to high risk for significant coronary artery disease. Additional testing including cardiac catheterization may be indicated. The results of this test were discussed with Dr. Estrada on 11/13/21 at 1405. DIMITRY ROMERO MD SOPHIA/ALIYA_ION Doc#: Unknown CC: Rudy Thomas [employer] Work Phone: [facility] bttn Work Phone: XR CHEST 2 Von 10-10-2021 XR CHEST 2 V EXAMINATION: XR CHES T 2 V HISTORY: Essential hypertension , heart murmur COMPARISON: No relevant comparison available. FINDINGS: LUNGS: No significant pulmonary parenchymal abnormalities. VASCULATURE: No increased pulmonary vasculature. PLEURA: No pneumothorax, effusion, or pleural thickening. CARDIAC: No cardiomegaly or cardiac silhouette abnormality. MEDIASTINUM: No visible mass or adenopathy. BONES: No fracture or visible bone lesion. OTHER: Negative. IMPRESSION: 1. No acute cardiopulmonary processes. Electronically authenticated by: REA NEGRETE Date: 2021-10-10 07:42 Normal [facility] CBC AUTO DIFFon 10-09-2021 BASO # 0.0 103/ul Normal 0.0-0.1 [facility] Comment on above: Performed By: #### C BC #### [facility] Laboratory [address] [address] [address] Mel Ramirez Basophils/100 WBC (Bld) 0.3 % Normal 0.2-2.0 [facility] Comment on above: Performed By: #### C BC #### [facility] [address] [address] [address] Mel Ramirez EO # 0.2 103/ul Normal 0.0-0.7 [facility] Comment on above: Performed By: #### C BC #### [facility] [address] [address] [address] Mel Ramirez Eosinophils/100 WBC (Bld) 2.2 % Normal 0.9-7.0 [facility] Comment on above: Performed By: #### C BC #### [facility] [address] [address] [address] Mel Ramirez Erythrocyte distribution width (RBC) [Ratio] 13.2 % Normal 11.0-15.0 [facility] Comment on above: Performed By: #### C BC #### [facility] [address] [address] [address] Mel Ramirez Hematocrit (Bld) [Volume fraction] 46.2 % Normal 42.0-54.0 [facility] Comment on above: Performed By: #### C BC #### [facility] [address] [address] [address] Mel Ramirez Hemoglobin (Bld) [Mass/Vol] 15.0 g/dL Normal 14.0-18.0 [facility] Comment on above: Performed By: #### C BC #### [facility] [address] [place] [address] Dr. Mel Ramirez IG # 0.02 10e3/ul Normal 0.00-0.03 [facility] Comment on above: Performed By: #### C BC #### [facility] [address] [place] [address] Dr. Mel Ramirez IG % 0.3 % Normal 0.0-0.5 [facility] Comment on above: Performed By: #### C BC #### [facility] [address] [place] [address] Dr. Mel Ramirez LYMPH # 1.2 103/ul Normal 1.2-3.8 [facility] Comment on above: Performed By: #### C BC #### [facility] [address] [place] [address] Dr. Mel Ramirez Lymphocytes/100 WBC (Bld) 18.1 % Critically low 20.5-60.0 [facility] Comment on above: Performed By: #### C BC #### [facility] [address] [place] [address] Dr. Mel Ramirez MANUAL DIFF REQ NO Normal [facility] Comment on above: Performed By: #### C BC #### [facility] [address] [place] [address] Dr. Mel Ramirez MCH (RBC) [Entitic mass] 28.7 pg Normal 25.9-34.0 [facility] Comment on above: Performed By: #### C BC #### [facility] [address] [place] [address] Dr. Mel Ramirez MCHC (RBC) [Mass/Vol] 32.5 g/dL Normal 29.9-35.2 [facility] Comment on above: Performed By: #### C BC #### [facility] [address] [place] [address] Dr. Mel Ramirez MCV (RBC) [Entitic vol] 88.3 fL Normal 80.0-94.0 [facility] Comment on above: Performed By: #### C BC #### [facility] [address] [place] [address] Dr. Mel Ramirez MONO # 0.6 103/ul Normal 0.3-0.8 [facility] Comment on above: Performed By: #### C BC #### [facility] [address] [place] [address] Dr. Mel Ramirez Monocytes/100 WBC (Bld) 8.8 % Normal 1.7-12.0 [facility] Comment on above: Performed By: #### C BC #### [facility] [address] [place] [address] Dr. Mel Ramirez NEUT # 4.8 103/ul Normal 1.4-6.5 [facility] Comment on above: Performed By: #### C BC #### [facility] [address] [place] [address] Dr. Mel Ramirez Neutrophils/100 WBC (Bld) 70.3 % Normal 43.0-75.0 [facility] Comment on above: Performed By: #### C BC #### [facility] [address] [place] [address] Dr. Mel Ramirez Platelet mean volume (Bld) [Entitic vol] 9.8 fL Normal 9.5-13.5 [facility] Comment on above: Performed By: #### C BC #### [facility] [address] [place] [address] Dr. Mel Ramirez PLT 209 103/ul Normal 150-450 [facility] Comment on above: Performed By: #### C BC #### [facility] [address] [place] [address] Dr. Mel Ramirez RBC 5.23 106/ul Normal 4.70-6.10 [facility] Comment on above: Performed By: #### C BC #### [facility] [address] [place] [address] Dr. Mel Ramirez WBC 6.8 103/ul Normal 4.0-11.0 [facility] Comment on above: Performed By: #### C BC #### [facility] [address] [place] [address] Dr. Mel Ramirez LIPID PROFILEon 10-09-2021 CHOL-HDL RATIO NORM SEE BELOW Normal [facility] Comment on above: Result Comment: 3.3 - 4.4 LOW RISK 4.4 - 7.1 AVERAGE RISK 7.1 - 11.0 MODERATE RISK >11.0 HIGH RISK Performed By: #### L IPID, TSH, MG, CMP #### [facility] [address] [address] [address] Mel Ramirez Cholesterol [Mass/Vol] 220 mg/dL Critically high <=200 [facility] Comment on above: Performed By: #### L IPID, TSH, MG, CMP #### [facility] [address] [address] [address] Mel Ramirez Cholesterol in HDL [Mass/Vol] 77 mg/dL Critically high 40-60 [facility] Comment on above: Performed By: #### L IPID, TSH, MG, CMP #### [facility] [address] [place] [address] Dr. Mel Ramirez Cholesterol in LDL [Mass/Vol] 133.4 mg/dL Normal [facility] Comment on above: Performed By: #### L IPID, TSH, MG, CMP #### [facility] [address] [address] [address] Mel Ramirez Cholesterol.total/Ch olesterol in HDL [Mass ratio] 2.9 {ratio} Normal [facility] Comment on above: Performed By: #### L IPID, TSH, MG, CMP #### [facility] [address] [address] [address] Mel Ramirez HDL NORMAL > or = 60 mg/dl - LO W CARDIOVASCULAR RISK <40 mg/dl - HIGH CARDIOVASCULAR RISK Normal [facility] Comment on above: Performed By: #### L IPID, TSH, MG, CMP #### [facility] [address] [place] [address] Dr. Mel Ramirez LDL CALC NORMAL SEE BELOW Normal [facility] Comment on above: Result Comment: <100 mg/dl OPTIMAL 100 - 129 mg/dl NEAR OR ABOVE OPTIMAL 130 - 159 mg/dl BORDERLINE HIGH 160 - 189 mg/dl HIGH >190 mg/dl VERY HIGH Performed By: #### L IPID, TSH, MG, CMP #### [facility] [address] [address] [address] Mel Ramirez Triglyceride [Mass/Vol] 48 mg/dL Normal <=150 [facility] Comment on above: Performed By: #### L IPID, TSH, MG, CMP #### [facility] [address] [address] [address] Mel Ramirez VLDL CALC 9.6 mg/dL Normal [facility] Comment on above: Performed By: #### L IPID, TSH, MG, CMP #### [facility] [address] [address] [address] Mel Ramirez MAGNESIUMon 10-09-2021 Magnesium [Mass/Vol] 2.0 mg/dL Normal 1.8-2.4 [facility] Comment on above: Performed By: #### L IPID, TSH, MG, CMP #### [facility] [address] [place] [address] Dr. Mel Ramirez PROF 14(COMP METB)on 022 Albumin [Mass/Vol] 4.4 g/dL Normal 3.4-5.0 [facility] Comment on above: Performed By: #### L IPID, TSH, MG, CMP #### [facility] [address] [address] [address] Mel Ramirez Albumin/Globulin [Mass ratio] 1.4 {ratio} Normal [facility] Comment on above: Performed By: #### L IPID, TSH, MG, CMP #### [facility] [address] [address] [address] Mel Ramirez ALP [Catalytic activity/Vol] 85 U/L Normal 46-116 [facility] Comment on above: Performed By: #### L IPID, TSH, MG, CMP #### [facility] [address] [address] [address] Mel Ramirez ALT [Catalytic activity/Vol] 260 U/L Critically high 16-63 [facility] Comment on above: Performed By: #### L IPID, TSH, MG, CMP #### [facility] [address] [address] [address] Mel Ramirez Anion gap [Moles/Vol] 12.2 mmol/L Normal [facility] Comment on above: Performed By: #### L IPID, TSH, MG, CMP #### [facility] [address] [address] [address] Mel Ramirez AST [Catalytic activity/Vol] 307 U/L Critically high 15-37 [facility] Comment on above: Performed By: #### L IPID, TSH, MG, CMP #### [facility] [address] [address] [address] Mel Ramirez Bilirubin [Mass/Vol] 0.7 mg/dL Normal 0.2-1.0 [facility] Comment on above: Performed By: #### L IPID, TSH, MG, CMP #### [facility] [address] [address] [address] Mel Ramirez Calcium [Mass/Vol] 9.0 mg/dL Normal 8.5-10.1 [facility] Comment on above: Performed By: #### L IPID, TSH, MG, CMP #### [facility] [address] [address] [address] Mel Ramirez Chloride [Moles/Vol] 103 mmol/L Normal 98-107 [facility] Comment on above: Performed By: #### L IPID, TSH, MG, CMP #### [facility] [address] [address] [address] Mel Ramirez CO2 [Moles/Vol] 28.4 mmol/L Normal 21.0-32.0 [facility] Comment on above: Performed By: #### L IPID, TSH, MG, CMP #### [facility] [address] [address] [address] Mel Ramirez Creatinine [Mass/Vol] 0.76 mg/dL Normal 0.70-1.30 [facility] Comment on above: Performed By: #### L IPID, TSH, MG, CMP #### [facility] [address] [address] [address] Mel Ramirez EGFR-AF HONDURAN >60 Normal >=60 [facility] Comment on above: Performed By: #### L IPID, TSH, MG, CMP #### [facility] [address] [address] [address] Mel Ramirez EGFR-NON AF HONDURAN >60 Normal >=60 [facility] Comment on above: Performed By: #### L IPID, TSH, MG, CMP #### [facility] [address] [address] [address] Mel Ramirez Globulin (S) [Mass/Vol] 3.1 g/dL Normal [facility] Comment on above: Performed By: #### L IPID, TSH, MG, CMP #### [facility] [address] [address] [address] Mel Ramirez Glucose [Mass/Vol] 90 mg/dL Normal 74-106 [facility] [place] [facility] Comment on above: Performed By: #### L IPID, TSH, MG, CMP #### [facility] [address] [place] [address] Dr. Mel Ramirez Potassium [Moles/Vol] 3.6 mmol/L Normal 3.5-5.1 [facility] Comment on above: Performed By: #### L IPID, TSH, MG, CMP #### [facility] [address] [place] [address] Dr. Mel Ramirez Protein [Mass/Vol] 7.5 g/dL Normal 6.4-8.2 [facility] [place] [facility] Comment on above: Performed By: #### L IPID, TSH, MG, CMP #### [facility] [address] [address] [address] Mel Ramirez Sodium [Moles/Vol] 140 mmol/L Normal 136-145 [facility] [place] [facility] Comment on above: Performed By: #### L IPID, TSH, MG, CMP #### [facility] [address] [place] [address] Dr. Mel Ramirez Urea nitrogen [Mass/Vol] 19.0 mg/dL Critically high 7.0-18.0 [facility] Comment on above: Performed By: #### L IPID, TSH, MG, CMP #### [facility] [address] [place], [place] [address] Dr. Mel Ramirez Urea nitrogen/Creatinine [Mass ratio] 25.0 mg/mg Normal [facility] Comment on above: Performed By: #### L IPID, TSH, MG, CMP #### [facility] [address] [place], [place] [address] Dr. Mel Ramirez TSHon 10-09-2021 TSH 1.222 uIU/mL Normal 0.358-3.740 [facility] Comment on above: Performed By: #### L IPID, TSH, MG, CMP #### [facility] [address] [place], [place] [address] Dr. Mel Ramirez Cult,Urineon 09-15-2021 Cult,Urine Specimen Description .CLEAN CATCH URINE Culture NO GROWTH Report Status FINAL 09/14/2021 Normal [facility] Comment on above: Performed By: #### U RC #### [address] [place], [place] [id number] [employer] Machine Operator: Jake Stone MD [facility] [address] [place] [address] [place] [address] [employer] Machine Operator: Kareem Vance MD Urinalysis w/ Microon 2021 ----- Normal [facility] Comment on above: Performed By: #### U AMIC #### [facility] [address] [place] [address] [place] [address] [employer] Machine Operator: Kareem Vance MD Bacteria 1+ Abnormal NONE [facility] Comment on above: Performed By: #### U AMIC #### [facility] [address] [place] [address] [employer] Machine Operator: Kareem Vance MD Bilirubin, SemiQt,Ur Negative Normal NEG [facility] Comment on above: Performed By: #### U AMIC #### [facility] [address] [place] [address] [employer] Machine Operator: Kareem Vance MD Blood, Urine Negative Normal NEG [facility] Comment on above: Performed By: #### U AMIC #### [facility] [address] [place], [place] [id number] [employer] Machine Operator: Kareem Vance MD Clarity (U) Clear Normal CLEAR [facility] Comment on above: Performed By: #### U AMIC #### [facility] [address] [place] [id number] [employer] Machine Operator: Kareem Vance MD Color (U) Yellow Normal YEL [facility] Comment on above: Performed By: #### U AMIC #### [facility] [address] [place], [place] [id number] [employer] Machine Operator: Kareem Vance MD Epithelial cells LM Ql (Urine sed) 0 TO 2 Normal 0-5 [facility] Comment on above: Performed By: #### U AMIC #### [facility] [address] [place] [address] Dr. [place], [facility] Gran[employer] Machine Operator: Kareem Vance MD Glucose Ql (U) Negative Normal NEG [facility] Comment on above: Performed By: #### U AMIC #### [address] [place], [facility] Granulator Machine Operator: Kareem Vance MD Ketones Ql (U) Negative Normal NEG [facility] Comment on above: Performed By: #### U AMIC #### [facility] [address] [place] [address] Dr. [place], [facility] Granulator Machine Operator: Kareem Vance MD Leukocyte esterase Test strip Ql (U) Negative Normal NEG [facility] Comment on above: Performed By: #### U AMIC #### [facility] [address] [place] [id number] Granulator Machine Operator: Kareem Vance MD Mucus Strands 2+ Abnormal NONE [facility] Comment on above: Performed By: #### U AMIC #### [facility] [address] [place], [place] [id number] Gran[employer] Machine Operator: Kareem Vance MD Nitrite,Ur Negative Normal NEG [facility] Comment on above: Performed By: #### U AMIC #### [facility] [address] [place] [address] Dr. [place], [place] [id number] [employer]ulator Machine Operator: Kareem Vance MD PH,Ur 6.0 Normal 5.0-9.0 [facility] Comment on above: Performed By: #### U AMIC #### [facility] [address] [place] [address] Dr. [place], [place] [id number] [employer] Machine Operator: Kareem Vance MD Protein Ql (U) Negative Normal NEG [facility] Comment on above: Performed By: #### U AMIC #### [facility] [address] [place] [address] Dr. [place], [place] [id number] [employer]ulator Machine Operator: Kareem Vance MD Spec. [place],Ur 1.020 Normal 1.010-1.020 [facility] Comment on above: Performed By: #### U AMIC #### [facility] [address] [place] [address] Dr. [place], [place] [id number] Gran[employer] Machine Operator: Kareem Vance MD Urine RBC's 0 TO 2 Normal 0-2 [facility] Comment on above: Performed By: #### U AMIC #### [facility] [address] [place] [address] Dr. [place], [place] [id number] Granulator Machine Operator: Kareem Vance MD Urine WBC's 0 TO 2 Normal 0-5 [facility] Comment on above: Performed By: #### U AMIC #### [facility] [address] [place] [address] Dr. [place], [place] [id number] Gran[employer] Machine Operator: Kareem Vance MD Urobilinogen,Ur Normal Normal NORM [facility] Comment on above: Performed By: #### U AMIC #### [facility] [address] [place] [address] Dr. [place], [place] [id number] [employer] Machine Operator: Kareem Vance MD Urinalysis with Microscopico n 09-13-2021 - [facility] Bacteria, UA 1+ Abnormal None [facility] Bilirubin Urine Negative NEGATIVE [facility] Color, UA Yellow Yellow [facility] Epithelial Cells UA 0 TO 2 [facility] Glucose, Ur Negative NEGATIVE [facility] Interpretation and review of laboratory results Abnormal [facility] Ketones Ql (U) Negative NEGATIVE [facility] Leukocyte esterase Test strip Ql (U) Negative NEGATIVE [facility] Mucus, UA 2+ Abnormal None [facility] Nitrite, Urine Negative NEGATIVE [facility] pH, UA 6.0 5 - 9 [facility] Protein, UA Negative NEGATIVE [facility] RBC, UA 0 TO 2 [facility] Specific [place], UA 1.020 1.01 - 1.02 [facility] Turbidity UA Clear Clear [facility] Urine Hgb Negative NEGATIVE [facility] Urobilinogen, Urine Normal Normal [facility] WBC, UA 0 TO [address] [facility] ECHOCARDIO M/2D COMPLETEon 0 09-11-2021 ECHOCARDIO M/2D COMPLETE Patient: GINO OSORIO Exam Date: 09/11/2021 : 1960 Gender:M Ordering : DR RUDY THOMAS . Admission #: [id number] Family : Order #: [id number] CLICK HERE TO VIEW EXAM ECHOCARDIOGRAM REPORT PROCEDURE: CARDIO PULMONARY ECHOCARDIO M/2D COMP INDICATIONS: Cardiac murmur COMPARISON: None. DESCRIPTION: COMPLETE ECHOCARDIOGRAM Real-time transthoracic echocardiography with 2D, M-mode, spectral and color flow Doppler performed. QUALITY: Technical quality was good. 69 160# BP 160/82 LEFT VENTRICLE: Normal chamber size. Mild concentric left ventricular hypertrophy. There is significant hypertrophy of the proximal septum, measuring 2.2 cm. Mild ventricular outflow obstruction is seen at rest with peak gradient of 14 mmHg. LV EF: Hyperdynamic left ventricular ejection fraction, (>55%). DIASTOLIC: Diastolic function is indeterminate. ATRIAL SEPTUM: Visually appears intact. LEFT ATRIUM: Mild dilatation. RIGHT ATRIUM: Mild dilatation. RIGHT VENTRICLE: Normal chamber size. Normal right ventricular systolic function. TRICUSPID VALVE: Normal mobility and thickness. No stenosis with trivial regurgitation. Unable to assess right-sided pressures due to lack of measurable tricuspid regurgitation. MITRAL VALVE: Mildly thickened with normal mobility. No evidence of mitral valve stenosis. There is no mitral annular calcification. Mild mitral regurgitation. AORTIC VALVE: Normal trileaflet appearance. No visible sclerosis. Normal leaflet mobility. No evidence of aortic valve stenosis. No aortic regurgitation. AORTIC ROOT: Normal diameter and appearance. Ascending aorta is normal in size. PULMONIC VALVE: Normal thickness and mobility. No stenosis. Trivial regurgitation. PERICARDIUM: No evidence of pericardial effusion. IVC: Collapses with inspirations. IVC is normal in size. PLEURA: CONCLUSION: 1. Mild concentric left ventricular hypertrophy with asymmetric upper septal hypertrophy reaching up to 2.2 cm. Left ventricular systolic function is hyperdynamic with an ejection fraction of about 70 to 75%. There is evidence of mild left ventricular outflow tract obstruction at rest with a gradient of up to 14 mmHg. 2. Mildly dilated left atrium. 3. Mild mitral regurgitation. 4. The cardiac phenotype is suggestive of possible hypertrophic obstructive cardiomyopathy. Further testing with cardiac MRI is recommended. Dictated by: Krystian Xie M.D. on 09/11/2021 at 17:06 Approved by: Krystian Xie M.D. on 09/11/2021 at 17:14 Normal [facility] Comprehensive Metabolic Pane [facility] 06-29-2021 Albumin [Mass/Vol] 5.0 g/dL Normal 3.6-5.1 [facility] Specialist Comment on above: Performed By: #### C LORI HAGER #### [facility] [address] [place], [place] [id number] Albumin/Globulin [Mass ratio] 2.6 {ratio} High 1.0-2.5 [facility] Specialist Comment on above: Performed By: #### C LORI HAGER #### [facility] [address] [place], [place] [id number] ALP [Catalytic activity/Vol] 67 U/L Normal 40-129 [facility] [employer] Comment on above: Performed By: #### C LORI HAGER #### [facility] [address], [place] [id number] ALT [Catalytic activity/Vol] 32 U/L Normal 9-46 [facility] Comment on above: Result Comment: 01/25 Female reference range changed. Performed By: #### C MADAN LIPD #### [facility] [address], [place] [id number] Anion gap [Moles/Vol] 19 mmol/L Normal 12-20 [facility] Comment on above: Result Comment: Effe ctive 03/02/2019 reference range changed. Performed By: #### C MADAN LIPD #### [facility] [address], [place] [id number] AST [Catalytic activity/Vol] 31 U/L Normal 10-40 [facility] Comment on above: Performed By: #### C MADAN LIPD #### [facility] [address], [place] [id number] Bilirubin [Mass/Vol] 0.95 mg/dL Normal 0.30-1.20 [facility] Comment on above: Performed By: #### C MADAN LIPAj #### [facility] [address], [place] [id number] BUN/CREA 31 Ratio High 6-22 [facility] Comment on above: Performed By: #### C MADAN LIPD #### [facility] [address], [place] [id number] Calcium [Mass/Vol] 9.6 mg/dL Normal 8.6-10.2 [facility] Comment on above: Performed By: #### C MADAN LIPD #### [facility] [address], [place] [id number] Chloride [Moles/Vol] 104 mmol/L Normal 98-107 [facility] Comment on above: Performed By: #### C MAADN LIPD #### [facility] [address], [place] [id number] CO2 [Moles/Vol] 21 mmol/L Normal 20-31 [facility] Comment on above: Performed By: #### C MADAN LIPD #### [facility] [address], [place] [id number] Creatinine [Mass/Vol] 0.7 mg/dL Normal 0.7-1.4 [facility] Specialist Comment on above: Performed By: #### C MADAN LIPD #### [facility] [address], [place] [id number] eGFRAA 145 mL/min/1.73m2 Normal >60 [facility] Specialist Comment on above: Performed By: #### C MADAN, LIPD #### [facility] [address], [place] [id number] eGFRNAA 120 mL/min/1.73m2 Normal >60 [facility] Specialist Comment on above: Performed By: #### C MADAN LIPD #### [facility] [address], [place] [id number] Globulin (S) [Mass/Vol] 1.9 g/dL Normal 1.9-3.7 [facility] [employer] Comment on above: Performed By: #### C MADAN LIPD #### [facility] [address], [place] [id number] Glucose [Mass/Vol] 100 mg/dL High 65-99 [facility] [employer] Comment on above: Result Comment: For FASTING Glucose --- ADA reference ranges: Normal 65-99 mg/dl Prediabetes 100-125 Diabetes >/= 126 Performed By: #### C MADAN LIPD #### [facility] [address], [place] [id number] Potassium [Moles/Vol] 3.8 mmol/L Normal 3.5-5.5 [facility] [employer] Comment on above: Performed By: #### C MADAN, LIPD #### [facility] [address], [place] [id number] Protein [Mass/Vol] 6.9 g/dL Normal 6.1-8.1 [facility] [employer] Comment on above: Performed By: #### C MADAN LIPD #### [facility] [address], [place] [id number] Sodium [Moles/Vol] 140 mmol/L Normal 135-146 [facility] Tube Rep[employer]r Comment on above: Performed By: #### C MADAN, LIPD #### [facility] [address], [place] [id number] Urea nitrogen [Mass/Vol] 21 mg/dL Normal 7-25 [facility] [employer] [employer] Comment on above: Performed By: #### C MADAN, LIPD #### [facility] [address], [place] [id number] Lipid Panelon 06-29-2021 Cholesterol [Mass/Vol] 214 mg/dL High 125-200 [facility] [employer] [employer] Comment on above: Result Comment: Low risk < 200mg/dL Borderline risk 201-239 mg/dl High risk > or equal to 240 Performed By: #### C MP, LIPD #### [facility] [address], [place] [id number] Cholesterol in HDL [Mass/Vol] 66 mg/dL Normal >40 [facility] [facility] T[facility]r Comment on above: Result Comment: High Cardiovascular Risk HDL <40 mg/dL Low Cardiovascular Risk HDL > or equal to 60 mg/dl Performed By: #### C MP, LIPD #### [facility] [address], [place] [id number] Cholesterol in LDL [Mass/Vol] 137 mg/dL Normal [facility] Specialist Comment on above: Result Comment: LDL ATP III CLASSIFICATION LDL less than 100 mg/dl Optimal LDL 100-129 mg/dl Near or above optimal LDL 130-159 Borderline high LDL 160-189 High LDL greater than 189 mg/dl Very High Performed By: #### C MADAN, LIPD #### [facility] [address], [place] [id number] Cholesterol in VLDL [Mass/Vol] 11 mg/dL Normal [facility] Specialist Comment on above: Performed By: #### C MP, LIPD #### [facility] [address], [place] [id number] Cholesterol.total/Ch olesterol in HDL [Mass ratio] 3 {ratio} Normal [facility] Specialist Comment on above: Performed By: #### C MP, LIPD #### [facility] [address], [place] [id number] Triglyceride [Mass/Vol] 56 mg/dL Normal 30-150 [facility] Tube Repairer Comment on above: Result Comment: TRIG ATPIII CLASSIFICATIONS TRIG less than 150 mg/dl Normal TRIG 150-199 mg/dl Borderline High TRIG 200-500 mg/dl High TRIG greather than 500 mg/dl Very High Performed By: #### C MP, LIPD #### [facility] [address], [place] [id number] PSA SCREEN (MEDICARE)on TPSA 4.520 ng/mL High <4.000 [facility] Tube Repairer Comment on above: Result Comment: PSA Test Method: ECLIA/Mireya e 601 Performed By: #### P #### [facility] [address], [place] [id number] Vital Signs Date Time Vital Sign Value Performing Clinician Facility 03-08-2022 09:23-0500 Body height 175.3 cm Andegoni Sandalakis OVERHEAD CLEANER.BASIN CLEANER Work Phone: [facility] 03-08-2022 09:23-0500 Body temperature 98.71 [degF] Andegoni Sandalakis OVERHEAD CLEANER.BASIN CLEANER Work Phone: [facility] 03-08-2022 09:23-0500 Body weight 71.31 kg Andegoni Sandalakis OVERHEAD CLEANER.BASIN CLEANER Work Phone: [facility] 03-08-2022 09:23-0500 Diastolic blood pressure 68 mm[Hg] Andegoni Sandalakis OVERHEAD CLEANER.BASIN CLEANER Work Phone: [facility] 03-08-2022 09:23-0500 Heart rate 87 /min Andegoni Sandalakis OVERHEAD CLEANER.BASIN CLEANER Work Phone: [facility] 03-08-2022 09:23-0500 SaO2% (BldA) [Mass fraction] 97 % Andegoni Sandalakis OVERHEAD CLEANER.BASIN CLEANER Work Phone: [facility] 03-08-2022 09:23-0500 Systolic blood pressure 110 mm[Hg] Andegoni Sandalakis OVERHEAD CLEANER.BASIN CLEANER Work Phone: [facility] 02-28-2022 13:11-0500 SaO2% (BldA) [Mass fraction] 99 % DESTIN CHARLES [facility] Comment on above: Order Comment: Specimen Type: ARTERIAL B LOOD SPECIMENOrdering Facility: [facility] Address: [address] [id number] Performed By: #### A LLBG ####[facility] LABCLIA [id number] [address] [id number] [place] 02-28-2022 09:33-0500 SaO2% (BldA) [Mass fraction] 99 % DESTIN CHARLES [facility] Comment on above: Order Comment: Specimen Type: ARTERIAL B LOOD SPECIMENOrdering Facility: [facility] Address: [address] [phone] Performed By: #### A LLBG ####[facility] LABIA [id number] [place] [place] [id number] [place] 02-28-2022 06:43-0500 SaO2% (BldA) [Mass fraction] 99 % DESTIN DAMONHUBERT [facility] Comment on above: Order Comment: Specimen Type: ARTERIAL B LOOD SPECIMENOrdering Facility: [facility] Address: [address] [place] [address] Performed By: #### A LLBG ####[facility] LABIA [id number] [place] [place] [id number] [place] 02-28-2022 04:12-0500 SaO2% (BldA) [Mass fraction] 98 % DESTIN CHARLES [facility] Comment on above: Order Comment: Specimen Type: ARTERIAL B LOOD SPECIMENOrdering Facility: [facility] Address: [address] [phone] Performed By: #### A LLBG ####[facility] LABIA [id number] [place] [id number] [place] 02-28-2022 02:26-0500 SaO2% (BldA) [Mass fraction] 98 % DESTIN CHARLES [facility] Comment on above: Order Comment: Specimen Type: ARTERIAL B LOOD SPECIMENOrdering Facility: [facility] Address: [address] [phone] Performed By: #### A LLBG ####[facility] LABCLIA [id number] [place] [place] [id number] [place] 02-28-2022 00:03-0500 SaO2% (BldA) [Mass fraction] 99 % DESTIN SMLIZETIRA [facility] Comment on above: Order Comment: Specimen Type: ARTERIAL B LOOD SPECIMEN Ordering Facility: [facility] Address: [address] [place] [address] Performed By: #### A LLBG #### [facility] LAB CLIA [id number] [place] 02-27-2022 22:32-0500 SaO2% (BldA) [Mass fraction] 99 % DESTIN RAKESH [facility] Comment on above: Order Comment: Specimen Type: ARTERIAL B LOOD SPECIMENOrdering Facility: [facility] Address: [address] [place] [address] Performed By: #### A LLBG ####[facility] LABCLIA [id number] [address] [place] 02-27-2022 20:16-0500 SaO2% (BldA) [Mass fraction] 99 % DESTIN RAKESH [facility] Comment on above: Order Comment: Specimen Type: ARTERIAL B LOOD SPECIMENOrdering Facility: [facility] Address: [address] [place], [place] [phone] Performed By: #### A LLBG ####[facility] LABCLIA [id number] [place] [place] [id number] [place] 02-27-2022 19:20-0500 SaO2% (BldA) [Mass fraction] 100 % DESTIN SMEDIRA [facility] Comment on above: Order Comment: Specimen Type: ARTERIAL B LOOD SPECIMENOrdering Facility: [facility] Address: [address] [place], [place] [id number] Performed By: #### A LLBG ####[facility] LABCLIA [id number] [address] 02-27-2022 18:37-0500 SaO2% (BldA) [Mass fraction] 100 % DESTIN SMEDIRA [facility] Comment on above: Order Comment: Specimen Type: ARTERIAL B LOOD SPECIMENOrdering Facility: [facility] Address: [address] [place] [address] Performed By: #### A LLBG ####[facility] LABIA [id number] [address] [place] 02-27-2022 17:11-0500 SaO2% (BldA) [Mass fraction] 99 % DESTIN [facility] Comment on above: Order Comment: Specimen Type: ARTERIAL B LOOD SPECIMENOrdering Facility: [facility] Address: [address] [place] [address] Performed By: #### A LLBG ####[facility] LABIA [id number] [address] OF [facility] 02-27-2022 16:23-0500 SaO2% (BldA) [Mass fraction] 100 % [facility]STIN [facility] Comment on above: Order Comment: Specimen Type: ARTERIAL B LOOD SPECIMENOrdering Facility: [facility] Address: [address] [place], [place] [phone] Performed By: #### A LLBG ####[facility] LABIA [id number] [address] [place] [id number] [facility] 02-27-2022 15:09-0500 SaO2% (BldA) [Mass fraction] 100 % DESTIN SMEDIRA [facility] Comment on above: Order Comment: Specimen Type: ARTERIAL B LOOD SPECIMENOrdering Facility: [facility] Address: [address] [place] [address] Performed By: #### A LLBG ####[facility] LABCLIA [id number] [address] 02-27-2022 13:12-0500 SaO2% (BldA) [Mass fraction] 98 % DESTIN CHARLES [facility] Comment on above: Order Comment: Specimen Type: ARTERIAL B LOOD SPECIMENOrdering Facility: [facility] Address: [address] [phone] Performed By: #### A LLMG ####[facility] LABCLIA [id number] [address] 02-21-2022 08:05-0500 Diastolic blood pressure 89 mm[Hg] Josh Barrientos MD Work Phone: [facility] 02-21-2022 08:05-0500 Systolic blood pressure 152 mm[Hg] Josh Barrientos MD Work Phone: [facility] 02-21-2022 08:03-0500 Body height 175.3 cm Josh Barrientos MD Work Phone: [facility] 02-21-2022 08:03-0500 Body weight 72.58 kg Josh Barrientos MD Work Phone: [facility] 02-21-2022 08:03-0500 Heart rate 60 /min Josh Barrientos MD Work Phone: [facility] 02-21-2022 08:03-0500 SaO2% (BldA) [Mass fraction] 97 % Josh Barrientos MD Work Phone: [facility] Encounters Encounter Date Encounter Type Care Provider Facility Start: 06-20-2022 End: 06-21-2022 ambulatory FILI ESTRADA Facility:[facility] Start: 06-19-2022 End: 06-20-[address] RUDY THOMAS . Facility:[facility] Start: 05-31-2022 ambulatory Emilee Patton RN [facility] Start: 04-13-2022 ambulatory FILI ESTRADA Facility:[facility] 1 Start: 04-11-2022 End: 04-12-2022 [facility] Start: 04-11-2022 End: 04-11-2022 Subsequent hospital visit by physician Rudy Thomas MD Work Phone: [facility] Comment on above: Status post coronary artery bypass graft; Benign essential hypertension; Atrial dilatation; Other hypertrophic cardiomyopathy (HCC); S/P CABG x 3 Start: 04-03-2022 ambulatory Katherine Montero Research Coordinator [facility] Start: 03-16-2022 End: 03-17-[address] RUDY THOMAS . Facility: Start: 03-09-2022 Telephone encounter Michele JAQUEZ Comment on above: Follow Up Phone Call (RC f/u all clear/) Start: 03-08-2022 End: 03-09-2022 ambulatory DESTIN CHARLES Facility:[facility] Start: 03-08-2022 End: 03-08-2022 Patient encounter procedure Deana Hollins APRN.CNP Work Phone: Cardiothoracic Comment on above: S/P CABG (coronary a rtery bypass graft) (Primary Dx); S/P ventricular septal myectomy; HOCM (hypertrophic obstructive cardiomyopathy) (HCC) Start: 03-08-2022 End: 03-08-2022 Subsequent hospital visit by physician Judson [facility] Work Phone: Radiology Comment on above: Surgery follow-up [Z 09] Start: 03-05-2022 Telephone encounter Michele JAQUEZ Comment on above: Follow Up Phone Call (RC f/u all clear/) Start: 02-27-2022 Patient encounter procedure Destin Charles MD Work Phone: Cardiothoracic Comment on above: HOCM (hypertrophic o bstructive cardiomyopathy) (HCC) (Primary Dx); Coronary artery disease involving [place] coronary artery of [place] heart without angina pectoris Start: 02-27-2022 End: 03-03-2022 Evaluation and management of inpatient DESTIN CHARLES Facility:[facility] Start: 02-22-2022 End: 02-23-2022 ambulatory Destin Charles MD Work Phone: Cardiothoracic Comment on above: Patient Education Start: 02-22-2022 Patient encounter status Cheko Charles MD Work Phone: [facility] Start: 02-22-2022 End: 02-22-2022 Preprocedural examination done [facility] Work Phone: Cardiothoracic Start: 02-22-2022 End: 02-22-2022 Admission to same day surgery center Anesthesia Clearance Work Phone: Cardiothoracic Start: 02-22-2022 End: 02-22-2022 Patient encounter procedure Anesthesia Clearance Work Phone: Cardiothoracic Comment on above: Encounter for preope rative anesthesiology assessment for cardiac surgery (Primary Dx) Pre-op exam (Primary Dx) Start: 02-21-2022 End: 02-21-2022 ambulatory SHINYA UNAI Facility:[facility] Start: 02-21-2022 End: 02-21-2022 Patient encounter status Destin Charles MD Work Phone: Cardiothoracic Start: 02-21-2022 Telephone encounter Destin Charles MD Work Phone: Cardiothoracic Comment on above: Schedule Surgery (Pr e-op Checklist/) Start: 02-21-2022 Encounter for preprocedural cardiovascular examination DESTIN CHARLES [facility] Start: 02-21-2022 End: 02-22-2022 ambulatory SHINYA UNAI Facility:[facility] Start: 02-21-2022 End: 02-22-2022 ambulatory JOSH BARRIENTOS Facility:[facility] Start: 02-21-2022 End: 02-21-2022 Subsequent hospital visit by physician Ct 2 Main Qb (I-Stat) Radiology Comment on above: Coronary artery dise ase involving [place] coronary artery of [place] heart without angina pectoris [I25.10] Start: 02-21-2022 End: 02-21-2022 Patient encounter procedure Josh Barrientos MD Work Phone: Cardiology Comment on above: HOCM (hypertrophic o bstructive cardiomyopathy) (HCC) (Primary Dx) Start: 02-12-2022 Patient encounter status Katelin Saucedo MD Work Phone: Cardiothoracic Start: 02-12-2022 Telephone encounter Rosey Sanon i, MD Work Phone: Cardiothoracic Comment on above: Schedule Evaluation Start: 01-25-2022 Telephone encounter Rosey Sanon i, MD Work Phone: Cardiothoracic Comment on above: Insurance Authorizat ion Start: 01-12-2022 End: 01-12-2022 [facility] Start: 12-26-2021 End: 12-27-2021 ambulatory FILI ESTRADA Facility:[facility] Start: 12-13-2021 End: 12-14-2021 ambulatory HARI [facility] Start: 11-22-2021 End: 11-23-[address] [facility] Start: 11-22-2021 End: 11-22-2021 Subsequent hospital visit by physician Rudy Thomas MD Work Phone: [facility] Comment on above: Elevated PSA Start: 11-13-2021 End: 11-16-2021 ambulatory [facility] Start: 11-13-2021 End: 11-15-2021 Subsequent hospital visit by physician Katrin [facility] Comment on above: Atrial dilatation; Other hypertrophic cardiomyopathy (HCC); Heart murmur Arrived Start: 10-09-2021 End: 10-10-2021 ambulatory FILI ESTRADA Facility:[facility] Start: 09-13-2021 End: 09-14-2021 ambulatory [facility] Start: 09-13-2021 End: 09-13-2021 Subsequent hospital visit by physician Rudy Thomas MD Work Phone: [facility] Comment on above: Nocturia Start: 09-11-2021 End: 09-12-[address] RUDY THOMAS . Facility:[facility] Procedures Date Procedure Procedure Detail Performing Clinician Start: 04-11-2022 Comprehensive metabo lic panel Fili Estrada MD Work Phone: Start: 04-11-2022 Lipid panel Fili shelby MD Work Phone: Start: 04-11-2022 PATIENT FASTING? Fili Estrada MD Work Phone: Start: 03-12-2022 History of coronary artery bypass grafting S/P CABG x 3 Rudy Thomas MD Work Phone: Start: 03-08-2022 Radiologic exam ches t 2 views Destin Charles MD Work Phone: Start: 02-22-2022 Antibody screen Judit Charles MD Work Phone: Start: 02-22-2022 Antibody screen JUDIT CHARLES Comment on above: Order Comment: Speci men Type: BLOOD SPECIMENOrdering Facility: [facility] Address: [address] [place] [address] Performed By: #### T [id number] ####CC MAIN BLOOD BANKCLIA [id number] [address] [place] Start: 02-22-2022 Iadna s aureus ampli fied probe tq Destin Charles MD Work Phone: Start: 02-21-2022 Ct thorax w/o contra st material Rosey Saucedo MD Work Phone: Start: 11-13-2021 Exercise stress test - endocrine Fili Estrada MD Work Phone: Start: 11-13-2021 STRESS TEST, MYOVIEW Gr ranjit Estrada MD Work Phone: Start: 11-13-2021 STRESS TEST REPORT Ali F Singh Romero MD Work Phone: Start: 11-13-2021 Myocardial spect mul tiple studies Fili Estrada MD Work Phone: Start: 09-13-2021 Urnls dip stick/tabl et reagent auto microscopy Brett Ramesh PA-C Work Phone: History of coronary artery bypass grafting S/P CABG (coronary artery bypass graft) Andegoni Sandalakis OVERHEAD CLEANER.BASIN CLEANER Work Phone: History of coronary artery bypass grafting Status post coronary artery bypass graft Rudy Thomas MD Work Phone: Plan of Treatment Date Care Activity Detail Author Start: 06-29-2026 Lipid panel Lipids [facility] Start: 03-08-2025 DIABETES SCREEN DIABETES SCREEN [facility] Start: 03-03-2025 DIABETES SCREEN DIABETES SCREEN [facility] Start: 02-28-2025 DIABETES SCREEN DIABETES SCREEN [facility] Start: 02-21-2025 DIABETES SCREEN DIABETES SCREEN [facility] Start: 12-26-2022 Lipid panel Lipids [facility] Start: 10-23-2022 Prostate specific an tigen measurement Prostate Specific Antigen (PSA) Screening or Monitoring [facility] Start: 07-05-2022 End: 07-05-2022 Patient encounter procedure 07/05/2022 Office Visit Cardiology Fili Estrada MD [address] [place] [address] [facility] Revenue Collector Start: 05-30-2022 End: 05-30-2022 Patient encounter procedure 05/30/[address] [facility] Start: 02-25-2022 DEPRESSION ASSESSMENT DEPRESSION ASS ESSMENT [facility] Start: 02-12-2022 End: 04-14-2022 CBC W Auto Differential panel - Blood CBC + DIFF Lab Routine Coronary artery disease involving [place] coronary artery of [place] heart without angina pectoris HOCM (hypertrophic obstructive cardiomyopathy) (HCC) Primary hypertension Hyperlipidemia, unspecified hyperlipidemia type Non-rheumatic mitral regurgitation Encounter for preoperative vascular examination Expected: 02/12/2022, Expires: 04/14/2022 [facility] Work Phone: Comment on above: Expected: 02/12/2022 , Expires: 04/14/2022 Start: 02-12-2022 End: 04-14-2022 Comprehensive metabolic 2000 panel - Serum or Plasma COMP METABOLIC PANEL Lab Routine Coronary artery disease involving [place] coronary artery of [place] heart without angina pectoris HOCM (hypertrophic obstructive cardiomyopathy) (HCC) Primary hypertension Hyperlipidemia, unspecified hyperlipidemia type Non-rheumatic mitral regurgitation Encounter for preoperative vascular examination Expected: 02/12/2022, Expires: 04/14/2022 [facility] Work Phone: Comment on above: Expected: 02/12/2022 , Expires: 04/14/2022 Start: 02-12-2022 End: 04-14-2022 Lactate dehydrogenase [Enzymatic activity/volume] in Serum or Plasma LD LACTATE DEHYDRO Lab Routine Coronary artery disease involving [place] coronary artery of [place] heart without angina pectoris HOCM (hypertrophic obstructive cardiomyopathy) (HCC) Primary hypertension Hyperlipidemia, unspecified hyperlipidemia type Non-rheumatic mitral regurgitation Encounter for preoperative vascular examination Expected: 02/12/2022, Expires: 04/14/2022 [facility] Work Phone: Comment on above: Expected: 02/12/2022 , Expires: 04/14/2022 Start: 12-20-2021 End: 12-20-2021 Patient encounter procedure 12/20/2021 Office Visit Cardiology Fili Estrada MD [address] [place] [id number] [facility] Revenue Collector Start: 11-29-2021 End: 11-29-2021 Patient encounter procedure 11/29/[address] [facility] Start: 11-22-2021 End: 11-22-2021 Patient encounter procedure 11/22/2021 Procedure visit Urology Jennifer Browne MD [address] [place] [address], [address] [place] [address] [facility] Start: 11-01-2021 End: 11-01-2021 Patient encounter procedure 11/01/2021 Office Visit Urology Brett Ramesh PAWinsomeC [address] [facility] [address] [place] [address] [facility] Start: 10-26-2021 Influenza vaccination Flu vaccine (# 1) [facility] Start: 09-25-2021 Influenza vaccination Flu vaccine (# 1) [facility] Start: 2017 PROSTATE CANCER SCRE ENING DISCUSSION PROSTATE CANCER SCREENING DISCUSSION [facility] Start: 2012 Shingles vaccine (1 of 2) Coffman gles vaccine (1 of 2) [facility] Start: 2012 SHINGRIX VACCINE (1 of 2) COFFMAN GRIX VACCINE (1 of 2) [facility] Start: 10-19-2007 COLOGUARD (FIT-DNA) COLOGUARD (FIT-D NA) [facility] Start: 10-19-2007 Colonoscopy COLONOSCOPY [facility] Start: 10-19-2007 COLORECTAL CANCER SCREENING COLORECTAL CANCER SCREENING [facility] Start: 10-19-[address] COLONOGRAPHY [facility] Start: 10-19-2007 FECAL OCCULT BLOOD FECAL OCCULT BLOO D [facility] Start: 10-19-2007 Screening for malign ant neoplasm of colon [facility] Start: 10-19-2007 SIGMOIDOSCOPY SIGMOIDOSCOPY [facility] Start: 2002 Prostate specific an tigen measurement Prostate Specific Antigen (PSA) Screening or Monitoring [facility] Start: 1997 LIPID SCREEN LIPID SCREEN [facility] Start: 1981 DTaP/Tdap/Td vaccine (1 - Tdap) DTaP/Tdap/Td vaccine (1 - Tdap) [facility] Start: 1981 Urine microalbumin profile DTAP,TDAP ,TD (1 - Tdap) [facility] Start: 1980 ANNUAL PCP TEAM STITCH BURNISHER ARACELI DISEASE VISIT ANNUAL PCP TEAM CHRONIC DISEASE VISIT [facility] Start: 1980 Hepatitis B surface antibody level LDL CHOLESTEROL [facility] Start: 1980 Hepatitis C screening Hepatitis C sc reen [facility] Start: 1980 HEPATITIS C [facility]CRE[facility] Start: 1980 HIV SCREENING HIV SCREENING [facility] Start: 1977 HIV screening HIV screen [facility] Start: 1974 Depression Monitoring Depression Mon itoring [facility] Start: 1974 Depression Screen Depression Screen [facility] Start: 1968 Pneumococcal 0-64 ye ars Vaccine (1 - PCV) Pneumococcal 0-64 years Vaccine (1 - PCV) [facility] Start: 04-20-1963 COVID-19 Vaccine (#1) COVID-19 Vacci ne (#1) [facility] End: 03-14-2023 Ct thorax w/o contrast material CT CHEST CARDIAC WO IVCON Radiology Routine Coronary artery disease involving [place] coronary artery of [place] heart without angina pectoris HOCM (hypertrophic obstructive cardiomyopathy) (HCC) Primary hypertension Hyperlipidemia, unspecified hyperlipidemia type Non-rheumatic mitral regurgitation Encounter for preoperative vascular examination 1 Occurrences starting 02/12/2022 until 03/14/2023 [facility] Work Phone: Comment on above: 1 Occurrences starti ng 02/12/2022 until 03/14/2023 End: 09-13-2021 Culture, Urine [facility] Work Phone: Comment on above: 1 Occurrences starti ng 09/13/2021 until 09/13/2021 End: 02-12-2023 ECG COMPLETE ECG COMPLETE ECG Routine Coronary artery disease involving [place] coronary artery of [place] heart without angina pectoris HOCM (hypertrophic obstructive cardiomyopathy) (HCC) Primary hypertension Hyperlipidemia, unspecified hyperlipidemia type Non-rheumatic mitral regurgitation Encounter for preoperative vascular examination 1 Occurrences starting 02/12/2022 until 02/12/2023 [facility] Work Phone: Comment on above: 1 Occurrences starti ng 02/12/2022 until 02/12/2023 End: 02-12-2023 Echocardiography ECHO Cardiology Routine Coronary artery disease involving [place] coronary artery of [place] heart without angina pectoris HOCM (hypertrophic obstructive cardiomyopathy) (HCC) Primary hypertension Hyperlipidemia, unspecified hyperlipidemia type Non-rheumatic mitral regurgitation Encounter for preoperative vascular examination 1 Occurrences starting 02/12/2022 until 02/12/2023 [facility] Work Phone: Comment on above: 1 Occurrences starti ng 02/12/2022 until 02/12/2023 Exercise stress test study Cardi ac Stress Test Exercise - Treadmill Cardiac Services Routine 11/13/2021 8:45 PM EDT [facility] [employer] Work Phone: Stress test, myoview Stress test , myoview Cardiac Services Routine Atrial dilatation Other hypertrophic cardiomyopathy (HCC) Heart murmur 11/13/2021 8:45 PM EDT [employer] Work Phone: End: 11-22-2021 Surgical Pathology Surgical Pathology Lab Routine Elevated PSA 1 Occurrences starting 11/22/2021 until 11/22/2021 [employer] Phone: Comment on above: 1 Occurrences starti ng 11/22/2021 until 11/22/2021 End: 11-22-2021 SURGICAL PATHOLOGY REPORT SURGICAL PATHOLOGY REPORT Lab Routine Once for 1 Occurrences starting 11/22/2021 until 11/22/2021 [employer] Phone: Comment on above: Once for 1 Occurrenc es starting 11/22/2021 until 11/22/2021 End: 02-12-2023 US LEG VEIN MAP [facility] US LEG [facility]IN [facility] Vascular Lab Routine Coronary artery disease involving [place] coronary artery of [place] heart without angina pectoris HOCM (hypertrophic obstructive cardiomyopathy) (HCC) Primary hypertension Hyperlipidemia, unspecified hyperlipidemia type Non-rheumatic mitral regurgitation Encounter for preoperative vascular examination 1 Occurrences starting 02/12/2022 until 02/12/2023 [facility] Work Phone: Comment on above: 1 Occurrences starti ng 02/12/2022 until 02/12/2023 End: 02-12-2023 US MAMMARY ARTERY [facility] US MAMMARY [facility]ERY [facility] Vascular Lab Routine Coronary artery disease involving [place] coronary artery of [place] heart without angina pectoris HOCM (hypertrophic obstructive cardiomyopathy) (HCC) Primary hypertension Hyperlipidemia, unspecified hyperlipidemia type Non-rheumatic mitral regurgitation Encounter for preoperative vascular examination 1 Occurrences starting 02/12/2022 until 02/12/2023 [facility] Work Phone: Comment on above: 1 Occurrences starti ng 02/12/2022 until 02/12/2023 End: 02-12-2023 US RADIAL ARTERY MAP [facility] US RADIAL ARTERY MAP [facility] Vascular Lab Routine Coronary artery disease involving [place] coronary artery of [place] heart without angina pectoris HOCM (hypertrophic obstructive cardiomyopathy) (HCC) Primary hypertension Hyperlipidemia, unspecified hyperlipidemia type Non-rheumatic mitral regurgitation Encounter for preoperative vascular examination 1 Occurrences starting 02/12/2022 until 02/12/2023 [facility] Work Phone: Comment on above: 1 Occurrences starti ng 02/12/2022 until 02/12/[address] [facility] Immunizations Immunization Date Immunization Notes Care Provider Fa biib 12-04-2021 influenza, injectabl e, quadrivalent, preservative free Josh Barrientos MD Work Phone: [facility] 01-10-2021 influenza, injectabl e, quadrivalent, preservative free Josh Barrientos MD Work Phone: [facility] 01-19-2019 influenza, injectabl e, quadrivalent, preservative free Josh Barrientos MD Work Phone: [facility] 01-15-2018 influenza, injectabl e, quadrivalent, preservative free Josh Barrientos MD Work Phone: [facility] 12-21-2015 influenza, injectabl e, quadrivalent, preservative free Josh Barrientos MD Work Phone: [facility] Payers Date Payer Category Payer Unknown [id number] 1960 Unknown [id number] 2.16.8 [id number] 1960 Unknown [id number] 2.16.8 [id number] 1960 Unknown [id number] 2.16.8 [id number] 1960 Unknown [id number] 2.16.8 [id number] 1962 Unknown [id number] 2.16.8 [id number] 1962 Unknown [id number] 2.16.8 [id number] 1962 Unknown [id number] 2.16.8 40.1.399073.3.579.2.174 1962 Unknown [id number] 2.16.84 0.1.680601.3.579.2.593 1962 Unknown [id number] 2.16.84 [id number] 1962 Unknown [id number] 2.16.84 0.1.975395.3.579.2.593 1962 Unknown [id number] 2.16.84 0.1.559364.3.579.2.593 1962 Unknown [id number] 2.16.84 0.1.639957.3.579.2.593 1962 Unknown [id number] 2.16.84 0.1.433266.3.579.2.593 1962 Unknown [id number] 2.16.84 0.1.304276.3.579.2.593 1962 Unknown [id number] 2.16. [id number] 1960 Unknown [id number] 2.16. [id number] 1959 Unknown [id number] 1. [id number] 1959 Unknown [id number] 1.2.8 [id number] Unknown RYAN ADAMGILiz LESTER Social History Date Type Detail Facility Start: 09-13-2021 End: 02-21-2022 Tobacco smoking status NEIS Never smoked tobacco [employer] Phone: Start: 09-13-2021 End: 02-21-2022 Tobacco use and exposure Smokeless tobacco non-user [employer] [facility] Phone: Start: 09-13-2021 End: 04-11-2022 Alcohol intake Current drinker of alcohol (finding) [facility] [facility] [employer] Phone: Start: 09-13-2021 End: 04-11-2022 Alcohol intake [facility] [employer] Phone: Start: 09-13-2021 History SDOH Alcohol Comment glass of wine every now and then [facility] [employer] Phone: Start: 1960 Sex Assigned At Not on file [facility] [employer] Phone: Tobacco smoking status NEIS Tobacco smoking consumption unknown [facility] Start: 02-21-2022 End: 03-08-2022 Alcohol intake Ex-drinker (finding) [facility] Medical Equipment Procedure Code Equipment Code Equipment Original Text Equipment Identifier Dates [place] Thk1.65mm P tfe 4x.5in Cardiovascular Sterile - [id number] Start: 02-27-2022 Clinical Notes 01-25-2022 to 05-31-2022 Emilee Patton RN - 05/31/2022 12:25 PM Milady Montero, Research Coordinator - 04/03/2022 4:15 PM ESTTelephone Encounter - Michele Miguel RN - 03/09/2022 12:58 PM EST Note Date & Type Note Facility 05-31-2022 Note HNO ID: [id number] Author: Emilee Patton RN Service: ? Author Type: Registered Nurse Type: Progress Notes Filed: 05/31/2022 12:25 PM Note Text: QOL Call Tracking Documentation Follow-Up Type: Phone Call Call Attempt: 1st Attempt Call Status: Left Message [facility] 05-31-2022 Note Patient Outreach ([facility]) GINO OSORIO ([id number]) 1960 M Date Time Provider Department 05/31/22 EMILEE PATTON During your visit today, we recorded the following information about you: Emilee Patton RN 05/31/2022 12:25 PM Signed QOL Call Tracking Documentation Follow-Up Type: Phone Call Call Attempt: 1st Attempt Call Status: Left Message Allergies As of Date: 05/31/2022 (No Known Allergies) Date Reviewed: 03/08/2022 Reviewed by: Megan Pichardo Ma - Fully Assessed Prescriptions as of 05/31/2022 - furosemide (LASIX) 20 mg tablet Take 1 tablet by mouth once daily for 3 days. - atorvastatin (LIPITOR) 80 mg tablet Take 1 tablet by mouth daily at bedtime. - metoprolol tartrate, short acting, (LOPRESSOR) 50 mg tablet Take 1 tablet by mouth every 12 hours. - acetaminophen (TYLENOL) 500 mg tablet Take 1-2 tablets by mouth every 6 hours as needed for pain (mild pain. Do not take more than 4 grams of acetaminophen in 24 hours.). - aspirin 81 mg chewable tablet Take 1 tablet by mouth once daily. - pantoprazole DR (PROTONIX) 20 mg tablet Take 1 tablet by mouth DAILY (6 AM) for 14 days. - polyethylene glycol 3350 (MIRALAX, GLYCOLAX) 17 gram packet Take 1 Packet by mouth as needed for constipation. Dissolve dose in 4 - 8 ounces of liquid and take as directed. - tamsulosin (FLOMAX) 0.4 mg Take 1 capsule by mouth daily at bedtime for 14 days. - melatonin 10 mg cap Take 1 capsule by mouth daily at bedtime. - sertraline (ZOLOFT) 50 mg tablet Take 50 mg by mouth daily at bedtime. - QUEtiapine (SEROQUEL) 25 mg tablet Take 1 tablet by mouth daily at bedtime. - Ascorbic Acid 1,000 mg tablet Take 1,000 mg by mouth once daily. - MULTIVITAMIN ORAL Take 1 tablet by mouth once daily. - niacin (NIACIN) 500 mg tablet Take 500 mg by mouth daily with breakfast. - COQ10, UBIQUINOL, ORAL Take 1 tablet by mouth once daily. With Krill - cholecalciferol (VITAMIN D3) 5,000 unit tab Take 10,000 Units by mouth once daily. - glucosam/chond-msm1/C/janiya/bor (YPJLZHIOQBV-MPDBW-HEM COMPLEX ORAL) Take 1 tablet by mouth once daily. - MAGNESIUM ORAL Take 250 mg by mouth once daily. Problem List As Of Date 05/31/2022 Noted Resolved Discharge planning issues [Z02.9] 02/22/2022 Pre-op testing [Z01.818] 02/22/2022 HOCM (hypertrophic obstructive cardiomyopathy) *02/27/2022 CAD (coronary artery disease) [I25.10] 02/27/2022 On mechanically assisted ventilation (HCC) [Z99*02/27/2022 02/28/2022 Hypovolemia [E86.1] 02/27/2022 02/28/2022 Postoperative pain [G89.18] 02/27/2022 Stress hyperglycemia [R73.9] 02/27/2022 Atelectasis [J98.11] 02/28/2022 Hypervolemia [E87.70] 02/28/2022 03/01/2022 Encounter for support and coordination of trans*03/01/2022 Encounter Status:Closed by EMILEE PATTON on 05/31/22 [facility] 05-31-2022 History of Presen t illness Narrative QOL Call Tracking Documentation Follow-Up Type: Phone Call Call Attempt: 1st Attempt Call Status: Left Message documented in this encounter [facility] 04-03-2022 Note HNO ID: [id number] Author: Katherine Montero Research Coordinator Service: ? Author Type: Research Type: Progress Notes Filed: 04/03/2022 4:15 PM Note Text: QOL Call Tracking Documentation Follow-Up Type: Phone Call Call Attempt: 1st Attempt Call Status: Patient will complete in MyChart [facility] 04-03-2022 History of Presen t illness Narrative QOL Call Tracking Documentation Follow-Up Type: Phone Call Call Attempt: 1st Attempt Call Status: Patient will complete in [employer] documented in this encounter [facility] 04-03-2022 Note Patient Outreach ([facility]) GINO OSORIO ([id number]) 1960 M Date Time Provider Department 04/03/22 KATHERINE MONTERO During your visit today, we recorded the following information about you: Katherine Christine Research Coordinator 04/03/2022 4:15 PM Signed QOL Call Tracking Documentation Follow-Up Type: Phone Call Call Attempt: 1st Attempt Call Status: Patient will complete in [facility] Allergies As of Date: 04/03/2022 (No Known Allergies) Date Reviewed: 03/08/2022 Reviewed by: Megan Pichardo Ma - Fully Assessed Prescriptions as of 04/03/2022 - furosemide (LASIX) 20 mg tablet Take 1 tablet by mouth once daily for 3 days. - atorvastatin (LIPITOR) 80 mg tablet Take 1 tablet by mouth daily at bedtime. - metoprolol tartrate, short acting, (LOPRESSOR) 50 mg tablet Take 1 tablet by mouth every 12 hours. - acetaminophen (TYLENOL) 500 mg tablet Take 1-2 tablets by mouth every 6 hours as needed for pain (mild pain. Do not take more than 4 grams of acetaminophen in 24 hours.). - aspirin 81 mg chewable tablet Take 1 tablet by mouth once daily. - pantoprazole DR (PROTONIX) 20 mg tablet Take 1 tablet by mouth DAILY (6 AM) for 14 days. - polyethylene glycol 3350 (MIRALAX, GLYCOLAX) 17 gram packet Take 1 Packet by mouth as needed for constipation. Dissolve dose in 4 - 8 ounces of liquid and take as directed. - tamsulosin (FLOMAX) 0.4 mg Take 1 capsule by mouth daily at bedtime for 14 days. - melatonin 10 mg cap Take 1 capsule by mouth daily at bedtime. - sertraline (ZOLOFT) 50 mg tablet Take 50 mg by mouth daily at bedtime. - QUEtiapine (SEROQUEL) 25 mg tablet Take 1 tablet by mouth daily at bedtime. - Ascorbic Acid 1,000 mg tablet Take 1,000 mg by mouth once daily. - MULTIVITAMIN ORAL Take 1 tablet by mouth once daily. - niacin (NIACIN) 500 mg tablet Take 500 mg by mouth daily with breakfast. - COQ10, UBIQUINOL, ORAL Take 1 tablet by mouth once daily. With Krill - cholecalciferol (VITAMIN D3) 5,000 unit tab Take 10,000 Units by mouth once daily. - glucosam/chond-msm1/C/janiya/bor (WSAOCCDCOFT-TOBQO-DDD COMPLEX ORAL) Take 1 tablet by mouth once daily. - MAGNESIUM ORAL Take 250 mg by mouth once daily. Problem List As Of Date 04/03/2022 Noted Resolved Discharge planning issues [Z02.9] 02/22/2022 Pre-op testing [Z01.818] 02/22/2022 HOCM (hypertrophic obstructive cardiomyopathy) *02/27/2022 CAD (coronary artery disease) [I25.10] 02/27/2022 On mechanically assisted ventilation (HCC) [Z99*02/27/2022 02/28/2022 Hypovolemia [E86.1] 02/27/2022 02/28/2022 Postoperative pain [G89.18] 02/27/2022 Stress hyperglycemia [R73.9] 02/27/2022 Atelectasis [J98.11] 02/28/2022 Hypervolemia [E87.70] 02/28/2022 03/01/2022 Encounter for support and coordination of trans*03/01/2022 Encounter Status:Closed by KATHERINE MONTERO on 04/03/22 [facility] 03-09-2022 Miscellaneous Notes 1. We are calling to check on how you are doing since our last phone call. Are you having any medical concerns we can help you with today? (Standard Question) No Pt stated no. Overall Comments: All clear. Closing statement given. PD nurse confirmed/verified patient's and full name. Michele Miguel RN documented in this encounter [facility] 03-08-2022 Note HNO ID: [id number] Author: Deana Hollins APRN.[employer] Service: ? Author Type: Nurse Practitioner Type: Progress Notes Filed: 03/09/2022 10:12 AM Note Text: [facility] Department of Cardiovascular Medicine DEPARTMENT OF CARDIAC SURGERY OUTPATIENT VISIT DATE March 08, 2022 OUTPATIENT VISIT TYPE POSTOPERATIVE Gino Osorio is a 61 year old male who presents who is here for post operative follow up HPI: S/P on 02/27/2022 [facility] Surgeon: Destin Charles MD Operations : Myectomy (4.5g) and CABG X 3 (SHIPMAN to LAD; YASHIRA to ramus; SVG to OM3) Surgical pathology:A. Ventricular septum, myectomy: -Mild myocyte disarray. See comment. Discharged on 03/03/2022 PAST MEDICAL HISTORY Diagnosis Date Coronary artery disease Hypertension Hypertrophic obstructive cardiomyopathy (HCC) Mitral valve regurgitation mild to moderate on 01/12/2022 echo PAST SURGICAL HISTORY Procedure Laterality Date HERNIA REPAIR HX REMOVAL GALLBLADDER ALLERGIES No Known Allergies Current Outpatient Medications Medication Sig atorvastatin (LIPITOR) 80 mg tablet Take 1 tablet by mouth daily at bedtime. metoprolol tartrate, short acting, (LOPRESSOR) 50 mg tablet Take 1 tablet by mouth every 12 hours. acetaminophen (TYLENOL) 500 mg tablet Take 1-2 tablets by mouth every 6 hours as needed for pain (mild pain. Do not take more than 4 grams of acetaminophen in 24 hours.). aspirin 81 mg chewable tablet Take 1 tablet by mouth once daily. furosemide (LASIX) 20 mg tablet Take 1 tablet by mouth once daily for 3 days. oxyCODONE IR (ROXICODONE) 5 mg immediate release tablet Take 1 tablet by mouth every 6 hours as needed for pain for up to [address] (PROTONIX) 20 mg tablet Take 1 tablet by mouth DAILY (6 AM) for 14 days. polyethylene glycol 3350 (MIRALAX, GLYCOLAX) 17 gram packet Take 1 Packet by mouth as needed for constipation. Dissolve dose in 4 - 8 ounces of liquid and take as directed. potassium chloride ER (K-DUR, KLOR-CON M10) 10 mEq tablet Take 1 tablet by mouth once daily for 3 days. tamsulosin (FLOMAX) 0.4 mg Take 1 capsule by mouth daily at bedtime for 14 days. melatonin 10 mg cap Take 1 capsule by mouth daily at bedtime. sertraline (ZOLOFT) 50 mg tablet Take 50 mg by mouth daily at bedtime. QUEtiapine (SEROQUEL) 25 mg tablet Take 1 tablet by mouth daily at bedtime. Ascorbic Acid 1,000 mg tablet Take 1,000 mg by mouth once daily. MULTIVITAMIN ORAL Take 1 tablet by mouth once daily. niacin (NIACIN) 500 mg tablet Take 500 mg by mouth daily with breakfast. COQ10, UBIQUINOL, ORAL Take 1 tablet by mouth once daily. With Krill cholecalciferol (VITAMIN D3) 5,000 unit tab Take 10,000 Units by mouth once daily. glucosam/chond-msm1/C/janiya/bor (LUYBWLFWRUL-MYTTM-PLZ COMPLEX ORAL) Take 1 tablet by mouth once daily. MAGNESIUM ORAL Take 250 mg by mouth once daily. No current facility-administered medications for this visit. Chief Complaints: I feel really good actually Discharge Post Operative Course: Pain scale :Yes chest wall and back. Well managed with tylenol Appetite: appetite good Activity: Walking ad delmis around the house Elimination: normal, no constipation , urination is normal Sleep: difficulty staying asleep Mood: normal and good Incisions/Wounds: healing Review of Systems: HEENT: Negative for fevers since discharge, chills, and Positive for temp variations and post nasal drip Cardiac: Denies significant problems, chest pain, Arrhythmia, and leg edema Respiratory: denies dyspnea, cough, orthopnea Musculoskeletal: No history of joint swelling, joint pain, or loss of range of motion. Neuro: Denies neurological complaints Physical Exam: BP 110/68 Pulse 87 Temp 37.1 ?C (98.7 ?F) (Oral) Ht 175.3 cm (5' 9 ) Wt 71.3 kg (157 lb 3.2 oz) SpO2 97% BMI 23.21 kg/m? Appearance: well groomed, white male, in no acute distress Neck: No neck vein distention Cardiac: regular S1, S2, No murmur, No rub Lungs: Clear breath sounds bilaterally with decreased air entry at the bases bilaterally Abdomen: soft, non tender, Normal bowel sounds Extremities: Edema: RLE 1+ Sternum: stable, no click Sternotomy site: healing, clean, dry and intact Wound: NA SV Bassett sites: Location: Right LE, mid and healing Procedures: N/A IMPRESSION AND PLAN: 1. 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 Ventricular septum, myectomy: -Mild myocyte disarray. See comment. Discharged on 03/03/2022 2. CAD - continue asa, bb and statin LABS: Component Latest Ref Rng AND Units 03/03/2022 03/08/2022 Alkaline Phosphatase 38 - 113 U/L 50 66 AST 14 - 40 U/L 21 22 ALT 10 - 54 U/L 67 (H) 36 Glucose 74 - 99 mg/dL 102 (H) 93 BUN 9 - 24 mg/dL 20 18 Creatinine 0.73 - 1.22 mg/dL 0.64 (L) 0.75 Sodium (more content not included)... [facility] 03-08-2022 Note HNO ID: [id number] Author: RT Get(R) Service: Radiology Author Type: Technologist Type: Progress Notes Filed: 03/08/2022 8:29 AM Note Text: Radiology Service Progress Note PATIENT NAME: Gino Osorio DATE OF SERVICE: March 08, 2022 TIME: 8:28 AM PATIENT IDENTITY VERIFICATION COMPLETED USING TWO (2) IDENTIFIERS: Name and Date of confirmed by patient verbally. FALL SCREENING: Has the patient had 2 falls in the last year or 1 fall with injury or currently using an Ambulatory Assistive Device (Walker, Cane, Wheelchair, Crutches, etc.)? No PATIENT GENDER DATA: Male PATIENT RELEVANT IMPLANT DATA REVIEWED: Not Applicable RADIOLOGY DEPARTMENT: General X-ray: Exam(s) Completed: Chest X-Ray PERIPHERAL IV DATA: Not applicable SIGNED BY: RT Get(R) March 08, 2022 8:28 AM [facility] 03-08-2022 History of Presen t illness Narrative Images from the original note were not included. [facility] Department of Cardiovascular Medicine DEPARTMENT OF CARDIAC SURGERY OUTPATIENT VISIT DATE March 08, 2022 OUTPATIENT VISIT TYPE POSTOPERATIVE Gino Osorio is a 61 year old male who presents who is here for post operative follow up HPI: S/P on 02/27/2022 [facility] Surgeon: Destin Charles MD Operations : Myectomy (4.5g) and CABG X 3 (SHIPMAN to LAD; YASHIRA to ramus; SVG to OM3) Surgical pathology:A. Ventricular septum, myectomy: -Mild myocyte disarray. See comment. Discharged on 03/03/2022 PAST MEDICAL HISTORY Diagnosis Date Coronary artery disease Hypertension Hypertrophic obstructive cardiomyopathy (HCC) Mitral valve regurgitation mild to moderate on 01/12/2022 echo PAST SURGICAL HISTORY Procedure Laterality Date HERNIA REPAIR HX REMOVAL GALLBLADDER ALLERGIES No Known Allergies Current Outpatient Medications Medication Sig atorvastatin (LIPITOR) 80 mg tablet Take 1 tablet by mouth daily at bedtime. metoprolol tartrate, short acting, (LOPRESSOR) 50 mg tablet Take 1 tablet by mouth every 12 hours. acetaminophen (TYLENOL) 500 mg tablet Take 1-2 tablets by mouth every 6 hours as needed for pain (mild pain. Do not take more than 4 grams of acetaminophen in 24 hours.). aspirin 81 mg chewable tablet Take 1 tablet by mouth once daily. furosemide (LASIX) 20 mg tablet Take 1 tablet by mouth once daily for 3 days. oxyCODONE IR (ROXICODONE) 5 mg immediate release tablet Take 1 tablet by mouth every 6 hours as needed for pain for up to [address] (PROTONIX) 20 mg tablet Take 1 tablet by mouth DAILY (6 AM) for 14 days. polyethylene glycol 3350 (MIRALAX, GLYCOLAX) 17 gram packet Take 1 Packet by mouth as needed for constipation. Dissolve dose in 4 - 8 ounces of liquid and take as directed. potassium chloride ER (K-DUR, KLOR-CON M10) 10 mEq tablet Take 1 tablet by mouth once daily for 3 days. tamsulosin (FLOMAX) 0.4 mg Take 1 capsule by mouth daily at bedtime for 14 days. melatonin 10 mg cap Take 1 capsule by mouth daily at bedtime. sertraline (ZOLOFT) 50 mg tablet Take 50 mg by mouth daily at bedtime. QUEtiapine (SEROQUEL) 25 mg tablet Take 1 tablet by mouth daily at bedtime. Ascorbic Acid 1,000 mg tablet Take 1,000 mg by mouth once daily. MULTIVITAMIN ORAL Take 1 tablet by mouth once daily. niacin (NIACIN) 500 mg tablet Take 500 mg by mouth daily with breakfast. COQ10, UBIQUINOL, ORAL Take 1 tablet by mouth once daily. With Krill cholecalciferol (VITAMIN D3) 5,000 unit tab Take 10,000 Units by mouth once daily. glucosam/chond-msm1/C/janiya/bor (MYCEAUKAGVK-HXWBN-BCL COMPLEX ORAL) Take 1 tablet by mouth once daily. MAGNESIUM ORAL Take 250 mg by mouth once daily. No current facility-administered medications for this visit. Chief Complaints: I feel really good actually Discharge Post Operative Course: Pain scale :Yes chest wall and back. Well managed with tylenol Appetite: appetite good Activity: Walking ad delmis around the house Elimination: normal, no constipation , urination is normal Sleep: difficulty staying asleep Mood: normal and good Incisions/Wounds: healing Review of Systems: HEENT: Negative for fevers since discharge, chills, and Positive for temp variations and post nasal drip Cardiac: Denies significant problems, chest pain, Arrhythmia, and leg edema Respiratory: denies dyspnea, cough, orthopnea Musculoskeletal: No history of joint swelling, joint pain, or loss of range of motion. Neuro: Denies neurological complaints Physical Exam: BP 110/68 Pulse 87 Temp 37.1 C (98.7 F) (Oral) Ht 175.3 cm (5' 9 ) Wt 71.3 kg (157 lb 3.2 oz) SpO2 97% BMI 23.21 kg/m Appearance: well groomed, white male, in no acute distress Neck: No neck vein distention Cardiac: regular S1, S2, No murmur, No rub Lungs: Clear breath sounds bilaterally with decreased air entry at the bases bilaterally Abdomen: soft, non tender, Normal bowel sounds Extremities: Edema: RLE 1+ Sternum: stable, no click Sternotomy site: healing, clean, dry and intact Wound: NA SV Bassett sites: Location: Right LE, mid and healing Procedures: N/A IMPRESSION & PLAN: 1. 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 Ventricular septum, myectomy: -Mild myocyte disarray. See comment. Discharged on 03/03/2022 2. CAD - continue asa, bb and statin LABS: Component Latest Ref Rng & Units 03/03/2022 03/08/2022 Alkaline Phosphatase 38 - 113 U/L 50 66 AST 14 - 40 U/L 21 22 ALT 10 - 54 U/L 67 (H) 36 Glucose 74 - 99 mg/dL 102 (H) 93 BUN 9 - 24 mg/dL 20 18 Creatinine 0.73 - 1.22 mg/dL 0.64 (L) 0.75 Sodium 136 - 144 mmol/L 141 138 Potassium 3.7 - 5.1 mmol/L 3.5 (L) 4.4 Component Latest Ref Rng & Units 03/03/2022 03/08/2022 WBC 3.70 - 11.00 k/uL 7.07 8.98 RBC 4.20 - 6.00 m/uL 3.25 (L) 3.67 (L) Hemoglobin 13.0 - 17.0 g/dL 9.4 (L) 10.9 (L) Hematocrit 39.0 - 51.0 % 28.6 (L) 32.5 (L) Platelet Count 150 - 400 k/uL 181 426 (H) 3. HOCM - s/p myectomy - surg path reviewed - post op Echo 03/02: EF 55%, trace MR, trace TR, no AR, no KIRSTIN - continue asa EC03/08/2022 Diagnosis: NORMAL SINUS RHYTHM POSSIBLE LEFT ATRIAL ENLARGEMENT COMPLETE LEFT BUNDLE BRANCH BLOCK ABNORMAL ECG 4. Atelectasis/FVO - post op small pneumo resolved. With small timo pleural effusions - weight: down 1lbs - continue another 3 days of diuretic therapy - encouraged to continue deep breathing exercises and walking CXR: RESULT: Lines, tubes, and devices: N/A Lungs and pleura: Small effusions and overlying opacity probably atelectasis and/or minimal inflammation improved from prior. No new consolidations. No pneumothorax. Cardiomediastinal silhouette: Cardiac silhouette within normal limits. Other: Mild degenerative changes of the thoracic spine. Summary: See above. Follow up with PCP next week with repeat cbc and cmp Follow up with passenger screener in 4-6 weeks. Call CTS OPD with any issues, concerns or worsening surgical symptoms. Post op care and discharge orders reviewed with the patient- all questions were answered. Surgical sites healing without complication Discussed new medications, dosage, route of administration and side effects Reviewed walking program at home Reviewed diet guidelines for recovery from surgery Return to the clinic prn with signs or symptoms of infection, fevers, SOB, or pleural effusion SBE prophylaxis reviewed Discussed wound care Deana Hollins APRN.CNP documented in this encounter [facility] 03-08-2022 History of Presen t illness Narrative Radiology Service Progress Note PATIENT NAME: Gino Osorio DATE OF SERVICE: March 08, 2022 TIME: 8:28 AM PATIENT IDENTITY VERIFICATION COMPLETED USING TWO (2) IDENTIFIERS: Name and Date of confirmed by patient verbally. FALL SCREENING: Has the patient had 2 falls in the last year or 1 fall with injury or currently using an Ambulatory Assistive Device (Walker, Cane, Wheelchair, Crutches, etc.)? No PATIENT GENDER DATA: Male PATIENT RELEVANT IMPLANT DATA REVIEWED: Not Applicable RADIOLOGY DEPARTMENT: General X-ray: Exam(s) Completed: Chest X-Ray PERIPHERAL IV DATA: Not applicable SIGNED BY: RT Get(R) March 08, 2022 8:28 AM documented in this encounter [facility] 03-05-2022 Miscellaneous Notes 1. Have you noticed any increased shortness of breath since you left the hospital? (HVI Red Flag Question) No 2. Have you noticed any increased swelling in your feet, ankles or belly? (Heart Failure Red Flag Question) No 3. Have you gained more than 2 - 3 pounds since discharge? (HVI Red Flag Question) No 4. Have you noticed any changes to your incision or wound since you were discharged as we want to be aware of any signs of infection? (HVI Red Flag Question) No 5. Are you having any increased pain since discharge? If Yes: What type of pain and where? (HVI Red Flag Question) No 6. Have you had any unplanned trips to the Emergency Department or Hospital since you were discharged? If yes: Why? (Heart Failure Red Flag Question) No 7. Do you have any questions about how to take your medications? (Standard Question) No 8. Have you filled your prescriptions [if no-why? If related to cost - Do you need to be connected to someone who can help you with the cost?] Reminder: Please bring in your medications at your follow up appointment. (HVI Red Flag Question) Yes 9. Do you have a doctor s appointment scheduled or is someone working on getting you a follow-up appointment? (Standard Question) Yes Overall Comments: All clear. Closing statement given. PD nurse confirmed/verified patient's and full name. Michele Miguel RN documented in this encounter [facility] 03-03-2022 Note HNO ID: [id number] Author: Megan Wilkinson APRN.BASIN CLEANER Service: Cardiac Surgery Author Type: Nurse Practitioner Type: Progress Notes Filed: 03/03/2022 10:56 AM Note Text: [facility] CTS POSTOP PROGRESS NOTE Day of Surgery:02/27/2022 S/P SURGERY: Myectomy (4.5g) and CABG X 3 (SHIPMAN to LAD; YASHIRA to ramus; SVG to OM3) INTERVAL EVENTS / PERTINENT ROS: Patient feels ready for discharge. -change and increase BB to bid dosing for home compliance DC home today with OPD next week. Medications and wound care reviewed with patient. Rhythm: NSR The following results were reviewed: EKG, TELE, CXR, and Echocardiogram PHYSICAL EXAM: BP 118/56 Pulse 88 Temp 36.9 ?C (98.4 ?F) (Oral) Resp 21 Ht 175.3 cm (5' 9 ) Wt 71.8 kg (158 lb 6.4 oz) SpO2 97% BMI 23.39 kg/m? Neuro: AANDO x 3 moves all extremities with no apparent weakness CV: no jugular venous distention Heart Exam: RRR without murmur, gallop, or rubs. No ectopy. Resp: clear to auscultation BUL and diminished breath sounds BLL Abd: The abdomen is soft, nontender, nondistended; BS normal; no masses or organomegaly noted. BM 03/03 Skin: Skin color, texture, turgor normal, no suspicious rashes or lesions Ext: 1+ edema Surgical incisions: clean, dry and intact Chest tube: no Pacer wires: no Intake/Output Summary (Last 24 hours) at 03/03/2022 1056 Last data filed at 03/03/2022 0900 Gross per 24 hour Intake 540 ml Output 1650 ml Net -1110 ml HISTORY, ASSESSMENT AND PLAN: Problem Encounter for Support and Coordination of Transition of Care Indication for Surgery: CAD and HOCM Preop LVEF: 64% RVF: Normal Postop LVEF: Normal RVF: Normal Cards: Josh Barrientos EKG: SB Important/Relevant PMH/PSH: HTN, anxiety Preoperative Hospital Course: N/A Airway Difficulty: Grade I - No special instrumentation Pacing Wires: No, V wires pulled 03/02 Chronological List of Surgeries and Major Events (Diagnosis): (Surgeries in bold characters) 02/27/2022: Myectomy (4.5g) and CABG X 3 (SHIPMAN to LAD; YASHIRA to ramus; SVG to OM3) A/P of Major Active Problems (excluding routine care and common problems): S/p CABG: ASA, BB. Statin started on dc as LFTs trending down. S/p Myectomy: Echo 03/02: EF 55%, trace MR, trace TR, no AR, no KIRSTIN Cards: change BB to bid dosing for home compliance and as HR allowed - lopressor 50mg bid (preop atenolol and losartan). Continue PO lasix x3 days on dc, at baseline weight on dc. Pulm: Known trace and small ptx. Continue to ambulate and encourage breathing exercise. Uro: Hx of BPH (is not on Flomax preop) - started Flomax prophylactic 03/01. Sanchez removed 03/02. Flomax x2 weeks on dc. Dispo: [place] . No skilled needs. OPD requested. Follow up locally with Cards. Discharge Planning: Anticipated Discharge Date: 03/03 Barriers to Discharge: No Barriers to Discharge Care Management Discharge Needs: Needs Prior to Discharge: None DAILY STEP DOWN CHECKLIST FOR CATHETER RELATED INFECTION PREVENTION CVC, PICC, Kiersten and/or Permacath present? No Does the patient have a urinary catheter beyond POD 2? No VTE Risk Assessment: Moderate risk VTE Mechanical and/or Pharmacologic Prophylaxis: IPC Device, GCS, and Subcutaneous Heparin Labs and medications reviewed in Epic Case discussed in depth with: CTS Dr. Huston and Dr. Charles SIGNATURE: Megan Wilkinson APRN.CNP PATIENT NAME: Gino Osorio DATE: March 03, 2022 TIME: 10:56 AM ETX#[id number] [facility] 03-02-2022 Note HNO ID: [id number] Author: Megan Wilkinson APRN.CNP Service: Cardiac Surgery Author Type: Nurse Practitioner Type: Procedures Filed: 03/02/2022 10:43 AM Note Text: Platelet Count 144 03/02/2022 Platelet Count 107 03/01/2022 Platelet Count 138 02/28/2022 Platelet Count 209 02/21/2022 INR 1.0 02/22/2022 rhythm normal sinus rhythm 2 ventricular wires were Pulled without difficulty Mr. Gino Osorio and bedside RN aware of 30 min bedrest restriction Megan Wilkinson APRN.CNP [facility] 03-02-2022 Note HNO ID: [id number] Author: Megan Wilkinson APRN.CNP Service: Cardiac Surgery Author Type: Nurse Practitioner Type: Progress Notes Filed: 03/02/2022 1:27 PM Note Text: [facility] CTS POSTOP PROGRESS NOTE Day of Surgery:02/27/2022 S/P SURGERY: Myectomy (4.5g) and CABG X 3 (SHIPMAN to LAD; YASHIRA to ramus; SVG to OM3) INTERVAL EVENTS / PERTINENT ROS: -increase BB to tid dosing for HR control -postop echo completed today -remove wires today Rhythm: NSR The following results were reviewed: EKG, TELE, CXR, and Echocardiogram PHYSICAL EXAM: BP 113/59 Pulse 81 Temp 37 ?C (98.6 ?F) (Oral) Resp 17 Ht 175.3 cm (5' 9 ) Wt 71.6 kg (157 lb 12.8 oz) SpO2 95% BMI 23.30 kg/m? Neuro: AANDO x 3 moves all extremities with no apparent weakness CV: no jugular venous distention Heart Exam: RRR without murmur, gallop, or rubs. No ectopy., temporary pacer wires intact Resp: clear to auscultation BUL and diminished breath sounds BLL Abd: The abdomen is soft, nontender, nondistended; BS normal; no masses or organomegaly noted. Skin: Skin color, texture, turgor normal, no suspicious rashes or lesions Ext: 1+ edema Surgical incisions: clean, dry and intact Chest tube: no Pacer wires: Yes, V wires removed 03/02 Intake/Output Summary (Last 24 hours) at 03/02/2022 1327 Last data filed at 03/02/2022 1100 Gross per 24 hour Intake -- Output 1600 ml Net -1600 ml HISTORY, ASSESSMENT AND PLAN: Problem Encounter for Support and Coordination of Transition of Care Indication for Surgery: CAD and HOCM Preop LVEF: 64% RVF: Normal Postop LVEF: Normal RVF: Normal Cards: Josh Barrientos EKG: SB Important/Relevant PMH/PSH: HTN, anxiety Preoperative Hospital Course: N/A Airway Difficulty: Grade I - No special instrumentation Pacing Wires: No, V wires pulled 03/02 Chronological List of Surgeries and Major Events (Diagnosis): (Surgeries in bold characters) 02/27/2022: Myectomy (4.5g) and CABG X 3 (SHIPMAN to LAD; YASHIRA to ramus; SVG to OM3) A/P of Major Active Problems (excluding routine care and common problems): S/p CABG: ASA, BB. Statin on hold for elevated LFTs but greatly improving - likely to start on discharge. S/p Myectomy: Echo 03/02: EF 55%, trace MR, trace TR, no AR, no KIRSTIN Cards: increase BB (preop atenolol and losartan). Continue IV lasix for FVO. Pulm: On RA, R ptx now trace. Continue to ambulate and encourage breathing exercise. Uro: Hx of BPH (is not on Flomax preop) - started Flomax prophylactic 03/01. Sanchez removed 03/02. Dispo: [place] . No skilled needs. OPD requested. Follow up locally with Cards. Discharge Planning: Anticipated Discharge Date: 03-03? Barriers to Discharge: Other: wires removed 03/02, ambulation Care Management Discharge Needs: Needs Prior to Discharge: None Atelectasis History: No chronic respiratory disease Assessment: CXR with postoperative atelectasis. Currently on RA Plan: OOB, PEP and wean O2 as tolerated. 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 Plan: Continue Tylenol and PRN oxycodone. Stress Hyperglycemia History: No PMH of DM Assessment: Perioperative insulin resistance and exacerbation of hyperglycemia. Plan: SSI for glycemic control Hocm (Hypertrophic Obstructive Cardiomyopathy) (Hcc) History: HOCM Assessment: 02/27/2022: Myectomy (4.5g) and CABG X 3 (SHIPMAN to LAD; YASHIRA to ramus; SVG to OM3) Plan: ASA / BB. Postop echo completed. Cad (Coronary Artery Disease) History: CAD Assessment: 02/27/2022: Myectomy (4.5g) and CABG X 3 (SHIPMAN to LAD; YASHIRA to ramus; SVG to OM3) Plan: CAD Core Measures: Aspirin: Yes Beta blockers: Yes Statins: Reassess as LFTs downtrend DAILY STEP DOWN CHECKLIST FOR CATHETER RELATED INFECTION PREVENTION CVC, PICC, Kiersten and/or Permacath present? No Does the patient have a urinary catheter beyond POD 2? No VTE Risk Assessment: High risk VTE Mechanical and/or Pharmacologic Prophylaxis: IPC Device, GCS, and Subcutaneous Heparin Labs and medications reviewed in Epic Case discussed in depth with: CTS Dr. Huston who discussed plan with Dr. Charles SIGNATURE: Megan Wilkinson APRN.CNP PATIENT NAME: Gino Osorio DATE: March 02, 2022 TIME: 1:26 PM ETX#[id number] [facility] 03-01-2022 Note HNO ID: [id number] Author: Megan Wilkinson APRN.CNP Service: Cardiac Surgery Author Type: Nurse Practitioner Type: Procedures Filed: 03/01/2022 12:06 PM Note Text: Remaining MS, L, and R pleural CTs - < 200 cc serosanguinous drainage out over past 24 hrs. No air leak or SQ emphysema. CXR on waterseal reviewed AND does not demonstrate significant pneumothorax (known small R ptx). CT removed - site closed with purse string sutures AND dressed with vasoline gauze. Patient tolerated procedure well. Repeat CXR ordered and review with CTS if needed Megan Wilkinson APRN.CNP [facility] 03-01-2022 Note HNO ID: [id number] Author: Megan Wilkinson APRN.BASIN CLEANER Service: Cardiac Surgery Author Type: Nurse Practitioner Type: Progress Notes Filed: 03/01/2022 4:05 PM Note Text: [facility] CTS POSTOP PROGRESS NOTE Day of Surgery:02/27/2022 S/P SURGERY: Myectomy (4.5g) and CABG X 3 (SHIPMAN to LAD; YASHIRA to ramus; SVG to OM3) INTERVAL EVENTS / PERTINENT ROS: Transferred to the [facility]. Patient expresses not sleeping well - continue home Seroquel 25mg and increase melatonin to home dose of 10mg -Albumin 25G given this AM for volume repletion -postop echo ordered -remove chest tubes, keep wires today as POD 2 Rhythm: NSR The following results were reviewed: EKG, TELE, CXR, and Echocardiogram PHYSICAL EXAM: BP 105/56 Pulse 85 Temp 36.8 ?C (98.3 ?F) (Oral) Resp 16 Ht 175.3 cm (5' 9 ) Wt 72.3 kg (159 lb 6.4 oz) SpO2 98% BMI 23.54 kg/m? Neuro: AANDO x 3 moves all extremities with no apparent weakness CV: no jugular venous distention Heart Exam: RRR without murmur, gallop, or rubs. No ectopy., temporary pacer wires intact Resp: clear to auscultation BUL and diminished breath sounds BLL Abd: The abdomen is soft, nontender, nondistended; BS normal; no masses or organomegaly noted. Skin: Skin color, texture, turgor normal, no suspicious rashes or lesions Ext: 1+ edema Surgical incisions: clean, dry and intact Chest tube: Yes: R pl and MS tubes removed today Pacer wires: Yes, V wires in place Intake/Output Summary (Last 24 hours) at 03/01/2022 1605 Last data filed at 03/01/2022 1343 Gross per 24 hour Intake 240 ml Output 1610 ml Net -1370 ml HISTORY, ASSESSMENT AND PLAN: Problem Encounter for Support and Coordination of Transition of Care Indication for Surgery: CAD and HOCM Preop LVEF: 64% RVF: Normal Postop LVEF: Normal RVF: Normal Cards: Josh Barrientos EKG: SB Important/Relevant PMH/PSH: HTN, anxiety Preoperative Hospital Course: N/A Airway Difficulty: Grade I - No special instrumentation Pacing Wires: Yes: Ventricular: When discontinuing pacing wires: Pull all pacing wires (V threshold 4mA) Chronological List of Surgeries and Major Events (Diagnosis): (Surgeries in bold characters) 02/27/2022: Myectomy (4.5g) and CABG X 3 (SHIPMAN to LAD; YASHIRA to ramus; SVG to OM3) A/P of Major Active Problems (excluding routine care and common problems): S/p CABG: ASA, BB. Statin on hold for elevated LFTs. S/p Myectomy: Postop echo ordered Cards: continue dose BB (preop atenolol and losartan). Continue IV lasix for FVO. Albumin 25G given for fluid resuscitation. Pulm: On 2L NC, continue to ambulate and encourage breathing exercise. Chest tube x3 removed 03/01, f/u CXR in AM (known small right apical ptx). Uro: Sanchez kept in place per pt request with hx of BPH (is not on Flomax preop) - started Flomax prophylactic. Dispo: [place] . Unlikely skilled needs. OPD requested. Follow up locally with Cards. Discharge Planning: Anticipated Discharge Date: 03-03? Barriers to Discharge: Other: echo, wires removed, ambulation Care Management Discharge Needs: Needs Prior to Discharge: None Atelectasis History: No chronic respiratory disease Assessment: CXR with postoperative atelectasis. Currently on 2L NC. Plan: OOB, PEP and wean O2 as tolerated. Hocm (Hypertrophic Obstructive Cardiomyopathy) (Hcc) History: HOCM Assessment: 02/27/2022: Myectomy (4.5g) and CABG X 3 (SHIPMAN to LAD; YASHIRA to ramus; SVG to OM3) Plan: ASA / BB. Postop echo ordered. Cad (Coronary Artery Disease) History: CAD Assessment: 02/27/2022: Myectomy (4.5g) and CABG X 3 (SHIPMAN to LAD; YASHIRA to ramus; SVG to OM3) Plan: CAD Core Measures: Aspirin: Yes Beta blockers: Yes Statins: Reassess as LFTs downtrend. DAILY STEP DOWN CHECKLIST FOR CATHETER RELATED INFECTION PREVENTION CVC, PICC, Kiersten and/or Permacath present? No Does the patient have a urinary catheter beyond POD 2? No VTE Risk Assessment: High risk VTE Mechanical and/or Pharmacologic Prophylaxis: IPC Device, GCS, and Subcutaneous Heparin Labs and medications reviewed in Epic Case discussed in depth with: CTS Dr. Huston who discussed plan with Dr. Charles SIGNATURE: Megan Wilkinson APRN.CNP PATIENT NAME: Gino Osorio DATE: March 01, 2022 TIME: 4:05 PM ETX#[id number] [facility] 02-28-2022 History of Past i llness Narrative Problem Noted Date Resolved Date Hypervolemia 02/28/2022 03/01/2022 Overview: History: Postoperative fluid shifts. Assessment: CXR with increased vascular markings. Plan: Gentle diuresis. On mechanically assisted ventilation 02/27/2022 02/28/2022 Overview: History: Postoperative Assessment: Grade I Airway Plan: Plan to wean to extubate as tolerated. Hypovolemia 02/27/2022 02/28/2022 Overview: Assessment: Postoperative fluid shifts. Plan: Providing IVF boluses PRN. documented as of this encounter (statuses as of 03/05/2022) [facility]04[facility] History of Past illness Narrative* Problem Noted Date Resolved Date Hypervolemia 02/28/2022 03/01/2022 Overview: History: Postoperative fluid shifts. Assessment: CXR with increased vascular markings. Plan: Gentle diuresis. On mechanically assisted ventilation 02/27/2022 02/28/2022 Overview: History: Postoperative Assessment: Grade I Airway Plan: Plan to wean to extubate as tolerated. Hypovolemia 02/27/2022 02/28/2022 Overview: Assessment: Postoperative fluid shifts. Plan: Providing IVF boluses PRN. documented as of this encounter (statuses as of 03/09/2022) [facility] History of Past illness Narrative* Problem Noted Date Resolved Date Hypervolemia 02/28/2022 03/01/2022 Overview: History: Postoperative fluid shifts. Assessment: CXR with increased vascular markings. Plan: Gentle diuresis. On mechanically assisted ventilation 02/27/2022 02/28/2022 Overview: History: Postoperative Assessment: Grade I Airway Plan: Plan to wean to extubate as tolerated. Hypovolemia 02/27/2022 02/28/2022 Overview: Assessment: Postoperative fluid shifts. Plan: Providing IVF boluses PRN. documented as of this encounter (statuses as of 03/09/2022) [facility] History of Past illness Narrative* Problem Noted Date Resolved Date Hypervolemia 02/28/2022 03/01/2022 Overview: History: Postoperative fluid shifts. Assessment: CXR with increased vascular markings. Plan: Gentle diuresis. On mechanically assisted ventilation 02/27/2022 02/28/2022 Overview: History: Postoperative Assessment: Grade I Airway Plan: Plan to wean to extubate as tolerated. Hypovolemia 02/27/2022 02/28/2022 Overview: Assessment: Postoperative fluid shifts. Plan: Providing IVF boluses PRN. documented as of this encounter (statuses as of 03/09/2022) [facility] History of Past illness Narrative* Problem Noted Date Resolved Date Hypervolemia 02/28/2022 03/01/2022 Overview: History: Postoperative fluid shifts. Assessment: CXR with increased vascular markings. Plan: Gentle diuresis. On mechanically assisted ventilation 02/27/2022 02/28/2022 Overview: History: Postoperative Assessment: Grade I Airway Plan: Plan to wean to extubate as tolerated. Hypovolemia 02/27/2022 02/28/2022 Overview: Assessment: Postoperative fluid shifts. Plan: Providing IVF boluses PRN. documented as of this encounter (statuses as of 04/04/2022) [facility] History of Past illness Narrative* Problem Noted Date Resolved Date Hypervolemia 02/28/2022 03/01/2022 Overview: History: Postoperative fluid shifts. Assessment: CXR with increased vascular markings. Plan: Gentle diuresis. On mechanically assisted ventilation 02/27/2022 02/28/2022 Overview: History: Postoperative Assessment: Grade I Airway Plan: Plan to wean to extubate as tolerated. Hypovolemia 02/27/2022 02/28/2022 Overview: Assessment: Postoperative fluid shifts. Plan: Providing IVF boluses PRN. documented as of this encounter (statuses as of 05/31/2022) [facility]23 NoteHNO ID: [id number] Author: Daphney Quintanilla RN Service: Care Management Author Type: Registered Nurse Type: Care Mgt Initial Assessment Filed: 02/28/2022 9:57 AM Note Text: CARE MANAGEMENT: ASSESSMENT AND DISCHARGE PLAN SERVICE DATE: February 28, 2022 SERVICE TIME: 9:56am PRIMARY CARE PHYSICIAN: Rudy Thomas MD, MD Primary Contact: No emergency contact information on file. ADMISSION STATUS: Inpatient Insurance Provider: [facility] SUPERMED PLUS NEEDS PRIOR TO DISCHARGE Needs Prior to Discharge: None POTENTIAL TRANSITION PLANS No Services Indicated;Home ADVANCE DIRECTIVES Current Advance Directive: Health Care Power of Attorney Lawyer In Chart: Yes Up To Date and Valid: Yes FREEDOM OF CHOICE EXPLAINED: [place] of Choice Given: No Reason Not Given: No placements necessary This patient has been screened for Care Management Transitional Planning Services. At this time, it does not appear this patient will require transition planning services. Should this change, and the patient require transition planning services during this admission, please contact Case Management. SIGNATURE: Daphney Quintanilla RN PATIENT NAME: Gino Osorio DATE: February 28, 2022 TIME: 9:56 AM CONTACT [id number] NoteHNO ID: [id number] Author: Brandi Rosen APRN.BASIN CLEANER Service: Critical Care Author Type: Nurse Practitioner Type: Progress Notes Filed: 02/28/2022 7:53 AM Note Text: [facility] Note Name: Gino Osorio Coordination of Care Note: Indication for Surgery: CAD and HOCM Preop LVEF: 64% RVF: Normal Postop LVEF: Normal RVF: Normal Important/Relevant PMH/PSH: HTN, anxiety Preoperative Hospital Course: N/A Airway Difficulty: Grade I - No special instrumentation Pacing Wires: Yes: Ventricular: When discontinuing pacing wires: Pull all pacing wires (V threshold 4mA) Chronological List of Surgeries and Major Events (Diagnosis): (Surgeries in bold characters) 02/27/2022: Myectomy (4.5g) and CABG X 3 (SHIPMAN to LAD; YASHIRA to ramus; SVG to OM3) A/P of Major Active Problems (excluding routine care and common problems): Cardiac Hypervolemia - Gentle diuresis. To Do or to Watch: Maintain CT for increased drainage / small right apical pneumothorax. Discharge Planning: Anticipated Discharge Date: Unknown Barriers to Discharge: Unknown Care Management Discharge Needs: Other Problems I Reviewed and/or Managed During This Encounter: Problem Hocm (Hypertrophic Obstructive Cardiomyopathy) (Hcc) History: HOCM Assessment: 02/27/2022: Myectomy (4.5g) and CABG X 3 (SHIPMAN to LAD; YASHIRA to ramus; SVG to OM3) Plan: ASA / BB Cad (Coronary Artery Disease) History: CAD Assessment: 02/27/2022: Myectomy (4.5g) and CABG X 3 (SHIPMAN to LAD; YASHIRA to ramus; SVG to OM3) Plan: CAD Core Measures: Aspirin: Yes Beta blockers: Yes Statins: Reassess for Best Practices prior to hospital discharge. Atelectasis History: No chronic respiratory disease Assessment: CXR with postoperative atelectasis. Currently on 3L NC. Plan: OOB, PEP and wean O2 as tolerated. 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 Plan: Continue Fentanyl DISTRICT ADMINISTRATIVE ASSISTANT, Tylenol and PRN oxycodone. Stress Hyperglycemia History: No PMH of DM Assessment: Perioperative insulin resistance and exacerbation of hyperglycemia. Plan: SSI for glycemic control. Hypervolemia History: Postoperative fluid shifts. Assessment: CXR with increased vascular markings. Plan: Gentle diuresis. PHYSICAL EXAM: Neuro: Awake, Follows commands, Alert and oriented x 3, and SIMENTAL Cardiovascular: Rhythm: regular rate and rhythm and Rate:normal sinus rhythm Pulmonary: Clear to auscultation and Breath sounds equal Ventilator: N/A, patient is extubated CXR Findings: Atelectasis Bilateral, Increased Vascular Markings Bilateral, and CXR personally viewed and interpreted by ICU staff Nurse Practitioner Gastrointestinal: Abdominal: Soft, Non-tender, and Bowel sounds yes DAILY CVICU CHECKLIST VTE Prophylaxis: Pharmacologic Yes VTE Prophylaxis: Mechanical: Yes Line infection prevention: Can CVC, PAC or arterial line be removed: No Continued need for urinary catheter: Yes - clinical indication: Patient post major surgery requiring fluid balance and input and output measurement. Restraints needed: No SIGNATURE: Brandi Rosen APRN.CNP DATE of SERVICE: 02/28/2022 TIME of SERVICE: 7:48 [facility]01-03-2023 NoteHNO ID: [id number] Author: Brandi Rosen APRN.JANINE Service: Critical Care Author Type: Nurse Practitioner Type: Progress Notes Filed: 02/27/2022 6:12 PM Note Text: [facility] Admission Note Name: Gino Osorio Principal Diagnosis: HOCM (hypertrophic obstructive cardiomyopathy) (HCC) Indication for Surgery: CAD and HOCM Preop LVEF: 64% RVF: Normal Postop LVEF: Normal RVF: Normal Important/Relevant PMH/PSH: HTN, anxiety Preoperative Hospital Course: N/A Airway Difficulty: Grade I - No special instrumentation Pacing Wires: Yes: Ventricular: When discontinuing pacing wires: Pull all pacing wires (V threshold 4mA) Chronological List of Surgeries and Major Events (Diagnosis): (Surgeries in bold characters) 02/27/2022: Myectomy (4.5g) and CABG X 3 (SHIPMAN to LAD; YASHIRA to ramus; SVG to OM3) A/P of Major Active Problems (excluding routine care and common problems): Cardiac Hypovolemia - Fluid resuscitation as needed. Respiratory Mechanical Ventilation - Plan to wean to extubate. To Do or to Watch: WTE Discharge Planning: Anticipated Discharge Date: Unknown Barriers to Discharge: Unknown Care Management Discharge Needs: Additional Hospital Problems Problem Hocm (Hypertrophic Obstructive Cardiomyopathy) (Hcc) History: HOCM Assessment: 02/27/2022: Myectomy (4.5g) and CABG X 3 (SHIPMAN to LAD; YASHIRA to ramus; SVG to OM3) Plan: ASA Cad (Coronary Artery Disease) History: CAD Assessment: 02/27/2022: Myectomy (4.5g) and CABG X 3 (SHIPMAN to LAD; YASHIRA to ramus; SVG to OM3) Plan: CAD Core Measures: Aspirin: Yes Beta blockers: Yes Statins: Reassess for Best Practices prior to hospital discharge On Mechanically Assisted Ventilation (Hcc) History: Postoperative Assessment: Grade I Airway Plan: Plan to wean to extubate as tolerated. Postoperative Pain History: No chronic pain regimen DISTRICT ADMINISTRATIVE ASSISTANT Assessment: Postoperative pain. Plan: Providing PRN Fentanyl while intubated. Will start Fentanyl DISTRICT ADMINISTRATIVE ASSISTANT once extubated. Stress Hyperglycemia History: No PMH of DM Assessment: Perioperative insulin resistance and exacerbation of hyperglycemia. Plan: Currently on RHI per CVICU protocol. Hypovolemia Assessment: Postoperative fluid shifts. Plan: Providing IVF boluses PRN. Infusions: Propofol CVICU Admission ECG: Reviewed CVICU Admission CXR: PENDING - TO BE REVIEWED BY NIGHT KETTLE FIRER Neuro: Sedation . Cardiovascular: Rhythm: regular rate and rhythm and Rate:normal sinus rhythm MAP: 76 mmHg Pacemaker : Temporary Epicardial - Pacing Mode: OFF ICD: No Peripheral pulses present: All present Pulmonary: Clear to auscultation and Breath sounds equal Ventilator: Intubated Potential prolonged intubation : No Abdominal: Soft, Non-tender, and Bowel sounds no Continued need for urinary catheter: Yes - clinical indication: Patient post major surgery requiring fluid balance and input and output measurement. DAY OF SURGERY PLAN: Standard Protocol, intubated patient: Cardiovascular monitoring, stabilization of blood pressure and cardiac function, wean to extubate when ready per protocol. Pain control, glycemic control, DVT prophylaxis, antibiotic prophylaxis. SIGNATURE: Brandi Rosen APRN.CNP DATE of SERVICE: 02/27/2022 TIME of SERVICE: 5:57 [facility]23 NoteHNO ID: [id number] Author: Danii Saldaña APRN.CRNA Service: ? Author Type: Nurse Hand Sample Maker Type: Anesthesia Procedure Notes Filed: 02/27/2022 12:05 PM Note Text: ANESTHESIOLOGY PROCEDURE NOTE Airway General Information Procedure Start Time/Medication Administration: 02/27/2022 11:19 AM Patient location during procedure: OR Staffing SLEEPING CAR SERVICE ATTENDANT: Danii Saldaña APRN.SLEEPING CAR SERVICE ATTENDANT Performed by: ANTONIA Indications and Patient Condition Indications for airway management: anesthesia Preoxygenated: yes anesthesia circuit Patient position: sniffing Method: asleep Difficult Mask: No Final Airway Details Final airway type: endotracheal airway Final Endotracheal Airway: ETT Cuffed: yes Successful intubation technique: direct laryngoscopy Endotracheal tube insertion site: oral Blade: Conrado Blade size: #4 ETT size (mm): 8.0 Measured from: lips Measurement (cm): 22 Placement verified by: capnometry Cormack-Lehane Classification: grade I - full view of glottis Number of attempts at approach: 1 Airway not difficult SIGNATURE: Danii Saldaña APRN.CRNA PATIENT NAME: Gino Osorio DATE: February 27, 2022 TIME: 12:04 PM CSN: [id number]01-03-2023 NoteHNO ID: [id number] Author: Danii Saldaña APRN.SLEEPING CAR SERVICE ATTENDANT Service: ? Author Type: Nurse Hand Sample Maker Type: Anesthesia Procedure Notes Filed: 02/27/2022 12:04 PM Note Text: ANESTHESIOLOGY PROCEDURE NOTE CVL General Information Procedure Start Time/Medication Administration: 02/27/2022 11:32 AM Patient location during procedure: OR Indication: central venous access and CVP monitoring Staffing SLEEPING CAR SERVICE ATTENDANT: Danii Saldaña APRN.SLEEPING CAR SERVICE ATTENDANT Performed by: ANTONIA Preparation Sterility Preparation: hand hygiene performed prior to procedure, sterile gloves, drapes, and procedure tray, gown used during line insertion, mask used, sterile drape used during line insertion Site Prep: Chlorhexidine Procedure Details Patient Position: Trendelenburg Laterality: Right Site: Internal jugular Catheter Type: Introducer Catheter Size: 9 Fr Number of Lumens: Single lumen Ultrasound Guided: Yes Image in Chart: Yes Sites: potential access sites evaluated, selected vessel patent, concurrent real time ultrasound visualization of vascular needle entry Vessel: target vessel identified and guidewire advanced into vessel Needle advanced into vein and blood aspirated: Yes Transduced prior to dilation: Yes Number of Attempts: 1 Number of Guidewires Used: 1 Number of Guidewires Removed Intact: 1 Post Insertion Ports and Catheter: all ports aspirate easily, all ports flush easily and ports flushed with saline Catheter Secured: suture(s) and central line dressing applied Events Events: patient tolerated procedure well with no complications SIGNATURE: Danii Saldaña APRN.CRNA PATIENT NAME: Gino Osorio DATE: February 27, 2022 TIME: 12:03 PM CSN: [id number] [facility]01-03-2023 NoteHNO ID: [id number] Author: Danii Saldaña APRN.CRNA Service: ? Author Type: Nurse Hand Sample Maker Type: Anesthesia Procedure Notes Filed: 02/27/2022 12:02 PM Note Text: ANESTHESIOLOGY PROCEDURE NOTE A-Line General Information Procedure Start Time/Medication Administration: 02/27/2022 11:12 AM Patient location during procedure: OR Indications: continuous blood pressure monitoring Staffing SLEEPING CAR SERVICE ATTENDANT: Danii Saldaña APRN.SLEEPING CAR SERVICE ATTENDANT Performed by: ANTONIA Preparation Sterility Preparation: hand hygiene performed prior to procedure, sterile gloves, drapes, and procedure tray, surgical cap used, mask used, sterile drape used during line insertion Site Prep: chlorhexidine Procedure Details Catheter Type: arterial line Catheter Size: 20 G Catheter Length: 5.25 in Guidewire Used: Yes Guidewire Removed Intact: Yes Laterality: right Site: brachial artery Ultrasound Guided: No Line Secured: occlusive biodressing Events Events: patient tolerated procedure well with no complications SIGNATURE: Danii Saldaña APRN.CRNA PATIENT NAME: Gino Osorio DATE: February 27, 2022 TIME: 12:02 PM CSN: [id number] Health [facility]01-03-2023 History of Past illness Narrative* Problem Noted Date Resolved Date On mechanically assisted ventilation 02/27/2022 02/28/2022 Overview: History: Postoperative Assessment: Grade I Airway Plan: Plan to wean to extubate as tolerated. Hypovolemia 02/27/2022 02/28/2022 Overview: Assessment: Postoperative fluid shifts. Plan: Providing IVF boluses PRN. documented as of this encounter (statuses as of 03/01/2022) [facility]01-03-2023 NoteHNO ID: [id number] Author: Destin Charles MD Service: ? Author Type: Physician Type: Progress Notes Filed: 02/27/2022 8:31 AM Note Text: Thoracic and Cardiovascular Surgery [facility] SURGICAL CONSULT AND INFORMED CONSENT CHART COPY DO NOT DISCARD Patient Type: New Visit to determine Surgery: Yes PCP: Rudy Thomas MD [address] [place] [address] Referring Physician:: No referring provider defined for this encounter. HPI: Mr. Gino Osorio is a 61 year old male seen in consultation at the request of for an opinion regarding treatment options for Coronary Artery Disease and Hypertrophic Obstructive Cardiomyopathy after being seen and evaluated by Thierno Barrientos M.D. . He is currently symptomatic and complains of shortness of breath, dyspnea on exertion, and palpitation. Comorbidities include HTN. I have personally reviewed his cardiac catheterization which shows left main stenosis and ramus stenosis. Echocardiogram/CT scan : reveals normal ventricular function and severe left ventricular outflow tract obstruction with gradients over 100 mm Hg. Acute lvot angle with mild aortic enlargment Labs: wnl EKG: SB Atrial Fibrillation History:None Impression: CAD with symptoms- likely related to the left ventricular outflow tract obstruction Plan: myectomy and coronary artery bypass grafting. left internal thoracic artery to the left anterior decending coronary artery, right internal thoracic artery to the circumflex coronary artery and saphanous vein graft to the ramus I spent more than 50% of the visit face to face counseling the patient on the plan and treatment options. The time spent counseling was 40 minutes. The total time of the face to face visit was 40 minutes. The risks, benefits and anticipated outcomes of the procedure, the risks and benefits of the alternatives to the procedure, and the roles and tasks of the personnel to be involved, were discussed with the patient, and the patient consents to the procedure and agrees to proceed. These findings will be communicated back to the requesting physician via electronic medical record Destin Charles, [facility]01-03-2023 History of Present illness Narrative* Destin Charles MD - 02/27/2022 7:39 AM EST Images from the original note were not included. Thoracic and Cardiovascular Surgery [facility] SURGICAL CONSULT AND INFORMED CONSENT CHART COPY DO NOT DISCARD Patient Type: New Visit to determine Surgery: Yes PCP: Rudy Thomas MD [address] [place] [address] Referring Physician:: No referring provider defined for this encounter. HPI: Mr. Gino Osorio is a 61 year old male seen in consultation at the request of for an opinion regarding treatment options for Coronary Artery Disease and Hypertrophic Obstructive Cardiomyopathy after being seen and evaluated by Thierno Barrientos M.D. . He is currently symptomatic and complains of shortness of breath, dyspnea on exertion, and palpitation. Comorbidities include HTN. I have personally reviewed his cardiac catheterization which shows left main stenosis and ramus stenosis. Echocardiogram/CT scan : reveals normal ventricular function and severe left ventricular outflow tract obstruction with gradients over 100 mm Hg. Acute lvot angle with mild aortic enlargment Labs: wnl EKG: SB Atrial Fibrillation History:None Impression: CAD with symptoms- likely related to the left ventricular outflow tract obstruction Plan: myectomy and coronary artery bypass grafting. left internal thoracic artery to the left anterior decending coronary artery, right internal thoracic artery to the circumflex coronary artery and saphanous vein graft to the ramus I spent more than 50% of the visit face to face counseling the patient on the plan and treatment options. The time spent counseling was 40 minutes. The total time of the face to face visit was 40 minutes. The risks, benefits and anticipated outcomes of the procedure, the risks and benefits of the alternatives to the procedure, and the roles and tasks of the personnel to be involved, were discussed with the patient, and the patient consents to the procedure and agrees to proceed. These findings will be communicated back to the requesting physician via electronic medical record Destin Charles MD [facility] NoteEducation (CARTMN) GINO OSORIO ([id number]) 1960 M Date Time Provider Department 02/22/22 DESTIN CHARLES Reason for Visit: Patient Education [91] During your visit today, we recorded the following information about you: Allergies As of Date: 02/22/2022 (No Known Allergies) Date Reviewed: 02/22/2022 Reviewed by: Marcus Tavarez RN - Fully Assessed Prescriptions as of 02/22/2022 - melatonin 10 mg cap Take 1 capsule by mouth daily at bedtime. - sertraline (ZOLOFT) 50 mg tablet Take 50 mg by mouth daily at bedtime. - QUEtiapine (SEROQUEL) 25 mg tablet Take 1 tablet by mouth daily at bedtime. - losartan (COZAAR) 100 mg tablet Take 1 tablet by mouth once daily. - atenolol (TENORMIN) 25 mg tablet Take 25 mg by mouth once daily. - Ascorbic Acid 1,000 mg tablet Take 1,000 mg by mouth once daily. - MULTIVITAMIN ORAL Take 1 tablet by mouth once daily. - niacin (NIACIN) 500 mg tablet Take 500 mg by mouth daily with breakfast. - COQ10, UBIQUINOL, ORAL Take 1 tablet by mouth once daily. With Krill - cholecalciferol (VITAMIN D3) 5,000 unit tab Take 10,000 Units by mouth once daily. - glucosam/chond-msm1/C/janiya/bor ([id number]-RGA COMPLEX ORAL) Take 1 tablet by mouth once daily. - MAGNESIUM ORAL Take 250 mg by mouth once daily. Encounter Status:Closed by MARCUS TAVAREZ on 02/22/22[facility] 02-22-2022 NoteHNO ID: [id number] Author: Andrew Arizmendi MD Service: ? Author Type: Fellow Type: Progress Notes Filed: 02/22/2022 11:59 AM Note Text: Cardiothoracic Anesthesiology Preoperative Assessment Service Date: 02/22/2022 Service Time: 10:04 AM Primary Care Physician: Rudy Thomas MD, MD Subjective Scheduled procedure: Ventricular myomectomy +CABG+/-MVr Surgeon: Destin Charles HPI: 61 yo male presents for preop evaluation of his upcoming surgery. His PMHx is significant for dynamic LVOT obstructions, significant left main disease and mild MR. He is symptomatic and progressively getting worse in the last few months. Other pMHx includes HTN (Atenolol/Losartan), anxiety disorder (on Sertraline) Review blood transfusion consented - COVID-19 Immunization Status Overdue - COVID-19 VACCINE (1) Overdue - never done No completion, postpone, frequency change, or communication history exists for this topic. The patient has the following: ACTIVE PROBLEM LIST Discharge Planning Issues Pre-Op Testing PAST MEDICAL HISTORY Diagnosis Date Coronary artery disease Hypertension Hypertrophic obstructive cardiomyopathy (HCC) Mitral valve regurgitation mild to moderate on 01/12/2022 echo PAST SURGICAL HISTORY Procedure Laterality Date HERNIA REPAIR HX REMOVAL GALLBLADDER FAMILY HISTORY Problem Relation Age of Onset Coronary Artery Disease Mother s/p stenting Heart Mother HCM Hypertension Father Hyperlipidemia Father Aneurysm Father Brain- Fatal Heart Sister HCM s/p PPM No Known Problems Brother No Known Problems Maternal Grandmother No Known Problems Maternal Grandfather No Known Problems Paternal Grandmother No Known Problems Paternal Grandfather Arrhythmia Son No Known Problems Son Social History Tobacco Use Smoking status: Never Smokeless tobacco: Never Substance Use Topics Alcohol use: Not Currently Drug use: Never Prior to Admission medications as of 02/22/22 0858 Medication Sig Last Dose Taking melatonin 10 mg cap Take 1 capsule by mouth daily at bedtime. sertraline (ZOLOFT) 50 mg tablet Take 50 mg by mouth daily at bedtime. QUEtiapine (SEROQUEL) 25 mg tablet Take 1 tablet by mouth daily at bedtime. losartan (COZAAR) 100 mg tablet Take 1 tablet by mouth once daily. atenolol (TENORMIN) 25 mg tablet Take 25 mg by mouth once daily. Ascorbic Acid 1,000 mg tablet Take 1,000 mg by mouth once daily. MULTIVITAMIN ORAL Take 1 tablet by mouth once daily. niacin (NIACIN) 500 mg tablet Take 500 mg by mouth daily with breakfast. COQ10, UBIQUINOL, ORAL Take 1 tablet by mouth once daily. With Krill cholecalciferol (VITAMIN D3) 5,000 unit tab Take 10,000 Units by mouth once daily. glucosam/chond-msm1/C/janiya/bor (OGGUMYKJGDY-TCULW-VCV COMPLEX ORAL) Take 1 tablet by mouth once daily. MAGNESIUM ORAL Take 250 mg by mouth once daily. No medication comments found. ALLERGIES No Known Allergies Objective Pain Assessment: Vitals: There were no vitals taken for this visit. Diagnostic tests reviewed for today's visit: Lab Value Units Date High Low HB 15.5 g/dL 02/21/2022 17.0 13.0 HCT 47.1 % 02/21/2022 51.0 39.0 WBC 6.02 k/uL 02/21/2022 11.00 3.70 PLT 209 k/uL 02/21/2022 400 150 NA 143 mmol/L 02/21/2022 144 136 K 4.4 mmol/L 02/21/2022 5.1 3.7 GLUC 106 mg/dL 02/21/2022 99 74 BUN 20 mg/dL 02/21/2022 24 9 CREAT 0.88 mg/dL 02/21/2022 1.22 0.73 PTSEC No results within date range. INR No results within date range. APTT No results within date range. ALT 26 U/L 02/21/2022 54 10 AST 24 U/L 02/21/2022 40 14 TBILI 0.5 mg/dL 02/21/2022 1.3 0.2 TSH No results within date range. Lab Value Units Date High Low HCGQT No results within date range. UHCG No results within date range. HCG, BODY* No results within date range. Lab Value Units Date High Low ABORHD No results within date range. ABSCREEN No results within date range. No results found for: HBA1C Recent Results (from the past 8760 hour(s)) ECHO Collection Time: 02/21/22 9:45 AM Impression CONCLUSIONS: - Exam indication: HOCM, CAD - The left ventricle is normal in size. There is asymmetric left ventricular hypertrophy. Left ventricular systolic function is normal. EF = 64 ? 5% (2D biplane) Grade I left ventricular diastolic dysfunction. - The right ventricle is normal in size. Right ventricular systolic function is normal. - The left atrial cavity is mildly dilated. -At rest, LVOT gradient of 27 mmHg, 1+ MR, mild KIRSTIN at 55 bpm. -With Valsalva, LVOT gradient of 92 mmHg, significant increase in MR to at least 2+, severe KIRSTIN with septal contact is present at 59 bpm. - The patient has not had a prior CC echocardiographic exam for comparison. * * * Final * * * CT CHEST CARDIAC WO IVCON Collection Time: 02/21/22 9:07 AM Impression IMPRESSION: AORTIC VALVE: Asses (more content not included)...[facility]12-29-2022 NoteHNO ID: [id number] Author: Marcus Tavarez RN Service: ? Author Type: Registered Nurse Type: Progress Notes Filed: 02/22/2022 9:36 AM Note Text: AMBULATORY PATIENT EDUCATION READINESS TO LEARN Cognitive Ability: Alert and oriented Motivation To Learn: Interested Family Support: High - Very involved in pt care Instruction Provided To: Patient AND Family Patient Learns Best By: Multiple Methods Factors Affecting Learning: None Physical Limitations Affecting Learning: None LEARNING RESPONSE Diagnosis: cad Education Topic: Pre-Op Open Heart Surgery Instructions Disease Process Teaching Points: Logistics / Protocols /Complication Prevention Instruction/Supplemental Materials: Cardiac Surgery Information Binder Individual Instruction Patient/Family Response: Well prepared Follow up plan: Patient/Family to call [facility] with any further questions Referral (Recommendation): None Teach completed, topic: pt instructed where to check [facility]12-29-2022 NoteHNO ID: [id number] Author: Marcus Tavarez RN Service: ? Author Type: Registered Nurse Type: Progress Notes Filed: 02/22/2022 3:23 PM Note Text: CHART COPY-DO NOT DISCARD CARDIOVASCULAR SURGERY PRE-OPERATIVE ASSESSMENT NAME: Gino Osorio Alert Notes: DATE: 02/22/2022 SEX: male : 1960 AGE: [age] year old Estimated body mass index is 23.63 kg/m? as calculated from the following: Height as of 02/21/22: 175.3 cm (5' 9 ). Weight as of 02/21/22: 72.6 kg (160 lb). STS Score No data recorded No data recorded Patient scheduled for surgery on: No data recorded [facility] MD: Dr Betsy Charles REDO: No CHIEF COMPLAINT: Pre-Op Open Heart Surgery MEDICATIONS: Current Outpatient Medications Medication Sig melatonin 10 mg cap Take 1 capsule by mouth daily at bedtime. sertraline (ZOLOFT) 50 mg tablet Take 50 mg by mouth daily at bedtime. QUEtiapine (SEROQUEL) 25 mg tablet Take 1 tablet by mouth daily at bedtime. losartan (COZAAR) 100 mg tablet Take 1 tablet by mouth once daily. atenolol (TENORMIN) 25 mg tablet Take 25 mg by mouth once daily. Ascorbic Acid (VITAMIN C) 1,000 mg tablet Take 1,000 mg by mouth once daily. MULTIVITAMIN ORAL Take 1 tablet by mouth once daily. niacin (NIACIN) 500 mg tablet Take 500 mg by mouth daily with breakfast. COQ10, UBIQUINOL, ORAL Take 1 tablet by mouth once daily. With Krill cholecalciferol (VITAMIN D-3) 5,000 unit tab Take 10,000 Units by mouth once daily. glucosam/chond-msm1/C/janiya/bor (FQWOHJHHFBD-KXTRS-VCE COMPLEX ORAL) Take 1 tablet by mouth once daily. MAGNESIUM ORAL Take 250 mg by mouth once daily. No current facility-administered medications for this visit. ALLERGIES: ALLERGIES No Known Allergies LATEX ALLERGY: No FOOD SENSITIVITIES: No ANTICOAGULANTS: none STEROIDS: No HISTORIES: FAMILY HISTORY Problem Relation Age of Onset Coronary Artery Disease Mother s/p stenting Heart Mother HCM Hypertension Father Hyperlipidemia Father Aneurysm Father Brain- Fatal Heart Sister HCM s/p PPM No Known Problems Brother No Known Problems Maternal Grandmother No Known Problems Maternal Grandfather No Known Problems Paternal Grandmother No Known Problems Paternal Grandfather Arrhythmia Son No Known Problems Son PAST MEDICAL HISTORY Diagnosis Date Coronary artery disease Hypertension Hypertrophic obstructive cardiomyopathy (HCC) Mitral valve regurgitation mild to moderate on 01/12/2022 echo PAST SURGICAL HISTORY Procedure Laterality Date HERNIA REPAIR HX REMOVAL GALLBLADDER Social History Tobacco Use Smoking status: Never Smokeless tobacco: Never Substance Use Topics Alcohol use: Not Currently Drug use: Never REVIEW OF SYSTEMS: GEN: Fatigue HEENT: Denies Complaints no dental needed pt added on last minute DERM: Denies Dermatological Complai, Dizziness RESP: SOB CARD: Angina , HTN , CAD , hocm GI: right ing herrnia : Denies complaints ENDO: Denies Endocrine Complaints HEME: Denies Hematological complaints MUSC/SKEL: No Musc/Skel Complaints PVD: Denies PVD Varicose Veins: No BRUITS (Carotid): see cards notre PULSES: Pedal Left 2 Right 2 NYHA CLASSIFICATION: Class 2 FAMILY HISTORY OF CAD: Yes mother sister ? PERFUSION INDEX: DOMINANT HAND: left-handed Pacer Check: NA CARDIAC EVALUATION: Cardiac Cath: Date - get images Ultrasound: Date - PFT: Date - ECHO: Last ECHO Result Conclusion ECHO Collected: 02/21/2022 9:45 AM (Final result) Impression: CONCLUSIONS: - Exam indication: HOCM, CAD - The left ventricle is normal in size. There is asymmetric left ventricular hypertrophy. Left ventricular systolic function is normal. EF = 64 ? 5% (2D biplane) Grade I left ventricular diastolic dysfunction. - The right ventricle is normal in size. Right ventricular systolic function is normal. - The left atrial cavity is mildly dilated. -At rest, LVOT gradient of 27 mmHg, 1+ MR, mild KIRSTIN at 55 bpm. -With Valsalva, LVOT gradient of 92 mmHg, significant increase in MR to at least 2+, severe KIRSTIN with septal contact is present at 59 bpm. - The patient has not had a prior CC echocardiographic exam for comparison. * * * Final * * * CT Scan: Last CT Result Conclusion CT CHEST CARDIAC WO IVCON Exam End: 02/21/2022 9:07 AM (Final result) Impression: IMPRESSION: AORTIC VALVE: Assessment is limited in the current study; no leaflet calcification AORTIC ROOT: upper normal size; Diameter: 3.7 x 3.6 cm ASCENDING THORACIC AORTA: normal size; Diameter: 3.2 cm CORONARY ANATOMY: Calcified atherosclerotic changes including LM, proximal LAD, LCX, RCA, precluding precise assessment with CT - [place] MATT and RAJNI are normal size vessels without evidence of calcified atherosclerotic changes Fruit Farmer: KALYANI Transcribe Date/Time: Feb 21 2022 9:12A Dictated (more content not included)...[facility] Health12-29-2022 History of Present illness Narrative* Andrew Arizmendi MD - 02/22/2022 10:04 AM EST Cardiothoracic Anesthesiology Preoperative Assessment Service Date: 02/22/2022 Service Time: 10:04 AM Primary Care Physician: Rudy Thomas MD, MD Subjective Scheduled procedure: Ventricular myomectomy +CABG+/-MVr Surgeon: Destin Charles HPI: 61 yo male presents for preop evaluation of his upcoming surgery. His PMHx is significant for dynamic LVOT obstructions, significant left main disease and mild MR. He is symptomatic and progressively getting worse in the last few months. Other pMHx includes HTN (Atenolol/Losartan), anxiety disorder (on Sertraline) Review blood transfusion consented - COVID-19 Immunization Status Overdue - COVID-19 VACCINE (1) Overdue - never done No completion, postpone, frequency change, or communication history exists for this topic. The patient has the following: ACTIVE PROBLEM LIST Discharge Planning Issues Pre-Op Testing PAST MEDICAL HISTORY Diagnosis Date Coronary artery disease Hypertension Hypertrophic obstructive cardiomyopathy (HCC) Mitral valve regurgitation mild to moderate on 01/12/2022 echo PAST SURGICAL HISTORY Procedure Laterality Date HERNIA REPAIR HX REMOVAL GALLBLADDER FAMILY HISTORY Problem Relation Age of Onset Coronary Artery Disease Mother s/p stenting Heart Mother HCM Hypertension Father Hyperlipidemia Father Aneurysm Father Brain- Fatal Heart Sister HCM s/p PPM No Known Problems Brother No Known Problems Maternal Grandmother No Known Problems Maternal Grandfather No Known Problems Paternal Grandmother No Known Problems Paternal Grandfather Arrhythmia Son No Known Problems Son Social History Tobacco Use Smoking status: Never Smokeless tobacco: Never Substance Use Topics Alcohol use: Not Currently Drug use: Never Prior to Admission medications as of 02/22/22 0858 Medication Sig Last Dose Taking melatonin 10 mg cap Take 1 capsule by mouth daily at bedtime. sertraline (ZOLOFT) 50 mg tablet Take 50 mg by mouth daily at bedtime. QUEtiapine (SEROQUEL) 25 mg tablet Take 1 tablet by mouth daily at bedtime. losartan (COZAAR) 100 mg tablet Take 1 tablet by mouth once daily. atenolol (TENORMIN) 25 mg tablet Take 25 mg by mouth once daily. Ascorbic Acid 1,000 mg tablet Take 1,000 mg by mouth once daily. MULTIVITAMIN ORAL Take 1 tablet by mouth once daily. niacin (NIACIN) 500 mg tablet Take 500 mg by mouth daily with breakfast. COQ10, UBIQUINOL, ORAL Take 1 tablet by mouth once daily. With Krill cholecalciferol (VITAMIN D3) 5,000 unit tab Take 10,000 Units by mouth once daily. glucosam/chond-msm1/C/janiya/bor (ZUFZGGOXHIJ-TIELD-GYV COMPLEX ORAL) Take 1 tablet by mouth once daily. MAGNESIUM ORAL Take 250 mg by mouth once daily. No medication comments found. ALLERGIES No Known Allergies Objective Pain Assessment: Vitals: There were no vitals taken for this visit. Diagnostic tests reviewed for today's visit: Lab Value Units Date High Low HB 15.5 g/dL 02/21/2022 17.0 13.0 HCT 47.1 % 02/21/2022 51.0 39.0 WBC 6.02 k/uL 02/21/2022 11.00 3.70 PLT 209 k/uL 02/21/2022 400 150 NA 143 mmol/L 02/21/2022 144 136 K 4.4 mmol/L 02/21/2022 5.1 3.7 GLUC 106 mg/dL 02/21/2022 99 74 BUN 20 mg/dL 02/21/2022 24 9 CREAT 0.88 mg/dL 02/21/2022 1.22 0.73 PTSEC No results within date range. INR No results within date range. APTT No results within date range. ALT 26 U/L 02/21/2022 54 10 AST 24 U/L 02/21/2022 40 14 TBILI 0.5 mg/dL 02/21/2022 1.3 0.2 TSH No results within date range. Lab Value Units Date High Low HCGQT No results within date range. UHCG No results within date range. HCG, BODY* No results within date range. Lab Value Units Date High Low ABORHD No results within date range. ABSCREEN No results within date range. No results found for: HBA1C Recent Results (from the past 8760 hour(s)) ECHO Collection Time: 02/21/22 9:45 AM Impression CONCLUSIONS: - Exam indication: HOCM, CAD - The left ventricle is normal in size. There is asymmetric left ventricular hypertrophy. Left ventricular systolic function is normal. EF = 64 5% (2D biplane) Grade I left ventricular diastolic dysfunction. - The right ventricle is normal in size. Right ventricular systolic function is normal. - The left atrial cavity is mildly dilated. -At rest, LVOT gradient of 27 mmHg, 1+ MR, mild KIRSTIN at 55 bpm. -With Valsalva, LVOT gradient of 92 mmHg, significant increase in MR to at least 2+, severe KIRSTIN with septal contact is present at 59 bpm. - The patient has not had a prior CC echocardiographic exam for comparison. * * * Final * * * CT CHEST CARDIAC WO IVCON Collection Time: 02/21/22 9:07 AM Impression IMPRESSION: AORTIC VALVE: Assessment is limited in the current study; no leaflet calcification AORTIC ROOT: upper normal size; Diameter: 3.7 x 3.6 cm ASCENDING THORACIC AORTA: normal size; Diameter: 3.2 cm CORONARY ANATOMY: Calcified atherosclerotic changes including LM, proximal LAD, LCX, RCA, precluding precise assessment with CT - [place] MATT and RAJNI are normal size vessels without evidence of calcified atherosclerotic changes Fruit Farmer: KALYANI Transcribe Date/Time: Feb 21 2022 9:12A Dictated by : AZEEM DWYER MD This examination was interpreted and the report reviewed and electronically signed by: SARIKA BURT MD on Feb 21 2022 10:25AM EST ECG COMPLETE Collection Time: 02/21/22 8:32 AM Impression SINUS BRADYCARDIA LEFT VENTRICULAR HYPERTROPHY WITH REPOLARIZATION ABNORMALITY ( Sokolow-Eldridge ) ABNORMAL ECG Assessment No problem-specific Assessment & Plan notes found for this encounter. ANESTHESIA FINDINGS: Intubation History: No history of difficult intubation. No abnormal airway history Patient is a candidate for regional or neuraxial anesthesia and was counseled on its risks and benefits Significant Anesthesia Considerations: Airway History: No history of difficult airway No abnormal airway history Prepared for Surgery: The Following Tests/Procedures Have Been Initiated: Orders Placed This Encounter mupirocin (BACTROBAN) 2 % ointment Sig: Apply a small amount in each nostril using a cotton swab twice the day before surgery and oncethe morning of surgery. Dispense: 22 g Refill: 0 Order Comments: Supply patient with Q-tips and instruction sheet ASA Class: 4 Planned Anesthetic: general I - PHYSICAL EVALUATION AIRWAY Patient intubated: No. Tracheostomy tube not present Mallampati: I. TM distance: >3 FB. Neck ROM: full ROM without neurological symptoms. Mouth opening: adequate. Short neck: no. Thick neck: no Brumfield present: no DENTAL Dental findings: teeth intact. II - ANESTHESIA PLAN ASA Score: 4 Anesthetic Plan: general Airway type: ETT Beta Zackery Monitoring Plan Post Procedure Analgesic Plan Informed Consent Anesthetic risks, benefits, alternatives, personnel and consent discussed: yes. Patient / Responsible Democrat agrees to proceed: yes Patient / Surrogate agrees to blood products: Yes Instructions Given to Patient: Instructions located in the after visit summary. Patient given verbal and written preop instructions and voices comprehension and compliance. Patient asked to hold ACEI prior to surgery. Signature: Andrew Arizmendi MD, MD Patient Name: Gino Osorio Date: February 22, 2022 Time: 10:04 AM Pager/Contact #: documented in this encounterMer[facility] History of Present illness Narrative* Marcus Tavarez RN - 02/22/2022 9:34 AM EST AMBULATORY PATIENT EDUCATION READINESS TO LEARN Cognitive Ability: Alert and oriented Motivation To Learn: Interested Family Support: High - Very involved in pt care Instruction Provided To: Patient & Family Patient Learns Best By: Multiple Methods Factors Affecting Learning: None Physical Limitations Affecting Learning: None LEARNING RESPONSE Diagnosis: cad Education Topic: Pre-Op Open Heart Surgery Instructions Disease Process Teaching Points: Logistics / Protocols /Complication Prevention Instruction/Supplemental Materials: Cardiac Surgery Information Binder Individual Instruction Patient/Family Response: Well prepared Follow up plan: Patient/Family to call [facility] with any further questions Referral (Recommendation): None Teach completed, topic: pt instructed where to check in documented in this encounterMer[facility]12-29-2022 History of Present illness Narrative* Marcus Tavarez RN - 02/22/2022 8:57 AM EST CHART COPY-DO NOT DISCARD CARDIOVASCULAR SURGERY PRE-OPERATIVE ASSESSMENT NAME: Gino Osorio Alert Notes: DATE: 02/22/2022 SEX: male : 1960 AGE: [age] year old Estimated body mass index is 23.63 kg/m as calculated from the following: Height as of 02/21/22: 175.3 cm (5' 9 ). Weight as of 02/21/22: 72.6 kg (160 lb). STS Score No data recorded No data recorded Patient scheduled for surgery on: No data recorded [facility] MD: Dr Betsy Charles REDO: No CHIEF COMPLAINT: Pre-Op Open Heart Surgery MEDICATIONS: Current Outpatient Medications Medication Sig melatonin 10 mg cap Take 1 capsule by mouth daily at bedtime. sertraline (ZOLOFT) 50 mg tablet Take 50 mg by mouth daily at bedtime. QUEtiapine (SEROQUEL) 25 mg tablet Take 1 tablet by mouth daily at bedtime. losartan (COZAAR) 100 mg tablet Take 1 tablet by mouth once daily. atenolol (TENORMIN) 25 mg tablet Take 25 mg by mouth once daily. Ascorbic Acid (VITAMIN C) 1,000 mg tablet Take 1,000 mg by mouth once daily. MULTIVITAMIN ORAL Take 1 tablet by mouth once daily. niacin (NIACIN) 500 mg tablet Take 500 mg by mouth daily with breakfast. COQ10, UBIQUINOL, ORAL Take 1 tablet by mouth once daily. With Krill cholecalciferol (VITAMIN D-3) 5,000 unit tab Take 10,000 Units by mouth once daily. glucosam/chond-msm1/C/janiya/bor (UASLRZMARCG-QLOCF-SQS COMPLEX ORAL) Take 1 tablet by mouth once daily. MAGNESIUM ORAL Take 250 mg by mouth once daily. No current facility-administered medications for this visit. ALLERGIES: ALLERGIES No Known Allergies LATEX ALLERGY: No FOOD SENSITIVITIES: No ANTICOAGULANTS: none STEROIDS: No HISTORIES: FAMILY HISTORY Problem Relation Age of Onset Coronary Artery Disease Mother s/p stenting Heart Mother HCM Hypertension Father Hyperlipidemia Father Aneurysm Father Brain- Fatal Heart Sister HCM s/p PPM No Known Problems Brother No Known Problems Maternal Grandmother No Known Problems Maternal Grandfather No Known Problems Paternal Grandmother No Known Problems Paternal Grandfather Arrhythmia Son No Known Problems Son PAST MEDICAL HISTORY Diagnosis Date Coronary artery disease Hypertension Hypertrophic obstructive cardiomyopathy (HCC) Mitral valve regurgitation mild to moderate on 01/12/2022 echo PAST SURGICAL HISTORY Procedure Laterality Date HERNIA REPAIR HX REMOVAL GALLBLADDER Social History Tobacco Use Smoking status: Never Smokeless tobacco: Never Substance Use Topics Alcohol use: Not Currently Drug use: Never REVIEW OF SYSTEMS: GEN: Fatigue HEENT: Denies Complaints no dental needed pt added on last minute DERM: Denies Dermatological Complai, Dizziness RESP: SOB CARD: Angina , HTN , CAD , hocm GI: right ing herrnia : Denies complaints ENDO: Denies Endocrine Complaints HEME: Denies Hematological complaints MUSC/SKEL: No Musc/Skel Complaints PVD: Denies PVD Varicose Veins: No BRUITS (Carotid): see cards notre PULSES: Pedal Left 2 Right 2 NYHA CLASSIFICATION: Class 2 FAMILY HISTORY OF CAD: Yes mother sister ? PERFUSION INDEX: DOMINANT HAND: left-handed Pacer Check: NA CARDIAC EVALUATION: Cardiac Cath: Date - get images Ultrasound: Date - PFT: Date - ECHO: Last ECHO Result Conclusion ECHO Collected: 02/21/2022 9:45 AM (Final result) Impression: CONCLUSIONS: - Exam indication: HOCM, CAD - The left ventricle is normal in size. There is asymmetric left ventricular hypertrophy. Left ventricular systolic function is normal. EF = 64 5% (2D biplane) Grade I left ventricular diastolic dysfunction. - The right ventricle is normal in size. Right ventricular systolic function is normal. - The left atrial cavity is mildly dilated. -At rest, LVOT gradient of 27 mmHg, 1+ MR, mild KIRSTIN at 55 bpm. -With Valsalva, LVOT gradient of 92 mmHg, significant increase in MR to at least 2+, severe KIRSTIN with septal contact is present at 59 bpm. - The patient has not had a prior CC echocardiographic exam for comparison. * * * Final * * * CT Scan: Last CT Result Conclusion CT CHEST CARDIAC WO IVCON Exam End: 02/21/2022 9:07 AM (Final result) Impression: IMPRESSION: AORTIC VALVE: Assessment is limited in the current study; no leaflet calcification AORTIC ROOT: upper normal size; Diameter: 3.7 x 3.6 cm ASCENDING THORACIC AORTA: normal size; Diameter: 3.2 cm CORONARY ANATOMY: Calcified atherosclerotic changes including LM, proximal LAD, LCX, RCA, precluding precise assessment with CT - [place] MATT and RAJNI are normal size vessels without evidence of calcified atherosclerotic changes Fruit Farmer: KALYANI Transcribe Date/Time: Feb 21 2022 9:12A Dictated by : AZEEM DWYER MD This examination was interpreted and the report reviewed and electronically signed by: SARIKA BURT MD on Feb 21 2022 10:25AM EST MRI: CXR: No results found. EKG: Dental: ok to proced without dental form pt added on last minute (per check list) ? Recent Labs 02/21/22 0841 WBC 6.02 HB 15.5 HCT 47.1 PLT 209 NA 143 K 4.4 BUN 20 CREAT 0.88 Pre Op Instructions per protocol reviewed and handout given to patient . Patient Education completed and documented. Instructed to start Bactroban per protocol. Emotional support provided to patient and family. All questions and concerns adressed. Signature: Marcus Tavarez RN See Cardiology History and Physical dated 02/21/2022 documented in this encounterMer[facility]12-28-2022 NoteHNO ID: [id number] Author: RT Isaias(R) Service: Radiology Author Type: Technologist Type: Progress Notes Filed: 02/21/2022 9:03 AM Note Text: Radiology Service Progress Note PATIENT NAME: Gino Osorio DATE OF SERVICE: February 21, 2022 TIME: 9:03 AM PATIENT IDENTITY VERIFICATION COMPLETED USING TWO (2) IDENTIFIERS: Name and Date of confirmed by patient verbally and Name and Date of confirmed by identification band. FALL SCREENING: Has the patient had 2 falls in the last year or 1 fall with injury or currently using an Ambulatory Assistive Device (Walker, Cane, Wheelchair, Crutches, etc.)? No PATIENT GENDER DATA: Male PATIENT RELEVANT IMPLANT DATA REVIEWED: Yes RADIOLOGY DEPARTMENT: CT; Exam(s) Completed: Chest PERIPHERAL IV DATA: Not applicable SIGNED BY: RT Isaias(R) February 21, 2022 9:03 [facility]12-28-2022 Miscellaneous Notes* Addendum Note - Donald Akbar RN - 02/21/2022 11:39 AM ESTAddended by: DONALD AKBAR on: 02/21/2022 11:39 AM Modules accepted: Orders, SmartSet * Telephone Encounter - Donald Akbar RN - 02/21/2022 10:58 AM EST Called patient to inform them that Dr. Barrientos called Dr. Charles and they reviewed his information and are recommending surgery and felt it should be soon. Tentative Date is 02/27/2022. Patient was informed of the need for further testing and Dr. Charles was ok proceeding without dental clearance. Instructed patient last dose of blood thinners, OTC medications, and supplements is 5 days prior to surgery. Due to the holiday Donald Akbar RN Cardiac Surgery PreOp Checklist Patient Name: Gino Osorio OR Surgery Date: 02/27/2022 [facility] Appt. Date: 03/26 Primary Care Provider: Rudy Thomas MD, MD Definition Comments Diabetes/Insulin Pump A1-c and Endo consult (need for pump pt) n/a Hypothyroid/thyroid nodules TSH/US of thyroid if new nodule n/a Stroke (CVA) Neurology consult n/a Dysphagia, stricture w/no recent dilation, Rangel's Esophagus GI consult n/a Von Willebrand/thrombocytopenia/ Blood... Hematology consult n/a Abnormal labs from outside Place any necessary consults n/a Cardiac Cath Correct birthday/include all images/moving if outside cath on syngo Redo OHS/Robotic surgery/radiation to chest CT or CTA/if outside CT will need in-house CXR, CardiacMRI n/a Mechanical valve Admit for Heparin/Lovenox bridge n/a Female <50 y/o HCG n/a Heparin allergy hx of HIT Vascular Medicine consult n/a Nickel/Metal allergy Dermatology consult n/a Breast implants/Robotic candidates Plastic Surgery consult n/a Urinary strictures Urology consult/Urology consult to OR n/a All stimulators/spinal stimulator Type of stimulator n/a PPM/AICD Device check n/a Valve/TAVR/TEVAR/Myectomy/ascending aorta Dental clearance/Dental Consult at [facility] n/a- ok to proceedwithout per Dr. 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% or Carotid Bruits Carotid ultrasound n/a Descending Aneurysm/TEVAR/TAA Pre-admit/hydration/spinal drain to be placed: IR/OR/Not Needed n/a Dialysis patient IHD day prior to OHS n/a CABG with no ECHO results Discussion w/surgeon results for dental clearance: preop/postop n/a Advanced Directives Instructions given to patient n/a FMLA Forward to AA addressed Test/Consult not needed Communicate in Epic or Access n/a Record of decreased PFTs, known lung disease Any pulmonary consult n/a Pulmonary embolectomy Needs US/Duplex BLE, VQ scan RHC, possible LHC, Pulmonary and/or Vascular consult n/a Abnormal CT All>1cm if further workup/consult needed n/a CC-Bio Repostitory Notification of packet and general knowledge given to pt addressed documented in this encounterMercy [facility]12-28-2022 History of Present illness Narrative* RT Isaias(R) - 02/21/2022 11:00 AM EST Radiology Service Progress Note PATIENT NAME: Gino Osorio DATE OF SERVICE: February 21, 2022 TIME: 9:03 AM PATIENT IDENTITY VERIFICATION COMPLETED USING TWO (2) IDENTIFIERS: Name and Date of confirmedby patient verbally and Name and Date of confirmed by identification band. FALL SCREENING: Has the patient had 2 falls in the last year or 1 fall with injury or currently using an Ambulatory Assistive Device (Walker, Cane, Wheelchair, Crutches, etc.)? No PATIENT GENDER DATA: Male PATIENT RELEVANT IMPLANT DATA REVIEWED: Yes RADIOLOGY DEPARTMENT: CT; Exam(s) Completed: Chest PERIPHERAL IV DATA: Not applicable SIGNED BY: RT Isaias(R) February 21, 2022 9:03 AM documented in this encounterMercy Health [facility]12-28-2022 NoteHNO ID: [id number] Author: Josh Barrientos MD Service: ? Author Type: Physician Type: Progress Notes Filed: 02/21/2022 11:20 AM Note Text: [facility] Department of Cardiovascular Medicine SECTION OF CARDIOVASCULAR IMAGING OUTPATIENT VISIT DATE February 21, 2022 OUTPATIENT VISIT TYPE NEW PRIMARY CARE PHYSICIAN: Rudy Thomas MD [address] [place] [address] REFERRING PHYSICIAN: No referring provider defined for this encounter. CHIEF COMPLAINT: CAD and HOCM HISTORY OF PRESENT ILLNESS/NURSING INTAKE HISTORY: Mr. Osorio is a 61 year old male from [place], [place], presenting today with referral from Dr. Saucedo, for cardiac consultation regarding hypertrophic obstructive cardiomyopathy and coroanry artery disease. He has a consultation with [facility] on 03/12/2022. Significant past medical history includes: - Hypertrophic obstructive cardiomyopathy - Coronary artery disease - Mild to moderate mitral valve regurgitation - Hypertension Family history significant for: Mother- Coronary artery disease s/p stenting, hypertrophic cardiomyopathy Father- Fatal brain aneurysm, hypertension, hyperlipidemia Sister- Hypertrophic cardiomyopathy s/p PPM Son- Arrhythmia He has a total of 2 sons that have not yet been screened for hypertrophic cardiomyopathy Mr. Osorio states that in June of 2021 he was told by his PCP that his heart murmur had gotten louder. He underwent a heart catheterization, echocardiogram, stress test, and cardiac MRI. He was diagnosed with Hypertrophic obstructive cardiomyopathy and coronary artery disease. He presents today prior to his consultation with Dr. Saucedo which is scheduled for 03/12/2022. He presents today with complaints of palpitations, fatigue, and lower extremity edema. He denies chest pain, lightheadedness, dizziness, near syncope or syncope. His symptoms get worse after meals. He gets dyspneic with exertion. He is progressively getting worse in the last few months. He has known about a murmur all his life though. 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 He walks about 30 minutes daily for exercise. Meds reviewed. Tolerates them well. However I do notice that he is on an ARB which can make LVOT obstruction worse. OSH ECHO 01/12/2022 [facility] Stress Test 11/13/2021 [facility] Cardiac MRI 12/13/2021 [facility] Left Cardiac Catheterization 01/12/2022 PAST MEDICAL HISTORY Diagnosis Date Coronary artery disease Hypertension Hypertrophic obstructive cardiomyopathy (HCC) Mitral valve regurgitation mild to moderate on 01/12/2022 echo PAST SURGICAL HISTORY Procedure Laterality Date HERNIA REPAIR HX REMOVAL GALLBLADDER SOCIAL HISTORY Social History Tobacco Use Smoking status: Never Smokeless tobacco: Never Substance Use Topics Alcohol use: Not Currently Drug use: Never FAMILY HISTORY Problem Relation Age of Onset Coronary Artery Disease Mother s/p stenting Heart Mother HCM Hypertension Father Hyperlipidemia Father Aneurysm Father Brain- Fatal Heart Sister HCM s/p PPM No Known Problems Brother No Known Problems Maternal Grandmother No Known Problems Maternal Grandfather No Known Problems Paternal Grandmother No Known Problems Paternal Grandfather Arrhythmia Son No Known Problems Son ALLERGIES: ALLERGIES No Known Allergies MEDICATIONS: melatonin 10 mg cap Take 1 capsule by mouth daily at bedtime. sertraline (ZOLOFT) 50 mg tablet Take 50 mg by mouth daily at bedtime. QUEtiapine (SEROQUEL) 25 mg tablet Take 1 tablet by mouth daily at bedtime. losartan (COZAAR) 100 mg tablet Take 1 tablet by mouth once daily. atenolol (TENORMIN) 25 mg tablet Take 25 mg by mouth once daily. Ascorbic Acid (VITAMIN C) 1,000 mg tablet Take 1,000 mg by mouth once daily. MULTIVITAMIN ORAL Take 1 tablet by mouth once daily. niacin (NIACIN) 500 mg tablet Take 500 mg by mouth daily with breakfast. COQ10, UBIQUINOL, ORAL Take 1 tablet by mouth once daily. With Krill cholecalciferol (VITAMIN D-3) 5,000 unit tab Take 10,000 Units by mouth once daily. glucosam/chond-msm1/C/janiya/bor (LSXHCRNFSRO-DAUBR-EAD COMPLEX ORAL) Take 1 tablet by mouth once daily. MAGNESIUM ORAL Take 250 mg by mouth once daily. REVIEW OF SYSTEMS: Positive in BOLD GENERAL: Negative for: Weight loss or gain, Fever or Chills, Weakness and Sleep difficulties. HEENT: Negative for: Headache, Impaired Vision, Glasses, Hearing Impairment, Ringing in Ears, Nosebleeds, Poor dental care, Bleeding Gums, Dentures NECK: Negative for: Swelling, Pain, Stiffness RESPIRATORY: Negative for: Cough, Blood in Sputum, Shortness of breath, Wheezing, Apnea GASTROINTESTINAL: Negative for: Trouble swallowing, Heartburn, Change in bowel habits, Blood in st (more content not included)...[facility]12-28-2022 History of Present illness Narrative* Josh Barrientos MD - 02/21/2022 8:15 AM EST Images from the original note were not included. [facility] Department of Cardiovascular Medicine SECTION OF CARDIOVASCULAR IMAGING OUTPATIENT VISIT DATE February 21, 2022 OUTPATIENT VISIT TYPE NEW PRIMARY CARE PHYSICIAN: Rudy Thomas MD [address] [place] [address] REFERRING PHYSICIAN: No referring provider defined for this encounter. CHIEF COMPLAINT: CAD and HOCM HISTORY OF PRESENT ILLNESS/NURSING INTAKE HISTORY: Mr. Osorio is a 61 year old male from [place], [place], presenting today with referral from Dr. Saucedo,for cardiac consultation regarding hypertrophic obstructive cardiomyopathy and coroanry artery disease. He has a consultation with [facility] on 03/12/2022. Significant past medical history includes: - Hypertrophic obstructive cardiomyopathy - Coronary artery disease - Mild to moderate mitral valve regurgitation - Hypertension Family history significant for: Mother- Coronary artery disease s/p stenting, hypertrophic cardiomyopathy Father- Fatal brain aneurysm, hypertension, hyperlipidemia Sister- Hypertrophic cardiomyopathy s/p PPM Son- Arrhythmia He has a total of 2 sons that have not yet been screened for hypertrophic cardiomyopathy Mr. Osorio states that in June of 2021 he was told by his PCP that his heart murmur had gotten louder. He underwent a heart catheterization, echocardiogram, stress test, and cardiac MRI. He was diagnosed with Hypertrophic obstructive cardiomyopathy and coronary artery disease. He presents today prior to his consultation with Dr. Saucedo which is scheduled for 03/12/2022. He presents today with complaints of palpitations, fatigue, and lower extremity edema. He denies chest pain, lightheadedness, dizziness, near syncope or syncope. His symptoms get worse after meals. He gets dyspneic with exertion. He is progressively getting worse in the last few months. He has known about a murmur all his life though. 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 He walks about 30 minutes dailyfor exercise. Meds reviewed. Tolerates them well. However I do notice that he is on an ARB which can make LVOT obstruction worse. [facility] ECHO 01/12/2022 OS Stress Test 11/13/2021 OS Cardiac MRI 12/13/2021 OS Left Cardiac Catheterization 01/12/2022 PAST MEDICAL HISTORY Diagnosis Date Coronary artery disease Hypertension Hypertrophic obstructive cardiomyopathy (HCC) Mitral valve regurgitation mild to moderate on 01/12/2022 echo PAST SURGICAL HISTORY Procedure Laterality Date HERNIA REPAIR HX REMOVAL GALLBLADDER SOCIAL HISTORY Social History Tobacco Use Smoking status: Never Smokeless tobacco: Never Substance Use Topics Alcohol use: Not Currently Drug use: Never FAMILY HISTORY Problem Relation Age of Onset Coronary Artery Disease Mother s/p stenting Heart Mother HCM Hypertension Father Hyperlipidemia Father Aneurysm Father Brain- Fatal Heart Sister HCM s/p PPM No Known Problems Brother No Known Problems Maternal Grandmother No Known Problems Maternal Grandfather No Known Problems Paternal Grandmother No Known Problems Paternal Grandfather Arrhythmia Son No Known Problems Son ALLERGIES: ALLERGIES No Known Allergies MEDICATIONS: melatonin 10 mg cap Take 1 capsule by mouth daily at bedtime. sertraline (ZOLOFT) 50 mg tablet Take 50 mg by mouth daily at bedtime. QUEtiapine (SEROQUEL) 25 mg tablet Take 1 tablet by mouth daily at bedtime. losartan (COZAAR) 100 mg tablet Take 1 tablet by mouth once daily. atenolol (TENORMIN) 25 mg tablet Take 25 mg by mouth once daily. Ascorbic Acid (VITAMIN C) 1,000 mg tablet Take 1,000 mg by mouth once daily. MULTIVITAMIN ORAL Take 1 tablet by mouth once daily. niacin (NIACIN) 500 mg tablet Take 500 mg by mouth daily with breakfast. COQ10, UBIQUINOL, ORAL Take 1 tablet by mouth once daily. With Krill cholecalciferol (VITAMIN D-3) 5,000 unit tab Take 10,000 Units by mouth once daily. glucosam/chond-msm1/C/janiya/bor (HYBNRFUKMZZ-KLAKI-GPL COMPLEX ORAL) Take 1 tablet by mouth once daily. MAGNESIUM ORAL Take 250 mg by mouth once daily. REVIEW OF SYSTEMS: Positive in BOLD GENERAL: Negative for: Weight loss or gain, Fever or Chills, Weakness and Sleep difficulties. HEENT: Negative for: Headache, Impaired Vision, Glasses, Hearing Impairment, Ringing in Ears, Nosebleeds, Poor dental care, Bleeding Gums, Dentures NECK: Negative for: Swelling, Pain, Stiffness RESPIRATORY: Negative for: Cough, Blood in Sputum, Shortness of breath, Wheezing, Apnea GASTROINTESTINAL: Negative for: Trouble swallowing, Heartburn, Change in bowel habits, Blood in stool, Dark black stools MUSCULOSKELETAL: Negative for: Muscle or joint pain, Stiffness , Joint swelling NEUROLOGIC/PSYCHIATRIC: Negative for: Weakness, Paralysis, Numbness, Tingling, Tremor, Nervousness,Depressed mood, Memory loss SKIN: Negative for: Rashes, Itching HEMATOLOGICAL/LYMPHATIC: Negative for: Easy bruising , Easy bleeding ENDOCRINE: Negative for: Heat or cold intolerance, Excessive sweating, Frequent urination, Frequentthirst PHYSICAL EXAMINATION: BP 152/89 (BP Site: Right Arm, BP Position: Sitting, BP Cuff Size: Regular Adult) Pulse 60 Ht 175.3 cm (5' 9 ) Wt 72.6 kg (160 lb) SpO2 97% BMI 23.63 kg/m General: Well appearing, in no acute distress. Skin: No clubbing, no cyanosis. Eyes: Extra ocular movements intact Oropharynx: Teeth in good repair. Neck: No jugular venous distention, no carotid bruits, carotids have a normal upstroke, no palpablethyromegaly. Lungs: Clear to auscultation bilaterally, no wheezing or rhonchi. Heart: Regular rhythm, PMI not displaced, S1, S2 normal, no S3, no S4, no heaves, no rub and 3/6 systolic left upper sternal border murmur. It increases with Valsalva. Abdomen: Soft, nontender, bowel sounds normal, no palpable organomegaly, no bruits. Extremities: No peripheral edema . Grade 2/4 distal pulses bilaterally. Neuro: Oriented to person, place and time, alert, cooperative, gait coordinated. CARDIOVASCULAR MEDICINE TESTING: EKG SINUS BRADYCARDIA LEFT VENTRICULAR HYPERTROPHY WITH REPOLARIZATION ABNORMALITY ( Sokolow-Eldridge ) ABNORMAL ECG Echo - Exam indication: HOCM, CAD - The left ventricle is normal in size. There is asymmetric left ventricular hypertrophy. Left ventricular systolic function is normal. EF = 64 5% (2D biplane) Grade I left ventricular diastolic dysfunction. - The right ventricle is normal in size. Right ventricular systolic function is normal. - The left atrial cavity is mildly dilated. -At rest, LVOT gradient of 27 mmHG, 1+ MR, mild KIRSTIN at 55 bpm. -With valsalva, LVOT gradient of 92 mmHG, significant increase in MR, severe KIRSTIN with septal contact is present at 59 bpm. - The patient has not had a prior CC echocardiographic exam for comparison. IMPRESSION: Mr. Osorio is a 61 year old male from [place], [place], presenting today with referral from Dr. Saucedo,for cardiac consultation regarding hypertrophic obstructive cardiomyopathy and coroanry artery disease. He has a consultation with [facility] on 03/12/2022. Significant past medical history includes: - Hypertrophic obstructive cardiomyopathy - Coronary artery disease - Mild to moderate mitral valve regurgitation - Hypertension Family history significant for: Mother- Coronary artery disease s/p stenting, hypertrophic cardiomyopathy Father- Fatal brain aneurysm, hypertension, hyperlipidemia Sister- Hypertrophic cardiomyopathy s/p PPM Son- Arrhythmia He has a total of 2 sons that have not yet been screened for hypertrophic cardiomyopathy Mr. Osorio states that in June of 2021 he was told by his PCP that his heart murmur had gotten louder. He underwent a heart catheterization, echocardiogram, stress test, and cardiac MRI. He was diagnosed with Hypertrophic obstructive cardiomyopathy and coronary artery disease. He presents today prior to his consultation with Dr. Saucedo which is scheduled for 03/12/2022. He presents today with complaints of palpitations, fatigue, and lower extremity edema. He denies chest pain, lightheadedness, dizziness, near syncope or syncope. His symptoms get worse after meals. He gets dyspneic with exertion. He is progressively getting worse in the last few months. He has known about a murmur all his life though. 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 He walks about 30 minutes dailyfor exercise. Meds reviewed. Tolerates them well. However I do notice that he is on an ARB which can make LVOT obstruction worse. PLAN AND RECOMMENDATIONS: I have reviewed all the available data. In my opinion, given the fact that he has significant dynamic LVOT obstructions, symptoms, and significant left main disease, we need to move swiftly towards surgery. 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 I walked up to [facility] and reviewed the schedule and we will try and expedite surgery in the next week or so. Patient will need surgical relief of LVOT obstruction and multivessel CABG. He will need a myectomy and possibly mitral valve repair. I have requested Dr. Charles to do the case. Recommend screening of all first-degree relatives. Consider genetic counseling. Till he has surgery, avoid intense isometric exertion. No lifting beyond 30 pounds. Can do moderatewalking. Avoid alcohol intake. At this point of time I will not make any adjustments in medical therapy till in the postop period. In the postoperative setting, he will need aggressive secondary prevention. Post op care and rehab discussed. We discussed the anticipated length of ICU stay as well as stay on regular nursing floor. We also discussed the possibility of post-op atrial fibrillation, which is short-lasting in most patients, but in a small proportion, it could become permanent A fib. Also discussed post op pleural/pericardial effusion requiring drainage in a small proportion of patients. The patient should have a 6-week post-op check either locally or here at the [facility], whichever is feasible. In an ideal situation, they should follow-up with me at 1 year and PRN. They should have cardiac rehab locally at ~ 7-8 weeks post-operatively. All questions answered. I personally interviewed, confirmed and edited the above information as obtained by others. CONTACT INFORMATION: Josh Barrientos MD, VALERIE, FACC, CLIVE, [facility] Chair in CV Medicine, mill tender, [facility] [employer] [facility] [employer] Director, Clinical Operations, Director [facility] Center, Servicing Rep, [facility] Department of Cardiovascular Medicine, [facility] [place], Desk J1-5, [facility], [address] [place] [address] Office , Office Appointments: [phone] -[phone] extension [phone] documented in this [facility]12[facility]22 Miscellaneous Notes* Telephone Encounter - Lauryn Clarke RN - 02/12/2022 3:25 PM EST I am currently out of the office. I will not be checking my message until I return on SaturdayFebruary 14 at 6:30am. For urgent issues, please contact your surgeon's office. For Dr. Saucedo, pleasecall [phone]. For Dr. Cordoba, please call [phone] Lauryn Clarke RN documented in this encounterMer[facility]12-[facility]-2022 Miscellaneous Notes* Telephone Encounter - Sylvia Ayala - 01/25/2022 4:18 PM EST IN * Telephone Encounter - Danii Sahu - 01/25/2022 4:02 PM EST IN VS OUT. THANKS [facility]* Diagnosis Nocturia documented in this encounter [employer] Phone: evaluation note* Diagnosis Atrial dilatation Cardiomegaly Other hypertrophic cardiomyopathy (HCC) Other hypertrophic cardiomyopathy Heart murmur Undiagnosed cardiac murmurs documented in this encounter [employer] Phone: evaluation note* Diagnosis Elevated PSA Elevated prostate specific antigen (PSA) documented in this encounter [facility] [employer] Phone: evaluation note* Diagnosis Coronary artery disease involving [place] coronary artery of [place] heart without angina pectoris- Primary HOCM (hypertrophic obstructive cardiomyopathy) (HCC) Hypertrophic obstructive cardiomyopathy Primary hypertension Unspecified essential hypertension Hyperlipidemia, unspecified hyperlipidemia type Non-rheumatic mitral regurgitation Mitral valve disorders Encounter for preoperative vascular examination Other specified pre-operative examination [facility]* Diagnosis HOCM (hypertrophic obstructive cardiomyopathy) (HCC)- Primary Hypertrophic obstructive cardiomyopathy documented [facility] this encounter [facility]* Diagnosis HOCM (hypertrophic obstructive cardiomyopathy) (HCC)- Primary Hypertrophic obstructive cardiomyopathy Coronary artery disease involving [place] coronary artery of [place] heart with angina pectoris (HCC) Non-rheumatic mitral regurgitation Mitral valve disorders Primary hypertension Unspecified essential hypertension Hyperlipidemia, unspecified hyperlipidemia type Anxiety and depression Dysthymic disorder SOB (shortness of breath) Shortness of breath Pre-operative cardiovascular examination documented [facility] this encounter [facility]* Diagnosis Coronary artery disease involving [place] coronary artery of [place] heart without angina pectoris HOCM (hypertrophic obstructive cardiomyopathy) (HCC) Hypertrophic obstructive cardiomyopathy Primary hypertension Unspecified essential hypertension Hyperlipidemia, unspecified hyperlipidemia type Non-rheumatic mitral regurgitation Mitral valve disorders Encounter for preoperative vascular examination Other specified pre-operative examination documented [facility] this encounter [facility]* Diagnosis Encounter for preoperative anesthesiology assessment for cardiac surgery- Primary documented in this encounter [facility]* Diagnosis Pre-op exam- Primary Preoperative examination, unspecified documented [facility] this [facility]* Diagnosis HOCM (hypertrophic obstructive cardiomyopathy) (HCC)- Primary Hypertrophic obstructive cardiomyopathy Coronary artery disease involving [place] coronary artery of [place] heart without angina pectoris documented in this encounter [facility]* Diagnosis Surgery follow-up Follow-up examination, following unspecified surgery documented [facility] this encounter [facility]* Diagnosis S/P CABG (coronary artery bypass graft)- Primary Postsurgical aortocoronary bypass status S/P ventricular septal myectomy Other postprocedural status HOCM (hypertrophic obstructive cardiomyopathy) (HCC) Hypertrophic obstructive cardiomyopathy documented in this encounter [facility] note* Diagnosis Status post coronary artery bypass graft Postsurgical aortocoronary bypass status Benign essential hypertension Essential hypertension, benign Atrial dilatation Cardiomegaly Other hypertrophic cardiomyopathy (HCC) Other hypertrophic cardiomyopathy S/P CABG x 3 Postsurgical aortocoronary bypass status documented in this encounter [employer] Phone: reason for referral (narrative)* Outpatient Procedure (Routine) - Pending Review Specialty Diagnoses / Procedures Referred By Contac t Referred To [facility] Diagnoses Coronary artery disease involving [place] coronary artery of [place] heart without angina pectoris HOCM (hypertrophic obstructive cardiomyopathy) (HCC) Primary hypertension Hyperlipidemia, unspecified hyperlipidemia type Non-rheumatic mitral regurgitation Encounter for preoperative vascular examination Procedures US RADIAL ARTERY MAP TIMO VAS LAB DUP-SCAN UXTR ART/ARTL BPGS COMPL BI STUDY Rosey Saucedo MD [address] [place] [address] [facility] [place] [facility] [place] [address] Referral ID Status Reason Start Date Expiration Date Visits Requested Visits Authorized [id number] Pending Review Auto-Generat ed Referral 2 02/12/2023 1 1 * Outpatient Procedure (Routine) - Pending Review Specialty Diagnoses / Procedures Referred By Contac t Referred To [facility] [place] Diagnoses Coronary artery disease involving [place] coronary artery of [place] heart without angina pectoris HOCM (hypertrophic obstructive cardiomyopathy) (HCC) Primary hypertension Hyperlipidemia, unspecified hyperlipidemia type Non-rheumatic mitral regurgitation Encounter for preoperative vascular examination Procedures US MAMMARY ARTERY TIMO VAS LAB DUP-SCAN UXTR ART/ARTL BPGS COMPL BI STUDY Rosey Saucedo MD [address] [place] [address] [place] [address] Referral ID Status Reason Start Date Expiration Date Visits Requested Visits Authorized [id number] Pending Review Auto-Generat ed Referral 2 02/12/2023 1 1 * Outpatient Procedure (Routine) - Pending Review Specialty Diagnoses / Procedures Referred By Contac t Referred To [facility] Diagnoses Coronary artery disease involving [place] coronary artery of [place] heart without angina pectoris HOCM (hypertrophic obstructive cardiomyopathy) (HCC) Primary hypertension Hyperlipidemia, unspecified hyperlipidemia type Non-rheumatic mitral regurgitation Encounter for preoperative vascular examination Procedures US LEG VEIN MAP TIMO VAS LAB DUP-SCAN XTR VEINS COMPLETE BILATERAL STUDY Rosey Saucedo MD [address] [place] [address] [address] Referral ID Status Reason Start Date Expiration Date Visits Requested Visits Authorized [id number] Pending Review Auto-Generat ed Referral 2 02/12/2023 1 1 * Outpatient Procedure (Routine) - Pending Review Specialty Diagnoses / Procedures Referred By Contac t Referred To [facility] Diagnoses Coronary artery disease involving [place] coronary artery of [place] heart without angina pectoris HOCM (hypertrophic obstructive cardiomyopathy) (HCC) Primary hypertension Hyperlipidemia, unspecified hyperlipidemia type Non-rheumatic mitral regurgitation Encounter for preoperative vascular examination Procedures ECHO ECHO TTHRC R-T 2D W/WOM-MODE COMPL SPEC&COLR D Rosey Saucedo MD [address] [place] [address] [facility] [address] [address] Referral ID Status Reason Start Date Expiration Date Visits Requested Visits Authorized [id number] Pending Review Auto-Generat ed Referral 2 02/12/2023 1 1 * MRI/CT (Routine) - Pending Review Specialty Diagnoses / Procedures Referred By Contac t Referred To Contact CT IMAGING Diagnoses Coronary artery disease involving [place] coronary artery of [place] heart without angina pectoris HOCM (hypertrophic obstructive cardiomyopathy) (HCC) Primary hypertension Hyperlipidemia, unspecified hyperlipidemia type Non-rheumatic mitral regurgitation Encounter for preoperative vascular examination Procedures CT CHEST CARDIAC WO IVCON DIAGNOSTIC COMPUTED TOMOGRAPHY THORAX W/O CNTRST Rosey Saucedo MD [address] [place] [address] Ct Imaging Referral ID Status Reason Start Date Expiration Date Visits Requested Visits Authorized [id number] Pending Review Auto-Generat ed Referral 2 03/14/2023 1 1 * Outpatient Procedure (Routine) - Pending Review Specialty Diagnoses / Procedures Referred By Contac t Referred To [facility] Diagnoses Coronary artery disease involving [place] coronary artery of [place] heart without angina pectoris HOCM (hypertrophic obstructive cardiomyopathy) (HCC) Primary hypertension Hyperlipidemia, unspecified hyperlipidemia type Non-rheumatic mitral regurgitation Encounter for preoperative vascular examination Procedures ECG COMPLETE ECG ROUTINE ECG W/LEAST 12 LDS W/I&R Rosey Saucedo MD [address] [place] [address] [facility] [address] [address] Referral ID Status Reason Start Date Expiration Date Visits Requested Visits Authorized [id number] Pending Review Auto-Generat ed Referral 2 02/12/2023 1 1 * Consult, Test, Treat (Routine) - Authorized Specialty Diagnoses / Procedures Referred By Contac t Referred To Contact Cardiac Surg Diagnoses Coronary artery disease involving [place] coronary artery of [place] heart without angina pectoris HOCM (hypertrophic obstructive cardiomyopathy) (HCC) Primary hypertension Hyperlipidemia, unspecified hyperlipidemia type Non-rheumatic mitral regurgitation Encounter for preoperative vascular examination Procedures CARDIOTHORACIC PREOP EVALUATION OFFICE/OUTPATIENT [facility] 60-74 MINUTES Rosey Saucedo MD [address] [place] [address] Referral ID Status Reason Start Date Expiration Date Visits Requested Visits Authorized [id number] Authorized PCP Requested Referral 2 02/12/2023 1 1 * Consult, Test, Treat (Routine) - Authorized Specialty Diagnoses / Procedures Referred By Contac t Referred To Contact Cardiology Diagnoses Coronary artery disease involving [place] coronary artery of [place] heart without angina pectoris HOCM (hypertrophic obstructive cardiomyopathy) (HCC) Primary hypertension Hyperlipidemia, unspecified hyperlipidemia type Non-rheumatic mitral regurgitation Encounter for preoperative vascular examination Procedures CONSULT TO CARDIOLOGY OFFICE/OUTPATIENT [facility] 60-74 MINUTES Rosey Saucedo MD [address] [place] [id number] Referral ID Status Reason Start Date Expiration Date Visits Requested Visits Authorized [id number] Authorized PCP Requested Referral 2 02/12/2023 1 1 [facility] Outpatient Procedure (Routine) - Closed Specialty Diagnoses / Procedures Referred By Contac t Referred To [facility] Diagnoses HOCM (hypertrophic obstructive cardiomyopathy) (HCC) Coronary artery disease involving [place] coronary artery of [place] heart with angina pectoris (HCC) Non-rheumatic mitral regurgitation Primary hypertension Hyperlipidemia, unspecified hyperlipidemia type Anxiety and depression SOB (shortness of breath) Pre-operative cardiovascular examination Procedures US CAROTID ARTERIES TIMO VAS LAB DUPLEX SCAN EXTRACRANIAL ART COMPL BI STUDY Destin Charles MD [address] [place] [address] [facility] [place] [address] [place] [address] Referral ID Status Reason Start Date Expiration Date V isits Requested Visits Authorized [id number] Closed Auto-Generate d Referral 02/21/2022 02/21/2023 1 1 * Consult, Test, Treat (Routine) - Authorized Specialty Diagnoses / Procedures Referred By Shiva rodriges Referred To Contact Cardiac Surg Diagnoses HOCM (hypertrophic obstructive cardiomyopathy) (HCC) Coronary artery disease involving [place] coronary artery of [place] heart with angina pectoris (HCC) Non-rheumatic mitral regurgitation Primary hypertension Hyperlipidemia, unspecified hyperlipidemia type Anxiety and depression SOB (shortness of breath) Pre-operative cardiovascular examination Procedures CARDIOTHORACIC PREOP EVALUATION OFFICE/OUTPATIENT [facility] MDM 60-74 MINUTES Destin Charles MD [address] [place] [address] Referral ID Status Reason Start Date Expiration Date Visits Requested Visits Authorized [id number] Authorized PCP Requested Referral 2 02/21/2023 1 1 [facility] Summary Purpose Family History No Family History Records FoundNo Family History Records FoundNo Family History Records FoundNo Family History Records FoundNo Family History Records FoundNo Family History Records Found Advance Directives No Advanced Directives Records FoundDocuments on File Type Date Recorded Patient Worship Director Expl anation Advance Directive(s) 02/22/2022 10:36 AM Documents on File Type Date Recorded Patient Worship Director Expl anation Advance Directive(s) 02/22/2022 10:36 AM Reason for Referral Specialty Diagnoses / Procedures Referred By Shiva rodriges Referred To Contact Cardiology Diagnoses Atrial dilatation Other hypertrophic cardiomyopathy (HCC) Heart murmur Procedures Stress test, myoview Fili Estrada MD [address] [place] [id number] Referral ID Status Reason Start Date Expiration Date Visits Re quested Visits Authorized [id number] Closed 11/10/2021 12/25/2021 1 1 Specialty Diagnoses / Procedures Referred By Shiva rodriges Referred To Contact CT IMAGING Diagnoses Coronary artery disease involving [place] coronary artery of [place] heart without angina pectoris HOCM (hypertrophic obstructive cardiomyopathy) (HCC) Primary hypertension Hyperlipidemia, unspecified hyperlipidemia type Non-rheumatic mitral regurgitation Encounter for preoperative vascular examination Procedures CT CHEST CARDIAC WO IVCON DIAGNOSTIC COMPUTED TOMOGRAPHY THORAX W/O CNTRST Rosey Saucedo MD [address] [place], [place] [id number] Imaging Referral ID Status Reason Start Date Expiration Date V isits Requested Visits Authorized [id number] Closed Auto-Generate d Referral 02/12/2022 03/30/2022 1 1 Additional Source Comments (unrecognized sect ion and content) No Status Records FoundNo Status Records FoundNo Status Records FoundNo Status Records FoundNo Status Records FoundNo Status Records Found INFORMATION SOURCE (unrecogn ized section and content) DATE CREATED AUTHOR 07/01/2021 [facility] dical Specialist DATE CREATED AUTHOR AUTHOR'S ORGANIZ ATION 11/29/2021 [facility] DATE CREATED AUTHOR AUTHOR'S ORGANIZ ATION 04/12/2022 [facility] DATE CREATED AUTHOR AUTHOR'S ORGANIZ ATION 06/03/2022 [facility] DATE CREATED AUTHOR AUTHOR'S ORGANIZ ATION 06/24/2022 [facility] DATE CREATED AUTHOR AUTHOR'S ORGANIZ ATION 07/02/2022 [facility] Care Teams (unrecognized sec tion and content) Pediatrician/Medical Doctor Relationship Specialty Start Date End Date Rudy Thomas MD [address] [place] [address] PCP - General 08/23/21 Pediatrician/Medical Doctor Relationship Specialty Start Date End Date Rudy Thomas MD [address] [place] [address] PCP - General 08/23/21 Pediatrician/Medical Doctor Relationship Specialty Start Date End Date Rudy Thomas MD [address] [place] [address] PCP - General 08/23/21 Pediatrician/Medical Doctor Relationship Specialty Start Date End Date Rudy Thomas MD [address] [place] [address] PCP - General 08/23/21 Pediatrician/Medical Doctor Relationship Specialty Start Date End Date Rudy Thomas MD [address] [place] [address] PCP - General 08/23/21 Pediatrician/Medical Doctor Relationship Specialty Start Date End Date Rudy Thomas MD [address] [place] [address] (Fax) PCP - General Family Medicine 01/26/22 Hari Estrada [address] [place] [address] Customer Accounts Advisor Cardiology 01/26/22 Pediatrician/Medical Doctor Relationship Specialty Start Date End Date Rudy Thomas MD [address] [place] [address] (Fax) PCP - General Family Medicine 01/26/22 Hari Estrada [address] [place] [address] Customer Accounts Advisor Cardiology 01/26/22 Josh Barrientos MD [address] [place] [address] Primary Staff Physician Cardiology 02/21/22 Pediatrician/Medical Doctor Relationship Specialty Start Date End Date Rudy Thomas MD [address] [place] [address] (Fax) PCP - General Family Medicine 01/26/22 Hari Estrada [address] [place] [address] Customer Accounts Advisor Cardiology 01/26/22 Josh Barrientos MD [address] [place] [address] Primary Staff Physician Cardiology 02/21/22 Pediatrician/Medical Doctor Relationship Specialty Start Date End Date Rudy Thomas MD [address] [place] [address] (Fax) PCP - General Family Medicine 01/26/22 Hari Estrada [address] [place] [address] Customer Accounts Advisor Cardiology 01/26/22 Josh Barrientos MD [address] [place] [address] Primary Staff Physician Cardiology 02/21/22 Pediatrician/Medical Doctor Relationship Specialty Start Date End Date Rudy Thomas MD [address] [place] [phone] (Fax) PCP - General Family Medicine 01/26/22 Hari Estrada [address] [place] [address] Customer Accounts Advisor Cardiology 01/26/22 Josh Barrientos MD [address] [place] [address] Primary Staff Physician Cardiology 02/21/22 Pediatrician/Medical Doctor Relationship Specialty Start Date End Date Rudy Thomas MD [address] [place] [address] (Fax) PCP - General Family Medicine 01/26/22 Hari Estrada [address] [place] [address] Customer Accounts Advisor Cardiology 01/26/22 Josh Barrientos MD [address] [place] [address] Primary Staff Physician Cardiology 02/21/22 Pediatrician/Medical Doctor Relationship Specialty Start Date End Date Rudy Thomas MD [address] [place] [address] (Fax) PCP - General Family Medicine 01/26/22 Hari Estrada [address] [place] [address] Customer Accounts Advisor Cardiology 01/26/22 Josh Barrientos MD [address] [place] [address] Primary Staff Physician Cardiology 02/21/22 Pediatrician/Medical Doctor Relationship Specialty Start Date End Date Rudy Thomas MD [address] [place] [address] (Fax) PCP - General Family Medicine 01/26/22 Hari Estrada [address] [place] [address] Customer Accounts Advisor Cardiology 01/26/22 Josh Barrientos MD [address] [place] [address] Primary Staff Physician Cardiology 02/21/22 Pediatrician/Medical Doctor Relationship Specialty Start Date End Date Rudy Thomas MD [address] [place] [address] (Fax) PCP - General Family Medicine 01/26/22 Hari Estrada [address] [place] [address] Customer Accounts Advisor Cardiology 01/26/22 Josh Barrientos MD [address] [place] [address] Primary Staff Physician Cardiology 02/21/22 Pediatrician/Medical Doctor Relationship Specialty Start Date End Date Rudy Thomas MD [address] [place] [address] (Fax) PCP - General Family Medicine 01/26/22 Hari Estrada [address] [place] [address] Customer Accounts Advisor Cardiology 01/26/22 Josh Barrientos MD [address] [place] [address] Primary Staff Physician Cardiology 02/21/22 Pediatrician/Medical Doctor Relationship Specialty Start Date End Date Rudy Thomas MD [address] [place] [address] (Fax) PCP - General Family Medicine 01/26/22 Hari Estrada [address] [place] [address] Customer Accounts Advisor Cardiology 01/26/22 Josh Barrientos MD [address] [place] [address] Primary Staff Physician Cardiology 02/21/22 Pediatrician/Medical Doctor Relationship Specialty Start Date End Date Rudy Thomas MD [address] [place] [address] PCP - General Family Medicine 01/26/22 Hari sEtrada [address] [place] [address] Customer Accounts Advisor Cardiology 01/26/22 Josh Barrientos MD [address] [place] [address] Primary Staff Physician Cardiology 02/21/22 Pediatrician/Medical Doctor Relationship Specialty Start Date End Date Rudy Thomas MD [address] [place] [address] PCP - General 08/23/21 Pediatrician/Medical Doctor Relationship Specialty Start Date End Date Rudy Thomas MD [address] [place] [address] PCP - General Family Medicine 01/26/22 Hari Estrada [address] [place] [address] Customer Accounts Advisor Cardiology 01/26/22 Josh Barrientos MD [address] [place] [address] Primary Staff Physician Cardiology 02/21/22 Reason for Visit (unrecogniz ed section and content) Specialty Diagnoses / Procedures Referred By Contac t Referred To Contact Cardiology Diagnoses Atrial dilatation Other hypertrophic cardiomyopathy (HCC) Heart murmur Procedures Stress test, myoview Fili Estrada MD [address] [place] [address] Referral ID Status Reason Start Date Expiration Date Visits Re quested Visits Authorized [id number] Closed 11/10/2021 12/25/2021 1 1 Reason Comments Insurance Authorization Reason Comments Schedule Evaluation Reason Comments Schedule Surgery Pre-op Checklist Reason Comments Radiology CT Specialty Diagnoses / Procedures Referred By Contac t Referred To Contact CT IMAGING Diagnoses Coronary artery disease involving [place] coronary artery of [place] heart without angina pectoris HOCM (hypertrophic obstructive cardiomyopathy) (HCC) Primary hypertension Hyperlipidemia, unspecified hyperlipidemia type Non-rheumatic mitral regurgitation Encounter for preoperative vascular examination Procedures CT CHEST CARDIAC WO IVCON DIAGNOSTIC COMPUTED TOMOGRAPHY THORAX W/O CNTRST Rosey Saucedo MD [address] [place] [address] Ct Imaging Referral ID Status Reason Start Date Expiration Date V isits Requested Visits Authorized [id number] Closed Auto-Generate d Referral 02/12/2022 03/30/2022 1 1 Reason Comments Patient Education Reason Comments Pre-Op Exam Reason Comments Follow Up Phone Call RC f/u all clear Reason Comments Radio Main J1 Specialty Diagnoses / Procedures Referred By Shiva rodriges Referred To Contact ADMITTING Diagnoses HOCM (hypertrophic obstructive cardiomyopathy) (HCC) Coronary artery disease involving [place] coronary artery of [place] heart with angina pectoris (HCC) Non-rheumatic mitral regurgitation Primary hypertension Hyperlipidemia, unspecified hyperlipidemia type Anxiety and depression SOB (shortness of breath) Pre-operative cardiovascular examination Procedures VENTRICULOMYOTOMY-MYECTOMY CORONARY ARTERY BYP W/VEIN & ARTERY GRAFT 1 VEIN VENTRICULOMYOTOMY FOR IDEOPATHIC HYPERTROPHIC SUBAORTIC STENOSIS BYPASS GRAFT ARTERY CORONARY ON-PUMP USING VENOUS GRAFT(S) AND ARTERIAL GRAFT(S) SINGLE VEIN GRAFT [facility] [address] [place] [address] Referral ID Status Reason Start Date Expiration Date Visits Re quested Visits Authorized [id number] 1 1 Specialty Diagnoses / Procedures Referred By Shiva rodriges Referred To Contact ADMITTING Diagnoses HOCM (hypertrophic obstructive cardiomyopathy) (HCC) Coronary artery disease involving [place] coronary artery of [place] heart with angina pectoris (HCC) Non-rheumatic mitral regurgitation Primary hypertension Hyperlipidemia, unspecified hyperlipidemia type Anxiety and depression SOB (shortness of breath) Pre-operative cardiovascular examination Procedures VENTRICULOMYOTOMY-MYECTOMY CORONARY ARTERY BYP W/VEIN & ARTERY GRAFT 1 VEIN VENTRICULOMYOTOMY FOR IDEOPATHIC HYPERTROPHIC SUBAORTIC STENOSIS BYPASS GRAFT ARTERY CORONARY ON-PUMP USING VENOUS GRAFT(S) AND ARTERIAL GRAFT(S) SINGLE VEIN GRAFT [facility] [address] [place] [address] Source Comments (unrecognize d section and content) In the event this informatio n is protected by the Federal Confidentiality of Alcohol and Drug Abuse Patient Records regulations: The Federal rules restrict any use of the information to criminally investigate or prosecute any alcohol or drug abuse patient.[facility] the event this information is protected by the Federal Confidentiality of Alcohol and Drug Abuse Patient Records regulations: The Federal rules restrict any use of the information to criminally investigate or prosecute any alcohol or drug abuse patient.[facility] the event this information is protected by the Federal Confidentiality of Alcohol and Drug Abuse Patient Records regulations: The Federal rules restrict any use of the information to criminally investigate or prosecute any alcohol or drug abuse patient.[facility] the event this information is protected by the Federal Confidentiality of Alcohol and Drug Abuse Patient Records regulations: The Federal rules restrict any use of the information to criminally investigate or prosecute any alcohol or drug abuse patient.[facility] the event this information is protected by the Federal Confidentiality of Alcohol and Drug Abuse Patient Records regulations: The Federal rules restrict any use of the information to criminally investigate or prosecute any alcohol or drug abuse patient.[facility] the event this information is protected by the Federal Confidentiality of Alcohol and Drug Abuse Patient Records regulations: The Federal rules restrict any use of the information to criminally investigate or prosecute any alcohol or drug abuse patient.[facility] the event this information is protected by the Federal Confidentiality of Alcohol and Drug Abuse Patient Records regulations: The Federal rules restrict any use of the information to criminally investigate or prosecute any alcohol or drug abuse patient.[facility] the event this information is protected by the Federal Confidentiality of Alcohol and Drug Abuse Patient Records regulations: The Federal rules restrict any use of the information to criminally investigate or prosecute any alcohol or drug abuse patient.[facility] the event this information is protected by the Federal Confidentiality of Alcohol and Drug Abuse Patient Records regulations: The Federal rules restrict any use of the information to criminally investigate or prosecute any alcohol or drug abuse patient.[facility] the event this information is protected by the Federal Confidentiality of Alcohol and Drug Abuse Patient Records regulations: The Federal rules restrict any use of the information to criminally investigate or prosecute any alcohol or drug abuse patient.[facility] the event this information is protected by the Federal Confidentiality of Alcohol and Drug Abuse Patient Records regulations: The Federal rules restrict any use of the information to criminally investigate or prosecute any alcohol or drug abuse patient.[facility] Hospital[facility] the event this information is protected by the Federal Confidentiality of Alcohol and Drug Abuse Patient Records regulations: The Federal rules restrict any use of the information to criminally investigate or prosecute any alcohol or drug abuse patient.[facility] Hospital[facility] the event this information is protected by the Federal Confidentiality of Alcohol and Drug Abuse Patient Records regulations: The Federal rules restrict any use of the information to criminally investigate or prosecute any alcohol or drug abuse patient.[facility] the event this information is protected by the Federal Confidentiality of Alcohol and Drug Abuse Patient Records regulations: The Federal rules restrict any use of the information to criminally investigate or prosecute any alcohol or drug abuse patient.[facility] Hospital[facility] the event this information is protected by the Federal Confidentiality of Alcohol and Drug Abuse Patient Records regulations: The Federal rules restrict any use of the information to criminally investigate or prosecute any alcohol or drug abuse patient.[facility] FOR RECORDS PERTAINING TO PATIENTS WHO ARE OR HAVE BEEN ENROLLED IN A CHEMICAL DEPENDENCY/SUBSTANCEABUSE PROGRAM, SOME INFORMATION MAY BE OMITTED. This clinical summary was aggregated from multiple sources. Caution should be exercised in using it in the provision of clinical care. This summary normalizes information from multiple sources, and as a consequence, information in this document may materially change the coding, format and clinical context of patient data. In addition, data may be omitted in some cases. CLINICAL DECISIONS SHOULD BE BASED ON THE PRIMARY CLINICAL RECORDS. [employer] [facility]. provides no warranty or guarantee of the accuracy or completeness of information in this document.
[2023-02-14 16:07] LABS: Prostate Specific Antigen Dx 5.75 ng/mL (<=4.00)
== END 2023-02-14 15:14 | disposition home or self-care (01) ==
LOC: LAB 15:15
DX: R97.20 Elevated prostate specific antigen [PSA] (principal)
CPT/HCPCS: 36415; 84153

== ENCOUNTER 2023-10-22 15:14 | Outpatient (OUT) | payer OTHER, SELFPAY ==
[2023-10-22 16:11] LABS: Prostate Specific Antigen Dx 7.71 ng/mL (<=4.00)
== END 2023-10-22 15:15 | disposition home or self-care (01) ==
LOC: LAB 15:17
PROVIDERS: PCP Family Medicine; Visit Provider Urology
DX: R97.20 Elevated prostate specific antigen [PSA] (principal)
CPT/HCPCS: 36415; 84153

== ENCOUNTER 2023-12-17 15:13 | Outpatient (OUT) | payer OTHER, SELFPAY ==
--- OUTSIDE RECORDS SUMMARY | 2023-12-17 15:19 | XMS_ITS | CCD ---
Author Organization [facility] Care Team Providers Care Colored Liquid Plastic Applier Name Role Phone Rudy Thomas MD Primary Care Provider Unavailable Primary Care Provider UnavailRudy Lopez MD Primary Care Provider Hari Estrada Unavailable Suresh Spivey MD Unavailable [phone] Rudy Thomas MD Primary Care Provider [phone] RUDY THOMAS Referring Unavailable HEMEYER, EDWARD J Primary Care Unavailable HEMEYER, EDWARD J Referring Unavailable HEMEYER, EDWARD Obed Primary Care Unavailable HEMEYER, EDWARD J Referring Unavailable HEMEYER, EDWARD Obed Primary Care Unavailable HEMEYER, EDWARD J Referring Unavailable HEMEYER, EDWARD J Primary Care Unavailable FILI ESTRADA Referring Unavailable HEMEYER, EDWARD Obed Primary Care Unavailable FILI ESTRADA Admitting Unavailable HEMEYER ., DR LOU Primary Care Unavailable FILI ESTRADA Attending Unavailable VIGFILI ALFREDO Consulting Unavailable FILI ESTRADA Admitting Unavailable HEMEYER ., DR LOU Primary Care Unavailable FILI ESTRADA Attending Unavailable FILI ESTRADA Consulting Unavailable HEMEYER ., DR LOU Admitting Unavailable HEMEYER ., DR LOU Referring Unavailable HEMEYER ., DR LOU Attending Unavailable HEMEYER ., DR LOU Consulting Unavailable HEMEYER ., DR LOU Primary Care Unavailable HEMEYER ., DR LOU Primary Care Unavailable MISC, DR CARVER Admitting Unavailable MISC, DR CARVER Attending Unavailable MISC, DR CARVER Consulting Unavailable FILI ESTRADA Consulting Unavailable FILI ESTRADA Admitting Unavailable HEMEYER ., DR LOU Primary Care Unavailable FILI ESTRADA Attending Unavailable HEMEYER ., DR LOU Admitting Unavailable HEMEYER ., DR LOU Attending Unavailable HEMEYER ., DR LOU Consulting Unavailable HEMEYER ., DR LOU Primary Care Unavailable FILI ESTRADA Consulting Unavailable HEMEYER ., DR LOU Primary Care Unavailable FILI ESTRADA Admitting Unavailable FILI ESTRADA Attending Unavailable NATALIE, HARI DWYER Attending Unavailab le VIGESSOPHIA, HARI DWYER Referring Unavailab le RUDY THOMAS Primary Care Unavailable RUDY THOMAS Primary Care Unavailable VIGSAYDA, HARI DWYER Admitting Unavailab le VIGESSOPHIA, HARI DWYER Attending Unavailab DEANA Guerrier Attending Unavailable HEMEYER, RUDY DELA CRUZ Primary Care Unavailab le HEMEYER, RUDY DELA CRUZ Primary Care Unavailab le SMEDIRAKENNEYDESTIN G Referring Unavailable HEMEYER, RUDY DLEA CRUZ Primary Care Unavailab le NELSONEDKENNEY GASPAROLAS G Referring Unavailable HEMEYER, RUDY DELA CRUZ Primary Care Unavailab le NELSONEDKENNEY GASPAROLAS G Referring Unavailable Hemeyer Rudy ACEVEDO Unavailable Rudy Thomas MD Primary Care Provider Rudy Thomas MD Primary Care Provider FILI ESTRADA Referring Unavailable FILI ESTRADA Attending Unavailable MARTHA, RUDY Clay Primary Care Unavailable BRETT RAMESH Referring Unavailable RUDY THOMAS Primary Care Unavailable BRETT RAMESH Referring Unavailable MARTHA, RUDY Clay Primary Care Unavailable RUDY THOMAS Primary Care Unavailable JENNIFER BROWNE Referring Unavailable RUDY THOMAS Attending Unavailable RUDY THOMAS Attending Unavailable Medications Current Medications Medication Drug Class(es) Dates Sig (Normalized) Sig (Original) amLODIPine 10 mg oral tablet (1 source) Dihydropyridine Calcium Channel Saul Start: 07-11-2021 take 1 tablet by mouth in the morning amLODIPine (NORVASC) 10 MG tablet Take 10 mg by mouth in the morning. 0 07/11/2021 Active ascorbic acid 500 mg chewable tablet (20 sources) Vitamin C ascorbic acid (Vitamin C) 500 MG chewable tablet 1 (one) time each day at the same time. Active take 1 tablet by mouth once graciela y Ascorbic Acid (VITAMIN C) 1000 MG tablet Take 1 tablet by mouth daily 0 Active Comment on above: Take 1,000 mg by carlos once daily. atorvastatin 80 mg oral tablet (13 sources) HMG-CoA Reductase Inhibitor Start: 4 take 1 tablet by mouth once daily atorvastatin (Lipitor) 80 MG tablet Indications: Mixed hyperlipidemia (CMS/HCC) Take 1 tablet (80 mg) by mouth Daily 90 tablet 1 05/30/2023 Active Start: 06-18-2022 take 1 tablet by carlos th once daily at bedtime atorvastatin (LIPITOR) 80 MG tablet Take 1 tablet by mouth daily at bedtime 90 tablet 3 06/18/2022 Active Start: 03-03-2022 End: 04-02-2022 take 1 tablet by mouth in the morning Lipitor 80 MG tablet Take 80 mg by mouth in the morning. 0 03/03/2022 Active Comment on above: Take 1 tablet by carlos th daily at bedtime. cholecalciferol 0.25 mg oral tablet (20 sources) Vitamin D take 1 tablet by mouth once daily cholecalciferol 250 MCG (03322 UT) tablet Take 10,000 Units by mouth Daily Winter Dose Active take 1 tablet by mouth once graciela y cholecalciferol (Vitamin D-3) 125 MCG (5000 UT) tablet Take 5,000 Units by mouth Daily Summer dose Active take 2 tablets by mouth once brittani ly cholecalciferol (VITAMIN D3) 5,000 unit tab Take 10,000 Units by mouth once daily. 0 Active Cholecalciferol (VITAMIN D-3 PO) Take by mouth daily 0 Active Comment on above: Take 10,000 Units by mouth once daily. chondroitin sulfates 400 mg / glucosamine sulfate 500 mg oral tablet (4 sources) take 1 tablet by mouth once daily glucosamine-chondroi tin 500-400 MG tablet Take 1 tablet by mouth Daily Active Coenzyme Q10 (COQ10 PO) (8 sources) Coenzyme Q10 (CO Q10 PO) Take by mouth daily Krill and Co Q10 0 Active levoFLOXacin 500 mg oral tablet (1 source) Quinolone Antimicrobial Start: 09-14-19 End: 09-24-19 22 take 1 tablet by mouth in the morning levoFLOXacin (LEVAQUIN) 500 MG tablet Take 1 tablet by mouth in the morning for 10 days. 10 tablet 0 09/13/2021 09/23/2021 Active losartan potassium 100 mg oral tablet (20 sources) Angiotensin 2 Receptor Saul Start: 05-30-19 24 take 1 tablet by mouth once daily losartan (Cozaar) 100 MG tablet Indications: Benign essential hypertension (CMS/HCC) Take 1 tablet (100 mg) by mouth Daily 90 tablet 1 05/30/2023 Active Start: 01-03-2022 take 1 tablet by carlos th in the morning losartan (Cozaar) 100 MG tablet Indications: Benign essential hypertension (CMS/HCC) Take 1 tablet (100 mg) by mouth in the morning. 90 tablet 1 11/26/2022 Active Comment on above: Take 1 tablet by carlos th once daily. Magnesium (20 sources) take 1 tablet by mouth in the morning magnesium 250 MG tablet Take 1 tablet by mouth in the morning. Active take 1 tablet by mouth once graciela y magnesium (MAGNESIUM-OXIDE) 250 MG TABS tablet Take 1 tablet by mouth daily 0 Active take 1 tablet by mouth in the mo rning magnesium 250 MG tablet Take 1 tablet by mouth in the morning. 0 Active take 250 mg by mouth [...] 250 mg by mouth once daily. melatonin 12 mg oral tablet (20 sources) take 1 tablet by mouth at bedtime Melatonin 12 MG tablet Take 1 tablet by mouth at bedtime Active Melatonin 10 MG capsule 1 (one) time each day at the same time. Active Melatonin 10 MG TABS Take by mouth nightly 0 Active Comment on above: Take 1 capsule by mo [facility] daily at bedtime. 24 hr metoprolol succinate 50 mg extended release oral tablet (14 sources) beta-Adrenergic Saul Start: 05-30-2023 metoprolol succinate XL (Toprol-XL) 50 MG 24 hr tablet Indications: Benign essential hypertension (CMS/HCC) 2 tablets in AM and 1 tablet in PM 270 tablet 1 05/30/2023 Active Start: 12-31-2022 metoprolol suc cinate (TOPROL XL) 50 MG extended release tablet Take 2 tabs in the morning and 1 tab in the evening 270 tablet 3 12/31/2022 Active Start: 06-18-2022 take 1 tablet by carlos th every twenty-four hours in the morning, then take 1 tablet by mouth in the evening, then take 1 tablet by mouth at bedtime metoprolol succinate XL (Toprol-XL) 50 MG 24 hr tablet Take 50 mg by mouth in the morning and 50 mg in the evening and 50 mg before bedtime. 0 06/18/2022 Active Start: 04-02-2022 take 1 tablet by carlos th twice daily metoprolol tartrate (LOPRESSOR) 50 MG [...] Misc Natural Products (GLUCOSAMINE CHOND COMPLEX/MSM PO) (8 sources) Misc Natural Pro ducts (GLUCOSAMINE CHOND COMPLEX/MSM PO) daily 0 Active Misc Natural Products (PROSTATE HEALTH PO) (4 sources) take 2 tablets by mouth once daily Misc Natural Products (PROSTATE HEALTH PO) Take 2 tablets by mouth Daily Active Multiple Vitamin (Multi-Vitamin) tablet (5 sources) take 1 tablet by mouth once daily at bedtime Multiple Vitamin (Multi-Vitamin) tablet Take 1 tablet by mouth daily at bedtime. Active take 1 tablet by carlos th once daily at bedtime Multiple Vitamin (Multi-Vitamin) tablet Take 1 tablet by mouth daily at bedtime. 0 Active niacin 500 mg oral tablet (20 sources) Nicotinic Acid take 1 tablet by carlos th at mealtime niacin 500 MG tablet Take 500 mg by mouth in the morning. Take with meals. Active take 1 capsule by mouth once brittani ly niacin 500 MG extended release capsule Take 1 capsule by mouth daily 0 Active Comment on above: Take 500 mg by mouth daily with breakfast. NONFORMULARY (8 sources) NONFORMULARY Vitaprime-take one tablet daily 0 Active Percy-3 Fatty Acids (FISH OIL PO) (2 sources) take 1 capsule by mouth once daily Percy-3 Fatty Acids (FISH OIL PO) Take 1 capsule by mouth Daily Active oxyCODONE hydrochloride 5 mg oral tablet (4 sources) Opioid Agonist Start: 03-03-19 End: 03-10-19 take 1 tablet by mouth every six [...] extended release oral tablet (5 sources) Start: 03-04-19 End: 03-11-19 take 1 tablet by mouth once daily potassium chloride ER (K-DUR, KLOR-CON M10) 10 mEq tablet Take 1 tablet by mouth once daily for 3 days. 3 tablet 0 03/08/2022 03/11/2022 Active Comment on above: Take 1 tablet by carlos th once daily for 3 days. saw palmetto (Serenoa repens) 500 MG capsule (4 sources) take 3 capsules by mouth once daily saw palmetto (Serenoa repens) 500 MG capsule Take 3 capsules by mouth Daily Active tamsulosin hydrochloride 0.4 mg oral capsule (8 sources) alpha-Adrenergic Saul Start: 11-07-19 take 1 capsule by mouth once daily at bedtime tamsulosin (Flomax) 0.4 MG 24 hr capsule Take 0.4 mg by mouth daily at bedtime 11/07/2023 Active Start: 03-03-2022 End: 03-17-2022 take 1 capsule by mouth once daily at bedtime tamsulosin (FLOMAX) 0.4 mg Take 1 capsule by mouth daily at bedtime for 14 days. 14 capsule 0 03/03/2022 Active Comment on above: Take 1 capsule by mo ut daily at bedtime for 14 days. ubidecarenone 30 mg oral capsule (4 sources) take 1 capsule by mouth once daily co-enzyme Q-10 30 MG capsule Take 30 mg by mouth Daily Active Completed/Discontinued Medications Medication Drug Class(es) Dates Sig [...] 24 hours.). aspirin 81 mg chewable tablet (13 sources) Platelet Aggregation Inhibitor, Nonsteroidal Anti-inflammatory Drug Start: 03-04-2022 End: 04-03-2022 take 1 tablet by mouth once daily aspirin 81 mg chewable tablet Take 1 tablet by mouth once daily. 30 tablet 3 03/04/2022 Active Start: 03-03-2022 take 1 tablet by carlos th in the morning aspirin 81 MG EC tablet Take 81 mg by mouth in the morning. 03/03/2022 Active Comment on above: Take 1 tablet by carlos th once daily. atenolol 25 mg oral tablet (12 sources) beta-Adrenergic Saul Start: 11-30-2021 take 1 tablet by mouth once daily atenolol (TENORMIN) 25 mg tablet Take 25 mg by mouth once daily. 0 11/30/2021 Suspended Start: 11-08-2021 take 1 tablet by carlos th once daily atenolol (TENORMIN) 25 MG tablet Take 1 tablet by mouth daily 30 tablet 11 11/08/2021 Active Comment on above: Take 25 mg by mouth once daily. furosemide 20 mg oral tablet (7 sources) Loop Diuretic Start: 03-04-2022 End: 03-11-2022 take 1 tablet by mouth once daily furosemide (LASIX) 20 mg tablet Take 1 tablet by mouth once daily for 3 days. 3 tablet 0 03/08/2022 Active Comment on above: Take 1 tablet by carlos th once daily for 3 days. gadoteridol (PROHANCE) injection 15 mL (1 source) Start: 04-02-2023 End: 04-02-2023 gadoteridol (PROHANCE) injection 15 mL glucosam/chond-msm1/C /janiya/bor (FZUARDFYKCX-FKFXD-FW M COMPLEX ORAL) (13 sources) take 1 tablet by mouth once daily glucosam/chond-msm1/ C/janiya/bor (WSOPLCSAZIO-HAOBJ-I SM COMPLEX ORAL) Take 1 tablet by mouth once daily. 0 Active take 1 tablet by carlos th once daily glucosam/chond-msm1/C/janiya/bor (GLUCOSAM GIP-PNWGG-BWL COMPLEX ORAL) Take 1 tablet by mouth once daily. 0 Suspended Comment on above: Take 1 tablet by carlos th once daily. MULTIVITAMIN ORAL (13 sources) take 1 tablet [...] (2 sources) RNA Synthetase Inhibitor Antibacterial Start: 02-23-20 mupirocin (BACTROBAN) 2 % ointment Apply a small amount in each nostril using a cotton swab twice the day before surgery and once the morning of surgery. 22 g 0 02/22/2022 Suspended Comment on above: Apply a small amount in each nostril using a cotton swab twice the day before surgery and once the morning of surgery. pantoprazole 20 mg delayed release oral tablet (6 sources) Proton Pump Inhibitor Start: 03-04-19 End: 03-18-19 23 take 1 tablet by mouth once daily, then take 6 tablets by mouth in the morning pantoprazole DR (PROTONIX) 20 mg tablet Take 1 tablet by mouth DAILY (6 AM) for 14 days. 14 tablet 0 03/04/2022 Active Comment on above: Take 1 tablet by carlos DAILY (6 AM) for 14 days. polyethylene glycol 3350 32126 mg powder for oral solution (6 sources) [...] (20 sources) Atypical Antipsychotic Start: 02-01-20 16 End: 05-26-19 take 1 tablet by mouth at bedtime QUEtiapine (SEROquel) 25 MG tablet Indications: Sleep initiation disorder Take 1 tablet (25 mg) by mouth at bedtime 90 tablet 1 05/30/2023 11/27/2023 Discontinued (Reorder) Comment on above: Take 1 tablet by carlos th daily at bedtime. sertraline 50 mg oral tablet (20 sources) Serotonin Reuptake Inhibitor Start: 01-11-20 End: 05-26-19 take 1 tablet by mouth once daily sertraline (Zoloft) 50 MG tablet Indications: Situational depression (CMS/HCC) Take 1 tablet (50 mg) by mouth Daily 90 tablet 1 05/30/2023 11/27/2023 Discontinued (Reorder) Comment on above: Take 50 mg by mouth daily at bedtime. technetium sestamibi (CARDIOLITE) injection 10 millicurie (1 [...] Date Documented Da te Episodic/Chronic Anxiety disorders (1 source) Mixed anxiety and depressive disorder; Translations: [Anxiety disorder, unspecified] Chronic Chronic kidney disease (1 source) Chronic kidney disease, unspecified; Translations: [CHRONIC KIDNEY DISEASE UNSPECIFIED] Onset: 03-21-2022 Chronic Coronary atherosclerosis and other heart disease (18 sources) Coronary atherosclerosis; Translations: [Atherosclerotic heart disease of [place] coronary artery without angina pectoris] Onset: 02-27-2022 Chronic Deficiency and other anemia (1 source) Iron deficiency anemia secondary to blood loss (chronic); Translations: [IRON DEFIC ANEMIA SEC BLD LOSS CHRN] Onset: 03-21-2022 Chronic Deficiency and other anemia (5 sources) Anemia due to blood loss; Translations: [Iron deficiency anemia secondary to blood loss (chronic)] Onset: 08-16-2022 08-16-2022 Chronic Disorders of lipid metabolism (15 sources) Hyperlipidemia; Translations: [Hyperlipidemia, unspecified] Onset: 01-17-2015 Chronic Essential hypertension (20 sources) Essential hypertension; Translations: [Essential (primary) hypertension] Onset: 01-17-2015 Chronic Genitourinary symptoms and ill-defined conditions (10 sources) Nocturia; Translations: [Nocturia] Onset: 02-14-2015 Episodic Heart valve disorders (10 sources) Non-rheumatic mitral regurgitation ; Translations: [Nonrheumatic mitral (valve) insufficiency] Onset: 09-12-2021 Chronic Hyperplasia of prostate (12 sources) Benign prostatic hypertrophy without outflow obstruction; Translations: [Benign prostatic hyperplasia without lower urinary tract symptoms] Onset: 02-12-2018 03-12-2022 Chronic Hypertension with complications and secondary hypertension (14 sources) Hypertensive renal disease; Translations: [Hypertensive chronic kidney disease with stage 1 through stage 4 chronic kidney disease, or unspecified chronic kidney disease] Onset: 04-15-2020 03-12-2022 Chronic Mood disorders (9 sources) Reactive depression (situational); Translations: [Major depressive disorder, single episode, unspecified] Onset: 01-11-2016 03-12-2022 Chronic Nutritional deficiencies (7 sources) Vitamin D deficiency; Translations: [Vitamin D deficiency, unspecified] Onset: 01-17-2015 03-12-2022 Chronic Other aftercare (1 source) Surgical follow-up; Translations: [Encounter for follow-up examination after completed treatment for conditions other than malignant neoplasm] Episodic Other aftercare (7 sources) Polypharmacy ; Translations: [Other jail (current) drug therapy] Onset: 04-15-2020 12-03-2022 Episodic Other and ill-defined heart disease (7 sources) Atrial dilatation; Translations: [Cardiomegaly] Onset: 08-16-2022 Chronic Other and ill-defined heart disease (2 sources) Cardiomegaly; Translations: [Cardiomegaly] Onset: 11-13-2021 Chronic Other lower respiratory disease (1 source) Dyspnea; Translations: [Shortness of breath] Episodic Zeynep-; endo-; and myocarditis; cardiomyopathy (except that caused by tuberculosis or sexually transmitted disease) (20 sources) Hypertrophic cardiomyopathy; Translations: [Other hypertrophic cardiomyopathy] Onset: 11-13-2021 Chronic Residual codes; unclassified (9 sources) Sleep dysfunction with arousal disturbance; Translations: [Other sleep disorders] Onset: 01-11-2016 03-12-2022 Chronic Residual codes; unclassified (7 sources) Initial insomnia; Translations: [Other insomnia] Onset: 08-16-2022 08-16-2022 Chronic Residual codes; unclassified (1 source) H/O cardiac surgery; Translations: [Other specified postprocedural states] Episodic Unclassified (3 sources) No additional problems on file Past or Other Problems Problem Classification Problem Date Documented Da te Episodic/Chronic Administrative/social admission (16 sources) Discharge status; Translations: [Encounter for administrative examinations, unspecified] Onset: 02-22-2022 02-22-2022 Episodic Coronary atherosclerosis and other heart disease (7 sources) Presence of aortocoronary bypass graft; Translations: [Presence of aortocoronary bypass graft] Onset: 03-08-2022 Episodic Diabetes mellitus without complication (9 sources) Metabolic stress hyperglycemia; Translations: [Hyperglycemia, unspecified] Onset: 02-27-2022 02-28-2022 Episodic Heart valve disorders (12 sources) Heart murmur; Translations: [Cardiac murmur, unspecified] Onset: 09-11-2021 Episodic Mood disorders (4 sources) Mood disorders Onset: 05-30-2023 05-30-2023 Other aftercare (1 source) Encounter for follow-up examination after completed treatment for conditions other than malignant neoplasm; Translations: [Surgery follow-up] Onset: 03-08-2022 Episodic Other nervous system disorders (9 sources) Postoperative pain ; Translations: [Other acute postprocedural pain] Onset: 02-27-2022 02-28-2022 Episodic Other nutritional; endocrine; and metabolic disorders (5 sources) Overweight; Translations: [Overweight] Onset: 08-16-2022 08-16-2022 Episodic Other screening for suspected conditions (not mental disorders or infectious disease) (11 sources) Raised prostate specific antigen; Translations: [Elevated prostate specific antigen [PSA]] Onset: 10-10-2021 Episodic Pleurisy; pneumothorax; pulmonary collapse (13 sources) Atelectasis; Translations: [Atelectasis] Onset: 02-28-2022 03-02-2022 Episodic Residual codes; unclassified (2 sources) Insomnia; Translations: [Insomnia, unspecified] Onset: 01-11-2016 03-12-2022 Episodic Residual codes; unclassified (1 source) Other specified postprocedural states; Translations: [S/P ventricular septal myectomy] Onset: 03-08-2022 Episodic Results Test Name Value Interpretation Reference Range Facility Surgical Pathology Reporton 04-19-2023 Surgical Pathology Report (NOTE) Path Number: [id number] -- Diagnosis -- A. PROSTATE, LB, NEEDLE BIOPSY: Benign prostate tissue with chronic inflammation. B. PROSTATE, LLB, NEEDLE BIOPSY: Benign prostate tissue. C. PROSTATE, LM, NEEDLE BIOPSY: Benign prostate tissue. D. PROSTATE, LLM, NEEDLE BIOPSY: Benign prostate tissue with chronic inflammation. E. PROSTATE, LA, NEEDLE BIOPSY: Benign prostate tissue with acute and chronic inflammation. F. PROSTATE, LLA, NEEDLE BIOPSY: Benign prostate tissue with chronic inflammation. G. PROSTATE, RB, NEEDLE BIOPSY: Benign prostate tissue. H. PROSTATE, RLB, NEEDLE BIOPSY: Benign prostate tissue. I. PROSTATE, RM, NEEDLE BIOPSY: Benign prostate tissue. J. PROSTATE, RLM, NEEDLE BIOPSY: Benign prostate tissue. K. PROSTATE, RA, NEEDLE BIOPSY: Benign prostate tissue. L. PROSTATE, RLA, NEEDLE BIOPSY: Benign prostate tissue with chronic inflammation. Cricket Gonzalez. Electronically Signed Out 04/22/2023 Clinical Information Pre-Op Diagnosis: ELEVATED PSA Operative Findings: PROSTATE BIOPSY X 12 Operation Performed: DC PROSTATE NEEDLE BIOPSY ANY APPROACH kb Source of Specimen A: LB B: LLB C: LM D: LLM E: LA F: LLA G: RB H: RLB I: RM J: RLM K: RA L: RLA Gross Description GINO OSORIO, PROSTATE BIOPSIES All specimens are received in formalin on sponges and are flores-white needle core biopsies less than < 0.1 cm in diameter with the following lengths: A. LB Two cores, 1.3 and 1.5 cm in length. Entirely 1cs. B. LLB Two cores, 0.7 and 0.9 cm in length. Entirely 1cs. C. LM Two cores, 1.7 and 1.9 cm in length. Entirely 1cs. D. LLM Two cores, 1.3 and 1.6 cm in length. Entirely 1cs. E. LA Two cores, 1.5 and 1.9 cm in length. Entirely 1cs. F. LLA Two cores, 1.4 and 1.7 cm in length. Entirely 1cs. G. RB Two cores, 1.5 and 1.8 cm in length. Entirely 1cs. H. RLB Two cores, 1.6 and 1.7 cm in length. Entirely 1cs. I. RM Two cores, 1.6 and 1.7 cm in length. Entirely 1cs. J. RLM Two cores, 1.5 and 1.6 cm in length. Entirely 1cs. K. RA Two cores, 1.5 and 1.8 cm in length. Entirely 1cs. L. RLA Two cores, 1.2 and 1.8 cm in length. Entirely 1cs. jj tm Luis Childers D.O./kb2:04/19/2023 Microscopic Description A-L. Multiple ROLO-stained levels of each block reviewed. Microscopic examination performed. Processing Lab: [address] [id number] Interpretation Performed at [address] [id number] SURGICAL PATHOLOGY CONSULTATION Patient Name: GINO OSORIO [facility] Rec: [id number] [facility] [employer] [facility] ANATOMIC PATHOLOGY [address] [place] [address]. [place], [place] [id number] Normal [facility] MR Prostate WO and W contras t Meseret 04-03-2023 1. A 0.8 cm PI-RADS 4 observation in the left mid gland posteromedial peripheral zone. 2. A 1.1 cm PI-RADS 3 observation in the right mid gland anterior transition zone. 3. BPH. Estimated prostate gland volume 89 mL. 4. Fat containing left inguinal hernia. [facility] RIS CONSOLIDATED EXAMINATION: MULTIPARAMETRIC MRI OF THE PROSTATE WITH AND WITHOUT CONTRAST 04/02/2023: TECHNIQUE: Multiparametric imaging with dynamic contrast enhanced imaging and diffusion weighted imaging was performed. COMPARISON: None. HISTORY: ORDERING SYSTEM PROVIDED HISTORY: Elevated PSA TECHNOLOGIST PROVIDED HISTORY: STAT Creatinine as needed:->Yes Rising PSA with prior negative biopsy What is the sedation requirement?->None FINDINGS: PROSTATE: 4.9 cm x 6.7 cm x 5.2 cm (estimated volume 89 ml). PERIPHERAL ZONE: *Lesion 1: Size: 0.8 cm x 0.5 cm x 0.5 cm Location: Left mid gland posteromedial peripheral zone. -T2: Focal circumscribed T2 hypointensity. Series 7, image 22. -Diffusion: Markedly hypointense on ADC and markedly hyperintense at high B value DWI, less than 1.5 cm in greatest dimension. PI-RADS score: T2-weighted score 4, diffusion-weighted score 4, dynamic contrast-enhanced score -, overall score 4 Extraprostatic extension: None CENTRAL/TRANSITION ZONE: Enlarged and heterogeneous with multiple nodules, consistent with BPH. *Lesion 2: Size: 1.1 x 0.6 cm Location: Right mid gland anterior transition zone. -T2: Heterogeneous T2 hypointensity with obscured margins. Series 7 image 21, 22. () -Diffusion: Marked ADC hypointensity and hyperintensity on high B value DWI. () PI-RADS score: T2-weighted score 3, diffusion-weighted score 4, dynamic contrast-enhanced score -, overall score 3 Extraprostatic extension: None Anterior fibromuscular stroma: Unremarkable Urethral sphincter: No significant abnormality evident Seminal vesicles: Unremarkable. Neurovascular bundle: Unremarkable. Lymphadenopathy: No evidence of lymphadenopathy. Bladder: The bladder is unremarkable. Bowel: The visualized bowel is without acute abnormality. Peritoneal cavity: No free fluid. Bones/soft tissues: Normal bone marrow signal intensity. No suspicious or aggressive osseous lesions. Fat containing left inguinal hernia. [facility] Elmo Manley MD - 04/03/2023 EXAMINATION: MULTIPARAMETRIC MRI OF THE PROSTATE WITH AND WITHOUT CONTRAST 04/02/2023: TECHNIQUE: Multiparametric imaging with dynamic contrast enhanced imaging and diffusion weighted imaging was performed. COMPARISON: None. HISTORY: ORDERING SYSTEM PROVIDED HISTORY: Elevated PSA TECHNOLOGIST PROVIDED HISTORY: STAT Creatinine as needed:->Yes Rising PSA with prior negative biopsy What is the sedation requirement?->None FINDINGS: PROSTATE: 4.9 cm x 6.7 cm x 5.2 cm (estimated volume 89 ml). PERIPHERAL ZONE: *Lesion 1: Size: 0.8 cm x 0.5 cm x 0.5 cm Location: Left mid gland posteromedial peripheral zone. -T2: Focal circumscribed T2 hypointensity. Series 7, image 22. -Diffusion: Markedly hypointense on ADC and markedly hyperintense at high B value DWI, less than 1.5 cm in greatest dimension. PI-RADS score: T2-weighted score 4, diffusion-weighted score 4, dynamic contrast-enhanced score -, overall score 4 Extraprostatic extension: None CENTRAL/TRANSITION ZONE: Enlarged and heterogeneous with multiple nodules, consistent with BPH. *Lesion 2: Size: 1.1 x 0.6 cm Location: Right mid gland anterior transition zone. -T2: Heterogeneous T2 hypointensity with obscured margins. Series 7 image 21, 22. () -Diffusion: Marked ADC hypointensity and hyperintensity on high B value DWI. () PI-RADS score: T2-weighted score 3, diffusion-weighted score 4, dynamic contrast-enhanced score -, overall score 3 Extraprostatic extension: None Anterior fibromuscular stroma: Unremarkable Urethral sphincter: No significant abnormality evident Seminal vesicles: Unremarkable. Neurovascular bundle: Unremarkable. Lymphadenopathy: No evidence of lymphadenopathy. Bladder: The bladder is unremarkable. Bowel: The visualized bowel is without acute abnormality. Peritoneal cavity: No free fluid. Bones/soft tissues: Normal bone marrow signal intensity. No suspicious or aggressive osseous lesions. Fat containing left inguinal hernia. IMPRESSION: 1. A 0.8 cm PI-RADS 4 observation in the left mid gland posteromedial peripheral zone. 2. A 1.1 cm PI-RADS 3 observation in the right mid gland anterior transition zone. 3. BPH. Estimated prostate gland volume 89 mL. 4. Fat containing left inguinal hernia. [facility] [employer] MR Prostate WO and W contras t IVOrdered By: Elmo Valencia on 04-03-2023 [facility] [employer] Work Phone: MRI PROSTATE W WO CONTRASTon 04-03-2023 MRI PROSTATE W WO CONTRAST EXAMINATION: MULTIPARAMETRIC MRI OF THE PROSTATE WITH AND WITHOUT CONTRAST 04/02/2023: TECHNIQUE: Multiparametric imaging with dynamic contrast enhanced imaging and diffusion weighted imaging was performed. COMPARISON: None. HISTORY: ORDERING SYSTEM PROVIDED HISTORY: Elevated PSA TECHNOLOGIST PROVIDED HISTORY: STAT Creatinine as needed:->Yes Rising PSA with prior negative biopsy What is the sedation requirement?->None FINDINGS: PROSTATE: 4.9 cm x 6.7 cm x 5.2 cm (estimated volume 89 ml). PERIPHERAL ZONE: *Lesion 1: Size: 0.8 cm x 0.5 cm x 0.5 cm Location: Left mid gland posteromedial peripheral zone. -T2: Focal circumscribed T2 hypointensity. Series 7, image 22. -Diffusion: Markedly hypointense on ADC and markedly hyperintense at high B value DWI, less than 1.5 cm in greatest dimension. PI-RADS score: T2-weighted score 4, diffusion-weighted score 4, dynamic contrast-enhanced score -, overall score 4 Extraprostatic extension: None CENTRAL/TRANSITION ZONE: Enlarged and heterogeneous with multiple nodules, consistent with BPH. *Lesion 2: Size: 1.1 x 0.6 cm Location: Right mid gland anterior transition zone. -T2: Heterogeneous T2 hypointensity with obscured margins. Series 7 image 21, 22. () -Diffusion: Marked ADC hypointensity and hyperintensity on high B value DWI. () PI-RADS score: T2-weighted score 3, diffusion-weighted score 4, dynamic contrast-enhanced score -, overall score 3 Extraprostatic extension: None Anterior fibromuscular stroma: Unremarkable Urethral sphincter: No significant abnormality evident Seminal vesicles: Unremarkable. Neurovascular bundle: Unremarkable. Lymphadenopathy: No evidence of lymphadenopathy. Bladder: The bladder is unremarkable. Bowel: The visualized bowel is without acute abnormality. Peritoneal cavity: No free fluid. Bones/soft tissues: Normal bone marrow signal intensity. No suspicious or aggressive osseous lesions. Fat containing left inguinal hernia. IMPRESSION: 1. A 0.8 cm PI-RADS 4 observation in the left mid gland posteromedial peripheral zone. 2. A 1.1 cm PI-RADS 3 observation in the right mid gland anterior transition zone. 3. BPH. Estimated prostate gland volume 89 mL. 4. Fat containing left inguinal hernia. Interpreted by: Elmo Valencia MD Signed by: Elmo Valencia MD 04/03/23 Final result Normal [facility] BUN + Creatinineon 4 Creatinine [Mass/Vol] 0.7 mg/dL Normal 0.7-1.2 [facility] Comment on above: Performed By: #### B UNCRT #### [facility] [address] [place] [address] [employer] Manager: Kareem Vance MD GFR/1.73 sq M.predicted among non-blacks MDRD (S/P/Bld) [Vol rate/Area] mL/min/{1.73_m2} Normal >60 [facility] Comment on above: Result Comment: These results [...] affects renal tubular secretion. Performed By: #### B UNCRT #### [facility] [address] [place] [address] [place] [address] [employer] Manager: Kareem Vance MD Urea nitrogen [Mass/Vol] 22 mg/dL Normal 8-23 [facility] Comment on above: Performed By: #### B UNCRT #### [facility] [address] [place] [address] [employer] Manager: Kareem Vance MD MHPT BUN + CREATININEon 02 Creatinine [Mass/Vol] 0.7 mg/dL 0.7 - 1.2 mg/dL [facility] MHPT EGFR >60 - PINF [facility] Comment on above: These results are not [...] following therapy that affects renal tubular secretion. Urea nitrogen [Mass/Vol] 22 mg/dL 8 - 23 mg/dL [facility] [employer] Original Ordering Provider[facility] MR Prostate WO and W contras t Meseret 04-02-2023 Radiology Study observation (narrative) [facility] XR CHEST (2 VW)on 04-02-2023 XR CHEST (2 VW) EXAMINATION: TWO XRAY VIEWS OF THE CHEST 04/02/2023 8:43 am COMPARISON: None. HISTORY: ORDERING SYSTEM PROVIDED HISTORY: Benign essential hypertension FINDINGS: The lungs appear clear. The heart is of normal size. The patient is status post sternotomy and CABG. Bony structures unremarkable. IMPRESSION: No acute cardiopulmonary process. Interpreted by: Naveed Knowles MD Signed by: Naveed Knowles MD 04/02/23 Final result Normal [facility] CBC AUTO DIFFon 06-19-2022 BASO # 0.0 103/ul Normal 0.0-0.1 [facility] Comment on above: Performed By: #### C BC #### [facility] [address] [place] [address] Dr. Mel Ramirez Basophils/100 WBC (Bld) 0.3 % Normal 0.2-2.0 [facility] Comment on above: Performed By: #### C BC #### [facility] [address] [place] [address] Dr. Mel Ramirez EO # 0.1 103/ul Normal 0.0-0.7 [facility] Comment on above: Performed By: #### C BC #### [facility] [address] [place] [address] Dr. Mel Ramirez Eosinophils/100 WBC (Bld) 1.9 % Normal 0.9-7.0 [facility] Comment on above: Performed By: #### C BC #### [facility] [address] [place] [address] Dr. Mel Ramirez Erythrocyte distribution width (RBC) [Ratio] 14.6 % Normal 11.0-15.0 [facility] Comment on above: Performed By: #### C BC #### [facility] [address] [place] [address] Dr. Mel Ramirez Hematocrit (Bld) [Volume fraction] 44.8 % Normal 42.0-54.0 [facility] Comment on above: Performed By: #### C BC #### [facility] [address] [place] [address] Dr. Mel Ramirez Hemoglobin (Bld) [Mass/Vol] 14.4 g/dL Normal 14.0-18.0 [facility] Comment on above: Performed By: #### C BC #### [facility] [address] [place] [address] Dr. Mel Ramirez IG # 0.01 10e3/ul Normal 0.00-0.03 [facility] Comment on above: Performed By: #### C BC #### [facility] [address] [place] [address] Dr. Mel Ramirez IG % 0.2 % Normal 0.0-0.5 [facility] Comment on above: Performed By: #### C BC #### [facility] [address] [place] [address] Dr. Mel Ramirez LYMPH # 1.5 103/ul Normal 1.2-3.8 [facility] Comment on above: Performed By: #### C BC #### [facility] [address] [place] [address] Dr. Mel Ramirez Lymphocytes/100 WBC (Bld) 26.6 % Normal 20.5-60.0 [facility] Comment on above: Performed By: #### C BC #### [facility] [address] [place] [address] Dr. Mel Ramirez MANUAL DIFF REQ NO Normal [facility] Comment on above: Performed By: #### C BC #### [facility] [address] [place] [address] Dr. Mel Ramirez MCH (RBC) [Entitic mass] 26.9 pg Normal 25.9-34.0 [facility] Comment on above: Performed By: #### C BC #### [facility] [address] [place] [address] Dr. Mel Ramirez MCHC (RBC) [Mass/Vol] 32.1 g/dL Normal 29.9-35.2 [facility] Comment on above: Performed By: #### C BC #### [facility] [address] [place] [address] Dr. Mel Ramirez MCV (RBC) [Entitic vol] 83.6 fL Normal 80.0-94.0 [facility] Comment on above: Performed By: #### C BC #### [facility] [address] [place] [address] Dr. Mel Ramirez MONO # 0.5 103/ul Normal 0.3-0.8 [facility] Comment on above: Performed By: #### C BC #### [facility] [address] [place] [address] Dr. Mel Ramirez Monocytes/100 WBC (Bld) 8.8 % Normal 1.7-12.0 [facility] Comment on above: Performed By: #### C BC #### [facility] [address] [place] [address] Dr. Mel Ramirez NEUT # 3.6 103/ul Normal 1.4-6.5 [facility] Comment on above: Performed By: #### C BC #### [facility] [address] [place] [address] Dr. Mel Ramirez Neutrophils/100 WBC (Bld) 62.2 % Normal 43.0-75.0 [facility] Comment on above: Performed By: #### C BC #### [facility] [address] [place] [address] Dr. Mel Ramirez Platelet mean volume (Bld) [Entitic vol] 9.8 fL Normal 9.5-13.5 [facility] Comment on above: Performed By: #### C BC #### [facility] [address] [place] [address] Dr. Mel Ramirez PLT 241 103/ul Normal 150-450 [facility] Comment on above: Performed By: #### C BC #### [facility] [address] [place] [address] Dr. Mel Ramirez RBC 5.36 106/ul Normal 4.70-6.10 [facility] Comment on above: Performed By: #### C BC #### [facility] [address] [place] [address] Dr. Mel Ramirez WBC 5.8 103/ul Normal 4.0-11.0 [facility] Comment on above: Performed By: #### C BC #### [facility] [address] [place], [place] [address] Dr. Mel Ramirez LIPID PROFILEon 06-19-2022 CHOL-HDL RATIO NORM SEE BELOW Normal [facility] Comment on above: Result Comment: 3.3 - 4.4 LOW RISK 4.4 - 7.1 AVERAGE RISK 7.1 - 11.0 MODERATE RISK >11.0 HIGH RISK Performed By: #### T SHRFT4, MG, CMP, LIPID ####[facility] [address] [place], [place] [address]Lu. Mel Ramirez Cholesterol [Mass/Vol] 130 mg/dL Normal <=200 [facility] Comment on above: Performed By: #### T SHRFT4, MG, CMP, LIPID ####[facility] [address] [place], [place] [address]Ch. Mel Ramirez Cholesterol in HDL [Mass/Vol] 64 mg/dL Critically high 40-60 [facility] Comment on above: Performed By: #### T SHRFT4, MG, CMP, LIPID ####[facility] [address] [place] [id number]. Mel Ramirez Cholesterol in LDL [Mass/Vol] 57.2 mg/dL Normal [facility] Comment on above: Performed By: #### T SHRFT4, MG, CMP, LIPID ####[facility] [address] [place], [place] [address]Zp. Mel Ramirez Cholesterol.total/Ch olesterol in HDL [Mass ratio] 2.0 {ratio} Normal [facility] Comment on above: Performed By: #### T SHRFT4, MG, CMP, LIPID ####[facility] [address] [place] [id number]. Mel Ramirez HDL NORMAL > or = 60 mg/dl - LOW CARDIOVASCULAR RISK <40 mg/dl - HIGH CARDIOVASCULAR RISK Normal [facility] Comment on above: Performed By: #### T SHRFT4, MG, CMP, LIPID ####[facility] [address] [place] [id number]. Mel Ramirez LDL CALC NORMAL SEE BELOW Normal [facility] Comment on above: Result Comment: <100 mg/dl OPTIMAL 100 - 129 mg/dl NEAR OR ABOVE OPTIMAL 130 - 159 mg/dl BORDERLINE HIGH 160 - 189 mg/dl HIGH >190 mg/dl VERY HIGH Performed By: #### T SHRFT4, MG, CMP, LIPID ####[facility] [address] [place] [address]Dr. Mel Ramirez Triglyceride [Mass/Vol] 44 mg/dL Normal <=150 [facility] Comment on above: Performed By: #### T SHRFT4, MG, CMP, LIPID ####[facility] [address] [place] [address]Dr. Mel Ramirez VLDL CALC 8.8 mg/dL Normal [facility] Comment on above: Performed By: #### T SHRFT4, MG, CMP, LIPID ####[facility] [address] [place] [address]Dr. Mel Ramirez MAGNESIUMon 06-19-2022 Magnesium [Mass/Vol] 1.8 mg/dL Normal 1.8-2.4 [facility] Comment on above: Performed By: #### T ESTRELLITAFT4, MG, CMP, LIPID ####[facility] [address] [place] [address]Dr. Mel Ramirez PROF 14(COMP METB)on 023 Albumin [Mass/Vol] 4.1 g/dL Normal 3.4-5.0 [facility] Comment on above: Performed By: #### T SHRFT4, MG, CMP, LIPID ####[facility] [address] [place] [address]Dr. Mel Ramirez Albumin/Globulin [Mass ratio] 1.2 {ratio} Normal [facility] Comment on above: Performed By: #### T SHRFT4, MG, CMP, LIPID ####[facility] [address] [place] [address]Dr. Mel Ramirez ALP [Catalytic activity/Vol] 88 U/L Normal 46-116 [facility] Comment on above: Performed By: #### T SHRFT4, MG, CMP, LIPID ####[facility] [address] [place] [address]Dr. Mel Ramirez ALT [Catalytic activity/Vol] 64 U/L Critically high 16-63 [facility] Comment on above: Performed By: #### T SHRFT4, MG, CMP, LIPID ####[facility] [address] [place] [address]Dr. Mel Ramirez Anion gap [Moles/Vol] 13.0 mmol/L Normal [facility] Comment on above: Performed By: #### T SHRFT4, MG, CMP, LIPID ####[facility] [address] [place] [address]Dr. Mel Ramirez AST [Catalytic activity/Vol] 32 U/L Normal 15-37 [facility] Comment on above: Performed By: #### T SHRFT4, MG, CMP, LIPID ####[facility] [address] [place] [address]Dr. Mel Ramirez Bilirubin [Mass/Vol] 0.6 mg/dL Normal 0.2-1.0 [facility] Comment on above: Performed By: #### T SHRFT4, MG, CMP, LIPID ####[facility] [address] [place] [address]Dr. Mel Ramirez Calcium [Mass/Vol] 9.3 mg/dL Normal 8.5-10.1 [facility] Comment on above: Performed By: #### T SHRFT4, MG, CMP, LIPID ####[facility] [address] [place] [address]Dr. Mel Ramirez Chloride [Moles/Vol] 105 mmol/L Normal 98-107 [facility] Comment on above: Performed By: #### T SHRFT4, MG, CMP, LIPID ####[facility] [address] [place] [address]Dr. Mel Ramirez CO2 [Moles/Vol] 29.1 mmol/L Normal 21.0-32.0 [facility] Comment on above: Performed By: #### T SHRFT4, MG, CMP, LIPID ####[facility] [address] [place] [address]Dr. Mel Ramirez Creatinine [Mass/Vol] 0.86 mg/dL Normal 0.70-1.30 [facility] Comment on above: Performed By: #### T SHRFT4, MG, CMP, LIPID ####[facility] [address] [place] [address]Dr. Mel Ramirez EGFR-AF EAST TIMORESE >60 Normal >=60 [facility] Comment on above: Performed By: #### T SHRFT4, MG, CMP, LIPID ####[facility] [address] [place] [address]Dr. Mel Ramirez EGFR-NON AF EAST TIMORESE >60 Normal >=60 [facility] Comment on above: Performed By: #### T SHRFT4, MG, CMP, LIPID ####[facility] [address] [place] [address]Dr. Mel Ramirez Globulin (S) [Mass/Vol] 3.4 g/dL Normal [facility] Comment on above: Performed By: #### T SHRFT4, MG, CMP, LIPID ####[facility] [address] [place], [place] [address]Dr. Mel Ramirez Glucose [Mass/Vol] 86 mg/dL Normal 74-106 [facility] Comment on above: Performed By: #### T SHRFT4, MG, CMP, LIPID ####[facility] [address] [place] [address]Dr. Mel Ramirez Potassium [Moles/Vol] 4.1 mmol/L Normal 3.5-5.1 [facility] Comment on above: Performed By: #### T SHRFT4, MG, CMP, LIPID ####[facility] [address] [place] [address]Dr. Mel Ramirez Protein [Mass/Vol] 7.5 g/dL Normal 6.4-8.2 [facility] Comment on above: Performed By: #### T SHRFT4, MG, CMP, LIPID ####[facility] [address] [place] [address]Dr. Mirthafelecia Ramirez Sodium [Moles/Vol] 143 mmol/L Normal 136-145 [facility] Comment on above: Performed By: #### T SHRFT4, MG, CMP, LIPID ####[facility] [address] [place] [address]Dr. Mel Ramirez Urea nitrogen [Mass/Vol] 19.0 mg/dL Critically high 7.0-18.0 [facility] Comment on above: Performed By: #### T SHRFT4, MG, CMP, LIPID ####[facility] [address] [place] [id number]. Mel Ramirez Urea nitrogen/Creatinine [Mass ratio] 22.1 mg/mg Normal [facility] Comment on above: Performed By: #### T SHRFT4, MG, CMP, LIPID ####[facility] [address] [place] [address]Dr. Mel Ramirez TSH W/ REFLEX TO FT4on 06-19 TSH 1.231 uIU/mL Normal 0.358-3.740 [facility] Comment on above: Performed By: #### T SHRFT4, MG, CMP, LIPID ####[facility] [address] [place] [address]Dr. Mel Raimrez Comp Metabolic Profon 2022 Albumin [Mass/Vol] 4.4 g/dL Normal 3.5-5.2 [facility] Comment on above: Performed By: #### H H, ZFAST, CP, MG, TSHX #### [facility] [address] [place] [address] [employer] Manager: Kareem Vance MD #### LIPR #### [address] [id number] [employer]: Jake Stone MD Alkaline Phos 99 U/L Normal 40-129 [facility] Comment on above: Performed By: #### H H, ZFAST, CP, MG, TSHX #### [facility] [address] [place] [address] [employer] Manager: Kareem Vance MD #### LIPR #### [facility] [address] [place], [place] [id number] [employer] Manager: Jake Stone MD ALT [Catalytic activity/Vol] 38 U/L Normal 5-41 [facility] Comment on above: Performed By: #### H H, ZFAST, CP, MG, TSHX #### [facility] [address] [place], [place] [id number] [employer] Manager: Kareem Vance MD #### LIPR #### [place] [address] [place], [place] [id number] [employer]: Jake Stone MD Anion gap [Moles/Vol] 9 mmol/L Normal 9-17 [facility] Comment on above: Performed By: #### H H, ZFAST, CP, MG, TSHX #### [facility] [address] [place], [place] [id number] [employer]: Kareem Vance MD #### LIPR #### [place] [address] [place], [place] [phone] [employer] Manager: Jake Stone MD AST [Catalytic activity/Vol] 31 U/L Normal <40 [facility] Comment on above: Performed By: #### H H, ZFAST, CP, MG, TSHX #### [facility] [address] [place], [place] [id number] [employer] Manager: Kareem Vance MD #### LIPR #### [place] [id number] [place], [place] [phone] [employer] Manager: Jake Stone MD Bilirubin [Mass/Vol] 0.5 mg/dL Normal 0.3-1.2 [facility] Comment on above: Performed By: #### H H, ZFAST, CP, MG, TSHX #### [facility] [address] [place], [place] [phone] [employer]: Kareem Vance MD #### LIPR #### [facility] [address] [place] [address] [employer] Manager: Jake Stone MD BUN/CRE Ratio 23 High 9-20 [facility] Comment on above: Performed By: #### H H, ZFAST, CP, MG, TSHX #### [facility] [address] [place], [place] [phone] [employer]: Kareem Vance MD #### LIPR #### [address] [address] [employer]: Jake Stone MD Calcium [Mass/Vol] 9.4 mg/dL Normal 8.6-10.4 [facility] Comment on above: Performed By: #### H H, ZFAST, CP, MG, TSHX #### [facility] [address] [place], [place] [phone] [employer]: Kareem Vance MD #### LIPR #### [address] [phone] [employer]: Jake Stone MD Chloride [Moles/Vol] 104 mmol/L Normal 98-107 [facility] Comment on above: Performed By: #### H H, ZFAST, CP, MG, TSHX #### [facility] [address] [place], [place] [phone] [employer]: Kareem Vance MD #### LIPR #### [facility] [address] [place], [place] [phone] [employer] Manager: Jake Stone MD CO2 [Moles/Vol] 28 mmol/L Normal 20-31 [facility] Comment on above: Performed By: #### H H, ZFAST, CP, MG, TSHX #### [facility] [address] [place], [place] [phone] [employer] Manager: Kareem Vance MD #### LIPR #### [facility] [place], [place] [phone] [employer] Manager: Jake Stone MD Creatinine [Mass/Vol] 0.69 mg/dL Low 0.70-1.20 [facility] Comment on above: Performed By: #### H H, ZFAST, CP, MG, TSHX #### [facility] [address] [place], [place] [phone] [employer]: Kareem Vance MD #### LIPR #### [address] [id number] [employer]: Jake Stone MD GFR/1.73 sq M.predicted among non-blacks MDRD (S/P/Bld) [Vol rate/Area] mL/min/{1.73_m2} Normal >60 [facility] Comment on above: Result Comment: These results [...] H H, ZFAST, CP, MG, TSHX #### [facility] [address] [place], [place] [phone] [employer]: Kareem Vance MD #### LIPR #### [facility] [employer] [address] [place] [id number] [employer]: Jake Stone MD Glucose [Mass/Vol] 98 mg/dL Normal 70-99 [facility] Comment on above: Performed By: #### H H, ZFAST, CP, MG, TSHX #### [facility] [address] [place], [place] [phone] [employer]: Kareem Vance MD #### LIPR #### [address], [place] [id number] [employer]: Jake Stone MD Potassium [Moles/Vol] 4.6 mmol/L Normal 3.7-5.3 [facility] Comment on above: Performed By: #### H H, ZFAST, CP, MG, TSHX #### [facility] [address] [place], [place] [phone] [employer]: Kareem Vance MD #### LIPR #### [address] [phone] [employer]: Jake Stone MD Protein [Mass/Vol] 7.0 g/dL Normal 6.4-8.3 [facility] Comment on above: Performed By: #### H H, ZFAST, CP, MG, TSHX #### [facility] [address] [place], [place] [phone] [employer]: Kareem Vance MD #### LIPR #### [id number] [place], [place] [phone] [employer]: Jake Stone MD Sodium [Moles/Vol] 141 mmol/L Normal 135-144 [facility] Comment on above: Performed By: #### H H, ZFAST, CP, MG, TSHX #### [facility] [address] [place], [place] [phone] [employer]: Kareem Vance MD #### LIPR #### [address] [phone] [employer]: Jake Stone MD Urea nitrogen [Mass/Vol] 16 mg/dL Normal 6-20 [facility] Comment on above: Performed By: #### H H, ZFAST, CP, MG, TSHX #### [facility] [address] [place], [place] [phone] [employer]: Kareem Vance MD #### LIPR #### [address] [address] [place] [address] [employer]: Jake Stone MD [facility] Metabolic [facility] 04-11-2022 Albumin [Mass/Vol] 4.4 g/dL 3.5 - 5.2 g/dL [facility] ALP [Catalytic activity/Vol] 99 U/L 40 - 129 U/L [facility] ALT [Catalytic activity/Vol] 38 U/L 5 - 41 U/L [facility] Anion gap [Moles/Vol] 9 mmol/L 9 - 17 mmol/L [facility] AST [Catalytic activity/Vol] 31 U/L NINF - 40 U/L [facility] Bilirubin [Mass/Vol] 0.5 mg/dL 0.3 - 1 .2 mg/dL [facility] Calcium [Mass/Vol] 9.4 mg/dL 8.6 - 10. 4 mg/dL [facility] Chloride [Moles/Vol] 104 mmol/L 98 - 10 7 mmol/L [facility] CO2 [Moles/Vol] 28 mmol/L 20 - 31 mmol/L [facility] Creatinine [Mass/Vol] 0.69 mg/dL Low 0.70 - 1.20 mg/dL [facility] GFR/1.73 sq M.predicted MDRD (S/P/Bld) [Vol rate/Area] - PINF [facility] Comment on above: These results are not [...] [Mass/Vol] 98 mg/dL 70 - 99 mg/dL [facility] Interpretation and review of laboratory results Abnormal [facility] Potassium [Moles/Vol] 4.6 mmol/L 3.7 - 5.3 mmol/L [facility] Protein [Mass/Vol] 7.0 g/dL 6.4 - 8.3 g/dL [facility] Sodium [Moles/Vol] 141 mmol/L 135 - 144 mmol/L [facility] Urea nitrogen [Mass/Vol] 16 mg/dL 6 - 20 mg/dL [facility] Urea nitrogen/Creatinine (Bld) [Mass ratio] 23 High 9 - 20 [facility] Hemoglobin and Hematocriton 04-11-2022 Hematocrit (Bld) [Volume fraction] 41.8 % 41 - 53 % [facility] Hemoglobin (Bld) [Mass/Vol] 13.9 g/dL 13.5 - 17.5 g/dL [facility] Hgb/Hcton 04-11-2022 Hematocrit (Bld) [Volume fraction] 41.8 % Normal 41-53 [facility] Comment on above: Performed By: #### H H, ZFAST, CP, MG, TSHX #### [facility] [address] [place] [address] [employer]: Kareem Vance MD #### LIPR #### [facility] [address] [place] [address] [phone] [employer]: Jake Stone MD Hemoglobin (Bld) [Mass/Vol] 13.9 g/dL Normal 13.5-17.5 [facility] Comment on above: Performed By: #### H H, ZFAST, CP, MG, TSHX #### [facility] [address] [place] [address] [employer]: Kareem Vance MD #### LIPR #### [facility] [address] [place] [phone] [employer]: Jake Stone MD Lipid Panelon 04-11-2022 Cholesterol [Mass/Vol] 104 mg/dL NINF - 200 mg/dL [facility] Comment on above: Cholesterol Guidelines: <200 Desirable 200-240 Borderline >240 Undesirable Cholesterol in HDL [Mass/Vol] 46 mg/dL 40 - PINF mg/dL [facility] Comment on above: HDL Guidelines: <40 Undesirable 40-59 Borderline >59 Desirable Cholesterol in LDL [Mass/Vol] 51 mg/dL 0 - 130 mg/dL [facility] Comment on above: LDL Guidelines: <100 Desirable 100-129 Near to/above Desirable 130-159 Borderline >159 Undesirable Direct (measured) LDL and calculated LDL are not interchangeable tests. Cholesterol.total/Ch olesterol in HDL [Mass ratio] 2.3 {ratio} NINF - 5 [facility] Triglyceride [Mass/Vol] 35 mg/dL NINF - 150 mg/dL [facility] Comment on above: Triglyceride Guidelines: <150 Desirable 150-199 Borderline 200-499 High >499 Very high Based on AHA Guidelines for fasting triglyceride, November 2011. [facility] Lipid Profileon 04-11-2022 Cholesterol [Mass/Vol] 104 mg/dL Normal <200 [facility] Comment on above: Result Comment: Cholesterol Guidelines: <200 Desirable 200-240 Borderline >240 Undesirable Performed By: #### H H, ZFAST, CP, MG, TSHX #### [facility] [address] [place] [address] [employer]: Kareem Vance MD #### LIPR #### [facility] [address] [place] [address] [phone] [employer]: Jake Stone MD Cholesterol in HDL [Mass/Vol] 46 mg/dL Normal >40 [facility] Comment on above: Result Comment: HDL Guidelines: <40 Undesirable 40-59 Borderline >59 Desirable Performed By: #### H H, ZFAST, CP, MG, TSHX #### [facility] [address] [place], [place] [phone] [employer]: Kareem Vance MD #### LIPR #### [facility] [address] [place] [phone] [employer]: Jake Stone MD Cholesterol in LDL [Mass/Vol] 51 mg/dL Normal 0-130 [facility] Comment on above: Result Comment: LDL Guidelines: <100 Desirable 100-129 Near to/above Desirable 130-159 Borderline >159 Undesirable Direct (measured) LDL and calculated LDL are not interchangeable tests. Performed By: #### H H, ZFAST, CP, MG, TSHX #### [facility] [address] [place], [place] [phone] [employer]: Kareem Vance MD #### LIPR #### [id number] [place], [place] [phone] [employer] Manager: Jake Stone MD Cholesterol.total/Ch olesterol in HDL [Mass ratio] 2.3 {ratio} Normal <5 [facility] Comment on above: Performed By: #### H H, ZFAST, CP, MG, TSHX #### [facility] [address] [place] [address] [employer]: Kareem Vance MD #### LIPR #### [address] [place], [place] [phone] [employer]: Jake Stone MD Triglyceride [Mass/Vol] 35 mg/dL Normal <150 [facility] Comment on above: Result Comment: Triglyceride Guidelines: <150 Desirable 150-199 Borderline 200-499 High >499 Very high Based on AHA Guidelines for fasting triglyceride, November 2011. Performed By: #### H H, ZFAST, CP, MG, TSHX #### [facility] [address] [place], [place] [phone] [employer]: Kareem Vance MD #### LIPR #### [address] [place], [place] [phone] [employer] Manager: Jake Stone MD Magnesiumon 04-11-2022 Magnesium [Mass/Vol] 2.2 mg/dL Normal 1.6-2.6 [facility] Comment on above: Performed By: #### H H, ZFAST, CP, MG, TSHX #### [facility] [address] [place], [place] [phone] [employer] Manager: Kareem Vance MD #### LIPR #### [facility] [place], [place] [phone] [employer] Manager: Jake Stone MD Magnesium [Mass/Vol] 2.2 mg/dL 1.6 - 2 .6 mg/dL [facility] No Panel Informationon 04-11 [facility] Patient Fasting?on 3 Patient F[facility]? [facility] Patient fasting?on 3 Patient fasting? YES Normal [facility] Comment on above: Performed By: #### H H, ZFAST, CP, MG, TSHX #### [facility] [address] [place] [address] [employer] Manager: Kareem Vance MD #### LIPR #### [facility] [address] [place] [address] [phone] [employer]: Jake Stone MD TSH w/reflex to FT4on 2022 Thyroid Stim. Horm. 1.45 uIU/mL Normal 0.30-5.00 [facility] Comment on above: Performed By: #### H H, ZFAST, CP, MG, TSHX #### [facility] [address] [place] [address] [employer] Manager: Kareem Vance MD #### LIPR #### [address] [phone] [employer]: Jake Stone MD TSH with Reflexon 04-11-2022 TSH Qn 1.45 m[IU]/L [facility] CBC AUTO DIFFon 03-16-2022 BASO # 0.0 103/ul Normal 0.0-0.1 [facility] Comment on above: Performed By: #### C BC ####[facility] [address] [address]Dr. Yilan Ramirez Basophils/100 WBC (Bld) 0.8 % Normal 0.2-2.0 [facility] Comment on above: Performed By: #### C BC ####[facility] [address] [address]Dr. Mel Ramirez EO # 0.6 103/ul Normal 0.0-0.7 [facility] Comment on above: Performed By: #### C BC ####[facility] [address] [place], [place] [address]Dr. Mel Ramirez Eosinophils/100 WBC (Bld) 11.8 % Critically high 0.9-7.0 [facility] Comment on above: Performed By: #### C BC ####[facility] E[address] [place], [place] [address]Dr. Mel Ramirez Erythrocyte distribution width (RBC) [Ratio] 13.3 % Normal 11.0-15.0 [facility] Comment on above: Performed By: #### C BC ####[facility] [address] [place], [place] [address]Dr. Mel Ramirez Hematocrit (Bld) [Volume fraction] 32.9 % Critically low 42.0-54.0 [facility] Comment on above: Performed By: #### C BC ####[facility] [address] [place], [place] [address]Dr. Mel Ramirez Hemoglobin (Bld) [Mass/Vol] 11.7 g/dL Critically low 14.0-18.0 [facility] Comment on above: Performed By: #### C BC ####[facility] [address] [place], [place] [address]Dr. Mel Ramirez IG # 0.01 10e3/ul Normal 0.00-0.03 [facility] Comment on above: Performed By: #### C BC ####[facility] [address] [place], [place] [address]Dr. Mel Ramirez IG % 0.2 % Normal 0.0-0.5 [facility] Comment on above: Performed By: #### C BC ####[facility] [address] [place], [place] [address]DrRadha Mirthafelecia Ramirez LYMPH # 1.2 103/ul Normal 1.2-3.8 [facility] Comment on above: Performed By: #### C BC ####[facility] [address] [phone]. Mel Ramirez Lymphocytes/100 WBC (Bld) 22.5 % Normal 20.5-60.0 [facility] Comment on above: Performed By: #### C BC ####[facility] [address] [phone] Ramirez MANUAL DIFF REQ NO Normal [facility] Comment on above: Performed By: #### C BC ####[facility] [address] [phone]. Mel Ramirez MCH (RBC) [Entitic mass] 28.2 pg Normal 25.9-34.0 [facility] Comment on above: Performed By: #### C BC ####[facility] [address] [address]Dr. Mel Ramirez MCHC (RBC) [Mass/Vol] 35.6 g/dL Critically high 29.9-35.2 [facility] Comment on above: Performed By: #### C BC ####[facility] [address] [address]DrRadha Ramirez MCV (RBC) [Entitic vol] 79.3 fL Critically low 80.0-94.0 [facility] Comment on above: Performed By: #### C BC ####[facility] [address] [address]Dr. Mel Ramirez MONO # 0.5 103/ul Normal 0.3-0.8 [facility] Comment on above: Performed By: #### C BC ####[facility] [address] [phone] Ramirez Monocytes/100 WBC (Bld) 10.2 % Normal 1.7-12.0 [facility] Comment on above: Performed By: #### C BC ####[facility] [address] [phone] Ramirez NEUT # 2.8 103/ul Normal 1.4-6.5 [facility] Comment on above: Performed By: #### C BC ####[facility] [address]ds[address] [phone]. Mel Ramirez Neutrophils/100 WBC (Bld) 54.5 % Normal 43.0-75.0 [facility] Comment on above: Performed By: #### C BC ####[facility] Af[address] [phone]. Mel Ramirez Platelet mean volume (Bld) [Entitic vol] 8.4 fL Critically low 9.5-13.5 [facility] Comment on above: Performed By: #### C BC ####[facility] [address] [phone]. Mel Ramirez PLT 416 103/ul Normal 150-450 [facility] Comment on above: Performed By: #### C BC ####[facility] T[address]ts[address] [phone]. Mel Ramirez RBC 4.15 106/ul Critically low 4.70-6.10 [facility] Comment on above: Performed By: #### C BC ####[facility] [address]vw[address] [phone]. Mel Ramirez WBC 5.2 103/ul Normal 4.0-11.0 [facility] Comment on above: Performed By: #### C BC ####[facility] [address]to[address] [phone]. Mel Ramirez LIPID PROFILEon 03-16-2022 CHOL-HDL RATIO NORM SEE BELOW Normal [facility] Comment on above: Result Comment: 3.3 - 4.4 LOW RISK 4.4 - 7.1 AVERAGE RISK 7.1 - 11.0 MODERATE RISK >11.0 HIGH RISK Performed By: #### L IPID, CMP ####[facility] [address] [address]Dr. Mel Ramirez Cholesterol [Mass/Vol] 144 mg/dL Normal <=200 [facility] Comment on above: Performed By: #### L IPID, CMP ####[facility] I[address] [phone]. Mel Ramirez Cholesterol in HDL [Mass/Vol] 54 mg/dL Normal 40-60 [facility] Comment on above: Performed By: #### L IPID, CMP ####[facility] Ls[address]trji[address] [phone]. Mel Ramirez Cholesterol in LDL [Mass/Vol] 78.0 mg/dL Normal [facility] Comment on above: Performed By: #### L IPID, CMP ####[facility] Kl[address] [address]Dr. Mel Ramirez Cholesterol.total/Ch olesterol in HDL [Mass ratio] 2.7 {ratio} Normal [facility] Comment on above: Performed By: #### L IPID, CMP ####[facility] [address]smqs[address] [phone]. Mel Ramirez HDL NORMAL > or = 60 mg/dl - LOW CARDIOVASCULAR RISK <40 mg/dl - HIGH CARDIOVASCULAR RISK Normal [facility] Comment on above: Performed By: #### L IPID, CMP ####[facility] P[address]fhx[address] [phone]. Mel Ramirez LDL CALC NORMAL SEE BELOW Normal [facility] Comment on above: Result Comment: <100 mg/dl OPTIMAL 100 - 129 mg/dl NEAR OR ABOVE OPTIMAL 130 - 159 mg/dl BORDERLINE HIGH 160 - 189 mg/dl HIGH >190 mg/dl VERY HIGH Performed By: #### L IPID, CMP ####[facility] [address]qrtd[address] [phone]. Mel Ramirez Triglyceride [Mass/Vol] 60 mg/dL Normal <=150 [facility] Comment on above: Performed By: #### L IPID, CMP ####[facility] K[address]tp[address] [phone]. Mel Ramirez VLDL CALC 12.0 mg/dL Normal [facility] Comment on above: Performed By: #### L IPID, CMP ####[facility] Afeuymforp[address] [address]Dr. Mel Ramirez PROF 14(COMP METB)on 023 Albumin [Mass/Vol] 3.9 g/dL Normal 3.4-5.0 [facility] Comment on above: Performed By: #### L IPID, CMP ####[facility] I[address]av[address]nasd[address] [address]Dr. Mel Ramirez Albumin/Globulin [Mass ratio] 1.1 {ratio} Normal [facility] Comment on above: Performed By: #### L IPID, CMP ####[facility] T[address]ix[address]ld[address] [address]Dr. Mel Ramirez ALP [Catalytic activity/Vol] 98 U/L Normal 46-116 [facility] Comment on above: Performed By: #### L IPID, CMP ####[facility] Forhj[address]kbw[address] [place], [place] [address]Dr. Mel Ramirez ALT [Catalytic activity/Vol] 35 U/L Normal 16-63 [facility] Comment on above: Performed By: #### L IPID, CMP ####[facility] F[address] [place], [place] [address]Dr. Mel Ramirez Anion gap [Moles/Vol] 13.3 mmol/L Normal [facility] Comment on above: Performed By: #### L IPID, CMP ####[facility] [address] [place], [place] [address]Dr. Mel Ramirez AST [Catalytic activity/Vol] 17 U/L Normal 15-37 [facility] Comment on above: Performed By: #### L IPID, CMP ####[facility] Fr[address]twdgnp[address] [address]Dr. Mel Ramirez Bilirubin [Mass/Vol] 0.4 mg/dL Normal 0.2-1.0 [facility] Comment on above: Performed By: #### L IPID, CMP ####[facility] H[address] [place], [place] [address]Dr. Mel Ramirez Calcium [Mass/Vol] 9.5 mg/dL Normal 8.5-10.1 [facility] Comment on above: Performed By: #### L IPID, CMP ####[facility] [address]old[address] [address]Dr. Mel Ramirez Chloride [Moles/Vol] 103 mmol/L Normal 98-107 [facility] Comment on above: Performed By: #### L IPID, CMP ####[facility] Qjqsfrazkb[address] [place], [place] [address]Dr. Mel Ramirez CO2 [Moles/Vol] 28.9 mmol/L Normal 21.0-32.0 [facility] Comment on above: Performed By: #### L IPID, CMP ####[facility] [address] [place], [place] [address]Dr. Mel Ramirez Creatinine [Mass/Vol] 0.68 mg/dL Critically low 0.70-1.30 [facility] Comment on above: Performed By: #### L IPID, CMP ####[facility] Ite[address] [place], [place] [address]Dr. Mel Ramirez EGFR-AF EAST TIMORESE >60 Normal >=60 [facility] Comment on above: Performed By: #### L IPID, CMP ####[facility] [address] [place], [place] [address]Dr. Mel Ramirez EGFR-NON AF EAST TIMORESE >60 Normal >=60 [facility] Comment on above: Performed By: #### L IPID, CMP ####[facility] B[address]rahtm[address] [place], [place] [address]Dr. Mel Ramirez Globulin (S) [Mass/Vol] 3.5 g/dL Normal [facility] Comment on above: Performed By: #### L IPID, CMP ####[facility] Vkgvx[address]yr[address] [place], [place] [address]Dr. Mel Ramirez Glucose [Mass/Vol] 97 mg/dL Normal 74-106 [facility] Comment on above: Performed By: #### L IPID, CMP ####[facility] Tgsewvtxlw[address] [place], [place] [address]Dr. Mel Ramirez Potassium [Moles/Vol] 4.2 mmol/L Normal 3.5-5.1 [facility] Comment on above: Performed By: #### L IPID, CMP ####[facility] [address] [place] [phone]. Mel Ramirez Protein [Mass/Vol] 7.4 g/dL Normal 6.4-8.2 [facility] Comment on above: Performed By: #### L IPID, CMP ####[facility] [address]oztu[address] [place] [address]Dr. Mel Ramirez Sodium [Moles/Vol] 141 mmol/L Normal 136-145 [facility] Comment on above: Performed By: #### L IPID, CMP ####[facility] [address]kwj[address] [place] [address]Dr. Mel Ramirez Urea nitrogen [Mass/Vol] 17.0 mg/dL Normal 7.0-18.0 [facility] Comment on above: Performed By: #### L IPID, CMP ####[facility] Cafqldwsfn[address] [place] [phone]. Mel Ramirez Urea nitrogen/Creatinine [Mass ratio] 25.0 mg/mg Normal [facility] Comment on above: Performed By: #### L IPID, CMP ####[facility] [address] [address]Dr. Mel Ramirez [facility]OR[facility] ([id number]) 1960 M Date Time Provider Department 03/09/22 MICHELE MIGUEL PODCCP During your visit today, we recorded the [...] Reason for Visit: Follow Up Phone Call [0881] Cmt: ASIYA f/u all clear Prescriptions as [...] 10,000 Units by mouth once daily. - glucosam/chond-msm1/ C/janiya/bor (PJQUXEFBUBH-CGNWW-Z SM COMPLEX ORAL) Take 1 tablet by [...] Status:Closed by MICHELE MIGUEL on 03/09/22 Normal [facility] CBC panel Auto (Bld)on 03-08 Erythrocyte distribution width (RBC) [Ratio] 13.7 % Normal 11.5-15.0 [facility] Comment on above: Order Comment: Speci men Type: BLOOD SPECIMEN Ordering Facility: [facility] Address: [address] [address] Performed By: #### 5 8410-2 #### [facility] CLIA [id number] [address] [place] [address] [place] Hematocrit (Bld) [Volume fraction] 32.5 % Low 39.0-51.0 [facility] Comment on above: Order Comment: Speci men Type: BLOOD SPECIMEN Ordering Facility: [facility] Address: [address] [address] Performed By: #### 5 8410-2 #### [facility] CLIA [id number] [address] [place] [address] [place] Hemoglobin (Bld) [Mass/Vol] 10.9 g/dL Low 13.0-17.0 [facility] Comment on above: Order Comment: Speci men Type: BLOOD SPECIMEN Ordering Facility: [facility] Address: [address] [place] [address] Performed By: #### 5 8410-2 #### [facility] [place] [id number] [address] [place] [address] [place] MCH (RBC) [Entitic mass] 29.7 pg Normal 26.0-34.0 [facility] Comment on above: Order Comment: Speci men Type: BLOOD SPECIMEN Ordering Facility: [facility] Address: [address] [place] [address] Performed By: #### 5 8410-2 #### [facility] [place] [id number] [address] [place] [address] [place] MCHC (RBC) [Mass/Vol] 33.5 g/dL Normal 30.5-36.0 [facility] Comment on above: Order Comment: Speci men Type: BLOOD SPECIMEN Ordering Facility: [facility] Address: [address] [place], [place] [id number] Performed By: #### 5 8410-2 #### [facility] [place] [id number] [address] [place] [address] [place] MCV (RBC) [Entitic vol] 88.6 fL Normal 80.0-100.0 [facility] Comment on above: Order Comment: Speci men Type: BLOOD SPECIMEN Ordering Facility: [facility] Address: [address] [place], [place] [address] Performed By: #### 5 8410-2 #### [facility] [place] [id number] [address] [place] [address] [place] Nucleated RBC (Bld) [#/Vol] 10*3/uL Normal <0.01 [facility] Comment on above: Order Comment: Speci men Type: BLOOD SPECIMEN Ordering Facility: [facility] Address: [address] [place] [address] Performed By: #### 5 8410-2 #### [facility] CLIA [id number] [address] [place] [address] [place] Platelet mean volume (Bld) [Entitic vol] 9.3 fL Normal 9.0-12.7 [facility] Comment on above: Order Comment: Speci men Type: BLOOD SPECIMEN Ordering Facility: [facility] Address: [address] [place], [place] [id number] Performed By: #### 5 8410-2 #### [facility] CLIA [id number] [facility] [place] [address] [place] [place] Platelets (Bld) [#/Vol] 426 10*3/uL High 150-400 [facility] Comment on above: Order Comment: Speci men Type: BLOOD SPECIMEN Ordering Facility: [facility] Address: [address] [place], [place] [address] Performed By: #### 5 8410-2 #### [facility] CLIA [id number] [facility] [place] [address] [place] RBC (Bld) [#/Vol] 3.67 10*6/uL Low 4.20-6.00 [facility] Comment on above: Order Comment: Speci men Type: BLOOD SPECIMEN Ordering Facility: [facility] Address: [address] [place] [address] Performed By: #### 5 8410-2 #### [facility] CLIA [id number] [address] [id number] [place] WBC (Bld) [#/Vol] 8.98 10*3/uL Normal 3.70-11.00 [facility] Comment on above: Order Comment: Speci men Type: BLOOD SPECIMEN Ordering Facility: [facility] Address: [address] [place] [address] Performed By: #### 5 8410-2 #### [facility] CLIA [id number] [address] [facility] [place] [address] [place] CNOVon 03-08-2022 CNOV Office Visit (THOSMN) GINO OSORIO ([id number]) 1960 M Date Time Provider Department 03/08/22 9:30 AM DEANA HOLLINS During your visit today, we recorded the following information about you: Temperature Pulse Blood pressure Weight 98.7 degrees 87/minute 110/68 71.3 kg Height 1.753 m Deana Hollins APRN.LABORATORY CHIEF 03/09/2022 10:12 AM Signed [facility] Department of Cardiovascular Medicine DEPARTMENT [...] Take 10,000 Units by mouth once daily. glucosam/chond-msm1/ C/janiya/bor ([id number]-N SM COMPLEX ORAL) Take 1 tablet by mouth once daily. MAGNESIUM ORAL Take 250 mg by mouth once daily. No current facility-administere d medications for this visit. Chief Complaints: I [...] clean, dry and intact Wound: NA SV [place] sites: Location: Right LE, mid and healing Procedures: N/A IMPRESSION AND PLAN: 1. 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 Ventricular septum, myectomy: -Mild myocyte disarray. See comment. Discharged on 03/03/2022 2. CAD - continue asa, bb and (more content not included)... Normal [facility] Comprehensive metabolic 2000 panelon 03-08-2022 Albumin [Mass/Vol] 4.1 g/dL Normal 3.9-4.9 [facility] Comment on above: Order Comment: Speci men Type: BLOOD SPECIMEN Ordering Facility: [facility] Address: [address] [place], [place] [phone] Performed By: #### 2 4323-8 #### [facility] CLIA [id number] [address] [facility] [place] [address] [place] ALP [Catalytic activity/Vol] 66 U/L Normal 38-113 [facility] Comment on above: Order Comment: Speci men Type: BLOOD SPECIMEN Ordering Facility: [facility] Address: [address] Performed By: #### 2 4323-8 #### [facility] CLIA [id number] [address] [place] ALT [Catalytic activity/Vol] 36 U/L Normal 10-54 [facility] Comment on above: Order Comment: Speci men Type: BLOOD SPECIMEN Ordering Facility: [facility] Address: [address] Performed By: #### 2 4323-8 #### [facility] CLIA [id number] [address] [place] [address] [place] Anion gap [Moles/Vol] 12 mmol/L Normal 9-18 [facility] Comment on above: Order Comment: Speci men Type: BLOOD SPECIMEN Ordering Facility: [facility] Address: [address] Performed By: #### 2 4323-8 #### [facility] CLIA [id number] [address] [place] AST [Catalytic activity/Vol] 22 U/L Normal 14-40 [facility] Comment on above: Order Comment: Speci men Type: BLOOD SPECIMEN Ordering Facility: [facility] Address: [address] Performed By: #### 2 4323-8 #### [facility] CLIA [id number] [address] [place] [address] [place] Bilirubin [Mass/Vol] 0.4 mg/dL Normal 0.2-1.3 [facility] Comment on above: Order Comment: Speci men Type: BLOOD SPECIMEN Ordering Facility: [facility] Address: [address] Performed By: #### 2 4323-8 #### [facility] CLIA [id number] [address] [place] [address] [place] Calcium [Mass/Vol] 9.5 mg/dL Normal 8.5-10.2 [facility] Comment on above: Order Comment: Speci men Type: BLOOD SPECIMEN Ordering Facility: [facility] Address: [address] [place] [address] Performed By: #### 2 4323-8 #### [facility] CLIA [id number] [address] [place] [address] [place] Chloride [Moles/Vol] 102 mmol/L Normal 97-105 [facility] Comment on above: Order Comment: Speci men Type: BLOOD SPECIMEN Ordering Facility: [facility] Address: [address] [place] [address] Performed By: #### 2 4323-8 #### [facility] CLIA [id number] [address] [place] [address] [place] CO2 [Moles/Vol] 24 mmol/L Normal 22-30 [facility] Comment on above: Order Comment: Speci men Type: BLOOD SPECIMEN Ordering Facility: [facility] Address: [address] [place], [place] [address] Performed By: #### 2 4323-8 #### [facility] CLIA [id number] [address] [place] [address] [place] Creatinine [Mass/Vol] 0.75 mg/dL Normal 0.73-1.22 [facility] Comment on above: Order Comment: Speci men Type: BLOOD SPECIMEN Ordering Facility: [facility] Address: [address] [place], [place] [address] Performed By: #### 2 4323-8 #### [facility] CLIA [id number] [address] [place] [address] [place] ESTIMATED GLOMERULAR FILTRATION RATE 104 mL/min/1.73m??? Normal >=60 [facility] Comment on above: Order Comment: Speci men Type: BLOOD SPECIMEN Ordering Facility: [facility] Address: [address] [id number] Result Comment: Carlota mated Glomerular Filtration Rate [...] actual GFR. Performed By: #### 2 4323-8 #### [facility] CLIA [id number] [address] [place] [address] [place] Glucose [Mass/Vol] 93 mg/dL Normal 74-99 [facility] Comment on above: Order Comment: Rayray carbone Type: BLOOD SPECIMEN Ordering Facility: [facility] Address: [address] [place] [address] Result Comment: The [place] [employer] (ADA) provides guidance for cutoff [...] Standards of Medical Care in Diabetes 2016, [place] [employer]. Diabetes Care. 2016.39(Suppl 1). Performed By: #### 2 4323-8 #### [facility] CLIA [id number] [facility] [place] [address] [place] Potassium [Moles/Vol] 4.4 mmol/L Normal 3.7-5.1 [facility] Comment on above: Order Comment: Rayray carbone Type: BLOOD SPECIMEN Ordering Facility: [facility] Address: [address] [phone] Performed By: #### 2 4323-8 #### [facility] CLIA [id number] [address] [place] [address] [place] Protein [Mass/Vol] 6.5 g/dL Normal 6.3-8.0 [facility] Comment on above: Order Comment: Speci men Type: BLOOD SPECIMEN Ordering Facility: [facility] Address: [address] [place] [address] Performed By: #### 2 4323-8 #### [facility] CLIA [id number] [address] [place] [address] [place] Sodium [Moles/Vol] 138 mmol/L Normal 136-144 [facility] Comment on above: Order Comment: Speci men Type: BLOOD SPECIMEN Ordering Facility: [facility] Address: [address] [place] [address] Performed By: #### 2 4323-8 #### [facility] CLIA [id number] [facility] [place] [address] [place] Urea nitrogen [Mass/Vol] 18 mg/dL Normal 9-24 [facility] Comment on above: Order Comment: Speci men Type: BLOOD SPECIMEN Ordering Facility: [facility] Address: [address] [place] [address] Performed By: #### 2 4323-8 #### [facility] IA [id number] [address] [place] [address] [place] ECG COMPLETEon 03-08-2022 ECG COMPLETE Ventricular Rate : 76 BPM Atrial Rate : 76 BPM P-R Interval : 182 ms QRS Duration : 140 ms Q-T Interval : 424 ms QTC Calculation(Bazett) : 477 ms Calculated P [place] : 28 degrees Calculated R [place] : 2 degrees Calculated T [place] : 155 degrees NORMAL SINUS RHYTHM POSSIBLE LEFT ATRIAL ENLARGEMENT COMPLETE LEFT BUNDLE BRANCH BLOCK ABNORMAL ECG Confirmed by DARRYL HMA M.D. ([id number]) on 03/13/2022 1:40:07 PM NAME : GINO OSORIO PID : [id number] : 1960 Gender : Male Race : Unknown ORD : [id number] Procedure Date : Mar 08 2022 08:22:45 Edit Date : Mar 13 2022 13:43:50 Diagnosis: NORMAL SINUS RHYTHM POSSIBLE LEFT ATRIAL ENLARGEMENT COMPLETE LEFT BUNDLE BRANCH BLOCK ABNORMAL ECG Confirmed by DARRYL HAM M.D. ([id number]) on 03/13/2022 1:40:07 PM Test Reason : Location : [facility] : J14 J1-4 Overread By : DARRYL HAM M.D. Edited By : DARRYL HAM M.D. Referred By : DESTIN CHARLES Acquired by : MARCELLA RING Normal [facility] XR CHEST 2V FRONTAL/LATon XR CHEST 2V [...] of the thoracic spine. IMPRESSION: See Result. Library Page: PSCB Transcribe Date/Time: Mar 08 2022 2:20P Dictated by : MARTHA SUBRAMANIAN MD This examination was interpreted and the report reviewed and electronically signed by: MARTHA SUBRAMANIAN MD on Mar 08 2022 2:21PM EST [id number] CN Normal [facility] ic ACTIVATED PTTon 02-22-2022 aPTT Coag (PPP) [Time] 26.5 s 23.0 - 32.4 sec [facility] CONFIRM BLOOD TYPEon 022 ABO A [facility] Rh Nom (Bld) Positive [facility] in Laboratory - Microbiology an d Antimicrobial susceptibilityon 02-22-2022 S. aureus and MRSA panel JAYDE+probe (Nose) Negative Negative [facility] PT panel Coag (PPP)on 2021 INR Coag (PPP) [Relative time] 1.0 {INR} 0.9 - 1.3 [facility] PT Coag (PPP) [Time] 10.8 s 9.7 - 1 3.0 sec [facility] TYPE AND SCREEN,30 DAYon ABO A [facility] ic HIstorical Ab Scr Status Negative [facility] Rh Nom (Bld) Positive [facility] URINALYSIS, DIPSTICK ONLYon 02-22-2022 Bilirubin Ql (U) Negative Negative [facility] Clarity (Unsp spec) Clear Clear [facility] Color (U) Yellow Yellow [facility] Glucose Test strip (U) [Mass/Vol] Negative Trace, Negative [facility] Hemoglobin Ql (U) Negative Negative, Trace [facility] Ketones Ql (U) Negative Trace, Negative [facility] Leukocyte esterase Test strip Ql (U) Negative Negative, 25 Venkata/mL [facility] Nitrite Ql (U) Negative Negative [facility] pH (U) 6.0 [pH] 5.0 - 8.0 [facility] Protein (U) [Mass/Vol] Trace Trace, Negative [facility] Specific gravity (U) [Rel density] 1.026 1.005 - 1.030 [facility] Urobilinogen Ql (U) Negative Negative [facility] CT CHEST CARDIAC WO IVCONon 02-21-2022 [facility] US CAROTID ARTERIES TIMO VAS LABon 02-21-2022 [facility] ECHOCARDIOGRAM COMPLETEon ECHOCARDIOGRAM COMPLETE Patient Info Name: GINO OSORIO Age: 61 years : 1960 Gender: Male Ht: 175 cm Wt: 71 kg BSA: 1.86 m2 HR: 58 bpm BP: 170 / 98 mmHg Heart Rhythm: Bradycardia Technical Quality: Good Exam Date: 01/12/2022 3:29 PM Patient Status: Outpatient Special Investigator: Mariusz Jain RCDS Exam Type: ECHOCARDIOGRAM COMPLETE Study Info Indications - Dyspnea R06.00 - Dyspnea, unspecified Referring Physician: NATALIE Baird; [id number] BMI: 23.04 kg/m2 Summary 1. Left ventricular [...] mmHg MV VTI 44 cm MV Decel [place] 353 cm/s2 MV PHT 83 ms MV Area (PHT) 2.6 cm2 4.0-5.0 MV Regurgitation Doppler MR (more content not included)... [facility] Comment on above: Order Comment: Rolando SMITH present on cath. 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 Recommendations: Send to [facility] for Cardiothoracic surgery consult for CABG for [...] Ao: 100/60 mmHg Outflow tract: 100/10 mmhg Dellroy: 220/10 mmHg %. Normal [facility] CBC AUTO DIFFon 12-26-2021 BASO # 0.0 103/ul Normal 0.0-0.1 [facility] Comment on above: Performed By: #### C BC #### [facility] [address] [place] [address] Dr. Mel Raimrez Basophils/100 WBC (Bld) 0.5 % Normal 0.2-2.0 [facility] Comment on above: Performed By: #### C BC #### [facility] [address] [place] [address] Dr. Mel Ramirez EO # 0.1 103/ul Normal 0.0-0.7 [facility] Comment on above: Performed By: #### C BC #### [facility] [address] [place] [address] Dr. Mel Ramirez Eosinophils/100 WBC (Bld) 1.0 % Normal 0.9-7.0 [facility] Comment on above: Performed By: #### C BC #### [facility] [address] [place] [address] Dr. Mel Ramirez Erythrocyte distribution width (RBC) [Ratio] 13.0 % Normal 11.0-15.0 [facility] Comment on above: Performed By: #### C BC #### [facility] [address] [place] [address] Dr. Mel Ramirez Hematocrit (Bld) [Volume fraction] 43.5 % Normal 42.0-54.0 [facility] Comment on above: Performed By: #### C BC #### [facility] [address] [place] [address] Dr. Mel Ramirez Hemoglobin (Bld) [Mass/Vol] 14.6 g/dL Normal 14.0-18.0 [facility] Comment on above: Performed By: #### C BC #### [facility] [address] [place] [address] Dr. Mel Ramirez IG # 0.01 10e3/ul Normal 0.00-0.03 [facility] Comment on above: Performed By: #### C BC #### [facility] [address] [place] [address] Dr. Mel Ramirez IG % 0.2 % Normal 0.0-0.5 [facility] Comment on above: Performed By: #### C BC #### [facility] [address] [place] [address] Dr. Mel Ramirez LYMPH # 1.4 103/ul Normal 1.2-3.8 [facility] Comment on above: Performed By: #### C BC #### [facility] [address] [place] [address] Dr. Mel Ramirez Lymphocytes/100 WBC (Bld) 24.4 % Normal 20.5-60.0 [facility] Comment on above: Performed By: #### C BC #### [facility] [address] [place] [address] Dr. Mel Ramirez MANUAL DIFF REQ NO Normal [facility] Comment on above: Performed By: #### C BC #### [facility] [address] [place] [address] Dr. Mel Ramirez MCH (RBC) [Entitic mass] 29.3 pg Normal 25.9-34.0 [facility] Comment on above: Performed By: #### C BC #### [facility] [address] [place] [address] Dr. Mel Ramirez MCHC (RBC) [Mass/Vol] 33.6 g/dL Normal 29.9-35.2 [facility] Comment on above: Performed By: #### C BC #### [facility] [address] [place] [address] Dr. Mel Ramirez MCV (RBC) [Entitic vol] 87.3 fL Normal 80.0-94.0 [facility] Comment on above: Performed By: #### C BC #### [facility] [address] [place] [address] Dr. Mel Ramirez MONO # 0.5 103/ul Normal 0.3-0.8 [facility] Comment on above: Performed By: #### C BC #### [facility] [address] [place] [address] Dr. Mel Ramirez Monocytes/100 WBC (Bld) 7.7 % Normal 1.7-12.0 [facility] Comment on above: Performed By: #### C BC #### [facility] [address] [place] [address] Dr. Mel Ramirez NEUT # 3.9 103/ul Normal 1.4-6.5 [facility] Comment on above: Performed By: #### C BC #### [facility] [address] [place] [address] Dr. Mel Ramirez Neutrophils/100 WBC (Bld) 66.2 % Normal 43.0-75.0 [facility] Comment on above: Performed By: #### C BC #### [facility] [address] [place] [address] Dr. Mel Ramirez Platelet mean volume (Bld) [Entitic vol] 10.3 fL Normal 9.5-13.5 [facility] Comment on above: Performed By: #### C BC #### [facility] [address] [address] [address] Mel Ramirez PLT 197 103/ul Normal 150-450 [facility] Comment on above: Performed By: #### C BC #### [facility] [address] [address] [address] Mel Ramirez RBC 4.98 106/ul Normal 4.70-6.10 [facility] Comment on above: Performed By: #### C BC #### [facility] [address] [address] [address] Mel Ramirez WBC 5.8 103/ul Normal 4.0-11.0 [facility] Comment on above: Performed By: #### C BC #### [facility] [address] [address] [address] Mel Ramirez LIPID PROFILEon 12-26-2021 CHOL-HDL RATIO NORM SEE BELOW Normal [facility] Comment on above: Result Comment: 3.3 - 4.4 LOW RISK 4.4 - 7.1 AVERAGE RISK 7.1 - 11.0 MODERATE RISK >11.0 HIGH RISK Performed By: #### C MP, LIPID ####[facility] [address] [id number]. Mel Ramirez Cholesterol [Mass/Vol] 204 mg/dL Critically high <=200 [facility] Comment on above: Performed By: #### C MP, LIPID ####[facility] [address] [id number]. Mel Ramirez Cholesterol in HDL [Mass/Vol] 65 mg/dL Critically high 40-60 [facility] Comment on above: Performed By: #### C MP, LIPID ####[facility] [address] [id number] Ramirez Cholesterol in LDL [Mass/Vol] 128.8 mg/dL Normal [facility] Comment on above: Performed By: #### C MP, LIPID ####[facility] [address] [id number] Ramirez Cholesterol.total/Ch olesterol in HDL [Mass ratio] 3.1 {ratio} Normal [facility] Comment on above: Performed By: #### C MP, LIPID ####[facility] [address] [id number] Ramirez HDL NORMAL > or = 60 mg/dl - LOW CARDIOVASCULAR RISK <40 mg/dl - HIGH CARDIOVASCULAR RISK Normal [facility] Comment on above: Performed By: #### C MP, LIPID ####[facility] [address] [id number] Ramirez LDL CALC NORMAL SEE BELOW Normal [facility] Comment on above: Result Comment: <100 mg/dl OPTIMAL 100 - 129 mg/dl NEAR OR ABOVE OPTIMAL 130 - 159 mg/dl BORDERLINE HIGH 160 - 189 mg/dl HIGH >190 mg/dl VERY HIGH Performed By: #### C MP, LIPID ####[facility] [address] [id number] Ramirez Triglyceride [Mass/Vol] 51 mg/dL Normal <=150 [facility] Comment on above: Performed By: #### C MP, LIPID ####[facility] [address] [id number] Ramirez VLDL CALC 10.2 mg/dL Normal [facility] Comment on above: Performed By: #### C MP, LIPID ####[facility] [address] [id number]. Mel Ramirez PROF 14(COMP METB)on 022 Albumin [Mass/Vol] 4.3 g/dL Normal 3.4-5.0 [facility] Comment on above: Performed By: #### C MP, LIPID #### [facility] [address] [address] [address] Mel Ramirez Albumin/Globulin [Mass ratio] 1.4 {ratio} Normal [facility] Comment on above: Performed By: #### C MP, LIPID #### [facility] [address] [address] [address] Mel Ramirez ALP [Catalytic activity/Vol] 72 U/L Normal 46-116 [facility] Comment on above: Performed By: #### C MP, LIPID #### [facility] [address] [address] [address] Mel Ramirez ALT [Catalytic activity/Vol] 39 U/L Normal 16-63 [facility] Comment on above: Performed By: #### C MP, LIPID #### [facility] [address] [address] [address] Mel Ramirez Anion gap [Moles/Vol] 8.7 mmol/L Normal [facility] Comment on above: Performed By: #### C MP, LIPID #### [facility] [address] [address] [address] Mel Ramirez AST [Catalytic activity/Vol] 22 U/L Normal 15-37 [facility] Comment on above: Performed By: #### C MP, LIPID #### [facility] [address] [address] [address] Mel Ramirez Bilirubin [Mass/Vol] 0.9 mg/dL Normal 0.2-1.0 [facility] Comment on above: Performed By: #### C MP, LIPID #### [facility] [address] [address] [address] Mel Ramirez Calcium [Mass/Vol] 9.2 mg/dL Normal 8.5-10.1 [facility] Comment on above: Performed By: #### C MP, LIPID #### [facility] [address] [address] [address] Mel Ramirez Chloride [Moles/Vol] 105 mmol/L Normal 98-107 [facility] Comment on above: Performed By: #### C MP, LIPID #### [facility] [address] [address] [address] Mel Ramirez CO2 [Moles/Vol] 32.4 mmol/L Critically high 21.0-32.0 [facility] Comment on above: Performed By: #### C MP, LIPID #### [facility] [address] [address] [address] Mel Ramirez Creatinine [Mass/Vol] 0.83 mg/dL Normal 0.70-1.30 [facility] Comment on above: Performed By: #### C MP, LIPID #### [facility] [address] [address] [address] Mel Ramirez EGFR-AF [place] >60 Normal >=60 [facility] Comment on above: Performed By: #### C MP, LIPID #### [facility] [address] [address] [address] Mel Ramirez EGFR-NON AF [place] >60 Normal >=60 [facility] Comment on above: Performed By: #### C MP, LIPID #### [facility] [address] [address] [address] Mel Ramirez Globulin (S) [Mass/Vol] 3.0 g/dL Normal [facility] Comment on above: Performed By: #### C MP, LIPID #### [facility] [address] [address] [address] Mel Ramirez Glucose [Mass/Vol] 88 mg/dL Normal 74-106 [facility] Comment on above: Performed By: #### C MP, LIPID #### [facility] [address] [address] [address] Mel Ramirez Potassium [Moles/Vol] 4.1 mmol/L Normal 3.5-5.1 [facility] Comment on above: Performed By: #### C MP, LIPID #### [facility] [address] [address] [address] Mel Ramirez Protein [Mass/Vol] 7.3 g/dL Normal 6.4-8.2 [facility] Comment on above: Performed By: #### C MP, LIPID #### [facility] [address] [address] [address] Mel Ramirez Sodium [Moles/Vol] 142 mmol/L Normal 136-145 [facility] Comment on above: Performed By: #### C MP, LIPID #### [facility] [address] [address] [address] Mel Ramirez Urea nitrogen [Mass/Vol] 22.0 mg/dL Critically high 7.0-18.0 [facility] Comment on above: Performed By: #### C MP, LIPID #### [facility] [address] [address] [address] Mel Ramirez Urea nitrogen/Creatinine [Mass ratio] 26.5 mg/mg Normal [facility] Comment on above: Performed By: #### C MP, LIPID #### [facility] [address] [address] [address] Mel Ramirez MR CARDIAC MORPHOLOGY WITH A ND WITHOUT CONTRAST WITH VELOCITY FLOWon 12-13-2021 MR CARDIAC MORPHOLOGY WITH AND WITHOUT CONTRAST WITH VELOCITY FLOW [facility] CMR Report Name: GINO OSORIO : 1960 Scan Date: 2021-12-13 08:26:11 Electronically signed by Romina Watson 11:22:02 VITALS HEIGHT: 68.00 in (172.72 cm) WEIGHT: 159.99 lbs (72.57 kgs) BSA: 1.86 m?? FINAL IMPRESSION Cardiac morphology c/w HCM without significant LVOT obstruction and mild eccentric MR with chordal KIRSTIN. Maximal septal thickness of 1.9cm. Mild increased in the extracellular volume in the basal septum with mild patchy hyperenhancement c/w HCM.Additional subendocardial scar/hyperenhancemen t in the apical septum that is c/w small territory prior infarction. SUMMARY Cardiac MRI for evaluation for hypertrophic cardiomyopathy [...] 2.3cm at the PA bifurcation CORE EXAM MEASUREMENTS VOLUMETRIC ANALYSIS ------ . . LV Reference RV Reference +------+ +- -----+ +- -----+ + EDV ml 154 (113-196) 140 (111-210) ml/m?? 83 (62-97) 75 (59-105) ESV ml 32 (29-74) 35 (25-85) ml/m?? 17 (15-37) 19 (13-42) CO L/min 6.22 5.36 L/min/m?? 3.34 2.88 MASS g 205 (107-184) g/m?? 110 (57-91) SV ml 122 (75-131) 105 (72-140) ml/m?? 66 (41-65) 56 (38-70) EF % 79 (58-76) 75 (53-79) '------+ +- -----+ +- -----+ ' CARDIAC OUTPUT HR: 51 BPM LV DIMENSIONS ------ WALL THICKNESS - ANTEROSEPTAL: 1.0 cm WALL THICKNESS - INFEROLATERAL: 1.1 cm WALL THICKNESS - MAXIMUM: 1.9 cm LV CRISTOPHER: 5.8 cm LV ESD: 2.7 cm LA DIMENSIONS (LV SYSTOLE) ------ AREA - 2 CHAMBER: 30 cm?? AREA - 4 CHAMBER: 29 cm?? RA DIMENSIONS (RV SYSTOLE) ------ AREA - 4 CHAMBER: 24 cm?? AORTIC ROOT DIMENSIONS ------ SINUS OF VALSALVA: 3.5 cm SINOTUBULAR JUNCTION: 2.7 cm EXTRACELLULAR VOLUME MEASUREMENT ------ PRE-CONTRAST T1 MYOCARDIUM: 1029 msec PRE-CONTRAST T1 LV CAVITY: 1514 msec POST-CONTRAST T1 MYOCARDIUM: 491 msec POST-CONTRAST T1 LV CAVITY: 350 msec HEMATOCRIT: 43 % HEMATOCRIT DATE: 2021-12-13 00:00:00 ECV: 28 % IRON QUANTIFICATION ------ MYOCARDIAL T2*: 33 msec LIVER T2*: 48 msec 17 SEGMENT . (more content not included)... Normal [facility] Comment on above: Order Comment: Injur y/Trauma or Illness?:Illness/Other How long have you had these symptoms (acute/chronic)?:Chronic Reason for exam?:Heart murmur since childhood [facility] TO READ Type of Exam?:Initial Additional signs and symptoms?:n CARDIAC STRESS TESTon 2021 [place] [address] CARDIAC STRESS TEST PATIENT NAME: GINO OSORIO : 1960 MED REC NO: [id number] ROOM: ACCOUNT NO: [id number] ADMIT DATE: 11/13/2021 PROVIDER: Hari Estrada DATE [...] Myoview to follow. HARI ESTRADA [email or web address] Doc#: [id number] CC: Rudy Thomas Normal [facility] [place] [address] CARDIAC STRESS TEST PATIENT NAME: GINO OSORIO : 1960 MED REC NO: [id number] ROOM: ACCOUNT NO: [id number] ADMIT DATE: 11/13/2021 PROVIDER: Dimitry Romero MD [...] on 11/13/21 at 1405. DIMITRY ROMERO MD SOPHIA/ALIYA_EDIT Doc#: Unknown CC: Rudy Thomas Normal [facility] NM MYOCARDIAL SPECT REST EXE RCISE OR RXon 11-13-2021 NM MYOCARDIAL SPECT REST EXERCISE OR RX Radiology exam is complete. No Radiologist dictation. Please follow up with ordering provider. Final result Normal [facility] No Panel Informationon 11-13 Radiology exam is complete. No Radiologist dictation. Please follow up with ordering provider. [facility] RIS CONSOLIDATED STRESS TEST REPORTon 022 Dimitry Romero MD - 11/13/2021 3:01 [place] [address] CARDIAC STRESS TEST PATIENT NAME: GINO OSORIO : 1960 MED REC NO: [id number] ROOM: ACCOUNT NO: [id number] ADMIT DATE: 11/13/2021 PROVIDER: Dimitry Romero MD [...] MD SOPHIA/ALIYA_ION Doc#: Unknown CC: Rudy Thomas [facility] Work Phone: [facility] Work Phone: XR CHEST 2 Von 10-10-2021 XR CHEST 2 V EXAMINATION: XR CHEST 2 V HISTORY: Essential hypertension , heart [...] REA NEGRETE Date: 2021-10-10 07:42 Normal [facility] CBC AUTO DIFFon 10-09-2021 BASO # 0.0 103/ul Normal 0.0-0.1 [facility] Comment on above: Performed By: #### C BC #### [facility] [address] [address] [address] Mel Ramirez Basophils/100 WBC (Bld) 0.3 % Normal 0.2-2.0 [facility] Comment on above: Performed By: #### C BC #### [facility] [address] [place] [address] Dr. Mel Ramirez EO # 0.2 103/ul Normal 0.0-0.7 [facility] Comment on above: Performed By: #### C BC #### [facility] [address] [place] [address] Dr. Mel Ramirez Eosinophils/100 WBC (Bld) 2.2 % Normal 0.9-7.0 [facility] Comment on above: Performed By: #### C BC #### [facility] [address] [place] [address] Dr. Mel Ramirez Erythrocyte distribution width (RBC) [Ratio] 13.2 % Normal 11.0-15.0 [facility] Comment on above: Performed By: #### C BC #### [facility] [address] [place] [address] Dr. Mel Ramirez Hematocrit (Bld) [Volume fraction] 46.2 % Normal 42.0-54.0 [facility] Comment on above: Performed By: #### C BC #### [facility] [address] [place] [address] Dr. Mel Ramirez Hemoglobin (Bld) [Mass/Vol] 15.0 g/dL Normal 14.0-18.0 [facility] Comment on above: Performed By: #### C BC #### [facility] [address] [place] [address] Dr. Mel Ramirez IG # 0.02 10e3/ul Normal 0.00-0.03 [facility] Comment on above: Performed By: #### C BC #### [facility] [address] [place] [address] Dr. Mel Ramirez IG % 0.3 % Normal 0.0-0.5 [facility] Comment on above: Performed By: #### C BC #### [facility] [address] [place] [address] Dr. Mel Ramirez LYMPH # 1.2 103/ul Normal 1.2-3.8 [facility] Comment on above: Performed By: #### C BC #### [facility] [address] [place] [address] Dr. Mel Ramirez Lymphocytes/100 WBC (Bld) 18.1 % Critically low 20.5-60.0 [facility] Comment on above: Performed By: #### C BC #### [facility] [address] [place] [address] Dr. Mel Ramirez MANUAL DIFF REQ NO Normal [facility] Comment on above: Performed By: #### C BC #### [facility] [address] [place] [address] Dr. Mel Ramirez MCH (RBC) [Entitic mass] 28.7 pg Normal 25.9-34.0 [facility] Comment on above: Performed By: #### C BC #### [facility] [address] [place] [address] Dr. Mel Ramirez MCHC (RBC) [Mass/Vol] 32.5 g/dL Normal 29.9-35.2 [facility] Comment on above: Performed By: #### C BC #### [facility] [address] [place] [address] Dr. Mel Ramirez MCV (RBC) [Entitic vol] 88.3 fL Normal 80.0-94.0 [facility] Comment on above: Performed By: #### C BC #### [facility] [address] [place] [address] Dr. Mel Ramirez MONO # 0.6 103/ul Normal 0.3-0.8 [facility] Comment on above: Performed By: #### C BC #### [facility] [address] [place] [address] Dr. Mel Ramirez Monocytes/100 WBC (Bld) 8.8 % Normal 1.7-12.0 [facility] Comment on above: Performed By: #### C BC #### [facility] [address] [place] [address] Dr. Mel Ramirez NEUT # 4.8 103/ul Normal 1.4-6.5 [facility] Comment on above: Performed By: #### C BC #### [facility] [address] [address] [address] Mel Ramirez Neutrophils/100 WBC (Bld) 70.3 % Normal 43.0-75.0 [facility] Comment on above: Performed By: #### C BC #### [facility] [address] [place] [address] Dr. Mel Ramirez Platelet mean volume (Bld) [Entitic vol] 9.8 fL Normal 9.5-13.5 [facility] Comment on above: Performed By: #### C BC #### [facility] [address] [place] [address] Dr. Mel Ramirez PLT 209 103/ul Normal 150-450 [facility] Comment on above: Performed By: #### C BC #### [facility] [address] [place] [address] Dr. Mel Ramirez RBC 5.23 106/ul Normal 4.70-6.10 [facility] Comment on above: Performed By: #### C BC #### [facility] [address] [place] [address] Dr. Mel Ramirez WBC 6.8 103/ul Normal 4.0-11.0 [facility] Comment on above: Performed By: #### C BC #### [facility] [address] [place] [address] Dr. Mel Ramirez LIPID PROFILEon 10-09-2021 CHOL-HDL RATIO NORM SEE BELOW Normal [facility] Comment on above: Result Comment: 3.3 - 4.4 LOW RISK 4.4 - 7.1 AVERAGE RISK 7.1 - 11.0 MODERATE RISK >11.0 HIGH RISK Performed By: #### L IPID, TSH, MG, CMP #### [facility] [address] [place] [address] Dr. Mel Ramirez Cholesterol [Mass/Vol] 220 mg/dL Critically high <=200 [facility] Comment on above: Performed By: #### L IPID, TSH, MG, CMP #### [facility] [address] [place] [address] Dr. Mel Ramirez Cholesterol in HDL [Mass/Vol] 77 mg/dL Critically high 40-60 [facility] Comment on above: Performed By: #### L IPID, TSH, MG, CMP #### [facility] [address] [address] [address] Mel Ramirez Cholesterol in LDL [Mass/Vol] 133.4 mg/dL Normal [facility] Comment on above: Performed By: #### L IPID, TSH, MG, CMP #### [facility] [address] [address] [address] Mel Ramirez Cholesterol.total/Ch olesterol in HDL [Mass ratio] 2.9 {ratio} Normal [facility] Comment on above: Performed By: #### L IPID, TSH, MG, CMP #### [facility] [address] [address] [address] Mel Ramirez HDL NORMAL > or = 60 mg/dl - LOW CARDIOVASCULAR RISK <40 mg/dl - HIGH CARDIOVASCULAR RISK Normal [facility] Comment on above: Performed By: #### L IPID, TSH, MG, CMP #### [facility] [address] [address] [address] Mel Ramirez LDL CALC NORMAL SEE BELOW Normal [facility] Comment on above: Result Comment: <100 mg/dl OPTIMAL 100 - 129 mg/dl NEAR OR ABOVE OPTIMAL 130 - 159 mg/dl BORDERLINE HIGH 160 - 189 mg/dl HIGH >190 mg/dl VERY HIGH Performed By: #### L IPID, TSH, MG, CMP #### [facility] [address] [address] [address] Mel Ramirez Triglyceride [Mass/Vol] 48 mg/dL Normal <=150 [facility] Comment on above: Performed By: #### L IPID, TSH, MG, CMP #### [facility] [address] [address] [address] Mel Ramirez VLDL CALC 9.6 mg/dL Normal [facility] Comment on above: Performed By: #### L IPID, TSH, MG, CMP #### [facility] [address] [address] [address] Mel Ramirez MAGNESIUMon 10-09-2021 Magnesium [Mass/Vol] 2.0 mg/dL Normal 1.8-2.4 [facility] Comment on above: Performed By: #### L IPID, TSH, MG, CMP #### [facility] [address] [address] [address] Mel Ramirez PROF 14(COMP METB)on 022 Albumin [Mass/Vol] 4.4 g/dL Normal 3.4-5.0 [facility] Comment on above: Performed By: #### L IPID, TSH, MG, CMP #### [facility] [address] [address] [address] Mel Ramirez Albumin/Globulin [Mass ratio] 1.4 {ratio} Normal [facility] Comment on above: Performed By: #### L IPID, TSH, MG, CMP #### [facility] [address] [place] [address] Dr. Mel Ramirez ALP [Catalytic activity/Vol] 85 U/L Normal 46-116 [facility] Comment on above: Performed By: #### L IPID, TSH, MG, CMP #### [facility] [address] [place] [address] Dr. Mel Ramirez ALT [Catalytic activity/Vol] 260 U/L Critically high 16-63 [facility] Comment on above: Performed By: #### L IPID, TSH, MG, CMP #### [facility] [address] [address] [address] Mel Ramirez Anion gap [Moles/Vol] 12.2 mmol/L Normal [facility] Comment on above: Performed By: #### L IPID, TSH, MG, CMP #### [facility] [address] [address] [address] Mel Ramirez AST [Catalytic activity/Vol] 307 U/L Critically high 15-37 [facility] Comment on above: Performed By: #### L IPID, TSH, MG, CMP #### [facility] [address] [place] [address] Dr. Mel Ramirez Bilirubin [Mass/Vol] 0.7 mg/dL Normal 0.2-1.0 [facility] Comment on above: Performed By: #### L IPID, TSH, MG, CMP #### [facility] [address] [place] [address] Dr. Mel Ramirez Calcium [Mass/Vol] 9.0 mg/dL Normal 8.5-10.1 [facility] Comment on above: Performed By: #### L IPID, TSH, MG, CMP #### [facility] [address] [place] [address] Dr. Mel Ramirez Chloride [Moles/Vol] 103 mmol/L Normal 98-107 [facility] Comment on above: Performed By: #### L IPID, TSH, MG, CMP #### [facility] [address] [place] [address] Dr. Mel Ramirez CO2 [Moles/Vol] 28.4 mmol/L Normal 21.0-32.0 [facility] Comment on above: Performed By: #### L IPID, TSH, MG, CMP #### [facility] [address] [place] [address] Dr. Mel Ramirez Creatinine [Mass/Vol] 0.76 mg/dL Normal 0.70-1.30 [facility] Comment on above: Performed By: #### L IPID, TSH, MG, CMP #### [facility] [address] [place] [address] Dr. Mel Ramirez EGFR-AF EAST [place]ESE >60 Normal >=60 [facility] Comment on above: Performed By: #### L IPID, TSH, MG, CMP #### [facility] [address] [place] [address] Dr. Mel Ramirez EGFR-NON AF [place] >60 Normal >=60 [facility] Comment on above: Performed By: #### L IPID, TSH, MG, CMP #### [facility] [address] [place] [address] Dr. Mel Ramirez Globulin (S) [Mass/Vol] 3.1 g/dL Normal [facility] Comment on above: Performed By: #### L IPID, TSH, MG, CMP #### [facility] [address] [place] [address] Dr. Mel Ramirez Glucose [Mass/Vol] 90 mg/dL Normal 74-106 [facility] Comment on above: Performed By: #### L IPID, TSH, MG, CMP #### [facility] [address] [place] [address] Dr. Mel Ramirez Potassium [Moles/Vol] 3.6 mmol/L Normal 3.5-5.1 [facility] Comment on above: Performed By: #### L IPID, TSH, MG, CMP #### [facility] [address] [place] [address] Dr. Mel Ramirez Protein [Mass/Vol] 7.5 g/dL Normal 6.4-8.2 [facility] Comment on above: Performed By: #### L IPID, TSH, MG, CMP #### [facility] [address] [place] [address] Dr. Mel Ramirez Sodium [Moles/Vol] 140 mmol/L Normal 136-145 [facility] Comment on above: Performed By: #### L IPID, TSH, MG, CMP #### [facility] [address] [place] [address] Dr. Mel Ramirez Urea nitrogen [Mass/Vol] 19.0 mg/dL Critically high 7.0-18.0 [facility] Comment on above: Performed By: #### L IPID, TSH, MG, CMP #### [facility] [address] [place] [address] Dr. Mel Ramirez Urea nitrogen/Creatinine [Mass ratio] 25.0 mg/mg Normal [facility] Comment on above: Performed By: #### L IPID, TSH, MG, CMP #### [facility] [address] [place] [address] Dr. Mel Ramirez TSHon 10-09-2021 TSH 1.222 uIU/mL Normal 0.358-3.740 [facility] Comment on above: Performed By: #### L IPID, TSH, MG, CMP #### [facility] [address] [address] [address] Mel Ramirez Urinalysis with Microscopico n 09-13-2021 - [facility] Bacteria, UA 1+ Abnormal None [facility] Bilirubin Urine Negative NEGATIVE [facility] Color, UA Yellow Yellow [facility] Epithelial Cells UA 0 TO 2 [facility] Glucose, Ur Negative NEGATIVE [facility] Interpretation and review of laboratory results Abnormal [facility] Ketones Ql (U) Negative NEGATIVE [facility] Leukocyte esterase Test strip Ql (U) Negative NEGATIVE [facility] Mucus, UA 2+ Abnormal None [facility] Nitrite, Urine Negative NEGATIVE [facility] pH, UA 6.0 5 - 9 [facility] Protein, UA Negative NEGATIVE [facility] RBC, UA 0 TO 2 [facility] Specific [place], UA 1.020 1.01 - 1.02 [facility] Turbidity UA Clear Clear [facility] Urine Hgb Negative NEGATIVE [facility] Urobilinogen, Urine Normal Normal [facility] WBC, UA 0 TO 2 [facility] ECHOCARDIO M/2D COMPLETEon 0 09-11-2021 ECHOCARDIO M/2D COMPLETE Patient: GINO OSORIO Exam Date: 09/11/2021 : 1960 Gender:M Ordering : DR RUDY THOMAS . Admission #: [id number] Family : Order #: [id number] CLICK HERE TO VIEW EXAM ECHOCARDIOGRAM REPORT [...] Xie M.D. on 09/11/2021 at 17:14 Normal [facility] Comprehensive Metabolic Pane [facility] 06-29-2021 Albumin [Mass/Vol] 5.0 g/dL Normal 3.6-5.1 [facility] Comment on above: Performed By: #### C LORI HAGER #### [facility] [address], [place] [id number] Albumin/Globulin [Mass ratio] 2.6 {ratio} High 1.0-2.5 [facility] Specialist Comment on above: Performed By: #### C LORI HAGER #### [facility] [address], [place] [id number] ALP [Catalytic activity/Vol] 67 U/L Normal 40-129 [facility] Comment on above: Performed By: #### C LORI HAGER #### [facility] [address], [place] [id number] ALT [Catalytic activity/Vol] 32 U/L Normal 9-46 [facility] Special[facility] Comment on above: Result Comment: 01/25 Female reference range changed. Performed By: #### C MADAN LIPAj #### [facility] [address], [place] [id number] Anion gap [Moles/Vol] 19 mmol/L Normal 12-20 [facility] Comment on above: Result Comment: Effe ctive 03/02/2019 reference range changed. Performed By: #### C MADAN LIPD #### [facility] [address], [place] [id number] AST [Catalytic activity/Vol] 31 U/L Normal 10-40 [facility] Specialist Comment on above: Performed By: #### C MADAN LIPD #### [facility] [address], [place] [id number] Bilirubin [Mass/Vol] 0.95 mg/dL Normal 0.30-1.20 [facility] Comment on above: Performed By: #### C MADAN LIPD #### [facility] [address], [place] [id number] BUN/CREA 31 Ratio High 6-22 [facility] Comment on above: Performed By: #### C MADAN LIPD #### [facility] [address], [place] [id number] Calcium [Mass/Vol] 9.6 mg/dL Normal 8.6-10.2 [facility] Comment on above: Performed By: #### C MADAN LIPD #### [facility] [address], [place] [id number] Chloride [Moles/Vol] 104 mmol/L Normal 98-107 [facility] Comment on above: Performed By: #### C MADAN LIPD #### [facility] [address], [place] [id number] CO2 [Moles/Vol] 21 mmol/L Normal 20-31 [facility] Comment on above: Performed By: #### C MADAN LIPD #### [facility] [address] [facility] [place] [id number] Creatinine [Mass/Vol] 0.7 mg/dL Normal 0.7-1.4 [facility] Comment on above: Performed By: #### C MADAN LIPAj #### [facility] [address], [place] [id number] eGFRAA 145 mL/min/1.73m2 Normal >60 [facility] Specialist Comment on above: Performed By: #### C MADAN, LIPD #### [facility] [address], [place] [id number] eGFRNAA 120 mL/min/1.73m2 Normal >60 [facility] Specialist Comment on above: Performed By: #### C MADAN LIPD #### [facility] [address], [place] [id number] Globulin (S) [Mass/Vol] 1.9 g/dL Normal 1.9-3.7 [facility] Comment on above: Performed By: #### C MADAN LIPD #### [facility] [address], [place] [id number] Glucose [Mass/Vol] 100 mg/dL High 65-99 [facility] Comment on above: Result Comment: For FASTING Glucose --- ADA reference ranges: Normal 65-99 mg/dl Prediabetes 100-125 Diabetes >/= 126 Performed By: #### C MADAN LIPD #### [facility] [address], [place] [id number] Potassium [Moles/Vol] 3.8 mmol/L Normal 3.5-5.5 [facility] Comment on above: Performed By: #### C MADAN LIPD #### [facility] [address], [place] [id number] Protein [Mass/Vol] 6.9 g/dL Normal 6.1-8.1 [facility] Comment on above: Performed By: #### C MADAN LIPD #### [facility] [address], [place] [id number] Sodium [Moles/Vol] 140 mmol/L Normal 135-146 [facility] Comment on above: Performed By: #### C MADAN LIPD #### [facility] [address], [place] [id number] Urea nitrogen [Mass/Vol] 21 mg/dL Normal 7-25 [facility] Comment on above: Performed By: #### C MADAN, LIPD #### [facility] [address], [place] [id number] Lipid Panelon 06-29-2021 Cholesterol [Mass/Vol] 214 mg/dL High 125-200 [facility] Comment on above: Result Comment: Low risk < 200mg/dL Borderline risk 201-239 mg/dl High risk > or equal to 240 Performed By: #### C MADAN, LIPD #### [facility] [address], [place] [id number] Cholesterol in HDL [Mass/Vol] 66 mg/dL Normal >40 [facility] Comment on above: Result Comment: High Cardiovascular Risk HDL <40 mg/dL Low Cardiovascular Risk HDL > or equal to 60 mg/dl Performed By: #### C MADAN, LIPD #### [facility] [address], [place] [id number] Cholesterol in LDL [Mass/Vol] 137 mg/dL Normal [facility] Specialist Comment on above: Result Comment: LDL ATP III CLASSIFICATION LDL less than 100 mg/dl Optimal LDL 100-129 mg/dl Near or above optimal LDL 130-159 Borderline high LDL 160-189 High LDL greater than 189 mg/dl Very High Performed By: #### C MADAN, LIPD #### [facility] [address], [place] [id number] Cholesterol in VLDL [Mass/Vol] 11 mg/dL Normal [facility] Specialist Comment on above: Performed By: #### C MADAN, LIPD #### [facility] [address], [place] [id number] Cholesterol.total/Ch olesterol in HDL [Mass ratio] 3 {ratio} Normal [facility] Specialist Comment on above: Performed By: #### C MADAN, LIPD #### [facility] [address], [place] [id number] Triglyceride [Mass/Vol] 56 mg/dL Normal 30-150 [facility] Valve Fitter Comment on above: Result Comment: TRIG ATPIII CLASSIFICATIONS TRIG less than 150 mg/dl Normal TRIG 150-199 mg/dl Borderline High TRIG 200-500 mg/dl High TRIG greather than 500 mg/dl Very High Performed By: #### C MP, LIPD #### [facility] [address], [place] [id number] PSA SCREEN (MEDICARE)on TPSA 4.520 ng/mL High <4.000 [facility] Valve Fitter Comment on above: Result Comment: PSA Test Method: ECLIA/Mireya e 601 Performed By: #### P SA #### [facility] [address], [place] [id number] Vital Signs Date Time Vital Sign Value Performing Clinician Faci lity 11-27-2023 15:28-0400 Body height 174 cm Rudy Thomas MD Work Phone: [facility] 11-27-2023 15:28-0400 Body mass index (BMI) [Ratio] 26.97 kg/m2 Rudy Thomas MD Work Phone: [facility] 11-27-2023 15:28-0400 Body weight 81.65 kg Rudy Thomas MD Work Phone: [facility] 11-27-2023 15:28-0400 Diastolic blood pressure 76 mm[Hg] Rudy Thomas MD Work Phone: [facility] 11-27-2023 15:28-0400 Heart rate 65 /min Rudy Thomas MD Work Phone: [facility] 11-27-2023 15:28-0400 SaO2% (BldA) [Mass fraction] 98 % Rudy Thomas MD Work Phone: [facility] 11-27-2023 15:28-0400 Systolic blood pressure 130 mm[Hg] Rudy Thomas MD Work Phone: [facility] 03-08-2022 09:23-0500 Body height 175.3 cm Andcookie Hollins APRN.LABORATORY CHIEF Work Phone: [facility] 03-08-2022 09:23-0500 Body temperature 98.71 [degF] Deana Hollins APRN.LABORATORY CHIEF Work Phone: [facility] 03-08-2022 09:23-0500 Body weight 71.31 kg Andegoni Sandalakis INSPECTOR BOILER.LABORATORY CHIEF Work Phone: [facility] 03-08-2022 09:23-0500 Diastolic blood pressure 68 mm[Hg] Andegoni Sandalakis INSPECTOR BOILER.LABORATORY CHIEF Work Phone: [facility] 03-08-2022 09:23-0500 Heart rate 87 /min Andegoni Sandalakis INSPECTOR BOILER.LABORATORY CHIEF Work Phone: [facility] 03-08-2022 09:23-0500 SaO2% (BldA) [Mass fraction] 97 % Andegoni Sandalakis INSPECTOR BOILER.LABORATORY CHIEF Work Phone: [facility] 03-08-2022 09:23-0500 Systolic blood pressure 110 mm[Hg] Andegoni Sandalakis INSPECTOR BOILER.LABORATORY CHIEF Work Phone: [facility] 02-21-2022 08:05-0500 Diastolic blood pressure 89 mm[Hg] Suresh Spivey MD Work Phone: [facility] 02-21-2022 08:05-0500 Systolic blood pressure 152 mm[Hg] Suresh Spivey MD Work Phone: [facility] 02-21-2022 08:03-0500 Body height 175.3 cm Suresh Spivey MD Work Phone: [facility] 02-21-2022 08:03-0500 Body weight 72.58 kg Suresh Spivey MD Work Phone: [facility] 02-21-2022 08:03-0500 Heart rate 60 /min Suresh Spivey MD Work Phone: [facility] 02-21-2022 08:03-0500 SaO2% (BldA) [Mass fraction] 97 % Suresh Spivey MD Work Phone: [facility] Encounters Encounter Date Encounter Type Care Provider Facility Start: 11-27-2023 End: 11-27-2023 Office outpatient visit 15 minutes Rudy Thomas MD Work Phone: [facility] Comment on above: Benign essential hyp ertension (CMS/HCC); Hypertensive nephropathy (CMS/HCC); Sleep arousal disorder; Sleep initiation disorder; Microalbuminuria; Polypharmacy; Situational depression (CMS/HCC) Start: 11-27-2023 End: 11-27-2023 ambulatory RUDY THOMAS Not Available Start: 11-27-2023 End: 11-27-2023 Bamboo flowsheet Rudy Thomas MD Work Phone: [facility] Start: 11-27-2023 End: 11-27-2023 Bamboo flowsheet Rudy Thomas MD Work Phone: [facility] Start: 11-26-2023 End: 11-26-2023 Refill Rudy Thomas MD Work Phone: [facility] Comment on above: Mixed hyperlipidemia (CMS/HCC) Start: 05-30-2023 End: 05-30-2023 ambulatory RUDY THOMAS Not Available Start: 04-19-2023 End: 04-20-2023 ambulatory RUDY THOMAS [facility] Start: 04-02-2023 Clinisync Result Encounter Generic External Data Provider [facility] External Department Unsolicited Start: 04-02-2023 Clinisync Result Encounter Generic External Data Provider [facility] External Department Unsolicited Start: 04-02-2023 End: 04-05-2023 ambulatory [facility] Start: 04-02-2023 End: 04-05-2023 ambulatory BRETT RAMESH [facility] Start: 04-02-2023 End: 04-04-2023 Subsequent hospital visit by physician Mth Mri Scanner [facility] MRI Comment on above: Elevated PSA Start: 06-20-2022 End: 06-21-2022 ambulatory FILI ESTRADA Facility:[facility] Start: 06-19-2022 End: 06-20-[address] RUDY THOMAS . Facility:[facility] Start: 05-31-2022 ambulatory Emilee Patton RN [facility] Start: 04-13-2022 ambulatory FILI ANDRESSAYDA Facility:H 1 Start: 04-11-2022 End: 04-12-2022 [facility] Start: 04-11-2022 End: 04-11-2022 Subsequent hospital visit by physician Rudy Thomas MD Work Phone: [facility] Comment on above: Status post coronary artery bypass graft; Benign essential hypertension; Atrial dilatation; Other hypertrophic cardiomyopathy (HCC); S/P CABG x 3 Start: 04-03-2022 ambulatory Katherine Montero Research Coordinator [facility] Start: 03-16-2022 End: 03-17-[address] RUDY THOMAS . 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 Start: 02-22-2022 ambulatory Destin downing MD Work Phone: Cardiothoracic Comment on above: Patient Education Start: 02-22-2022 Patient encounter status Cheko Charles MD Work Phone: [facility] Start: 02-22-2022 End: 02-22-2022 Preprocedural examination done [facility] Work Phone: Cardiothoracic Start: 02-22-2022 End: 02-22-2022 Admission to same day surgery center Anesthesia Clearance Work Phone: Cardiothoracic Start: 02-22-2022 End: 02-22-2022 Patient encounter procedure Anesthesia Clearance Work Phone: Cardiothoracic Comment on above: Encounter for preope rative anesthesiology assessment for cardiac surgery (Primary Dx) Pre-op exam (Primary Dx) Start: 02-21-2022 End: 02-21-2022 Patient encounter status Destin Charles MD Work Phone: Cardiothoracic Start: 02-21-2022 Telephone encounter Destin Charles MD Work Phone: Cardiothoracic Comment on above: Schedule Surgery (Pr e-op Checklist/) Start: 02-21-2022 End: 02-21-2022 Subsequent hospital visit by physician Ct 2 Main Qb (I-Stat) Radiology Comment on above: Coronary artery dise ase involving salamatof coronary artery of salamatof heart without angina pectoris [I25.10] Start: 02-21-2022 End: 02-21-2022 Patient encounter procedure Suresh Spivey MD Work Phone: Cardiology Comment on above: HOCM (hypertrophic o bstructive cardiomyopathy) (HCC) (Primary Dx) Start: 02-12-2022 Patient encounter status Katelin Saucedo MD Work Phone: Cardiothoracic Start: 02-12-2022 Telephone encounter Jimenez Sanon i, MD Work Phone: Cardiothoracic Comment on above: Schedule Evaluation Start: 01-25-2022 Telephone encounter Jimenez Sanon i, MD Work Phone: Cardiothoracic Comment on above: Insurance Authorizat ion Start: 01-12-2022 End: 01-12-2022 ambulatory [facility] Start: 12-26-2021 End: 12-27-2021 ambulatory FILI [facility] Facility:[facility] Start: 12-13-2021 End: 12-14-2021 ambulatory HARI DWYER [facility] Start: 11-22-2021 End: 11-22-2021 Subsequent hospital visit by physician Rudy Thomas MD Work Phone: [facility] Comment on above: Elevated PSA Start: 11-13-2021 End: 11-16-2021 [facility] Start: 11-13-2021 End: 11-15-2021 Subsequent hospital visit by physician [facility] Stress Rm [facility] Comment on above: Atrial dilatation; Other hypertrophic cardiomyopathy (HCC); Heart murmur Arrived Start: 10-09-2021 End: 10-10-2021 [facility] Start: 09-13-2021 End: 09-13-2021 Subsequent hospital visit by physician Rudy Thomas MD Work Phone: [facility] Comment on above: Nocturia Start: 09-11-2021 End: 09-12-[address] RUDY THOMAS . Facility:[facility]1 Procedures Date Procedure Procedure Detail Performing Clinician Start: 04-02-2023 Mri pelvis w/o & w/contrast material Brett Ramesh PA-C Work Phone: Start: 04-02-2023 MHPT BUN + CREATININE G eneric External Data Provider Start: 08-16-2022 History of coronary artery bypass grafting History of coronary artery bypass graft x 3 Generic Provider Start: 04-11-2022 Comprehensive metabo lic panel Fili Estrada MD Work Phone: Start: 04-11-2022 Lipid panel Fili alfredo MD Work Phone: Start: 04-11-2022 PATIENT FASTING? Fili Estrada MD Work Phone: Start: 03-12-2022 History of coronary artery bypass grafting S/P CABG x 3 Rudy Thomas MD Work Phone: Start: 03-08-2022 Radiologic exam ches t 2 views Destin Charles MD Work Phone: Start: 02-22-2022 Antibody screen Judit Charles MD Work Phone: Start: 02-22-2022 Iadna s aureus ampli fied probe tq Destin Charles MD Work Phone: Start: 02-21-2022 Ct thorax w/o contra st material Jimenez Saucedo MD Work Phone: Start: 11-13-2021 Exercise stress test - endocrine Fili Estrada MD Work Phone: Start: 11-13-2021 STRESS TEST, MYOVIEW Gr ranjit Estrada MD Work Phone: Start: 11-13-2021 STRESS TEST REPORT Dimitry Romero MD Work Phone: Start: 11-13-2021 Myocardial spect mul tiple studies Fili Estrada MD Work Phone: Start: 09-13-2021 Urnls dip stick/tabl et reagent auto microscopy Brett Ramesh PA-C Work Phone: Start: 12-12-2012 Colonoscopy Generic Pr ovider History of coronary artery bypass grafting S/P CABG (coronary artery bypass graft) Andcookie Hollins INSPECTOR BOILER.LABORATORY CHIEF Work Phone: History of coronary artery bypass grafting Status post coronary artery bypass graft Rudy Thomas MD Work Phone: Plan of Treatment Date Care Activity Detail Author Start: 06-29-2026 Lipid panel Lipids [facility] Start: 03-08-2025 DIABETES SCREEN DIABETES SCREEN [facility] Start: 03-03-2025 DIABETES SCREEN DIABETES SCREEN [facility] Start: 02-28-2025 DIABETES SCREEN DIABETES SCREEN [facility] Start: 02-21-2025 DIABETES SCREEN DIABETES SCREEN [facility] Start: 05-21-2024 End: 05-21-2024 Patient encounter procedure 05/21/2024 4:00 PM EDT Office Visit [facility] [address] [place] [address] Rudy Thomas MD [address] [place] [address] (Fax) [facility] Start: 01-30-2024 End: 01-30-2024 Patient encounter procedure 01/30/2024 1:30 PM EST Office Visit [facility] Section Director [address] [place] [id number] Fili Estrada MD [address] [place] [address] 1 yr f/u lab/ekg/cxr [facility] Section Director Comment on above: 1 yr f/u lab/ekg/cxr Start: 11-27-2023 End: 11-27-2023 Patient encounter procedure [facility] Comment on above: Benign essential hyp ertension (CMS/HCC); Hypertensive nephropathy (CMS/HCC); Sleep arousal disorder; Sleep initiation disorder; Microalbuminuria; Polypharmacy; Situational depression (CMS/HCC) Start: 11-20-2023 Prostate specific an tigen measurement Prostate Specific Antigen (PSA) Screening or Monitoring [facility] Start: 10-27-2023 Influenza vaccination Influenza Vacc ine (#1) [facility] Start: 06-20-2023 Lipid panel Lipids [facility] Start: 05-30-2023 End: 05-30-2023 Patient encounter procedure 05/30/2023 4:00 PM EDT Office Visit [facility] [address] [place] [address] Rudy Thomas MD [address] [place] [address] (Fax) [facility] Start: 04-09-2023 End: 04-09-2023 Patient encounter procedure 04/09/2023 2:30 PM EST Office Visit [facility] Part of [address] [place] [phone] Brett Ramesh PA-C [address] [facility] [place] [address] MRI F/U [facility] Comment on above: MRI F/U Start: 12-26-2022 Lipid panel Lipids [facility] Start: 12-12-2022 Screening for malign ant neoplasm of colon [facility] Start: 10-26-2022 Influenza vaccination Influenza Vacc ine (#1) [facility] Start: 10-23-2022 Prostate specific an tigen measurement Prostate Specific Antigen (PSA) Screening or Monitoring [facility] Start: 2022 Respiratory Syncytia l Virus (RSV) or age 60 yrs+ (1 - 1-dose 60+ series) Respiratory Syncytial Virus (RSV) or age 60 yrs+ (1 - 1-dose 60+ series) [facility] Start: 09-25-2022 Influenza vaccination Flu vaccine (# 1) [facility] Start: 07-05-2022 End: 07-05-2022 Patient encounter procedure 07/05/2022 Office Visit Cardiology Fili Estrada MD [address] [place] [id number] [facility] Section Director Start: 05-30-2022 End: 05-30-2022 Patient encounter procedure 05/30/2022 Office Visit Urology [facility] Start: 02-25-2022 DEPRESSION ASSESSMENT DEPRESSION ASS ESSMENT [facility] Start: 02-12-2022 End: 04-14-2022 CBC W Auto Differential panel - Blood CBC + DIFF Lab Routine 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 HOCM (hypertrophic obstructive cardiomyopathy) (HCC) Primary hypertension Hyperlipidemia, unspecified hyperlipidemia type Non-rheumatic mitral regurgitation Encounter for preoperative vascular examination Expected: 02/12/2022, Expires: 04/14/2022 [facility] Work Phone: Comment on above: Expected: 02/12/2022 , Expires: 04/14/2022 Start: 02-12-2022 End: 04-14-2022 Comprehensive metabolic 2000 panel - Serum or Plasma COMP METABOLIC PANEL Lab Routine 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 HOCM (hypertrophic obstructive cardiomyopathy) (HCC) Primary hypertension Hyperlipidemia, unspecified hyperlipidemia type Non-rheumatic mitral regurgitation Encounter for preoperative vascular examination Expected: 02/12/2022, Expires: 04/14/2022 [facility] Work Phone: Comment on above: Expected: 02/12/2022 , Expires: 04/14/2022 Start: 02-12-2022 End: 04-14-2022 Lactate dehydrogenase [Enzymatic activity/volume] in Serum or Plasma LD LACTATE DEHYDRO Lab Routine 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 HOCM (hypertrophic obstructive cardiomyopathy) (HCC) Primary hypertension Hyperlipidemia, unspecified hyperlipidemia type Non-rheumatic mitral regurgitation Encounter for preoperative vascular examination Expected: 02/12/2022, Expires: 04/14/2022 [facility] Work Phone: Comment on above: Expected: 02/12/2022 , Expires: 04/14/2022 Start: 12-20-2021 End: 12-20-2021 Patient encounter procedure 12/20/2021 Office Visit Cardiology Fili Estrada MD [address] [place] [id number] [facility] Section Director Start: 11-29-2021 End: 11-29-2021 Patient encounter procedure 11/29/2021 Office Visit Urology [facility] Start: 11-22-2021 End: 11-22-2021 Patient encounter procedure 11/22/2021 Procedure visit Urology Jennifer Browne MD [address], [address] [place] [address] [facility] Start: 11-01-2021 End: 11-01-2021 Patient encounter procedure 11/01/2021 Office Visit Urology Brett Ramesh PAWinsomeC [address] [facility] [address] [place] [address] [facility] Start: 10-26-2021 Influenza vaccination Flu vaccine (# 1) [facility] Start: 09-25-2021 Influenza vaccination Flu vaccine (# 1) [facility] Start: 2017 PROSTATE CANCER SCRE ENING DISCUSSION PROSTATE CANCER SCREENING DISCUSSION [facility] Start: 2012 Shingles vaccine (1 of 2) Coffman gles vaccine (1 of 2) [facility] Start: 2012 SHINGRIX VACCINE (1 of 2) COFFMAN GRIX VACCINE (1 of 2) [facility] Start: 10-19-2007 COLOGUARD (FIT-DNA) COLOGUARD (FIT-D NA) [facility] Start: 10-19-2007 Colonoscopy COLONOSCOPY [facility] Start: 10-19-2007 COLORECTAL CANCER SCREENING COLORECTAL CANCER SCREENING [facility] Start: 10-19-[address] COLONOGRAPHY [facility] Start: 10-19-2007 FECAL OCCULT BLOOD FECAL OCCULT BLOO D [facility] Start: 10-19-2007 Screening for malign ant neoplasm of colon [facility] Start: 10-19-2007 SIGMOIDOSCOPY SIGMOIDOSCOPY [facility] Start: 2002 Prostate specific an tigen measurement Prostate Specific Antigen (PSA) Screening or Monitoring [facility] Start: 1997 LIPID SCREEN LIPID SCREEN [facility] Start: 1981 DTaP/Tdap/Td vaccine (1 - Tdap) DTaP/Tdap/Td vaccine (1 - Tdap) [facility] Start: 1981 Urine microalbumin profile DTAP,TDAP ,TD (1 - Tdap) [facility] Start: 1980 ANNUAL 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 TEAM 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 ARACELI DISEASE VISIT ANNUAL PCP TEAM CHRONIC DISEASE VISIT [facility] Start: 1980 Hepatitis B surface antibody level LDL CHOLESTEROL [facility] Start: 1980 Hepatitis C screening Hepatitis C sc reen [facility] Start: 1980 HEPATITIS C SCREENING HEPATITIS C SC REENING [facility] Start: 1980 HIV SCREENING HIV SCREENING [facility] Start: 1977 HIV screening HIV screen [facility] [employer] Start: 1974 Depression Monitoring Depression Mon itoring [facility] [employer] Start: 1974 Depression Screen Depression Screen [facility] [employer] Start: 1968 Pneumococcal 0-64 ye ars Vaccine (1 - PCV) Pneumococcal 0-64 years Vaccine (1 - PCV) [facility] Start: 04-20-1963 COVID-19 Vaccine (#1) COVID-19 Vacci ne (#1) [facility] [employer] [facility] Start: 1962 Screening for malign ant neoplasm of colon [facility] End: 03-14-2023 Ct thorax w/o contrast material CT CHEST CARDIAC WO IVCON Radiology Routine 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 HOCM (hypertrophic obstructive cardiomyopathy) (HCC) Primary hypertension Hyperlipidemia, unspecified hyperlipidemia type Non-rheumatic mitral regurgitation Encounter for preoperative vascular examination 1 Occurrences starting 02/12/2022 until 03/14/2023 [facility] Work Phone: Comment on above: 1 Occurrences starti ng 02/12/2022 until 03/14/2023 End: 09-13-2021 Culture, Urine [facility] [employer] Work Phone: Comment on above: 1 Occurrences starti ng 09/13/2021 until 09/13/2021 End: 02-12-2023 ECG COMPLETE ECG COMPLETE ECG Routine 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 HOCM (hypertrophic obstructive cardiomyopathy) (HCC) Primary hypertension Hyperlipidemia, unspecified hyperlipidemia type Non-rheumatic mitral regurgitation Encounter for preoperative vascular examination 1 Occurrences starting 02/12/2022 until 02/12/2023 [facility] Work Phone: Comment on above: 1 Occurrences starti ng 02/12/2022 until 02/12/2023 End: 02-12-2023 Echocardiography ECHO Cardiology Routine 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 HOCM (hypertrophic obstructive cardiomyopathy) (HCC) Primary hypertension Hyperlipidemia, unspecified hyperlipidemia type Non-rheumatic mitral regurgitation Encounter for preoperative vascular examination 1 Occurrences starting 02/12/2022 until 02/12/2023 [facility] Work Phone: Comment on above: 1 Occurrences starti ng 02/12/2022 until 02/12/2023 Exercise stress test study Cardi ac Stress Test Exercise - Treadmill Cardiac Services Routine 11/13/2021 8:45 PM EDT [facility] [employer] Phone: Stress test, myoview Stress test , myoview Cardiac Services Routine Atrial dilatation Other hypertrophic cardiomyopathy (HCC) Heart murmur 11/13/2021 8:45 PM EDT [facility] [employer] Phone: End: 11-22-2021 Surgical Pathology Surgical Pathology Lab Routine Elevated PSA 1 Occurrences starting 11/22/2021 until 11/22/2021 [employer] Phone: Comment on above: 1 Occurrences starti ng 11/22/2021 until 11/22/2021 End: 11-22-2021 SURGICAL PATHOLOGY REPORT SURGICAL PATHOLOGY REPORT Lab Routine Once for 1 Occurrences starting 11/22/2021 until 11/22/2021 [facility] [employer] Phone: Comment on above: Once for 1 Occurrenc es starting 11/22/2021 until 11/22/2021 End: 02-12-2023 US LEG VEIN MAP [facility] US LEG VEIN MAP [facility] Vascular Lab Routine 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 HOCM (hypertrophic obstructive cardiomyopathy) (HCC) Primary hypertension Hyperlipidemia, unspecified hyperlipidemia type Non-rheumatic mitral regurgitation Encounter for preoperative vascular examination 1 Occurrences starting 02/12/2022 until 02/12/2023 [employer] Work Phone: Comment on above: 1 Occurrences starti ng 02/12/2022 until 02/12/2023 End: 02-12-2023 US MAMMARY ARTERY [facility] US MAMMARY ARTERY [facility] Vascular Lab Routine 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 HOCM (hypertrophic obstructive cardiomyopathy) (HCC) Primary hypertension Hyperlipidemia, unspecified hyperlipidemia type Non-rheumatic mitral regurgitation Encounter for preoperative vascular examination 1 Occurrences starting 02/12/2022 until 02/12/2023 [employer] Work Phone: Comment on above: 1 Occurrences starti ng 02/12/2022 until 02/12/2023 End: 02-12-2023 US RADIAL ARTERY MAP [facility] US RADIAL ARTERY MAP [facility] Vascular Lab Routine 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 HOCM (hypertrophic obstructive cardiomyopathy) (HCC) Primary hypertension Hyperlipidemia, unspecified hyperlipidemia type Non-rheumatic mitral regurgitation Encounter for preoperative vascular examination 1 Occurrences starting 02/12/2022 until 02/12/2023 [facility] Work Phone: Comment on above: 1 Occurrences starti ng 02/12/2022 until 02/12/[address] [facility] Immunizations Immunization Date Immunization Notes Care Provider Fa lindy 12-04-2021 influenza, injectabl e, quadrivalent, preservative free Suresh Spivey MD Work Phone: [facility] 12-04-2021 influenza virus vacc ine, unspecified formulation Generic Provider [facility] 01-10-2021 influenza, injectabl e, quadrivalent, preservative free Suresh Spivey MD Work Phone: [facility] 01-19-2019 influenza, injectabl e, quadrivalent, preservative free Suresh Spivey MD Work Phone: [facility] [facility] 01-15-2018 influenza, injectabl e, quadrivalent, preservative free Suresh Spivey MD Work Phone: [facility] 12-21-2015 influenza, injectabl e, quadrivalent, preservative free Suresh Spivey MD Work Phone: [facility] Payers Date Payer Category Payer Unknown [id number] 2022 Private Health Insurance [id number] 2021 Unknown [id number] 1962 Unknown [id number] 2.16.8 40.1.150493.3.579.2.174 1962 Unknown [id number] 2.16.8 40.1.682258.3.579.2.174 1962 Unknown [id number] 2.16.8 40.1.841597.3.579.2.174 1962 Unknown [id number] 2.16.8 40.1.224629.3.579.2.174 1962 Unknown [id number] 2.16.8 40.1.079589.3.579.2.174 1962 Unknown [id number] 2.16.84 0.1.664821.3.579.2.593 1962 Unknown [id number] 2.16.84 0.1.242470.3.579.2.593 1962 Unknown [id number] 2.16.84 0.1.674903.3.579.2.593 1962 Unknown [id number] 2.16.84 0.1.272560.3.579.2.593 1962 Unknown [id number] 2.16.84 0.1.578168.3.579.2.593 1962 Unknown [id number] 2.16.84 0.1.962620.3.579.2.593 1962 Unknown [id number] 2.16.84 0.1.006047.3.579.2.593 1962 Unknown [id number] 2.16. 840.1.849556.3.579.2.903 1962 Unknown [id number] 2.16. 840.1.484017.3.579.2.903 1962 Unknown [id number] 2.16.8 40.1.005125.3.579.2.173 1962 Unknown [id number] 2.16.8 40.1.621170.3.579.2.173 1962 Unknown [id number] 2.16.8 40.1.764414.3.579.2.173 1962 Unknown [id number] 2.16.8 40.1.338594.3.579.2.173 1962 Unknown [id number] 2.16.84 0.1.764848.3.579.2.1259 1962 Unknown [id number] 2.16.84 0.1.986926.3.579.2.1259 1959 Unknown [id number] 1.2.840.014288.1.13.239.2.7.3.862835.315 1959 Unknown [id number] 1.2.840.249378.1.13.239.2.7.3.011111.315 Unknown RYAN LESTER Social History Date Type Detail Facility Start: 09-13-2021 End: 12-06-2022 Tobacco smoking status SDIS Never smoked tobacco [facility] Phone: Start: 09-13-2021 End: 12-06-2022 Tobacco use and exposure Smokeless tobacco non-user [facility] Phone: Start: 09-13-2021 End: 11-27-2023 Alcohol intake Current drinker of alcohol (finding) [facility] Phone: Start: 09-13-2021 End: 05-30-2023 Alcohol intake [facility] Phone: Start: 09-13-2021 History SDOH Alcohol Comment glass of wine every now and then [facility] Phone: Start: 1960 Sex Assigned At Not on file [facility] Phone[facility] Start: 02-21-2022 End: 03-08-2022 Alcohol intake Ex-drinker (finding) [facility] Start: 12-06-2022 End: 05-30-2023 Tobacco use panel [facility] Start: 09-23-2022 Education 21 [facility] Medical Equipment Procedure Code Equipment Code Equipment Original Text Equipment Identifier Dates [employer] Thk1.65mm P tfe 4x.5in Cardiovascular Sterile - [id number] Start: 02-27-2022 Clinical Notes 01-25-2022 to 11-27-2023 Rudy Thomas MD - 11/27/2023 4:00 PM Eloisa Patton RN - 05/31/2022 12:25 PM Milady Montero, Research Coordinator - 04/03/2022 4:15 PM Xochilt Hollins APRN.LABORATORY CHIEF - 03/08/2022 9:30 AM EST Note Date & Type Note Facility 11-27-2023 History of Presen t illness Narrative Images from the original note were not included. Patient ID: Gino Osorio is a 63 y.o. male who presents for: Hypertension Patient is here for follow-up of elevated blood pressure. He is exercising and is adherent to a low-salt diet. Blood pressure is well controlled at home. Cardiac symptoms: none. Patient denies chest pain, dyspnea, fatigue, irregular heart beat, and palpitations. Cardiovascular risk factors: advanced age (older than 55 for men, 65 for women), hypertension, male gender, and microalbuminuria. Use of agents associated with hypertension: none. History of target organ damage: none. Anxiety Patient is here for evaluation of anxiety. He/She has the following anxiety symptoms: none. Onset of symptoms was approximately several years ago. Symptoms have been stable since that time. He/She denies current suicidal and homicidal ideation. Family history significant for no psychiatric illness.Possible organic causes contributing are: none. Previous treatment includes medication Zoloft. He/She complains of the following medication side effects: none. Onset of symptoms has been several years. How many hours of sleep is patient getting on average night: 7 How long does it take patient to get to sleep each night: 20 minutes Does he/she have trouble falling asleep: no Does he/she have trouble maintaining sleep: no Does patient have good sleep hygiene: yes Review of Systems Constitutional: Negative for activity change and fatigue. Respiratory: Negative for cough, shortness of breath and wheezing. Cardiovascular: Negative for chest pain, palpitations and leg swelling. Neurological: Negative for light-headedness and headaches. Objective The patient is pleasant and in no acute distress. The neck is supple and trachea is midline. No masses are appreciated. The heart is regular rate and rhythm without S3, S4. No murmur. The patient has normal respiratory pattern. The breath sounds are symmetrical without evidence of rhonchi or rales. No wheezing. The skin is warm and dry. The lower extremities have trace edema. The patient has good eye contact and speech is clear. Appropriate affect. Visit Vitals BP 130/76 Pulse 65 Ht 5' 8.5 Wt 180 lb SpO2 98% BMI 26.97 kg/m Smoking Status Never BSA 1.99 m No Known Allergies Current Outpatient Medications on File Prior to Visit Medication Sig Dispense Refill ascorbic acid (Vitamin C) 500 MG chewable tablet 1 (one) time each day at the same time. aspirin 81 MG EC tablet Take 81 mg by mouth in the morning. atorvastatin (Lipitor) 80 MG tablet Take 1 tablet (80 mg) by mouth Daily 90 tablet 1 cholecalciferol (Vitamin D-3) 125 MCG (5000 UT) tablet Take 5,000 Units by mouth Daily Summer dose cholecalciferol 250 MCG (33563 UT) tablet Take 10,000 Units by mouth Daily Winter Dose co-enzyme Q-10 30 MG capsule Take 30 mg by mouth Daily glucosamine-chondroitin 500-400 MG tablet Take 1 tablet by mouth Daily losartan (Cozaar) 100 MG tablet Take 1 tablet (100 mg) by mouth Daily 90 tablet 1 magnesium 250 MG tablet Take 1 tablet by mouth in the morning. Melatonin 12 MG tablet Take 1 tablet by mouth at bedtime metoprolol succinate XL (Toprol-XL) 50 MG 24 hr tablet 2 tablets in AM and 1 tablet in PM 270 tablet 1 [employer] Natural Products (PROSTATE HEALTH PO) Take 2 tablets by mouth Daily Multiple Vitamin (Multi-Vitamin) tablet Take 1 tablet by mouth daily at bedtime. niacin 500 MG tablet Take 500 mg by mouth in the morning. Take with meals. Percy-3 Fatty Acids (FISH OIL PO) Take 1 capsule by mouth Daily QUEtiapine (SEROquel) 25 MG tablet Take 1 tablet (25 mg) by mouth at bedtime 90 tablet 1 saw palmetto (Serenoa repens) 500 MG capsule Take 3 capsules by mouth Daily sertraline (Zoloft) 50 MG tablet Take 1 tablet (50 mg) by mouth Daily 90 tablet 1 tamsulosin (Flomax) 0.4 MG 24 hr capsule Take 0.4 mg by mouth daily at bedtime No current facility-administered medications on file prior to visit. 1. Benign essential hypertension (CMS/HCC) Chronic problem, stable, to goal patients specifically notes he does not need refills today. Encouraged continued exercise. 2. Hypertensive nephropathy (CMS/HCC) Chronic problem we will monitor longitudinally. 3. Sleep arousal disorder Chronic problem that is significantly improved with the Seroquel . 4. Sleep initiation disorder In prescribing a renewal to their current medication, consideration of the following encompasses moderate decision making; the current prescriptions and supplements, the current allergies and medication intolerances, current medical conditions, and potential drug interactions. Any changes to risks, benefits, and reason for renewing their current medication due to the above were discussed. The patient was given a chance to ask questions today and all questions were answered. The patient is to contact us if any other questions arise or if any problems occur. (Utilizing the original 1994/1996 guidelines or the 2020 office/outpatient code guidelines for selecting the level of E/M service, In both sets of guidelines, prescription drug management appears in the moderate medical decision making (MDM) row. Neither the original guidelines nor the new guidelines state that a new prescription or change is needed in order to credit prescription drug management) - QUEtiapine (SEROquel) 25 MG tablet; Take 1 tablet (25 mg) by mouth at bedtime Dispense: 90 tablet; Refill: 1 5. Microalbuminuria 6. Polypharmacy Chronic problem The patient meets the criteria for polypharmacy; 5 or more prescriptions or multi-morbidity defined as 5 or more diagnoses. Polypharmacy can significantly increase the risk of preventable adverse drug events and negatively impact adherence. Consideration of diverse factors such as clinician agreement, patient perspective, and de-prescribing, as appropriate can improve patient outcomes while simplifying care. This requires longitudinal monitoring as there is at least a moderate risk of morbidity and requires at least a moderate degree of evaluation and management. 7. Situational depression (CMS/HCC) Chronic problem that waxes and wanes. His also has some mental health problems. He is also bit of a self admitted worrier. The Zoloft will cross treat the anxieties. - sertraline (Zoloft) 50 MG tablet; Take 1 tablet (50 mg) by mouth Daily Dispense: 90 tablet; Refill: 1 documented in this encounter [facility] 03-04-2023 Note Patient Outreach (ARIK UMN) GINO OSORIO ([id number]) 1960 M Date Time Provider Department 03/04/23 EMILEE PATTON During your visit today, we recorded the following information about you: Emilee Patton RN 03/04/2023 11:44 AM Signed QOL Call Tracking Documentation Follow-Up Type: Phone Call Call Attempt: 1st Attempt Call Status: Left Message Allergies As of Date: 03/04/2023 (No Known Allergies) Date Reviewed: 03/08/2022 Reviewed by: Megan Pichardo Ma - Fully Assessed Prescriptions as of 03/04/2023 - furosemide (LASIX) 20 mg tablet Take [...] Units by mouth once daily. - glucosam/chond-msm1/C/janiya/bor (MTHJBPKTCLR-ZERSC-FXF COMPLEX ORAL) Take 1 tablet by mouth once daily. - MAGNESIUM ORAL Take 250 mg by mouth once daily. Problem List As Of Date 03/04/2023 Noted Resolved Discharge planning issues [Z02.9] 02/22/2022 Pre-op testing [Z01.818] 02/22/2022 HOCM (hypertrophic obstructive cardiomyopathy) *02/27/2022 CAD (coronary artery disease) [I25.10] 02/27/2022 On mechanically assisted ventilation (HCC) [Z99*02/27/2022 02/28/2022 Hypovolemia [E86.1] 02/27/2022 02/28/2022 Postoperative pain [G89.18] 02/27/2022 Stress hyperglycemia [R73.9] 02/27/2022 Atelectasis [J98.11] 02/28/2022 Hypervolemia [E87.70] 02/28/2022 03/01/2022 Encounter for support and coordination of trans*03/01/2022 Encounter Status:Closed by EMILEE PATTON on 03/04/23 [facility] 03-04-2023 Note HNO ID: [id number] Author: EMILEE PATTON RN Service: ? Author Type: Registered Nurse Type: Progress Notes Filed: 03/04/2023 11:44 Note Text: QOL Call Tracking Documentation Follow-Up Type: Phone Call Call Attempt: 1st Attempt Call Status: Left Message [facility] 05-31-2022 Note HNO ID: [id number] Author: Emilee Patton RN Service: ? Author Type: Registered Nurse Type: Progress Notes Filed: 05/31/2022 12:25 PM Note Text: QOL Call Tracking Documentation Follow-Up Type: Phone Call Call Attempt: 1st Attempt Call Status: Left Message [facility] 05-31-2022 Note Patient Outreach (ARIK YON) GINO OSORIO ([id number]) 1960 M Date Time Provider Department 05/31/22 [...] Units by mouth once daily. - glucosam/chond-msm1/C/janiya/bor (DPNORIDOTKX-BHDYD-[place] COMPLEX ORAL) Take 1 tablet by mouth [...] Encounter Status:Closed by EMILEE PATTON on 05/31/22 [facility] 05-31-2022 History of Presen t illness Narrative QOL Call Tracking Documentation Follow-Up Type: Phone Call Call Attempt: 1st Attempt Call Status: Left Message documented in this encounter [facility] 04-03-2022 Note HNO ID: [id number] Author: Katherine Montero Research Coordinator Service: ? Author Type: Research Type: Progress Notes Filed: 04/03/2022 4:15 PM Note Text: QOL Call Tracking Documentation Follow-Up Type: Phone Call Call Attempt: 1st Attempt Call Status: Patient will complete in [employer] [facility] 04-03-2022 History of Presen t illness Narrative QOL Call Tracking Documentation Follow-Up Type: Phone Call Call Attempt: 1st Attempt Call Status: Patient will complete in [employer] documented in this encounter [facility] 04-03-2022 Note Patient Outreach (ARIK UMN) GINO OSORIO ([id number]) 1960 M Date Time Provider Department 04/03/22 KATHERINE MONTERO During your visit today, we recorded the following information about you: Katherine Christine Research Coordinator 04/03/2022 4:15 PM Signed QOL Call Tracking Documentation Follow-Up Type: Phone Call Call Attempt: 1st Attempt Call Status: Patient will complete in [employer] Allergies As of Date: 04/03/2022 (No Known [...] Units by mouth once daily. - glucosam/chond-msm1/C/janiya/bor (GUUARPXVDCX-VGDPO-BAX COMPLEX ORAL) Take 1 tablet by mouth [...] Encounter Status:Closed by KATHERINE MONTERO on 04/03/22 [facility] 03-09-2022 Miscellaneous Notes 1. We are calling to check on how you are doing since our last phone call. Are you having any medical concerns we can help you with today? (Standard Question) No Pt stated no. Overall Comments: All clear. Closing statement given. PD nurse confirmed/verified patient's and full name. Michele Miguel RN documented in this encounter [facility] 03-08-2022 Note HNO ID: [id number] Author: Deana Hollins APRN.LABORATORY CHIEF Service: ? Author Type: Nurse Practitioner Type: Progress Notes Filed: 03/09/2022 10:12 AM Note Text: [facility] Department of Cardiovascular Medicine DEPARTMENT [...] 10,000 Units by mouth once daily. glucosam/chond-msm1/C/janiya/bor (GJVLCSFFCVY-HHPVZ-AOA COMPLEX ORAL) Take 1 tablet by mouth [...] clean, dry and intact Wound: NA SV [place] sites: Location: Right LE, mid and healing [...] (L) 0.75 Sodium (more content not included)... [facility] 03-08-2022 Note HNO ID: [id number] Author: Emilee Robins RT(R) Service: Radiology Author Type: Technologist Type: Progress [...] PERIPHERAL IV DATA: Not applicable SIGNED BY: Emilee Robins RT(R) March 08, 2022 8:28 AM [facility] 03-08-2022 History of Presen t illness Narrative Images from the original note were not included. [facility] Department of Cardiovascular Medicine DEPARTMENT [...] 10,000 Units by mouth once daily. glucosam/chond-msm1/C/janiya/bor (WPBEZSHPICT-NWTBT-OMW COMPLEX ORAL) Take 1 tablet by mouth [...] clean, dry and intact Wound: NA SV [place] sites: Location: Right LE, mid and healing [...] repeat cbc and cmp Follow up with parking patroller in 4-6 weeks. Call CTS [facility] with [...] Deana Hollins APRN.CNP documented in this encounter [facility] 03-08-2022 History of Presen t illness [...] 2022 8:28 AM documented in this encounter [facility] 03-05-2022 Miscellaneous Notes 1. Have you [...] Michele Miguel RN documented in this encounter [facility] 02-28-2022 History of Past i llness Narrative [...] of this encounter (statuses as of 03/05/2022) [facility]01-04-2023 History of Past illness Narrative* Problem [...] of this encounter (statuses as of 03/09/2022) [facility]01[facility]04[facility] History of Past illness Narrative* Problem [...] of this encounter (statuses as of 03/09/2022) [facility]01-04[facility] History of Past illness Narrative* Problem [...] of this encounter (statuses as of 03/09/2022) [facility]01[facility]04[facility] History of Past illness Narrative* Problem [...] of this encounter (statuses as of 04/04/2022) [facility] History of Past illness Narrative* Problem [...] of this encounter (statuses as of 05/31/2022) [facility]01-03-20[facility] History of Past illness Narrative* Problem Noted Date Resolved Date On mechanically assisted ventilation 02/27/2022 02/28/2022 Overview: History: Postoperative Assessment: Grade I Airway Plan: Plan to wean to extubate as tolerated. Hypovolemia 02/27/2022 02/28/2022 Overview: Assessment: Postoperative fluid shifts. Plan: Providing IVF boluses PRN. documented as of this encounter (statuses as of 03/01/2022) [facility]01-03-2023 History of Present illness Narrative* Destin Charles MD - 02/27/2022 7:39 AM EST Images from the original note were not included. Thoracic and Cardiovascular Surgery [facility] SURGICAL CONSULT AND INFORMED CONSENT CHART COPY DO NOT DISCARD Patient Type: New Visit to determine Surgery: Yes PCP: Rudy Thomas MD [address] [place] [address] Referring Physician:: No referring provider defined for this encounter. HPI: Mr. Gino Osorio is a 61 year old male seen in consultation at the request of for an opinion regarding treatment options for Coronary Artery Disease and Hypertrophic Obstructive Cardiomyopathy after being seen and evaluated by Thierno Spivey M.D. . He is currently symptomatic and [...] record Destin Charles MD documented [facility] History of Present illness Narrative* Andrew Arizmendi [...] 10,000 Units by mouth once daily. glucosam/chond-msm1/C/janiya/bor (JWVSULEGJGB-NLYED-VPP COMPLEX ORAL) Take 1 tablet by mouth [...] RCA, precluding precise assessment with CT - [place] MATT and RAJNI are normal size vessels without evidence of calcified atherosclerotic changes Library Page: KALYANI Transcribe Date/Time: Feb 21 2022 9:12A Dictated by : KELLEY DWYER MD This examination was interpreted and [...] Anesthetic Plan: general Airway type: ETT Beta Saul Monitoring Plan Post Procedure Analgesic Plan Informed Consent Anesthetic risks, benefits, alternatives, personnel and consent discussed: yes. Patient / Responsible Republican agrees to proceed: yes Patient / Surrogate [...] 10:04 AM Pager/Contact #: documented in this [facility]Hol[facility] History of Present illness Narrative* Marcus Ulloa RN - 02/22/2022 9:34 AM EST AMBULATORY [...] where to check in documented in this [facility]Hol[facility] History of Present illness Narrative* Marcus Ulloa RN - 02/22/2022 8:57 AM EST CHART [...] 10,000 Units by mouth once daily. glucosam/chond-msm1/C/janiya/bor (EJSPFJWJUJH-MFRBO-EPM COMPLEX ORAL) Take 1 tablet by mouth [...] RCA, precluding precise assessment with CT - [place] MATT and RAJNI are normal size vessels without evidence of calcified atherosclerotic changes Library Page: KALYANI Transcribe Date/Time: Feb 21 2022 9:12A Dictated by : KELLEY DWYER MD This examination was interpreted and [...] All questions and concerns adressed. Signature: Marcus Ulloa RN See Cardiology History and Physical dated 02/21/2022 documented in this encounterHol[facility] Miscellaneous Notes* Addendum Note - Donald Akbar RN - 02/21/2022 11:39 AM ESTAddended by: DONALD AKBAR on: 02/21/2022 11:39 AM Modules accepted: Orders, SmartSet * Telephone Encounter - Donald Akbar RN - 02/21/2022 10:58 AM EST Called patient to inform them that Dr. Spivey called Dr. Charles and they reviewed his [...] n/a Valve/TAVR/TEVAR/Myectomy/ascending aorta Dental clearance/Dental Consult at F n/a- ok to proceedwithout per Dr. Charles [...] given to pt addressed documented in this encounterHol[facility] History of Present illness Narrative* RT [...] 21, 2022 9:03 AM documented in this encounterHol[facility] History of Present illness Narrative* Suresh Spivey MD - 02/21/2022 8:15 AM EST Images from the original note were not included. [facility] Department of Cardiovascular Medicine SECTION OF CARDIOVASCULAR IMAGING OUTPATIENT VISIT DATE February 21, 2022 OUTPATIENT VISIT TYPE NEW PRIMARY CARE PHYSICIAN: Rudy Thomas MD [address] [place] [address] REFERRING PHYSICIAN: No referring provider defined for this encounter. CHIEF COMPLAINT: CAD and HOCM HISTORY OF PRESENT ILLNESS/NURSING INTAKE HISTORY: Mr. Osorio is a 61 year old male from [place], [place], presenting today with referral from Dr. 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 [...] Take 10,000 Units by mouth once daily. glucosam/chond-msm1/C/ajniya/bor (JBDTAKSUCEK-ZTKGB-FKO COMPLEX ORAL) Take 1 tablet by mouth [...] is a 61 year old male from [place], [place], presenting today with referral from Dr. 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 I walked up to [facility] and reviewed the schedule and we will [...] check either locally or here at the [facility], whichever is feasible. In an ideal situation, they should follow-up with me at 1 year and PRN. They should have cardiac rehab locally at ~ 7-8 weeks post-operatively. All questions answered. I personally interviewed, confirmed and edited the above information as obtained by others. CONTACT INFORMATION: Suresh Spivey MD, [place], [facility], [place], [facility] Endowed Chair in CV Medicine, accounts payable administrator, [facility] College of medicine Director, Clinical Operations, Director [facility] Center, Bank Teller, [facility] Department of Cardiovascular Medicine, [facility] [place], Desk J1-5, [facility], [address] [place] [address] Office , Office Appointments: [phone] -[phone] extension [phone] documented in this encounterHolmes [facility]12-19-[facility] Miscellaneous Notes* Telephone Encounter - Lauryn Meehan RN - 02/12/2022 3:25 PM EST I am currently out of the office. I will not be checking my message until I return on February 14 at 6:30am. For urgent issues, please contact your surgeon's office. For Dr. Saucedo, pleasecall [phone]. For Dr. Cordoba, please call [phone] Lauryn Meehan RN documented in this encounterHol[facility]12[facility] Miscellaneous Notes* Telephone Encounter - Letty Ayala - 01/25/2022 4:18 PM EST IN * Telephone Encounter - Danii Sahu - 01/25/2022 4:02 PM EST IN VS OUT. THANKS documented in this encounterHolmes County [facility] HospitalEvaluation note* Diagnosis Nocturia documented in this encounter [facility] Work Phone: evaluation note* Diagnosis Atrial dilatation Cardiomegaly Other hypertrophic cardiomyopathy (HCC) Other hypertrophic cardiomyopathy Heart murmur Undiagnosed cardiac murmurs documented in this encounter [facility] [employer] Phone: evaluation note* Diagnosis Elevated PSA Elevated prostate specific antigen (PSA) documented in this encounter [facility] [employer] Phone: evaluation note* Diagnosis 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- Primary HOCM (hypertrophic obstructive cardiomyopathy) (HCC) Hypertrophic obstructive cardiomyopathy Primary hypertension Unspecified essential hypertension Hyperlipidemia, unspecified hyperlipidemia type Non-rheumatic mitral regurgitation Mitral valve disorders Encounter for preoperative vascular examination Other specified pre-operative examination [facility] Diagnosis HOCM (hypertrophic obstructive cardiomyopathy) (HCC)- Primary Hypertrophic obstructive cardiomyopathy [facility] Diagnosis HOCM (hypertrophic obstructive cardiomyopathy) (HCC)- Primary Hypertrophic obstructive cardiomyopathy 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) Non-rheumatic mitral regurgitation Mitral valve disorders Primary hypertension Unspecified essential hypertension Hyperlipidemia, unspecified hyperlipidemia type Anxiety and depression Dysthymic disorder SOB (shortness of breath) Shortness of breath Pre-operative cardiovascular examination [facility] Diagnosis 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 HOCM (hypertrophic obstructive cardiomyopathy) (HCC) Hypertrophic obstructive cardiomyopathy Primary hypertension Unspecified essential hypertension Hyperlipidemia, unspecified hyperlipidemia type Non-rheumatic mitral regurgitation Mitral valve disorders Encounter for preoperative vascular examination Other specified pre-operative examination [facility] Diagnosis Encounter for preoperative anesthesiology assessment for cardiac surgery- Primary [facility] Diagnosis Pre-op exam- Primary Preoperative examination, unspecified [facility] Diagnosis HOCM (hypertrophic obstructive cardiomyopathy) (HCC)- Primary Hypertrophic obstructive cardiomyopathy 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 [facility] Diagnosis Surgery follow-up Follow-up examination, following unspecified surgery [facility] Diagnosis S/P CABG (coronary artery bypass graft)- Primary Postsurgical aortocoronary bypass status S/P ventricular septal myectomy Other postprocedural status HOCM (hypertrophic obstructive cardiomyopathy) (HCC) Hypertrophic obstructive cardiomyopathy [facility] Diagnosis Status post coronary artery bypass graft Postsurgical aortocoronary bypass status Benign essential hypertension Essential hypertension, benign Atrial dilatation Cardiomegaly Other hypertrophic cardiomyopathy (HCC) Other hypertrophic cardiomyopathy S/P CABG x 3 Postsurgical aortocoronary bypass status [facility] Work Phone: evaluation note* Diagnosis Elevated PSA Elevated prostate specific antigen (PSA) [facility]ITALSpark[facility]* Diagnosis Mixed hyperlipidemia (CMS/HCC) Mixed hyperlipidemia Benign essential hypertension (CMS/HCC) Essential hypertension, benign Hypertensive nephropathy (CMS/HCC) 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, or unspecified Sleep arousal disorder Sleep initiation disorder Microalbuminuria Proteinuria Polypharmacy Issue of repeat prescriptions Situational depression (CMS/HCC) [facility] Diagnosis Benign essential hypertension (CMS/HCC) Essential hypertension, benign Hypertensive nephropathy (CMS/HCC) 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, or unspecified Sleep arousal disorder Sleep initiation disorder Microalbuminuria Proteinuria Polypharmacy Issue of repeat prescriptions Situational depression (CMS/HCC) [facility] ([facility]ative[facility] Outpatient Procedure (Routine) - Pending Review Specialty Diagnoses / Procedures Referred By Shiva t Referred To [facility] Diagnoses 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 HOCM (hypertrophic obstructive cardiomyopathy) (HCC) Primary hypertension Hyperlipidemia, unspecified hyperlipidemia type Non-rheumatic mitral regurgitation Encounter for preoperative vascular examination Procedures US RADIAL ARTERY MAP TIMO VAS LAB DUP-SCAN UXTR ART/ARTL BPGS COMPL BI STUDY Jimenez Saucedo MD [address] [place] [address] [facility] [address] [address] [place] [address] Referral ID Status Reason Start Date Expiration Date Visits Requested Visits Authorized [id number] Pending Review Auto-Generat ed Referral 2 02/12/2023 1 1 * Outpatient Procedure (Routine) - Pending Review Specialty Diagnoses / Procedures Referred By Contac t Referred To [facility] [place] Diagnoses 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 HOCM (hypertrophic obstructive cardiomyopathy) (HCC) Primary hypertension Hyperlipidemia, unspecified hyperlipidemia type Non-rheumatic mitral regurgitation Encounter for preoperative vascular examination Procedures US MAMMARY ARTERY TIMO VAS LAB DUP-SCAN UXTR ART/ARTL BPGS COMPL BI STUDY Jimenez Saucedo MD [address] [place] [address] [address] Referral ID Status Reason Start Date Expiration Date Visits Requested Visits Authorized [id number] Pending Review Auto-Generat ed Referral 2 02/12/2023 1 1 * Outpatient Procedure (Routine) - Pending Review Specialty Diagnoses / Procedures Referred By Contac t Referred [facility] Diagnoses 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 HOCM (hypertrophic obstructive cardiomyopathy) (HCC) Primary hypertension Hyperlipidemia, unspecified hyperlipidemia type Non-rheumatic mitral regurgitation Encounter for preoperative vascular examination Procedures US LEG VEIN MAP TIMO VAS LAB DUP-SCAN XTR VEINS COMPLETE BILATERAL STUDY Jimenez Saucedo MD [address] [place] [address] [address] Referral ID Status Reason Start Date Expiration Date Visits Requested Visits Authorized [id number] Pending Review Auto-Generat ed Referral 2 02/12/2023 1 1 * Outpatient Procedure (Routine) - Pending Review Specialty Diagnoses / Procedures Referred By Contac t Referred To [facility] [place] Diagnoses 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 HOCM (hypertrophic obstructive cardiomyopathy) (HCC) Primary hypertension Hyperlipidemia, unspecified hyperlipidemia type Non-rheumatic mitral regurgitation Encounter for preoperative vascular examination Procedures ECHO ECHO TTHRC R-T 2D W/WOM-MODE COMPL SPEC&COLR D Jimenez Saucedo MD [address] [place] [address] [facility] [address] [place] [address] Referral ID Status Reason Start Date Expiration Date Visits Requested Visits Authorized [id number] Pending Review Auto-Generat ed Referral 2 02/12/2023 1 1 * MRI/CT (Routine) - Pending Review Specialty Diagnoses / Procedures Referred By Contac t Referred To Contact CT IMAGING Diagnoses 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 HOCM (hypertrophic obstructive cardiomyopathy) (HCC) Primary hypertension Hyperlipidemia, unspecified hyperlipidemia type Non-rheumatic mitral regurgitation Encounter for preoperative vascular examination Procedures CT CHEST CARDIAC WO IVCON DIAGNOSTIC COMPUTED TOMOGRAPHY THORAX W/O CNTRST Jimenez Saucedo MD [address] [facility] [place] [address] Ct Imaging Referral ID Status Reason Start Date Expiration Date Visits Requested Visits Authorized [id number] Pending Review Auto-Generat ed Referral 2 03/14/2023 1 1 * Outpatient Procedure (Routine) - Pending Review Specialty Diagnoses / Procedures Referred By Contac t Referred To Contact [facility] Diagnoses 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 HOCM (hypertrophic obstructive cardiomyopathy) (HCC) Primary hypertension Hyperlipidemia, unspecified hyperlipidemia type Non-rheumatic mitral regurgitation Encounter for preoperative vascular examination Procedures ECG COMPLETE ECG ROUTINE ECG W/LEAST 12 LDS W/I&R Jimenez Saucedo MD [address] [place] [address] [facility] [address] [address] Referral ID Status Reason Start Date Expiration Date Visits Requested Visits Authorized [id number] Pending Review Auto-Generat ed Referral 2 02/12/2023 1 1 * Consult, Test, Treat (Routine) - Authorized Specialty Diagnoses / Procedures Referred By Contac t Referred To Contact Cardiac Surg Diagnoses 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 HOCM (hypertrophic obstructive cardiomyopathy) (HCC) Primary hypertension Hyperlipidemia, unspecified hyperlipidemia type Non-rheumatic mitral regurgitation Encounter for preoperative vascular examination Procedures CARDIOTHORACIC PREOP EVALUATION OFFICE/OUTPATIENT [facility] 60-74 MINUTES Jimenez Saucedo MD [address] [id number] Referral ID Status Reason Start Date Expiration Date Visits Requested Visits Authorized [id number] Authorized PCP Requested Referral 2 02/12/2023 1 1 * Consult, Test, Treat (Routine) - Authorized Specialty Diagnoses / Procedures Referred By Contac t Referred To Contact Cardiology Diagnoses 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 HOCM (hypertrophic obstructive cardiomyopathy) (HCC) Primary hypertension Hyperlipidemia, unspecified hyperlipidemia type Non-rheumatic mitral regurgitation Encounter for preoperative vascular examination Procedures CONSULT TO CARDIOLOGY OFFICE/OUTPATIENT [facility] 60-74 MINUTES Jimenez Saucedo MD [address] [id number] Referral ID Status Reason Start Date Expiration Date Visits Requested Visits Authorized [id number] Authorized PCP Requested Referral 2 02/12/2023 1 1 [facility] for referral (narrative)* Outpatient Procedure (Routine) - Closed Specialty Diagnoses / Procedures Referred By Contac t Referred [facility] Diagnoses HOCM (hypertrophic obstructive cardiomyopathy) (HCC) 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) Non-rheumatic mitral regurgitation Primary hypertension Hyperlipidemia, unspecified hyperlipidemia type Anxiety and depression SOB (shortness of breath) Pre-operative cardiovascular examination Procedures US CAROTID ARTERIES TIMO VAS LAB DUPLEX SCAN EXTRACRANIAL ART COMPL BI STUDY Destin Charles MD [address] [id number] [facility] [address] [place] [address] Referral ID Status Reason Start Date Expiration Date V isits Requested Visits Authorized [id number] Closed Auto-Generate d Referral 02/21/2022 02/21/2023 1 1 * Consult, Test, Treat (Routine) - Authorized Specialty Diagnoses / Procedures Referred By Shiva rodriges Referred To Contact Cardiac Surg Diagnoses HOCM (hypertrophic obstructive cardiomyopathy) (HCC) 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) Non-rheumatic mitral regurgitation Primary hypertension Hyperlipidemia, unspecified hyperlipidemia type Anxiety and depression SOB (shortness of breath) Pre-operative cardiovascular examination Procedures CARDIOTHORACIC PREOP EVALUATION OFFICE/OUTPATIENT [facility] 60-74 MINUTES Destin Charles MD [address] [place] [address] Referral ID Status Reason Start Date Expiration Date Visits Requested Visits Authorized [id number] Authorized PCP Requested Referral 02/21/2023 1 1 [facility] Summary Purpose Family History No Family History Records FoundNo Family History Records FoundNo Family History Records FoundNo Family History Records FoundNo Family History Records FoundNo Family History Records FoundNo Family History Records Found Advance Directives Documents on File Type Date Recorded Patient Farrowing Manager Expl anation Advance Directive(s) 02/22/2022 10:36 AM Documents on File Type Date Recorded Patient Farrowing Manager Expl anation Advance Directive(s) 02/22/2022 10:36 AM Documents on File Type Date Recorded Patient Farrowing Manager Expl anation Advance Directives and Living Will 01/03/2022 2022-01-02 Medical Power Of Livestock Caretaker Power of Livestock Caretaker 09/26/2022 7:25 AM 2021-02-08 Healthcare Power Of Livestock Caretaker Reason for Referral Specialty Diagnoses / Procedures Referred By Shiva rodriges Referred To Contact Cardiology Diagnoses Atrial dilatation Other hypertrophic cardiomyopathy (HCC) Heart murmur Procedures Stress test, myoview Fili Estrada MD [address] [place] [address] Referral ID Status Reason Start Date Expiration Date Visits Re quested Visits Authorized [id number] Closed 11/10/2021 12/25/2021 1 1 Specialty Diagnoses / Procedures Referred By Contac t Referred To Contact CT IMAGING Diagnoses 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 HOCM (hypertrophic obstructive cardiomyopathy) (HCC) Primary hypertension Hyperlipidemia, unspecified hyperlipidemia type Non-rheumatic mitral regurgitation Encounter for preoperative vascular examination Procedures CT CHEST CARDIAC WO IVCON DIAGNOSTIC COMPUTED TOMOGRAPHY THORAX W/O CNTRST Jimenez Saucedo MD [address] [place] [address] Ct Imaging Referral ID Status Reason Start Date Expiration Date V isits Requested Visits Authorized [id number] Closed Auto-Generate d Referral 02/12/2022 03/30/2022 1 1 Specialty Diagnoses / Procedures Referred By Contac t Referred To Contact Radiology Diagnoses Elevated PSA R97.20 (ICD-10-CM) - Elevated PSA Procedures MRI PROSTATE W WO CONTRAST CHG MRI PELVIS W/O & W/CONTRAST MATERIAL [id number] - CHG MRI PELVIS W/O & W/CONTRAST MATERIAL Brett Ramesh PA-C [address] [facility] [address] [place] [address] Referral ID Status Reason Start Date Expiration Date Visits Re quested Visits Authorized [id number] Closed 03/08/2023 03/11/2024 1 1 Additional Source Comments (unrecognized sect ion and content) No Status Records FoundNo Status Records FoundNo Status Records FoundNo Status Records FoundNo Status Records FoundNo Status Records FoundNo Status Records Found INFORMATION SOURCE (unrecogn ized section and content) DATE CREATED AUTHOR 07/01/2021 [facility] dical Specialist DATE CREATED AUTHOR AUTHOR'S ORGANIZ ATION 04/12/2022 Tesha ewing DATE CREATED AUTHOR AUTHOR'S ORGANIZ ATION 06/24/2022 [facility] DATE CREATED AUTHOR AUTHOR[facility]S [facility]IZ ATION [facility] DATE CREATED AUTHOR AUTHOR'S ORGANIZ ATION 03/05/2023 [facility] DATE CREATED AUTHOR AUTHOR'S ORGANIZ ATION 04/27/2023 [facility] DATE CREATED AUTHOR AUTHOR'S ORGANIZ ATION 11/29/2023 [facility] dicks Specialists EPIC Care Teams (unrecognized sec tion and content) Colored Liquid Plastic Applier Relationship Specialty Start Date End Date Rudy Thomas MD [address] [place] [address] PCP - General 08/23/21 Colored Liquid Plastic Applier Relationship Specialty Start Date End Date Rudy Thomas MD [address] [place] [address] PCP - General 08/23/21 Colored Liquid Plastic Applier Relationship Specialty Start Date End Date Rudy Thomas MD [address] [place] [address] PCP - General 08/23/21 Colored Liquid Plastic Applier Relationship Specialty Start Date End Date Rudy Thomas MD [address] [place] [address] PCP - General 08/23/21 Colored Liquid Plastic Applier Relationship Specialty Start Date End Date Rudy Thomas MD [address] [facility] [place] [address] PCP - General 08/23/21 Colored Liquid Plastic Applier Relationship Specialty Start Date End Date Rudy Thomas MD [address] [place] [address] PCP - General Family Medicine 01/26/[address] [place] [address] Associate Professor Of Art Cardiology 01/26/22 Colored Liquid Plastic Applier Relationship Specialty Start Date End Date Rudy Thomas MD [address] [place] [address] (Fax) PCP - General Family Medicine 01/26/22 Hari Estrada [address] [place] [address] Associate Professor Of Art Cardiology 01/26/22 Suresh Spivey MD [address] [place] [address] Primary Staff Physician Cardiology 02/21/22 Colored Liquid Plastic Applier Relationship Specialty Start Date End Date Rudy Thomas MD [address] [place] [phone] (Fax) PCP - General Family Medicine 01/26/22 Hari Estrada [address] [place] [address] Associate Professor Of Art Cardiology 01/26/22 Suresh Spivey MD [address] [place] [address] Primary Staff Physician Cardiology 02/21/22 Colored Liquid Plastic Applier Relationship Specialty Start Date End Date Rudy Thomas MD [address] [place] [phone] (Fax) PCP - General Family Medicine 01/26/22 Hari Estrada [address] [place] [address] Associate Professor Of Art Cardiology 01/26/22 Suresh Spivey MD [address] [place] [address] Primary Staff Physician Cardiology 02/21/22 Colored Liquid Plastic Applier Relationship Specialty Start Date End Date Rudy Thomas MD [address] [place] [address] (Fax) PCP - General Family Medicine 01/26/22 Hari Estrada [address] [place] [address] Associate Professor Of Art Cardiology 01/26/22 Suresh Spivey MD [address] [place] [address] Primary Staff Physician Cardiology 02/21/22 Colored Liquid Plastic Applier Relationship Specialty Start Date End Date Rudy Thomas MD [address] [place] [address] (Fax) PCP - General Family Medicine 01/26/22 Hari Estrada [address] [place] [address] Associate Professor Of Art Cardiology 01/26/22 Suresh Spivey MD [address] [place] [address] Primary Staff Physician Cardiology 02/21/22 Colored Liquid Plastic Applier Relationship Specialty Start Date End Date Rudy Thomas MD [address] [place] [address] (Fax) PCP - General Family Medicine 01/26/22 Hari Estrada [address] [place] [address] Associate Professor Of Art Cardiology 01/26/22 Suresh Spivey MD [address] [place] [address] Primary Staff Physician Cardiology 02/21/22 Colored Liquid Plastic Applier Relationship Specialty Start Date End Date Rudy Thomas MD [address] [place] [address] (Fax) PCP - General Family Medicine 01/26/22 Hari Estrada [address] [place] [address] Associate Professor Of Art Cardiology 01/26/22 Suresh Spivey MD [address] [place] [address] Primary Staff Physician Cardiology 02/21/22 Colored Liquid Plastic Applier Relationship Specialty Start Date End Date Rudy Thomas MD [address] [place] [address] (Fax) PCP - General Family Medicine 01/26/22 Hari Estrada [address] [place] [address] Associate Professor Of Art Cardiology 01/26/22 Suresh Spivey MD [address] [place] [address] Primary Staff Physician Cardiology 02/21/22 Colored Liquid Plastic Applier Relationship Specialty Start Date End Date Rudy Thomas MD [address] [place] [address] (Fax) PCP - General Family Medicine 01/26/22 Hari Estrada [address] [place] [address] Associate Professor Of Art Cardiology 01/26/22 Suresh Spivey MD [address] [place] [address] Primary Staff Physician Cardiology 02/21/22 Colored Liquid Plastic Applier Relationship Specialty Start Date End Date Rudy Thomas MD [address] [place] [address] (Fax) PCP - General Family Medicine 01/26/22 aHri Estrada [address] [place] [address] Associate Professor Of Art Cardiology 01/26/22 Suresh Spivey MD [address] [place], [place] [phone] Primary Staff Physician Cardiology 02/21/22 Colored Liquid Plastic Applier Relationship Specialty Start Date End Date Rudy Thomas MD [address] [place] [address] (Fax) PCP - General Family Medicine 01/26/22 Hari Estrada [address] [place] [address] Associate Professor Of Art Cardiology 01/26/22 Suresh Spivey MD [address] [place] [address] Primary Staff Physician Cardiology 02/21/22 Colored Liquid Plastic Applier Relationship Specialty Start Date End Date Rudy Thomas MD [address] [place] [address] PCP - General 08/23/21 Colored Liquid Plastic Applier Relationship Specialty Start Date End Date Rudy Thomas MD [address] [place] [address] (Fax) PCP - General Family Medicine 01/26/22 Hari Estrada [address] [place] [address] Associate Professor Of Art Cardiology 01/26/22 Suresh Spivey MD [address] [place] [address] Primary Staff Physician Cardiology 02/21/22 Colored Liquid Plastic Applier Relationship Specialty Start Date End Date Rudy Thomas MD [address] [place], [place] [phone] PCP - Medical [facility] 07/26/22 Rudy Thomas MD [address] [place] [address] PCP - General Family Medicine 09/19/22 Colored Liquid Plastic Applier Relationship Specialty Start Date End Date Rudy Thomas MD [address] [place] [address] PCP - General 08/23/21 Colored Liquid Plastic Applier Relationship Specialty Start Date End Date Rudy Thomas MD [address] [place] [address] PCP - General Family Medicine 09/19/22 Colored Liquid Plastic Applier Relationship Specialty Start Date End Date Rudy Thomas MD [address] [place] [address] PCP - General Family Medicine 09/19/22 Colored Liquid Plastic Applier Relationship Specialty Start Date End Date Rudy Thomas MD [address] [place] [address] PCP - General Family Medicine 09/19/22 Reason for Visit (unrecogniz ed section and content) Specialty Diagnoses / Procedures Referred By Contac t Referred To Contact Cardiology Diagnoses Atrial dilatation Other hypertrophic cardiomyopathy (HCC) Heart murmur Procedures Stress test, myoview Fili Estrada MD [address] [place] [address] Referral ID Status Reason Start Date Expiration Date Visits Re quested Visits Authorized [id number] Closed 11/10/2021 12/25/2021 1 1 Reason Comments Insurance Authorization Reason Comments Schedule Evaluation Reason Comments Schedule Surgery Pre-op Checklist Reason Comments Radiology CT Specialty Diagnoses / Procedures Referred By Shiva t Referred To Contact CT IMAGING Diagnoses 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 HOCM (hypertrophic obstructive cardiomyopathy) (HCC) Primary hypertension Hyperlipidemia, unspecified hyperlipidemia type Non-rheumatic mitral regurgitation Encounter for preoperative vascular examination Procedures CT CHEST CARDIAC WO IVCON DIAGNOSTIC COMPUTED TOMOGRAPHY THORAX W/O CNTRST Jimenez Saucedo MD [address] [place] [address] Ct Imaging Referral ID Status Reason Start Date Expiration Date V isits Requested Visits Authorized [id number] Closed Auto-Generate d Referral 02/12/2022 03/30/2022 1 1 Reason Comments Patient Education Reason Comments Pre-Op Exam Reason Comments Follow Up Phone Call RC f/u all clear Reason Comments Radio Main J1 Specialty Diagnoses / Procedures Referred By 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) Non-rheumatic mitral regurgitation Primary hypertension Hyperlipidemia, unspecified hyperlipidemia type Anxiety and depression SOB (shortness of breath) Pre-operative cardiovascular examination Procedures VENTRICULOMYOTOMY-MYECTOMY CORONARY ARTERY BYP W/VEIN & ARTERY GRAFT 1 VEIN VENTRICULOMYOTOMY FOR IDEOPATHIC HYPERTROPHIC SUBAORTIC STENOSIS BYPASS GRAFT ARTERY CORONARY ON-PUMP USING VENOUS GRAFT(S) AND ARTERIAL GRAFT(S) SINGLE VEIN GRAFT [facility] [address] [place] [address] Referral ID Status Reason Start Date Expiration Date Visits Re quested Visits Authorized [id number] 1 1 Specialty Diagnoses / Procedures Referred By 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) Non-rheumatic mitral regurgitation Primary hypertension Hyperlipidemia, unspecified hyperlipidemia type Anxiety and depression SOB (shortness of breath) Pre-operative cardiovascular examination Procedures VENTRICULOMYOTOMY-MYECTOMY CORONARY ARTERY BYP W/VEIN & ARTERY GRAFT 1 VEIN VENTRICULOMYOTOMY FOR IDEOPATHIC HYPERTROPHIC SUBAORTIC STENOSIS BYPASS GRAFT ARTERY CORONARY ON-PUMP USING VENOUS GRAFT(S) AND ARTERIAL GRAFT(S) SINGLE VEIN GRAFT [facility] [address] [place] [address] Specialty Diagnoses / Procedures Referred By Shiva t Referred To Contact Radiology Diagnoses Elevated PSA R97.20 (ICD-10-CM) - Elevated PSA Procedures MRI PROSTATE W WO CONTRAST CHG MRI PELVIS W/O & W/CONTRAST MATERIAL 99205 - CHG MRI PELVIS W/O & W/CONTRAST MATERIAL Brett Ramesh PA-C [address] [place] [address] Referral ID Status Reason Start Date Expiration Date Visits Re quested Visits Authorized [id number] Closed 03/08/2023 03/11/2024 1 1 Reason Comments Med Refill Reason Comments Hypertension Anxiety Sleeping Problem Source Comments (unrecognize d section and content) In the event this informatio n is protected by the Federal Confidentiality of Alcohol and Drug Abuse Patient Records regulations: The Federal rules restrict any use of the information to criminally investigate or prosecute any alcohol or drug abuse patient.[facility] the event this information is protected by the Federal Confidentiality of Alcohol and Drug Abuse Patient Records regulations: The Federal rules restrict any use of the information to criminally investigate or prosecute any alcohol or drug abuse patient.[facility] the event this information is protected by the Federal Confidentiality of Alcohol and Drug Abuse Patient Records regulations: The Federal rules restrict any use of the information to criminally investigate or prosecute any alcohol or drug abuse patient.[facility] the event this information is protected by the Federal Confidentiality of Alcohol and Drug Abuse Patient Records regulations: The Federal rules restrict any use of the information to criminally investigate or prosecute any alcohol or drug abuse patient.[facility] the event this information is protected by the Federal Confidentiality of Alcohol and Drug Abuse Patient Records regulations: The Federal rules restrict any use of the information to criminally investigate or prosecute any alcohol or drug abuse patient.[facility] the event this information is protected by the Federal Confidentiality of Alcohol and Drug Abuse Patient Records regulations: The Federal rules restrict any use of the information to criminally investigate or prosecute any alcohol or drug abuse patient.[facility] the event this information is protected by the Federal Confidentiality of Alcohol and Drug Abuse Patient Records regulations: The Federal rules restrict any use of the information to criminally investigate or prosecute any alcohol or drug abuse patient.[facility] the event this information is protected by the Federal Confidentiality of Alcohol and Drug Abuse Patient Records regulations: The Federal rules restrict any use of the information to criminally investigate or prosecute any alcohol or drug abuse patient.[facility] the event this information is protected by the Federal Confidentiality of Alcohol and Drug Abuse Patient Records regulations: The Federal rules restrict any use of the information to criminally investigate or prosecute any alcohol or drug abuse patient.[facility] the event this information is protected by the Federal Confidentiality of Alcohol and Drug Abuse Patient Records regulations: The Federal rules restrict any use of the information to criminally investigate or prosecute any alcohol or drug abuse patient.[facility] the event this information is protected by the Federal Confidentiality of Alcohol and Drug Abuse Patient Records regulations: The Federal rules restrict any use of the information to criminally investigate or prosecute any alcohol or drug abuse patient.[facility] the event this information is protected by the Federal Confidentiality of Alcohol and Drug Abuse Patient Records regulations: The Federal rules restrict any use of the information to criminally investigate or prosecute any alcohol or drug abuse patient.[facility] the event this information is protected by the Federal Confidentiality of Alcohol and Drug Abuse Patient Records regulations: The Federal rules restrict any use of the information to criminally investigate or prosecute any alcohol or drug abuse patient.[facility] Hospital[facility] the event this information is protected by the Federal Confidentiality of Alcohol and Drug Abuse Patient Records regulations: The Federal rules restrict any use of the information to criminally investigate or prosecute any alcohol or drug abuse patient.[facility] Hospital[facility] the event this information is protected by the Federal Confidentiality of Alcohol and Drug Abuse Patient Records regulations: The Federal rules restrict any use of the information to criminally investigate or prosecute any alcohol or drug abuse patient.[facility] FOR RECORDS PERTAINING TO PATIENTS WHO [...] BE BASED ON THE PRIMARY CLINICAL RECORDS. [facility]. provides no warranty or guarantee of the accuracy or completeness of information in this document.
[2023-12-17 16:09] LABS: Prostate Specific Antigen Dx 7.01 ng/mL (<=4.00)
== END 2023-12-17 15:14 | disposition home or self-care (01) ==
LOC: LAB 15:15
PROVIDERS: PCP Family Medicine
DX: R97.20 Elevated prostate specific antigen [PSA] (principal)
CPT/HCPCS: 36415; 84153